=== PATIENT | female | born 1945 | race Caucasian/White ===

== ENCOUNTER → 2016-06-20 | Outpatient (CLI) | payer OTHER ==
[2016-06-20 09:42] LABS: EKG EKG PERFORMED
[2016-06-20 10:09] LABS: Basophils % (A) 0 %; CH 29.1; CHCM 34.3; Eosinophils # (A) 0.4 k/uL (0-0.7); Eosinophils % (A) 5 %; HCT 44.2 % (34.0-46.0); HDW 2.58; HGB 14.2 gm/dL (11.4-16.0); Luc # (Auto) 0.19; Luc % (Auto) 3; Lymphocytes # (A) 1.8 k/uL (1.0-4.8); Lymphocytes % (A) 24 %; MCH 27.3 pg (25.0-35.0); MCHC 32.1 g/dL (31.0-37.0); MCV 85.1 fL (80.0-100.0); Mean Platelet Volume 6.8; Monocytes # (A) 0.4 k/uL (0-1.0); Monocytes % (A) 6 %; Neutrophils # (A) 4.7 k/uL (1.3-7.7); Neutrophils % (A) 63 %; RDW 12.5 % (11.5-15.5); WBC 7.5 k/uL (3.8-10.6)
[2016-06-20 10:21] LABS: Anion Gap 8 mmol/L; Carbon Dioxide 28 mmol/L (22-30); Chloride 99 mmol/L (98-107); Potassium 4.1 mmol/L (3.5-5.1); Sodium 135 mmol/L (137-145)
== END | disposition home or self-care (01) ==
LOC: LABPAT 09:20
PROVIDERS: ATTEND Orthopaedic Surgery
DX: Z01.810 Encounter for preprocedural cardiovascular examination (principal); Z01.812 Encounter for preprocedural laboratory examination
CPT/HCPCS: 80051; 85025; 93005

== ENCOUNTER 2016-06-22 07:51 | Day surgery (SDC) | payer BC, MEDICARE ==
--- NOTE | 2016-06-21 09:24 | HP ---
DATE OF ADMISSION: CHIEF COMPLAINT: Left knee pain. 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 She had a fall. She notes intermittent swelling, catching, and diffuse pain. She notes it does give out on her. She is having night symptoms. She has tried previous injections and medications with only partial temporary relief. PAST MEDICAL HISTORY: Significant for hypertension and hypothyroidism. Past surgical history is negative. CURRENT MEDICATIONS: 1. Atenolol. 2. Benicar. 3. Dyazide. 4. Levothyroxine. 5. Aleve 6. Tylenol with Codeine. She has sensitivity to MORPHINE; however, no tere drug allergies. FAMILY HISTORY: Significant for diabetes and heart disease. SOCIAL HISTORY: Negative for current tobacco or alcohol use. Sixteen-point review of systems otherwise reviewed and is noncontributory. On examination, the patient is approximately 5 feet tall, 155 pounds of mesomorphic habitus. HEENT exam is nonfocal. Neck is supple. She has painless passive motion of her left hip. Straight leg raise is negative. Active motion left knee -8 to125 degrees of flexion. She has a moderate effusion. She is tender about the medial joint line. Collaterals are stable, Debora's negative, Ziyad's elicits medial pain. She has genu varum alignment. Her distal neurovascular exam appears be intact in the left lower extremity. X-rays to include weight-bearing, notch, lateral, and merchant views of the left knee obtained in the office show moderate medial and patellofemoral compartment narrowing. IMPRESSION: 1. Left knee internal derangement with probable medial meniscal tear. 2. Left knee moderate medial compartment osteoarthrosis. RECOMMENDATIONS: I talked to the patient at length regarding her treatment options. She is having persistent pain and mechanical symptoms that limit her despite conservative measures. After thorough discussion of her options, she opts to proceed with surgery. We will plan to proceed with arthroscopic evaluation with possible partial medial meniscectomy versus medial femoral chondrectomy. We will likely perform that as an outpatient procedure. Risks and benefits were discussed at length in layman's terms.
[2016-06-21 12:47] VITALS: BMI 30.2
[~2016-06-22 07:51] MED LIST: LACTATED RINGERS 1,000 ML IV SCH; MIDAZOLAM 2 MG/2 ML VIAL IV PRN; ONDANSETRON 4 MG/2 ML VIAL IVP ONE; ceFAZolin 1,000 MG in DEXTROSE/WATER 1 50ML.BAG IVPB ONE
[2016-06-22] MEDS ORDERED: LIDOCAINE 1% 20 ML VIAL (10MG/ML) FOR IV START INTRADERMA ONE (08:04)
[2016-06-22] MEDS ORDERED: DEXAMETHASONE SOD PHOS (MDV) 100 MG/10 ML VIAL IVP ONE (08:22)
[2016-06-22] MEDS ORDERED: LIDOCAINE 1% INJ 10MG/ML (20 ML MDV) ONE (09:01)
[2016-06-22] MEDS ORDERED: SUCCINYLCHOLINE CHLORIDE 100 MG/5 ML SYR IV ONE (09:01)
[2016-06-22] MEDS ORDERED: fentaNYL (PF) 50 MCG/ML 2 ML AMP ONE (09:01)
[2016-06-22] MEDS ORDERED: MIDAZOLAM 2 MG/2 ML VIAL ONE (09:01)
[2016-06-22] MEDS ORDERED: PROPOFOL 10 MG/ML 20 ML VIAL IV ONE (09:01)
[2016-06-22] MEDS ORDERED: EPINEPHrine (PF) 1 ML in SODIUM CHLORIDE 0.9% IRRIGATIO 3,000 ML IRRIGATION ONE (09:01)
--- NOTE | 2016-06-22 09:51 | P.OP ---
Date of Procedure: 06/22/16 Preoperative Diagnosis: Left knee internal derangement Postoperative Diagnosis: Left knee posterior medial meniscal tear/discoid lateral meniscus with tear/ grade 3 chondral injury distal medial femoral condyle/grade 3 chondral injury distal lateral femoral condyle/grade 2 chondral injury medial patellar facet Procedure(s) Performed: Left knee arthroscopic partial medial meniscectomy/saucerization of the lateral meniscus with partial lateral meniscectomy/medial femoral chondrectomy/lateral femoral chondrectomy/patellar chondroplasty Anesthesia: GHAZALAA Surgeon: Gurmeet Patel Estimated Blood Loss (ml): 10 Pathology: none sent Condition: stable Disposition: PACU Indications for Procedure: The patient's a 71-year-old female who presents with progressive left knee pain and mechanical symptoms after previous twisting injury 2 years ago. She's having progressive symptoms despite conservative measures. A discussion of the risks and benefits of operative intervention versus continued conservative measures was made with the patient. She opted to proceed with surgery. Operative risks to include infection, neurovascular injury, development of blood clots, possible incomplete resolution symptoms, possible worsening symptoms and need for subsequent procedures was discussed. Operative Findings: As below Description of Procedure: The patient was brought to the operating room, and after induction of general anesthesia examined the left knee. Collaterals were stable, Debora was made, and posterior drawer was negative. The left lower extremity was prepped and draped in normal fashion. A superior lateral portal was made through a 3 mm skin incision superior and lateral to the patella. This was used for outflow. A moderate effusion was encountered. A lateral portal was made above the level of the joint line lateral to the patella tendon. A medial portal was made through a similar incision medial to the patellar tendon above the joint line. Diagnostic arthroscopy was performed. On inspection of the medial compartment, she is noted to have an oblique tear involving the posterior horn of the medial meniscus in the white-white junction. This was debrided back to stable base with straight baskets and a motorized shaver. A corresponding grade 3 chondral injury involving the distal medial portion medial femoral condyle was noted. There was a small loose chondral flap that was debrided back to stable base with a motorized shaver. On inspection of the notch, the anterior cruciate ligament appeared to be intact. On inspection of the lateral compartment, she is noted have a discoid lateral meniscus covering the entire tibial plateau. Tearing of the posterior aspect this was noted. At this point I proceed with saucerization of the meniscus along with partial lateral meniscectomy. This was taken back to stable base. A grade 3 chondral injury involving the distal lateral portion of the lateral femoral condyle was noted. There was a loose chondral flap debrided back to stable base with a motorized shaver. On inspection patellofemoral articulation, a grade 2 chondral injury was noted involving the medial patella facet. This was debrided back to stable base with a motorized shaver. The gutters were clear debris. The knee was then thoroughly irrigated. The portals were closed with Steri-Strips. A sterile dressing was applied in addition to a compression stocking. The patient was awoken from general anesthesia and transferred to the recovery room in good condition. Blood loss was estimated 10 mL. No complications were incurred.
[2016-06-22 09:55] VITALS: TEMP 96.8
[2016-06-22] MEDS: HYDROmorphone 1 MG/ML 1 ML SYRINGE IVP PRN ×2 (10:21→10:39)
[2016-06-22] MEDS ORDERED: HYDROcodone/APAP 5-325MG 1 EACH TAB PO ONE (11:41)
[2016-06-22 13:48] VITALS: BP 150/58; PULSE 56; RESP 20
== END 2016-06-22 13:51 | disposition home or self-care (01) ==
LOC: OR 07:51
PROVIDERS: ATTEND Orthopaedic Surgery
DX: M19.90 Unspecified osteoarthritis, unspecified site (principal); S83.242A Other tear of medial meniscus, current injury, left knee, initial encounter; S83.282A Other tear of lateral meniscus, current injury, left knee, initial encounter; X50.1XXA Overexertion from prolonged static or awkward postures, initial encounter; M23.301 Other meniscus derangements, unspecified lateral meniscus, left knee; I10 Essential (primary) hypertension; E03.9 Hypothyroidism, unspecified; Z79.891 Long term (current) use of opiate analgesic; Z79.899 Other long term (current) drug therapy
CPT/HCPCS: 29880; J2250; J2405; J0171; J2001; J3010; J1170; J0690; J1100; J0330; J2704

== ENCOUNTER → 2016-08-03 | Outpatient (CLI) | payer BC, MEDICARE ==
--- NOTE | 2016-08-07 10:18 | MM ---
Reason for exam: screening (asymptomatic). Last mammogram was performed 1 year and 2 months ago. History: Patient is postmenopausal and history of other cancer. Family history of breast cancer in cousin at age 50. Excisional biopsy of the left breast. Excisional biopsy of the right breast. Took estrogen for 1 year 6 months. Took progesterone for 1 year 6 months. Physical Findings: A clinical breast exam by your physician is recommended on an annual basis and results should be correlated with mammographic findings. MG 3D Screening Mammo W/Cad Bilateral CC and MLO view(s) were taken. Prior study comparison: June 03, 2015, bilateral MG 3d screening mammo w/cad. May 10, 2014, bilateral MG screening mammo w CAD. January 02, 2013, bilateral digital screening mammo w/CAD. There are scattered fibroglandular densities. No significant changes when compared with prior studies. ASSESSMENT: Negative, BI-RAD 1 RECOMMENDATION: Routine screening mammogram of both breasts in 1 year.
== END | disposition home or self-care (01) ==
LOC: RADMAMWWP 07-14 11:53
PROVIDERS: ATTEND Family Medicine
DX: Z12.31 Encounter for screening mammogram for malignant neoplasm of breast (principal)
CPT/HCPCS: 77063; G0202

== ENCOUNTER → 2017-06-12 | Outpatient (CLI) | payer BC, MEDICARE ==
--- NOTE | 2017-06-12 14:41 | XR ---
EXAMINATION TYPE: XR lumbar spine 2 or 3V DATE OF EXAM: 06/12/2017 CLINICAL HISTORY: pain TECHNIQUE: Three views of the lumbar spine are submitted. COMPARISON: None. FINDINGS: There are 5 lumbar type vertebral bodies identified. The lumbar spine shows satisfactory alignment w ithout evidence of acute fracture or dislocation. Vertebral body heights are within normal limits. Severe degenerative disc all levels. There is grade 1 anterolisthesis L5 on S1 measuring approximatel y 9 mm. Postoperative changes at L5-S1 noted. The overlying soft tissue appears unremarkable. IMPRESSION: Degenerative changes with grade 1 anterolisthesis L5 on S1. ICD 10 NO FRACTURE, INITIAL EVALUATION
== END | disposition home or self-care (01) ==
LOC: RADXRMAIN 14:12
PROVIDERS: ATTEND Physician Assistant
DX: M43.17 Spondylolisthesis, lumbosacral region (principal); M47.817 Spondylosis without myelopathy or radiculopathy, lumbosacral region
CPT/HCPCS: 72100

== ENCOUNTER → 2017-06-20 | Outpatient (CLI) | payer BC, MEDICARE ==
--- NOTE | 2017-06-20 16:48 | MR ---
EXAMINATION TYPE: MR lumbar spine wo con DATE OF EXAM: 06/20/2017 COMPARISON: Radiograph 06/12/2017 HISTORY: 72-year-old female Previous Surgery 1975, intervertebral disc degeneration, pain TECHNIQUE: Multiplanar, multisequence images of the lumbar spine were acquired. FINDINGS: Exam was performed as ordered, without IV contrast. There are posterior fusion changes at the L5 and S1 levels. There also appears to be dense lateral os seous fusion with laminectomy. The osseous structures are not assessed in detail but there is no abnormal marrow signal or edema harley ntified. The degree of anterolisthesis was underestimated on radiographs. There is a grade 3 anterolisthesis a t L5-S1. Vertebral body heights are maintained. There is some edematous Modic type I endplate change at L2-L3 secondary to degenerative disc disease. Trace grade 1 retrolisthesis at L1-L2 and trace grade 1 anterolisthesis at L3-L4. Variable disc desiccation throughout disc bulging Hypertrophic facet arthropathy throughout with ligamentum flavum thickening. Conus medullaris is normal. No prevertebral or paravertebral soft tissue anomaly seen. Extensive sigmoid diverticulosis noted. At T11-T12, minimal bulging disc and mild facet degenerative change. Changes result in mild right aneudy roforaminal stenosis without spinal canal stenosis. At T12-L1, there is mild diffuse disc bulge and mild facet degenerative change. No significant canal or foraminal stenosis. At L1-L2, mild diffuse disc bulge with ligamentum flavum thickening and facet degenerative change. Tr jamir grade 1 retrolisthesis is present. There is minimal neuroforaminal narrowing on the right. Ventra l impression on the thecal sac without significant spinal canal stenosis. At L2-L3, hypertrophic facet arthropathy is present with bulging disc and ligamentum flavum thickenin g. There is mild circumferential attenuation of the thecal sac without significant spinal canal steno sis. However, changes result in mild left and moderate right neuroforaminal stenosis. Disc material a lso closely approaches and may abut the traversing left L3 nerve root. At L3-L4, there is hypertrophic facet arthropathy with ligamentum flavum thickening, bulging disc, an d trace grade 1 anterolisthesis. There is circumferential attenuation of the thecal sac without signi ficant spinal canal stenosis. Changes result in mild left neuroforaminal stenosis. Facet spur extends into the left lateral recess abutting the cauda equina nerve roots. At L4-L5, probable lateral osseous fusion. No spinal canal or neural foraminal stenosis. At L5-S1, grade 3 anterolisthesis as mentioned above. Likely fusion at this level. No spinal canal or neural foraminal stenosis. IMPRESSION: 1. Posterior fixation hardware at L5 and S1 levels with prominent lateral osseous fusion suspected fr om L4 through S1; L5 laminectomy. 2. The degree of anterolisthesis at L5-S1 was underestimated on 06/12/2017 radiographs. There is a gra de 3 anterolisthesis here, suspected chronic. No spinal canal or neural foraminal stenosis at this le corinne. 3. Multilevel moderate degenerative disc disease as well as hypertrophic facet arthropathy and ligame ntum flavum thickening. Associated edematous Modic type I endplate change at L2-L3. 4. Trace grade 1 retrolisthesis at L1-L2 and trace grade 1 anterolisthesis at L3-L4. 5. Mild attenuation of the spinal canal L2-L3 and L3-L4 without significant spinal canal stenosis. 6. Moderate right and mild left neural foraminal stenosis at L2-L3. Disc material also closely approa ches and may abut the traversing left L3 nerve root at this level. 7. Additional variable minimal to mild neural foraminal narrowing as outlined above. 8. Sigmoid diverticulosis.
== END | disposition home or self-care (01) ==
LOC: RADMRIMAIN 15:08
PROVIDERS: ATTEND Family Medicine
DX: M99.73 Connective tissue and disc stenosis of intervertebral foramina of lumbar region (principal); M43.16 Spondylolisthesis, lumbar region; M51.36 Other intervertebral disc degeneration, lumbar region; M46.86 Other specified inflammatory spondylopathies, lumbar region; Z98.890 Other specified postprocedural states
CPT/HCPCS: 72148

== ENCOUNTER → 2017-07-25 | Outpatient (CLI) | payer BC, MEDICARE ==
--- NOTE | 2017-07-25 15:51 | XR ---
EXAMINATION TYPE: XR chest 2V DATE OF EXAM: 07/25/2017 COMPARISON: Prior chest x-ray October 13, 2011 HISTORY: Presurgical study. TECHNIQUE: Frontal and lateral views of the chest are obtained. FINDINGS: There is no focal air space opacity, pleural effusion, or pneumothorax seen. The cardiac silhouette size is stable and upper limits of normal with atherosclerotic change in the aortic knob n ow identified. There is additional atherosclerotic change in the abdominal aorta on lateral view. Sli ght underlying is shaped scoliotic curvature is now present. There is partial visualization of surgic al change in the lower lumbar spine on lateral view. IMPRESSION: No acute cardiopulmonary process.
== END | disposition home or self-care (01) ==
LOC: RADXRMAIN 15:26
PROVIDERS: ATTEND Orthopaedic Surgery
DX: Z01.818 Encounter for other preprocedural examination (principal)
CPT/HCPCS: 71046

== ENCOUNTER 2017-08-06 09:13 | Inpatient (IN) | payer BC, MEDICARE ==
[2017-07-26 14:37] VITALS: BMI 29.7
--- NOTE | 2017-08-05 09:53 | HP ---
HISTORY AND PHYSICAL CHIEF COMPLAINT: Left knee pain. HISTORY OF PRESENT ILLNESS: The patient is a 72-year-old female who presents with progressive left knee pain secondary to osteoarthrosis despite extensive conservative measures. She has tried previous medications and injections with progression of her symptoms. She is having pain that limits her normal function and activities. PAST MEDICAL HISTORY: Significant for hypertension and hypothyroidism. PAST SURGICAL HISTORY: Significant for previous left knee arthroscopy. CURRENT MEDICATIONS: Atenolol, Benicar, Dyazide, levothyroxine, and aspirin. ALLERGIES: She notes sensitivities to MORPHINE, however, no tere drug allergies. FAMILY HISTORY: Significant for heart disease. SOCIAL HISTORY: Negative for current tobacco or alcohol use. REVIEW OF SYSTEMS: Sixteen point review of systems otherwise reviewed and is noncontributory. PHYSICAL EXAMINATION: On examination, the patient is approximately 5 feet tall, 155 pounds of mesomorphic habitus. HEENT exam is nonfocal. NECK: Supple. She has painless passive motion of the left hip. Straight leg raise is negative. Active motion left knee -10 to 115 degrees of flexion. She has a large effusion. She has a palpable posterior Childs cyst. She is tender about the medial and lateral joint line. Collaterals are stable, Debora's negative, Ziyad's is equivocal. She has genu valgum alignment. Her distal neurovascular exam appears intact in the left lower extremity. Weightbearing notch lateral Merchant views left knee obtained in the office show severe lateral and patellofemoral compartment narrowing. IMPRESSION: Left knee severe lateral and patellofemoral compartment osteoarthrosis. RECOMMENDATIONS: I talked to the patient at length regarding her treatment options. At this point, she remains quite symptomatic despite conservative measures, related to pain with her osteoarthrosis. After thorough discussion, she opts to proceed with surgery. We will plan to proceed with left total knee arthroplasty. Risks and benefits were discussed at length in layman's terms. We will likely institute DVT prophylaxis postoperatively. The patient underwent preoperative medical evaluation by Dr. Jon. LEANDER / CAL: [id number] /
[~2017-08-06 09:13] MED LIST changes: +ACETAMINOPHEN TAB 500 MG TAB PO ONE; -LACTATED RINGERS 1,000 ML IV SCH; +LIDOCAINE 1% 20 ML VIAL (10MG/ML) FOR IV START INTRADERMA PRN; +MELOXICAM 7.5 MG TAB PO ONE; -ONDANSETRON 4 MG/2 ML VIAL IVP ONE; +ONDANSETRON ODT 4 MG TAB PO ONE; +TRANEXAMIC ACID 1,000 MG in SODIUM CHLORIDE 0.9% 50 ML IVPB ONE; -ceFAZolin 1,000 MG in DEXTROSE/WATER 1 50ML.BAG IVPB ONE; +ceFAZolin IN SWFI 2 GM/20 ML SYRINGE IVP ONE
[2017-08-06] MEDS: LACTATED RINGERS 1,000 ML IV SCH (10:11)
[2017-08-06] MEDS ORDERED: ROPIVACAINE 246.25 MG, EPINEPHrine 0.5 MG, KETOROLAC 30 MG, cloNIDine HCL/PF 80 MCG, WA... MISCELLANE ONE ×5 (10:31)
[2017-08-06] MEDS ORDERED: ePHEDrine SULFATE/0.9% NACL/PF 50 MG/5 ML SYRINGE IV ONE (11:34)
[2017-08-06] MEDS ORDERED: SODIUM CHLORIDE 0.9% 100 ML BAG ONE (11:34)
[2017-08-06] MEDS ORDERED: fentaNYL (PF) 50 MCG/ML 2 ML AMP ONE (11:34)
[2017-08-06] MEDS ORDERED: PROPOFOL 10 MG/ML 20 ML VIAL IV ONE (11:34)
[2017-08-06] MEDS ORDERED: TRANEXAMIC ACID 1,000 MG/10 ML VIAL ONE (11:34)
[2017-08-06] MEDS ORDERED: MIDAZOLAM 2 MG/2 ML VIAL ONE (11:34)
[2017-08-06] MEDS ORDERED: ceFAZolin 3,000 MG in SODIUM CHLORIDE 0.9% IRRIGATIO 3,000 ML IRRIGATION ONE (11:38)
[2017-08-06] MEDS ORDERED: ROPIVACAINE 1,100 MG, SODIUM CHLORIDE 0.9% 330 ML MISCELLANE PRN ×2 (12:26)
--- NOTE | 2017-08-06 12:28 | P.ONQ ---
Anesthesiology Proc Note - PNB - Peripheral Nerve Block Performed Left Adductor Canal Time Out Performed: Yes (10:19) Indication: Acute Post-Operative Pain, Requested by physician (Dr Patel) Sedation Type: Sedate with meaningful contact maintained Preparation: Sterile Dressing Position: Supine Catheter: Indwelling Needle Types: Other (see comment) (Max) Needle Size: 100mm (4") Needle Gauge: 21 Technique: Ultrasound Injectate: 0.5% Ropivacaine (see comment for volume) (20cc) Blood Aspirated: No Pain Paresthesia on Injection Noted: No Resistance on Injection: Normal Events: Uneventful and Well Tolerated
[2017-08-06] MEDS ORDERED: LACTATED RINGERS 1,000 ML IV ONE (13:08)
[2017-08-06] MEDS ORDERED: NALOXONE 0.4 MG/ML 1 ML VIAL IV PRN (13:09)
[2017-08-06] MEDS ORDERED: HYDROcodone/APAP 5-325MG 1 EACH TAB PO PRN (13:09)
[2017-08-06] MEDS ORDERED: traMADol 50 MG TAB PO PRN (13:09)
[2017-08-06] MEDS ORDERED: MAGNESIUM HYDROXIDE 2,400 MG/10 ML CUP PO PRN (13:09)
--- NOTE | 2017-08-06 13:39 | P.OP ---
Date of Procedure: 08/06/17 Preoperative Diagnosis: Left knee severe tricompartmental osteoarthrosis Postoperative Diagnosis: Same Procedure(s) Performed: Left total knee wzbflskhaamd-ldrjwlkt-vrrasgacr stabilized Implants: Depuy Attune size 6 cemented femoral component, size 5 cemented tibial component , 10 mm articular surface, 32 mm cemented patellar component. This is a posterior stabilized implant. Anesthesia: regional, local, spinal Surgeon: Gurmeet Patel Reamer Hand #1: Duncan Andre Estimated Blood Loss (ml): 50 Pathology: other (Bone fragments) Condition: stable Disposition: PACU Indications for Procedure: The patient's a 72-year-old female who presents with progressive left knee pain secondary osteoarthrosis despite extensive conservative measures. A discussion of the risks and benefits of operative intervention versus continued conservative measures was made with the patient. She opted to proceed with surgery. Operative risks to include infection, neurovascular injury, development of blood clots, possible component loosening, possible component failure and need for subsequent procedures was discussed. Informed consent was obtained. Operative Findings: As below Description of Procedure: The patient was brought to the operating room, and after induction of spinal anesthesia the left lower extremity was prepped and draped in normal fashion. The tourniquet was inflated to 70 mmHg. A longitudinal incision extending 3 finger breaths above the superior pole of patella extending to the medial aspect the tibial tubercle was then made. The skin and subcutaneous tissues were divided sharply. Electrocautery was used for hemostasis. A medial parapatellar arthrotomy was then performed. The patella was everted. A portion of the retropatellar fat pad was excised sharply. The medial soft tissues to include the superficial and deep portions of the medial collateral ligament were elevated subperiosteally. I did elevate the popliteus and lateral collateral off the lateral femoral condyle with electrocautery as she had a valgus deformity. The knee was flexed. The anterior cruciate ligament was sacrificed. A starting hole was made in the distal femur 1 cm anterior to the posterior cruciate ligament origin. An intramedullary femoral guide was gently inserted planning on 5 valgus distal cut with 9 mm distal resection. The distal cutting block was pinned in place. The distal cut was then made. The posterior referencing sizing guide was utilized. I felt size 6 was most appropriate. 3 of external rotation was built into the system and verified off the trans-epicondylar axis and the posterior condyles. The cutting block was pinned in place. The anterior, posterior, and chamfer cuts were then made. The bone fragments were removed. The proximal guide was placed and pinned. A reciprocating saw was used to make the box cut. The bone was removed in one fragment. The trial size 6 femoral component was placed and was fully seated. There was good anterior to posterior and medial to lateral fit. The peg holes were drilled. The trial component was removed. An extra medullary tibial guide was utilized in line with the tibial shaft and second metatarsal distally. I planned on 3 posterior slope. I planned on 7 mm resection from the medial compartment. The cutting block was pinned in place. The proximal tibial cut was made in the bone removed in one fragment. The tibia sized most appropriate size 5. The remnants of the medial and lateral menisci were excised at the capsular junction with electrocautery. The trial femoral and tibial components were placed along with a 10 mm articular surface. I was able to obtain full flexion and extension with good stability with varus and valgus stress. After several flexion and extension cycles, the tibial rotation was marked with electrocautery in line with the medial one third of the tibial tubercle. Attention was then paid towards preparing the patella. A patella reamer was utilized taking this down to 14 mm of bone stock. A good flush cut was made. The patella sized most appropriately 32 mm. The peg holes were drilled. The trial components placed. The knee was taken through range of motion. I had good patellofemoral tracking with no hands technique. The trial components were then removed. The tibia was prepared in the appropriate rotation with appropriate drill and keel punch. Posterior osteophytes of the distal femur were carefully removed with a curved osteotome. The flexion and extension gaps were checked and felt to be symmetric. The posterior soft tissues were injected with ropivacaine. The bony surfaces were prepared with pulsatile lavage and dried. The tibial component was then cemented in place and was fully seated. Excess cement was removed. The femoral component cemented placed and was fully seated. Excess cement was removed. The trial 10 mm articular surface was placed and knee was put in full extension. The patella component was cemented place and was fully seated. After the cement had sufficiently hardened, and the knee was again taken through range of motion. Again I felt was well balanced and was able to obtain full flexion and extension with good stability with varus and valgus stress. The trial 10 mm articular surface was removed and the final one inserted. This was fully seated. Care was taken to avoid any soft tissue interposition. Pulsatile lavage was again utilized. The tourniquet was deflated with approximately 50 minutes total tourniquet time. The medial parapatellar arthrotomy was closed with #2 Ethibond suture. A deep drain was placed exiting laterally. The second dose of IV TXA was given. The subcutaneous tissues were reapproximated with interrupted 2-0 Vicryl sutures. The skin was reapproximated with 3-0 subcuticular strata fix suture. Skin tape and adhesive was applied. A sterile dressing was applied. The patient was awoken from sedation and transferred to recovery room in good condition. Blood loss was estimated at 50 mL. No complications were incurred. Sponge and needle counts were correct at the end of the case.
--- NOTE | 2017-08-06 13:55 | XR ---
EXAMINATION TYPE: XR knee limited LT DATE OF EXAM: 08/06/2017 CLINICAL HISTORY: Postoperative evaluation Two views of the left knee are submitted. Identified are changes of total knee arthroplasty with fem oral and tibial components appearing well seated. Postsurgical soft tissue changes are noted. Align ment is anatomic.
[2017-08-06] MEDS: SENNOSIDES-DOCUSATE SODIUM 1 EACH TAB PO SCH (21:10)
[2017-08-06] MEDS: ceFAZolin IN SWFI 2 GM/20 ML SYRINGE IVP SCH (21:10)
[2017-08-07] MEDS: ACETAMINOPHEN TAB 325 MG TAB PO PRN ×2 (01:08→19:13)
[2017-08-07] MEDS: ONDANSETRON 4 MG/2 ML VIAL IVP PRN ×2 (02:19→15:14)
[2017-08-07] MEDS: ceFAZolin IN SWFI 2 GM/20 ML SYRINGE IVP SCH (04:36)
[2017-08-07] MEDS: LACTATED RINGERS 1,000 ML IV SCH ×2 (05:15→20:34)
[2017-08-07 07:28] LABS: Basophils % (A) 0 %; Eosinophils # (A) 0.1 k/uL (0-0.7); Eosinophils % (A) 1 %; HCT 31.7 % (34.0-46.0); Lymphocytes % (A) 16 %; MCH 28.2 pg (25.0-35.0); MCHC 33.8 g/dL (31.0-37.0); MCV 83.5 fL (80.0-100.0); Mean Platelet Volume 7.6; Monocytes # (A) 0.4 k/uL (0-1.0); Monocytes % (A) 6 %; Neutrophils # (A) 4.8 k/uL (1.3-7.7); Neutrophils % (A) 75 %; Platelet Count 156 k/uL (150-450); RDW 12.6 % (11.5-15.5); WBC 6.4 k/uL (3.8-10.6)
[2017-08-07 07:32] LABS: HGB 10.7 gm/dL (11.4-16.0)
--- NOTE | 2017-08-07 09:36 | P.PN ---
Progress Note - Text The patient is status post left adductor canal catheter placement. The catheter was placed for postoperative pain control, status post total left arthroplasty. Ropivacaine 0.2% is infusing at 8 mLs per hour. The patient has no complaints of left lower extremity numbness or weakness. Patient's VAS score is 1-2-10. Assessment: Patient's adductor canal catheter is in place and working appropriately. Plan: continue infusion and adjust it as needed.
[2017-08-07] MEDS: LEVOTHYROXINE 112 MCG TAB PO SCH (12:02)
[2017-08-07] MEDS: LOSARTAN 50 MG TAB PO SCH (12:03)
[2017-08-07] MEDS: RIVAROXABAN 10 MG TAB PO SCH (12:03)
--- NOTE | 2017-08-07 12:18 | P.PN ---
Subjective Progress Note Date: 08/07/17 Principal diagnosis: Status post left total knee arthroplasty Patient seen today resting in her hospital chair. Patient has had significant nausea this morning and has vomited once. She also complained of some lightheadedness upon standing. She's ambulated minimally with therapy. She is urinating on her own. She denies any chest pain or shortness of breath. Objective - Vital Signs Vital signs: Vital Signs Temp 97.5 F L 08/07/17 08:20 Pulse 51 L 08/07/17 08:20 Resp 16 08/07/17 08:20 BP 141/59 08/07/17 08:20 Pulse Ox 96 08/07/17 08:20 Intake & Output 08/06/17 08/07/17 08/07/17 18:59 06:59 18:59 Intake Total 1401 575 250 Output Total 905 1235 1050 Balance 496 660 -800 Weight 68.946 kg Intake: IV 1201 Intake, IV Titration 175 Amount Lactated Ringers 1,000 ml 175 @ 50 mls/hr IV .Q20H BASSAM Rx#:[id number] Oral 200 400 250 Output: Drainage 80 260 Left Knee 80 260 Urine 015 819 6219 Uretheral (Amor) 600 1000 Estimated Blood Loss 50 Other: Voiding Method Indwelling Catheter Indwelling Catheter Indwelling Catheter - Exam Lower extremity: Incision is clean, dry, and intact. The prineo tape is in good condition. Obvious effusion present over the knee. Calf is soft, no tenderness with palpation. Plantar flexion, dorsiflexion, EHL, FHL are intact. Sensory exam to light touch throughout the extremity is intact, dorsal pedis pulses 2+. - Labs CBC & Chem 7: 08/07/17 07:00 Labs: Abnormal Lab Results - Last 24 Hours (Table) 08/07/17 Range/Units 07:00 Hgb 10.7 L D (11.4-16.0) gm/dL Hct 31.7 L (34.0-46.0) % Assessment and Plan Plan: Assessment: 1. Postop day 1 status post left total knee arthroplasty Plan: 1. Pain control, continue supportive oral medication 2. Daily dressing changes/ice and elevate 3. Continue work physical therapy and use of CPM 4. GI and DVT prophylaxis, continue Xarelto 10 mg once a day 5. Medical recommendations 6. Advised patient she needs to eat before taking pain medication help with nausea, we'll continue to watch her symptoms at this time 7. Discharge planning: May consider rehab for patient Time with Patient: Less than 30
[2017-08-07] MEDS: FAMOTIDINE 20 MG TAB PO SCH (13:29)
[2017-08-07] MEDS: LACTOBACILLUS ACIDOPH & BULGAR 1 EACH PACKET PO SCH (13:29)
[2017-08-07] MEDS: ATENOLOL 50 MG TAB PO SCH (15:19)
[2017-08-07] MEDS ORDERED: Acetaminophen-Codeine 300-30mg TAB PO PRN (20:11)
[2017-08-07] MEDS: SENNOSIDES-DOCUSATE SODIUM 1 EACH TAB PO SCH (20:33)
[2017-08-07] MEDS: FLUTICASONE 50MCG/SPRAY NASAL 16GM EA NOSTRIL SCH (20:33)
--- NOTE | 2017-08-07 21:27 | PN ---
PROGRESS NOTE DATE OF SERVICE: 08/07/2016. This 72-year-old woman was admitted with left knee arthroplasty, improving significantly. No chest pain. No palpitations. No fever. EXAM: Alert and oriented x3. Pulse is 51, blood pressure 141/59, respirations 16, temperature 97.4, pulse ox 96% on room air. HEENT: Conjunctivae normal. NECK: No jugular venous distention. CARDIOVASCULAR: S1, S2 muffled. RESPIRATORY: Breath sounds diminished in the bases. A few scattered rhonchi. No crackles. ABDOMEN: Soft, nontender. LEGS: Status post arthroplasty. NERVOUS SYSTEM: Nonfocal. LABS: Hemoglobin 10.7. ASSESSMENT: 1. Status post left knee arthroplasty. 2. Hypertension. 3. History of myocardial infarction. 4. History of degenerative joint disease. 5. History of hypothyroidism. 6. History of back surgery. RECOMMENDATIONS AND DISCUSSION: Continue current medical management and symptomatic treatment. Otherwise at this time, I recommend to monitor closely, pain management, DVT prophylaxis. Closely follow. Further recommendations to follow. Home medication has been reconciled. MMODL / IJN: [id number] /
--- NOTE | 2017-08-07 21:50 | CONS ---
CONSULTATION DATE OF SERVICE: 08/06/2017. REASON FOR CONSULTATION: Advice regarding hypertension and other medical issues requested by Orthopedic Surgery. HISTORY OF PRESENT ILLNESS: This 72-year-old woman with a past medical history of multiple medical problems including hypertension, history of myocardial infarction, hypothyroidism, history of back surgery, cardiac catheterization, anxiety being followed by Dr. Subhash Jon in the outpatient setting admitted for left knee arthroplasty. Medical consultation was sought for medical management and evaluation of hypertension and treatment. There is no history of any fever, rigors. No history of headache, loss of consciousness, seizures. PAST MEDICAL: Hypertension, history of myocardial infarction, DJD, hypothyroidism. HOME MEDICATIONS: 1. Coenzyme Q 300 mg daily. 2. Dyazide 1 p.o. daily. 3. Losartan 100 mg daily. 4. Synthroid 112 mcg p.o. daily. 5. Probiotic 1 p.o. daily. 6. Flonase 2 sprays q.h.s. 7. Vitamin D2 1000 mcg p.o. daily. 8. Calcium-magnesium 1 p.o. daily. 9. Tenormin 50 mg daily. 10.Aspirin 650 mg daily p.r.n. 11.Tylenol No.3, 0.5 mg daily. 12.Xarelto 10 mg p.o. daily. ALLERGIES: MORPHINE. FAMILY HISTORY: No history of heart disease, strokes in the family. SOCIAL HISTORY: Previous history of smoking. No history of current smoking or alcohol intake. REVIEW OF SYSTEMS: ENT: No diminished hearing, diminished vision. CARDIOVASCULAR: No angina, palpitations. RESPIRATORY: No cough. GI: No nausea. : No dysuria. NERVOUS: No numbness or weakness. ALLERGY/IMMUNOLOGY: No asthma or hay fever. MUSCULOSKELETAL: As mentioned earlier. HEMATOLOGY/ONCOLOGY: No history of anemia. ENDOCRINE: No history of diabetes. Hypothyroidism as mentioned. CONSTITUTIONAL: As mentioned earlier. DERMATOLOGY: Negative. RHEUMATOLOGY: Negative. PSYCHIATRY: As mentioned earlier. PHYSICAL EXAMINATION: The patient is alert and oriented x3. Pulse is 54, blood pressure 130/66, respirations 14, temperature 97.6, pulse ox 97% on room air. HEENT: Conjunctivae normal. NECK: No jugular venous distention. CARDIOVASCULAR: S1, S2 muffled. RESPIRATORY: Breath sounds diminished in the bases. No rhonchi. No crackles. ABDOMEN: Soft, nontender. No mass palpable. LEGS: Status post knee arthroplasty. NERVOUS SYSTEM: Higher functions as mentioned earlier. Moves all 4 limbs. No focal deficits. LYMPHATIC: No lymphadenopathy in neck or axillae. SKIN: No ulcer, rash or bleeding. LABS: At this time shows labs are awaited. ASSESSMENT: 1. Status post left total knee arthroplasty. 2. Elevated hypertension. 3. History of myocardial infarction. 4. History of degenerative joint disease. 5. History of hypothyroidism. 6. History of back surgery. 7. History of degenerative joint disease. 8. History of anxiety. 9. Remote history of nicotine dependence. RECOMMENDATIONS AND DISCUSSION: Recommend to continue current medical management, continue symptomatic treatment. I would recommend resuming the home medication. Monitor blood pressure closely. Otherwise, I would monitor. DVT prophylaxis, incentive spirometry. Otherwise, closely follow with Orthopedic Surgery. Further recommendations to follow. MMODL / IJN: [id number] /
[2017-08-08] MEDS: TRIAMTERENE-HCTZ 37.5-25MG 1 EACH CAP PO SCH (08:02)
[2017-08-08] MEDS: LEVOTHYROXINE 112 MCG TAB PO SCH (08:02)
[2017-08-08] MEDS: ASPIRIN 81 MG PO SCH (08:03)
[2017-08-08] MEDS: FAMOTIDINE 20 MG TAB PO SCH (08:03)
[2017-08-08] MEDS: RIVAROXABAN 10 MG TAB PO SCH (08:03)
[2017-08-08] MEDS: LACTATED RINGERS 1,000 ML IV SCH (08:03)
[2017-08-08] MEDS: LOSARTAN 50 MG TAB PO SCH (08:03)
[2017-08-08] MEDS ORDERED: NON-FORMULARY DRUG (Calcium/Magnesium 1 TAB) PO SCH (09:00)
[2017-08-08] MEDS: HYDROcodone/APAP 5-325MG 1 EACH TAB PO PRN (09:07)
--- NOTE | 2017-08-08 11:16 | P.PN ---
Progress Note - Text Progress Note Date: 08/08/17 S: The patient has no complaints. They deny shortness of breath or chest pain. She notes moderate left knee pain. O: Afebrile, vital signs stable, blood pressure elevated Homans negative left lower extremity Distal neurovascular status intact in the operative extremity Incision clean, dry , and intact A/P: Postoperative day 2 status post left total knee arthroplasty Medical management Hypertension DVT prophylaxis with Xarelto Discharge planning Anticipated discharge tomorrow
[2017-08-08] MEDS: LACTOBACILLUS ACIDOPH & BULGAR 1 EACH PACKET PO SCH (11:24)
[2017-08-08 12:06] LABS: Basophils % (A) 0 %; Eosinophils # (A) 0.2 k/uL (0-0.7); Eosinophils % (A) 2 %; HCT 32.2 % (34.0-46.0); HGB 11.2 gm/dL (11.4-16.0); Lymphocytes # (A) 1.4 k/uL (1.0-4.8); Lymphocytes % (A) 17 %; MCH 29.4 pg (25.0-35.0); MCHC 34.9 g/dL (31.0-37.0); MCV 84.2 fL (80.0-100.0); Monocytes # (A) 0.4 k/uL (0-1.0); Monocytes % (A) 5 %; Neutrophils # (A) 6.1 k/uL (1.3-7.7); Neutrophils % (A) 74 %; Platelet Count 172 k/uL (150-450); RBC 3.82 m/uL (3.80-5.40); RDW 12.7 % (11.5-15.5); WBC 8.2 k/uL (3.8-10.6)
[2017-08-08 12:13] LABS: ALT 26 U/L (9-52); AST 27 U/L (14-36); Albumin 3.3 g/dL (3.5-5.0); Alkaline Phosphatase 30 U/L (38-126); Anion Gap 8 mmol/L; Blood Urea Nitrogen 10 mg/dL (7-17); Calcium 8.5 mg/dL (8.4-10.2); Carbon Dioxide 27 mmol/L (22-30); Chloride 97 mmol/L (98-107); Glucose 100 mg/dL (74-99); Potassium 4.2 mmol/L (3.5-5.1); Sodium 132 mmol/L (137-145); Total Bilirubin 0.6 mg/dL (0.2-1.3); Total Protein 5.1 g/dL (6.3-8.2)
--- NOTE | 2017-08-08 15:31 | PN ---
PROGRESS NOTE DATE OF SERVICE: 08/08/2017 This 72-year-old woman was admitted after left joint arthroplasty is complaining of some knee pain. Patient complains of dizziness also. No chest pain. No palpitations. No fever. EXAM: Alert and oriented x3. Pulse is 57, blood pressure 170/78, no orthostatic changes, respirations 17, temperature 97.8. HEENT: Conjunctivae normal. NECK: No jugular venous distention. CARDIOVASCULAR: S1, S2. RESPIRATORY: Breath sounds diminished in the bases. No rhonchi, no crackles. ABDOMEN: Soft, nontender. LEGS: Status post of arthroplasty. NERVOUS SYSTEM: No focal deficits. LABS: Hemoglobin 11.2, sodium 132, albumin 3.3. ASSESSMENT: 1. Status post left total knee arthroplasty. 2. Elevated blood pressure with hypertension labile. 3. Dizziness. 4. History myocardial infarction. 5. History of degenerative joint disease. 6. History of hypothyroidism. 7. History of back surgery. 8. History anxiety. 9. Remote history of nicotine dependence. RECOMMENDATIONS AND DISCUSSION: This 72-year-old woman who presented with multiple medical problems, we will monitor the patient closely. Continue the current management and symptomatic treatment. At this time I would recommend to adjust the blood pressure medications. Orthostatic vitals. Increase ambulation. DVT prophylaxis. Resume the rest of the medications. Further recommendations to follow. MMLOIL / AUGIEN: [id number] /
[2017-08-08] MEDS: SENNOSIDES-DOCUSATE SODIUM 1 EACH TAB PO SCH (20:07)
[2017-08-08] MEDS: ATENOLOL 50 MG TAB PO SCH (20:08)
[2017-08-08] MEDS: ACETAMINOPHEN TAB 325 MG TAB PO PRN (20:08)
[2017-08-08] MEDS: FLUTICASONE 50MCG/SPRAY NASAL 16GM EA NOSTRIL SCH (20:09)
[2017-08-09] MEDS: LEVOTHYROXINE 112 MCG TAB PO SCH (06:27)
[2017-08-09 07:36] LABS: Basophils % (A) 0 %; Eosinophils # (A) 0.4 k/uL (0-0.7); Eosinophils % (A) 5 %; HCT 35.3 % (34.0-46.0); HGB 11.7 gm/dL (11.4-16.0); Lymphocytes # (A) 2.3 k/uL (1.0-4.8); Lymphocytes % (A) 28 %; MCH 28.4 pg (25.0-35.0); MCHC 33.2 g/dL (31.0-37.0); MCV 85.4 fL (80.0-100.0); Mean Platelet Volume 7.6; Monocytes # (A) 0.6 k/uL (0-1.0); Monocytes % (A) 7 %; Neutrophils # (A) 4.9 k/uL (1.3-7.7); Neutrophils % (A) 59 %; Platelet Count 198 k/uL (150-450); RBC 4.13 m/uL (3.80-5.40); RDW 12.8 % (11.5-15.5); WBC 8.4 k/uL (3.8-10.6)
[2017-08-09 07:47] LABS: Anion Gap 9 mmol/L; Blood Urea Nitrogen 8 mg/dL (7-17); Calcium 8.7 mg/dL (8.4-10.2); Carbon Dioxide 30 mmol/L (22-30); Chloride 96 mmol/L (98-107); Glucose 90 mg/dL (74-99); Potassium 4.2 mmol/L (3.5-5.1); Sodium 135 mmol/L (137-145)
[2017-08-09 08:18] VITALS: RESP 16
[2017-08-09] MEDS: LOSARTAN 50 MG TAB PO SCH (08:27)
[2017-08-09] MEDS: FAMOTIDINE 20 MG TAB PO SCH (08:27)
[2017-08-09] MEDS: ASPIRIN 81 MG PO SCH (08:27)
[2017-08-09] MEDS: RIVAROXABAN 10 MG TAB PO SCH (08:27)
[2017-08-09] MEDS: TRIAMTERENE-HCTZ 37.5-25MG 1 EACH CAP PO SCH (08:27)
--- NOTE | 2017-08-09 10:30 | P.PN ---
Progress Note - Text Progress Note Date: 08/09/17 S: The patient has no complaints. They deny shortness of breath or chest pain. She notes her dizziness has resolved. O: Afebrile, vital signs stable Homans negative left lower extremity Distal neurovascular status intact in the operative extremity Incision clean, dry , and intact A/P: Postoperative day 3 status post left total knee arthroplasty DVT prophylaxis with Xarelto Discharge home today Discharge instructions as written
--- NOTE | 2017-08-09 10:32 | P.DS ---
Providers Date of admission: 08/06/17 09:13 Expected date of discharge: 08/09/17 Attending physician: Gurmeet Patel Consults: 08/06/17 13:09 Consult Physician Routine Consulting Provider: Subhash Jon Consult Reason/Comments: medical management Do you want consulting provider notified?: Yes 08/06/17 13:59 Consult Physician Routine Consulting Provider: Dago Olivas Consult Reason/Comments: medical management Do you want consulting provider notified?: Yes Primary care physician: Subhash Jon Hospital Course: The patient underwent left total knee arthroplasty without complication. Postoperatively she progressed slowly with therapy. She did have episodes of dizziness and was followed by internal medicine. Upon discharge she had good return of bowel and bladder function. Her incision was clean dry and intact. She was afebrile with stable vital signs. Procedures: Left total knee arthroplasty Patient Condition at Discharge: Good Plan - Discharge Summary Discharge Rx Participant: Yes New Discharge Prescriptions: New Rivaroxaban [Xarelto] 10 mg PO DAILY #12 tab HYDROcodone/APAP 5-325MG [[place] 5-325] 1 tab PO Q4HR PRN #40 tab PRN Reason: Pain No Action Atenolol [Tenormin] 50 mg PO HS Losartan Potassium 100 mg PO QAM Triamterene-Hctz 37.5-25Mg [Dyazide 37.5-25 Capsule] 1 tab PO DAILY Fluticasone Nasal [place] [Flonase Nasal [place]] 2 spray EA NOSTRIL HS Aspirin 650 mg PO DAILY PRN PRN Reason: Pain Acetaminophen-Codeine 300-30mg [Tylenol #3] 0.5 tab PO Q6H PRN PRN Reason: Pain Dhea (Unknown Dose) 1 tab PO DAILY Ubidecarenone [Co Q-10] 300 mg PO DAILY L.acidoph,Paracasei, B.lactis [Probiotic] 1 cap PO DAILY Cyanocobalamin (Vitamin B-12) [Vitamin B-12] 1,000 mcg PO DAILY Calcium/Magnesium 1 tab PO DAILY Levothyroxine Sodium [Synthroid] 112 mcg PO DAILY Discharge Medication List Atenolol [Tenormin] 50 mg PO HS 07/31/14 [History] Losartan Potassium 100 mg PO QAM 07/31/14 [History] Triamterene-Hctz 37.5-25Mg [Dyazide 37.5-25 Capsule] 1 tab PO DAILY 07/31/14 [ History] Fluticasone Nasal [place] [Flonase Nasal [place]] 2 spray EA NOSTRIL HS 06/21/16 [ History] Acetaminophen-Codeine 300-30mg [Tylenol #3] 0.5 tab PO Q6H PRN 07/26/17 [History ] Aspirin 650 mg PO DAILY PRN 07/26/17 [History] Calcium/Magnesium 1 tab PO DAILY 07/26/17 [History] Cyanocobalamin (Vitamin B-12) [Vitamin B-12] 1,000 mcg PO DAILY 07/26/17 [ History] Dhea (Unknown Dose) 1 tab PO DAILY 07/26/17 [History] L.acidoph,Paracasei, B.lactis [Probiotic] 1 cap PO DAILY 07/26/17 [History] Ubidecarenone [Co Q-10] 300 mg PO DAILY 07/26/17 [History] Levothyroxine Sodium [Synthroid] 112 mcg PO DAILY 08/06/17 [History] Rivaroxaban [Xarelto] 10 mg PO DAILY #12 tab 08/06/17 [Rx] HYDROcodone/APAP 5-325MG [[place] 5-325] 1 tab PO Q4HR PRN #40 tab 08/09/17 [Rx] Follow up Appointment(s)/Referral(s): Subhash Jon MD [Primary Care Provider] - 08/15/17 10:00 am Duncan Andre PAC [PHYSICIAN AGRONOMY INSTRUCTOR] - 08/23/17 2:50 pm [facility] Visiting Nurse, [NON-STAFF] - Activity/Diet/Wound Care/Special Instructions: Orthopedic Discharge Instructions: 1. Wound care and infection precautions, keep incision dry and covered while showering, no lotions, creams, moisturizers. No soaking, pools, hot tubs. Do not scrub over incision. 2. Weight-bear as tolerated with walker / cane until follow-up. 3. Ice and elevate when necessary. Do not exceed 20 minutes per hour with ice pack. 4. Utilize compression sleeve until seen at first follow up appointment. 5. Visiting nursing care. 6. Home physical therapy including home CPM. 7. Pain meds and anticoagulants per prescription. 8. Pain medication has potential to cause constipation. Increase oral fluid and fiber intake. Contact primary care provider if you have not had a bowel movement within 48 hours after discharge. 9. No anti-inflammatory medication until discussed at first post operative visit, this including Motrin, Aleve, Mobic, Diclofenac. 10. Follow up in office at 2 weeks postop with Chidi Andre PA-C 11. Follow up with your primary care doctor 7-10 days after discharge. 12. Contact [facility] with any questions, . Discharge Disposition: HOME WITH HOME HEALTH SERVICES
[2017-08-09 12:26] VITALS: BP 174/83; PULSE 59; TEMP 97.3
[2017-08-09] MEDS: LACTOBACILLUS ACIDOPH & BULGAR 1 EACH PACKET PO SCH (13:22)
[2017-08-09] MEDS: HYDROcodone/APAP 5-325MG 1 EACH TAB PO PRN (13:39)
--- NOTE | 2017-08-09 19:11 | PN ---
PROGRESS NOTE DATE OF SERVICE: 08/09/2017 This 72-year-old woman who was admitted with left knee arthroplasty improved significantly. No chest pain. No palpitations. No fever. EXAM: Alert and oriented x3. Pulse is 59, blood pressure 175/83, respirations 16, temperature 97.3, pulse ox 97% room air. HEENT: Conjunctivae normal. NECK: No jugular venous distention. CARDIOVASCULAR: S1, S2 muffled. RESPIRATORY: Breath sounds diminished in the bases. A few scattered rhonchi. No crackles. ABDOMEN: Soft, nontender. LEGS: Status post arthroplasty. NERVOUS SYSTEM: Nonfocal. LABS: Sodium 135. ASSESSMENT: 1. Status post left knee arthroplasty. 2. Elevated blood pressure with labile hypertension. 3. Dizziness. 4. History of myocardial infarction. 5. History of degenerative joint disease. 6. Hypothyroidism. 7. Back surgery. RECOMMENDATIONS AND DISCUSSION: Recommend to continue current medical management. Symptomatically, the patient improved significantly. I recommend resuming the home medications and follow the patient closely in the outpatient setting. The blood pressure is still fluctuating. Recommend close monitoring with outpatient setting. Further recommendations to follow. MMODL / IJN: [id number] /
== END 2017-08-09 14:00 | disposition home health service (06) | DRG 470 ==
LOC: 2ORMAIN 09:13 → 3SUR 13:37
PROVIDERS: ADMIT Orthopaedic Surgery; ATTEND Orthopaedic Surgery
PROC: 0SRD0J9 Replacement of Left Knee Joint with Synthetic Substitute, Cemented, Open Approach (ICD-10-PCS; principal; 2017-08-06 10:50)
DX: M17.12 Unilateral primary osteoarthritis, left knee (principal); E03.9 Hypothyroidism, unspecified; F41.9 Anxiety disorder, unspecified; G89.18 Other acute postprocedural pain; I10 Essential (primary) hypertension; I25.10 Atherosclerotic heart disease of native coronary artery without angina pectoris; I25.2 Old myocardial infarction; Z87.891 Personal history of nicotine dependence; Z79.82 Long term (current) use of aspirin; Z79.51 Long term (current) use of inhaled steroids; Z79.890 Hormone replacement therapy; Z79.899 Other long term (current) drug therapy
CPT/HCPCS: 80048; 80053; 85025; 88300

== ENCOUNTER → 2017-09-12 | Outpatient (CLI) | payer BC, MEDICARE ==
--- NOTE | 2017-09-16 10:00 | MM ---
Reason for exam: screening (asymptomatic). Last mammogram was performed 1 year and 1 month ago. History: Patient is postmenopausal and history of other cancer. Family history of breast cancer in cousin at age 50. Excisional biopsy of the left breast. Excisional biopsy of the right breast. Took estrogen for 1 year 6 months. Took progesterone for 1 year 6 months. Physical Findings: A clinical breast exam by your physician is recommended on an annual basis and results should be correlated with mammographic findings. MG 3D Screening Mammo W/Cad Bilateral CC and MLO view(s) were taken. Prior study comparison: August 03, 2016, bilateral MG 3d screening mammo w/cad. June 03, 2015, bilateral MG 3d screening mammo w/cad. There are scattered fibroglandular densities. Benign appearing bilateral calcifications and left oil cysts. No suspicious abnormality. No significant changes when compared with prior studies. ASSESSMENT: Benign, BI-RAD 2 RECOMMENDATION: Routine screening mammogram of both breasts in 1 year.
== END | disposition home or self-care (01) ==
LOC: RADMAMWWP 08:29
PROVIDERS: ATTEND Family Medicine
DX: Z12.31 Encounter for screening mammogram for malignant neoplasm of breast (principal)
CPT/HCPCS: 77063; 77067

== ENCOUNTER 2017-10-08 20:50 | Emergency (ER) | payer BC, MEDICARE ==
[2017-10-08] MEDS ORDERED: SODIUM CHLORIDE 0.9% 500 ML IV STA (21:25)
[2017-10-08] MEDS ORDERED: diphenhydrAMINE 50 MG/ML 1 ML VIAL IVP STA (21:28)
--- NOTE | 2017-10-08 21:32 | ED ---
General Adult HPI - General Chief complaint: Neuro Symptoms/Deficit Stated complaint: poss stroke Time Seen by Provider: 10/08/17 21:13 Source: patient Mode of arrival: ambulatory Limitations: no limitations - History of Present Illness Initial comments: This patient is 72-year-old woman who complains of having "charley horse" to her face. The patient states that about one hour ago, she had been trying to take a nap and then noted that she was having what she felt were spasms going down both corners of her mouth. She states it feels like there is tightness in her face. Patient does state that about 2 hours prior to that she had taken Tylenol with codeine and also a muscle relaxant for some back pain that she had been having. She states that the back is feeling better, but now she is concerned about the facial symptoms. The symptoms are affecting both sides of the mouth. She also states it feels like she is having some tightness of the neck muscles. Onset/Timin -: hour(s) Location: face Radiation: non-radiation Quality: other (Tightness) Consistency: constant Improves with: none Worsens with: none Associated Symptoms: denies other symptoms Treatments Prior to Arrival: none - Related Data Home Medications Medication Instructions Recorded Confirmed Atenolol [Tenormin] 50 mg PO HS 07/31/14 10/08/17 Losartan Potassium 100 mg PO QAM 07/31/14 10/08/17 Triamterene-Hctz 37.5-25Mg 1 tab PO DAILY 07/31/14 10/08/17 [Dyazide 37.5-25 Capsule] Fluticasone Nasal [place] [Flonase 2 spray EA NOSTRIL HS PRN 06/21/16 10/08/17 Nasal [place]] Acetaminophen-Codeine 300-30mg 0.5 tab PO Q6H PRN 07/26/17 10/08/17 [Tylenol #3] Calcium/Magnesium 1 tab PO HS 07/26/17 10/08/17 L.acidoph,Paracasei, B.lactis 1 cap PO HS 07/26/17 10/08/17 [Probiotic] Ubidecarenone [Co Q-10] 300 mg PO HS 07/26/17 10/08/17 Levothyroxine Sodium [Synthroid] 112 mcg PO DAILY 08/06/17 10/08/17 Previous Rx's Medication Instructions Recorded diphenhydrAMINE [Benadryl] 50 mg PO QID PRN #24 capsule 10/08/17 Allergies Allergy/AdvReac Type Severity Reaction Status Date / Time morphine Allergy Unknown Unknown- Verified 10/08/17 21:[address] KSENIA MILLARD SLIP Review of Systems ROS Statement: Those systems with pertinent positive or pertinent negative responses have been documented in the HPI. ROS Other: All systems not noted in ROS Statement are negative. Constitutional: Denies: fever, chills, weakness Eyes: Denies: eye pain, vision change Respiratory: Denies: cough, dyspnea Cardiovascular: Denies: chest pain, palpitations, syncope Gastrointestinal: Denies: abdominal pain, vomiting, diarrhea, constipation Genitourinary: Denies: dysuria, hematuria Musculoskeletal: Reports: as per HPI, back pain Skin: Denies: rash Neurological: Denies: headache, weakness, numbness, paresthesias Past Medical History Past Medical History: Cancer, Hypertension, Myocardial Infarction ([place]), Thyroid Disorder Additional Past Medical History / Comment(s): skin Last Myocardial Infarction Date:: 07-18-1994 History of Any Multi-Drug Resistant Organisms: None Reported Past Surgical History: Back Surgery, Heart Catheterization, Tonsillectomy, Tubal Ligation Additional Past Surgical History / Comment(s): skin cancer, breast bx x2, back fusions. TLK 08/06/2017 Past Anesthesia/Blood Transfusion Reactions: No Reported Reaction Additional Past Anesthesia/Blood Transfusion Reaction / Comment(s): no hx with prior blood transfusion Past Psychological History: No Psychological Hx Reported Smoking Status: Former smoker Past Alcohol Use History: Occasional Past Drug Use History: None Reported - Past Family History Mother Family Medical History: No Reported History Additional Family Medical History / Comment(s): at age 93 Father History Unknown: Yes Additional Family Medical History / Comment(s): at age 42 Son(s) Family Medical History: Cancer, Myocardial Infarction ([place]) General Exam Limitations: no limitations General appearance: alert, in no apparent distress Head exam: Present: atraumatic, normocephalic Eye exam: Present: normal appearance, PERRL, EOMI. Absent: scleral icterus, conjunctival injection, nystagmus, periorbital swelling, periorbital tenderness ENT exam: Present: normal oropharynx, mucous membranes moist, normal external ear exam, other (Patient does have spastic facial muscle movements bilaterally.) Neck exam: Present: normal inspection, full ROM. Absent: tenderness, meningismus Respiratory exam: Present: normal lung sounds bilaterally. Absent: respiratory distress, wheezes, rales, rhonchi, stridor Cardiovascular Exam: Present: regular rate, normal rhythm, normal heart sounds. Absent: systolic murmur, diastolic murmur, rubs, gallop GI/Abdominal exam: Present: soft. Absent: distended, tenderness, guarding, rebound, rigid, mass Extremities exam: Present: normal inspection, normal capillary refill. Absent: pedal edema, calf tenderness Back exam: Present: normal inspection. Absent: CVA tenderness (R), CVA tenderness (L) Neurological exam: Present: alert, oriented X3, CN II-XII intact. Absent: motor sensory deficit Skin exam: Present: warm, dry, intact, normal color. Absent: rash Course Vital Signs 10/08/17 20:52 Temperature 97.6 F Pulse Rate 77 Respiratory 20 Rate Blood Pressure 118/95 O2 Sat by Pulse 99 Oximetry EKG Findings - EKG Results: EKG: interpreted by ERMD, sinus rhythm, normal axis, normal QRS EKG shows: bradycardia (Rate approximately 58 bpm) - Blocks, [place], Hypertrophy, ST Abn: Repolarization changes or abnormalities: nonspecific abnormality, ST segment, and/or T wave Medical Decision Making - Lab Data Result diagrams: 10/08/17 21:35 10/08/17 21:35 Lab Results 10/08/17 10/08/17 10/08/17 Range/Units 21:35 21:35 21:35 WBC 6.9 (3.8-10.6) k/uL RBC 4.82 (3.80-5.40) m/uL Hgb 14.0 (11.4-16.0) gm/dL Hct 40.6 (34.0-46.0) % MCV 84.3 (80.0-100.0) fL MCH 29.0 (25.0-35.0) pg MCHC 34.4 (31.0-37.0) g/dL RDW 12.5 (11.5-15.5) % Plt Count 206 (150-450) k/uL Neutrophils % 49 % Lymphocytes % 37 % Monocytes % 7 % Eosinophils % 5 % Basophils % 0 % Neutrophils # 3.4 (1.3-7.7) k/uL Lymphocytes # 2.6 (1.0-4.8) k/uL Monocytes # 0.5 (0-1.0) k/uL Eosinophils # 0.4 (0-0.7) k/uL Basophils # 0.0 (0-0.2) k/uL PT 10.2 (9.0-12.0) sec INR 1.0 (<1.2) APTT 24.1 (22.0-30.0) sec Sodium 133 L (137-145) mmol/L Potassium 3.7 (3.5-5.1) mmol/L Chloride 94 L (98-107) mmol/L Carbon Dioxide 28 (22-30) mmol/L Anion Gap 11 mmol/L BUN 9 (7-17) mg/dL Creatinine 0.50 L (0.52-1.04) mg/dL Est GFR (CKD-EPI)AfAm >90 (>60 ml/min/1.73 sqM) Est GFR (CKD-EPI)NonAf >90 (>60 ml/min/1.73 sqM) Glucose 160 H (74-99) mg/dL Calcium 9.2 (8.4-10.2) mg/dL Magnesium 1.9 (1.6-2.3) mg/dL Total Bilirubin 0.4 (0.2-1.3) mg/dL AST 30 (14-36) U/L ALT 30 (9-52) U/L Alkaline Phosphatase 37 L (38-126) U/L Troponin I (0.000-0.034) ng/mL Total Protein 6.1 L (6.3-8.2) g/dL Albumin 4.1 (3.5-5.0) g/dL 10/08/17 Range/Units 21:35 WBC (3.8-10.6) k/uL RBC (3.80-5.40) m/uL Hgb (11.4-16.0) gm/dL Hct (34.0-46.0) % MCV (80.0-100.0) fL MCH (25.0-35.0) pg MCHC (31.0-37.0) g/dL RDW (11.5-15.5) % Plt Count (150-450) k/uL Neutrophils % % Lymphocytes % % Monocytes % % Eosinophils % % Basophils % % Neutrophils # (1.3-7.7) k/uL Lymphocytes # (1.0-4.8) k/uL Monocytes # (0-1.0) k/uL Eosinophils # (0-0.7) k/uL Basophils # (0-0.2) k/uL PT (9.0-12.0) sec INR (<1.2) APTT (22.0-30.0) sec Sodium (137-145) mmol/L Potassium (3.5-5.1) mmol/L Chloride (98-107) mmol/L Carbon Dioxide (22-30) mmol/L Anion Gap mmol/L BUN (7-17) mg/dL Creatinine (0.52-1.04) mg/dL Est GFR (CKD-EPI)AfAm (>60 ml/min/1.73 sqM) Est GFR (CKD-EPI)NonAf (>60 ml/min/1.73 sqM) Glucose (74-99) mg/dL Calcium (8.4-10.2) mg/dL Magnesium (1.6-2.3) mg/dL Total Bilirubin (0.2-1.3) mg/dL AST (14-36) U/L ALT (9-52) U/L Alkaline Phosphatase (38-126) U/L Troponin I <0.012 (0.000-0.034) ng/mL Total Protein (6.3-8.2) g/dL Albumin (3.5-5.0) g/dL Disposition Clinical Impression: Oculogyric crisis Disposition: HOME SELF-CARE Condition: Good Instructions: Extrapyramidal Symptoms (ED) Prescriptions: diphenhydrAMINE [Benadryl] 50 mg PO QID PRN #24 capsule PRN Reason: Pain Is patient prescribed a controlled substance at d/c from ED?: No Referrals: Subhash Jon MD [Primary Care Provider] - 1-2 days
[2017-10-08 21:48] LABS: Basophils % (A) 0 %; Eosinophils # (A) 0.4 k/uL (0-0.7); Eosinophils % (A) 5 %; HCT 40.6 % (34.0-46.0); Lymphocytes # (A) 2.6 k/uL (1.0-4.8); Lymphocytes % (A) 37 %; MCHC 34.4 g/dL (31.0-37.0); MCV 84.3 fL (80.0-100.0); Mean Platelet Volume 6.8; Monocytes # (A) 0.5 k/uL (0-1.0); Monocytes % (A) 7 %; Neutrophils # (A) 3.4 k/uL (1.3-7.7); Neutrophils % (A) 49 %; Platelet Count 206 k/uL (150-450); RBC 4.82 m/uL (3.80-5.40); RDW 12.5 % (11.5-15.5); WBC 6.9 k/uL (3.8-10.6)
[2017-10-08 21:52] LABS: ALT 30 U/L (9-52); AST 30 U/L (14-36); Albumin 4.1 g/dL (3.5-5.0); Alkaline Phosphatase 37 U/L (38-126); Anion Gap 11 mmol/L; Blood Urea Nitrogen 9 mg/dL (7-17); Calcium 9.2 mg/dL (8.4-10.2); Carbon Dioxide 28 mmol/L (22-30); Chloride 94 mmol/L (98-107); Glucose 160 mg/dL (74-99); Magnesium 1.9 mg/dL (1.6-2.3); Potassium 3.7 mmol/L (3.5-5.1); Sodium 133 mmol/L (137-145); Total Bilirubin 0.4 mg/dL (0.2-1.3); Total Protein 6.1 g/dL (6.3-8.2)
[2017-10-08 21:53] LABS: Partial Thromboplastin Time 24.1 sec (22.0-30.0); Prothrombin Time 10.2 sec (9.0-12.0)
--- NOTE | 2017-10-08 22:15 | XR ---
EXAMINATION TYPE: XR chest 1V portable DATE OF EXAM: 10/08/2017 COMPARISON: 07/25/2017 HISTORY: Altered mental status TECHNIQUE: Single frontal view of the chest is obtained. FINDINGS: There is no heart failure nor confluent pneumonic infiltrate. Thoracic aorta is atheromato us. There is no pleural effusion. Costophrenic angles are clear. IMPRESSION: No active cardiopulmonary disease. No change.
--- NOTE | 2017-10-08 22:34 | CT ---
EXAMINATION TYPE: CT brain wo con DATE OF EXAM: 10/08/2017 COMPARISON: NONE HISTORY: Facial deficits, inability to move face. CT DLP: 984 mGycm Automated exposure control for dose reduction was used. FINDINGS: There is mild cerebral cortical atrophy. There is no mass effect nor midline shift. There is no sign of intracranial hemorrhage. The calvarium is intact. IMPRESSION: MILD ATROPHY. NO ACUTE INTRACRANIAL ABNORMALITY.
[2017-10-08 23:49] VITALS: BP 156/67; PULSE 53; RESP 18; TEMP 98.2
== END 2017-10-08 23:48 | disposition home or self-care (01) ==
LOC: EC 20:50
DX: H51.8 Other specified disorders of binocular movement (principal); R25.2 Cramp and spasm; I10 Essential (primary) hypertension; E07.9 Disorder of thyroid, unspecified; I25.2 Old myocardial infarction; Z87.891 Personal history of nicotine dependence; Z79.899 Other long term (current) drug therapy; Z88.5 Allergy status to narcotic agent; Z85.828 Personal history of other malignant neoplasm of skin; Z98.890 Other specified postprocedural states
CPT/HCPCS: 36415; 93005; 80053; 83735; 84484; 85025; 85610; 85730; 71045; 70450; 99284; 96374; 96361; J1200

== ENCOUNTER 2018-01-21 14:12 | Observation (INO) | payer MEDICARE ==
[2018-01-21] MEDS ORDERED: SODIUM CHLORIDE 0.9% 1,000 ML IV STA (14:54)
[2018-01-21] MEDS ORDERED: SODIUM CHLORIDE 0.9% 500 ML 500 ML IV STA (14:54)
--- NOTE | 2018-01-21 14:56 | ED ---
Recheck HPI - General Chief Complaint: Recheck/Abnormal Lab/Rx Stated Complaint: abn EKG,HTN Time Seen by Provider: 01/21/18 14:46 Source: patient, RN notes reviewed Mode of arrival: wheelchair Limitations: no limitations - History of Present Illness Initial Comments: This is a 72-year-old female history of hypertension who is at the pain clinic and found have a systolic blood pressure of 2:30 and a slow pulse and well 44 she denies any headache dizziness blurry vision nausea vomiting sweats shortness of breath weakness to her upper or lower extremities or any other complaints at this time. She denies any dysuria hematuria she states she - Related Data Home Medications Medication Instructions Recorded Confirmed Atenolol [Tenormin] 50 mg PO HS 07/31/14 01/21/18 Losartan Potassium 100 mg PO QAM 07/31/14 01/21/18 Triamterene-Hctz 37.5-25Mg 1 tab PO DAILY 07/31/14 01/21/18 [Dyazide 37.5-25 Capsule] Fluticasone Nasal [place] [Flonase 2 spray EA NOSTRIL HS PRN 06/21/16 01/21/18 Nasal [place]] Acetaminophen-Codeine 300-30mg 0.5 tab PO Q6H PRN 07/26/17 01/21/18 [Tylenol #3] L.acidoph,Paracasei, B.lactis 1 cap PO HS 07/26/17 01/21/18 [Probiotic] Ubidecarenone [Co Q-10] 300 mg PO HS 07/26/17 01/21/18 Levothyroxine Sodium [Synthroid] 112 mcg PO DAILY 08/06/17 01/21/18 Cholecalciferol [Vitamin D3] 2,000 unit PO DAILY 01/20/18 01/21/18 Cyanocobalamin (Vitamin B-12) 1,000 mcg PO DAILY 01/20/18 01/21/18 [Vitamin B-12] Calcium/Mag 1 tab PO DAILY 01/21/18 01/21/18 Allergies Allergy/AdvReac Type Severity Reaction Status Date / Time morphine AdvReac Mild Nausea & Verified 01/21/18 15:30 Vomiting hydrocodone [From [place]] AdvReac Nausea & Verified 01/21/18 15:30 Vomiting Review of Systems ROS Statement: Those systems with pertinent positive or pertinent negative responses have been documented in the HPI. ROS Other: All systems not noted in ROS Statement are negative. Past Medical History Past Medical History: Cancer, Hypertension, Myocardial Infarction ([place]), Musculoskeletal Disorder, Osteoarthritis (OA), Thyroid Disorder Additional Past Medical History / Comment(s): skin cancer, back pain Last Myocardial Infarction Date:: 07-18-1994 History of Any Multi-Drug Resistant Organisms: None Reported Past Surgical History: Back Surgery, Heart Catheterization, Joint Replacement, Tonsillectomy, Tubal Ligation Additional Past Surgical History / Comment(s): skin cancer, breast bx x2, back fusions. left knee replaced July 2017, pain procedures Past Anesthesia/Blood Transfusion Reactions: No Reported Reaction Additional Past Anesthesia/Blood Transfusion Reaction / Comment(s): no hx with prior blood transfusion Past Psychological History: No Psychological Hx Reported Smoking Status: Former smoker Past Alcohol Use History: Occasional Past Drug Use History: None Reported - Past Family History Mother Family Medical History: No Reported History Additional Family Medical History / Comment(s): at age 93 Father History Unknown: Yes Additional Family Medical History / Comment(s): at age 42 Son(s) Family Medical History: Cancer, Myocardial Infarction ([place]) General Exam - General Exam Comments Initial Comments: Is a well-developed well-nourished awake alert oriented x 3 female Limitations: no limitations General appearance: alert, in no apparent distress Head exam: Present: atraumatic, normocephalic, normal inspection Eye exam: Present: normal appearance, PERRL, EOMI. Absent: scleral icterus, conjunctival injection, periorbital swelling ENT exam: Present: mucous membranes dry, other (There is a small contusion on the tip of the right side of the tongue patient states she bit it.) Neck exam: Present: normal inspection. Absent: tenderness, meningismus, lymphadenopathy Respiratory exam: Present: normal lung sounds bilaterally. Absent: respiratory distress, wheezes, rales, rhonchi, stridor Cardiovascular Exam: Present: normal rhythm, bradycardia. Absent: systolic murmur, diastolic murmur, rubs, gallop, clicks GI/Abdominal exam: Present: soft, normal bowel sounds. Absent: distended, tenderness, guarding, rebound, rigid Extremities exam: Present: normal inspection, full ROM, normal capillary refill. Absent: tenderness, pedal edema, joint swelling, calf tenderness Back exam: Present: normal inspection Neurological exam: Present: alert, oriented X3, CN II-XII intact Psychiatric exam: Present: normal affect, normal mood Skin exam: Present: warm, dry, intact, normal color. Absent: rash Course Vital Signs 01/21/18 01/21/18 14:21 16:04 Temperature 98.3 F Pulse Rate 44 L Pulse Rate [ 46 L Sitting [place]her Blanket] Pulse Rate [ 47 L Standing Washer Blanket ] Pulse Rate [ 44 L Supine [place]her Blanket] Respiratory 18 Rate Blood Pressure 197/76 Blood Pressure 197/87 [Right Arm Sitting] Blood Pressure 196/80 [Right Arm Standing] Blood Pressure 179/81 [Right Arm Supine] O2 Sat by Pulse 98 Oximetry Medical Decision Making - Medical Decision Making I did discuss the findings with the patient and her and with Dr. Jon. Patient will be admitted with evaluation by cardiology. She persisted having bradycardia her blood pressure is still somewhat labile. - Lab Data Result diagrams: 01/21/18 14:50 01/21/18 14:50 Lab Results 01/21/18 01/21/18 01/21/18 Range/Units 14:50 14:50 14:50 WBC 5.3 (3.8-10.6) k/uL RBC 5.00 (3.80-5.40) m/uL Hgb 14.5 (11.4-16.0) gm/dL Hct 42.0 (34.0-46.0) % MCV 84.1 (80.0-100.0) fL MCH 29.1 (25.0-35.0) pg MCHC 34.6 (31.0-37.0) g/dL RDW 13.2 (11.5-15.5) % Plt Count 202 (150-450) k/uL Neutrophils % 53 % Lymphocytes % 33 % Monocytes % 8 % Eosinophils % 4 % Basophils % 1 % Neutrophils # 2.8 (1.3-7.7) k/uL Lymphocytes # 1.8 (1.0-4.8) k/uL Monocytes # 0.4 (0-1.0) k/uL Eosinophils # 0.2 (0-0.7) k/uL Basophils # 0.0 (0-0.2) k/uL Sodium 132 L (137-145) mmol/L Potassium 4.1 (3.5-5.1) mmol/L Chloride 94 L (98-107) mmol/L Carbon Dioxide 27 (22-30) mmol/L Anion Gap 11 mmol/L BUN 9 (7-17) mg/dL Creatinine 0.53 (0.52-1.04) mg/dL Est GFR (CKD-EPI)AfAm >90 (>60 ml/min/1.73 sqM) Est GFR (CKD-EPI)NonAf >90 (>60 ml/min/1.73 sqM) Glucose 89 (74-99) mg/dL Calcium 9.6 (8.4-10.2) mg/dL Magnesium 1.8 (1.6-2.3) mg/dL Total Bilirubin 1.1 (0.2-1.3) mg/dL AST 29 (14-36) U/L ALT 24 (9-52) U/L Alkaline Phosphatase 30 L (38-126) U/L Total Creatine Kinase 33 (30-135) U/L CK-MB (CK-2) 1.2 (0.0-2.4) ng/mL CK-MB (CK-2) Rel Index 3.6 Troponin I <0.012 (0.000-0.034) ng/mL Total Protein 6.6 (6.3-8.2) g/dL Albumin 4.2 (3.5-5.0) g/dL - EKG Data -: EKG Interpreted by Mo EKG shows normal: sinus rhythm (Sinus bradycardia of 42 ND interval 160 QRS duration 84 QT since QTC 46/[address] configuration) - Radiology Data Radiology results: report reviewed (Imaging shows no acute findings.), image reviewed Disposition Clinical Impression: Bradycardia, Poorly-controlled hypertension Disposition: ADMITTED IP TO THIS [facility] Condition: Stable Referrals: Subhash Jon MD [Primary Care Provider] - 1-2 days
[2018-01-21 15:07] LABS: Basophils % (A) 1 %; Eosinophils # (A) 0.2 k/uL (0-0.7); Eosinophils % (A) 4 %; HGB 14.5 gm/dL (11.4-16.0); Lymphocytes # (A) 1.8 k/uL (1.0-4.8); Lymphocytes % (A) 33 %; MCH 29.1 pg (25.0-35.0); MCHC 34.6 g/dL (31.0-37.0); MCV 84.1 fL (80.0-100.0); Mean Platelet Volume 7.1; Monocytes # (A) 0.4 k/uL (0-1.0); Monocytes % (A) 8 %; Neutrophils # (A) 2.8 k/uL (1.3-7.7); Neutrophils % (A) 53 %; Platelet Count 202 k/uL (150-450); RDW 13.2 % (11.5-15.5); WBC 5.3 k/uL (3.8-10.6)
[2018-01-21 15:17] LABS: ALT 24 U/L (9-52); AST 29 U/L (14-36); Albumin 4.2 g/dL (3.5-5.0); Alkaline Phosphatase 30 U/L (38-126); Anion Gap 11 mmol/L; Blood Urea Nitrogen 9 mg/dL (7-17); Calcium 9.6 mg/dL (8.4-10.2); Carbon Dioxide 27 mmol/L (22-30); Chloride 94 mmol/L (98-107); Glucose 89 mg/dL (74-99); Magnesium 1.8 mg/dL (1.6-2.3); Potassium 4.1 mmol/L (3.5-5.1); Sodium 132 mmol/L (137-145); Total Bilirubin 1.1 mg/dL (0.2-1.3); Total Protein 6.6 g/dL (6.3-8.2)
[2018-01-21 15:26] LABS: Creatine Kinase 33 U/L (30-135)
[2018-01-21 15:39] LABS: Creatine Kinase MB 1.2 ng/mL (0.0-2.4); Troponin I <0.012 ng/mL (0.000-0.034)
--- NOTE | 2018-01-21 15:40 | XR ---
EXAMINATION TYPE: XR chest 2V DATE OF EXAM: 01/21/2018 COMPARISON: Chest x-ray October 08, 2017. HISTORY: Cough per order. TECHNIQUE: Frontal and lateral views of the chest are obtained. FINDINGS: There is no focal air space opacity, pleural effusion, or pneumothorax seen. The cardiac silhouette size is within normal limits with atherosclerotic change in aortic knob redemonstrated. The osseous structures remain demineralized with some degenerative change left glenohumeral joint see n. IMPRESSION: No acute cardiopulmonary process. No significant change from prior.
[2018-01-21] MEDS ORDERED: NALOXONE 0.4 MG/ML 1 ML VIAL IV PRN (16:41)
[2018-01-21] MEDS ORDERED: FLUTICASONE 50MCG/SPRAY NASAL 16GM EA NOSTRIL PRN (16:43)
[2018-01-21] MEDS ORDERED: Acetaminophen-Codeine 300-30mg TAB PO PRN (16:43)
[2018-01-21] MEDS ORDERED: LISINOPRIL 10 MG TAB PO STA (16:44)
[2018-01-21] MEDS ORDERED: LACTOBACILLUS ACIDOPH & BULGAR 1 EACH PACKET PO SCH (21:00)
[2018-01-21] MEDS ORDERED: NON-FORMULARY DRUG (Ubidecarenone [Co Q-10] 300 MG) PO SCH (21:00)
[2018-01-21 22:16] LABS: Creatine Kinase 29 U/L (30-135)
[2018-01-21 22:29] LABS: Creatine Kinase MB 1.2 ng/mL (0.0-2.4); Troponin I <0.012 ng/mL (0.000-0.034)
[2018-01-22 02:59] LABS: Creatine Kinase 25 U/L (30-135)
[2018-01-22 03:10] LABS: Creatine Kinase MB 1.1 ng/mL (0.0-2.4); Troponin I <0.012 ng/mL (0.000-0.034)
[2018-01-22] MEDS ORDERED: LEVOTHYROXINE 112 MCG TAB PO SCH (06:30)
[2018-01-22 08:21] VITALS: RESP 18
[2018-01-22] MEDS ORDERED: CALCIUM PO SCH (09:00)
[2018-01-22] MEDS ORDERED: TRIAMTERENE-HCTZ 37.5-25MG 1 EACH CAP PO SCH (09:00)
[2018-01-22] MEDS ORDERED: LIDOCAINE 5% PATCH TOPICAL SCH (09:00)
[2018-01-22] MEDS ORDERED: LOSARTAN 50 MG TAB PO SCH (09:00)
[2018-01-22] MEDS ORDERED: CYANOCOBALAMIN 500 MCG TAB PO SCH (09:00)
[2018-01-22] MEDS ORDERED: CHOLECALCIFEROL 1,000 UNIT TAB PO SCH (09:00)
[2018-01-22] MEDS ORDERED: MAG PO SCH (09:00)
--- NOTE | 2018-01-22 12:29 | P.HPIM ---
History of Present Illness 72-year-old female presented to family physician with complaints of hypertension recorded systolic pressure of 2:30 at pain clinic heart rate 44. Patient was complaining of dizziness with sitting up and headache patient was then referred to the emergency room for evaluation Review of Systems Constitutional: Reports chronic headaches Musculoskeletal: Reports low back pain Neurological: Reports headaches Past Medical History Past Medical History: Cancer, Hypertension, Myocardial Infarction ([place]), Musculoskeletal Disorder, Osteoarthritis (OA), Thyroid Disorder Additional Past Medical History / Comment(s): pt stated had a pne vaccine few years ago not sure when,conventional underwriter unable to verify date at time of admit.skin cancer, back pain Last Myocardial Infarction Date:: 07-18-1994 History of Any Multi-Drug Resistant Organisms: None Reported Past Surgical History: Back Surgery, Heart Catheterization, Joint Replacement, Tonsillectomy, Tubal Ligation Additional Past Surgical History / Comment(s): skin cancer, breast bx x2, back fusions. arthroscopy lt knee 2016.left knee replaced July 2017, pain procedures Past Anesthesia/Blood Transfusion Reactions: Postoperative Nausea & Vomiting ( PONV) Additional Past Anesthesia/Blood Transfusion Reaction / Comment(s): past blood transfusion-denies any reaction to it Smoking Status: Former smoker - Past Family History Mother Family Medical History: No Reported History Additional Family Medical History / Comment(s): at age 93 Father History Unknown: Yes Additional Family Medical History / Comment(s): at age 42 Son(s) Family Medical History: Cancer, Myocardial Infarction ([place]) Medications and Allergies Home Medications Medication Instructions Recorded Confirmed Type Fluticasone Nasal [place] [Flonase 2 spray EA NOSTRIL HS PRN 06/21/16 01/21/18 History Nasal [place]] Acetaminophen-Codeine 300-30mg 0.5 tab PO Q6H PRN 07/26/17 01/21/18 History [Tylenol #3] L.acidoph,Paracasei, B.lactis 1 cap PO HS 07/26/17 01/21/18 History [Probiotic] Ubidecarenone [Co Q-10] 300 mg PO HS 07/26/17 01/21/18 History Levothyroxine Sodium [Synthroid] 112 mcg PO DAILY 08/06/17 01/21/18 History Cholecalciferol [Vitamin D3] 2,000 unit PO DAILY 01/20/18 01/21/18 History Cyanocobalamin (Vitamin B-12) 1,000 mcg PO DAILY 01/20/18 01/21/18 History [Vitamin B-12] Calcium/Mag 1 tab PO DAILY 01/21/18 01/21/18 History Losartan-Hctz 50-12.5 mg [Hyzaar 1 each PO DAILY #30 tab 01/22/18 Rx 50-12.5] amLODIPine [Norvasc] 5 mg PO HS #30 tab 01/22/18 Rx Allergies Allergy/AdvReac Type Severity Reaction Status Date / Time morphine AdvReac Mild Nausea & Verified 01/21/18 15:30 Vomiting hydrocodone [From [place]] AdvReac Nausea & Verified 01/21/18 15:30 Vomiting Physical Exam Vitals: Vital Signs Temp Pulse Pulse Pulse Pulse Pulse Resp 01/22/18 12:00 51 L 46 L 49 L 44 L 18 01/22/18 11:40 98.2 F 51 L 18 01/22/18 08:00 50 L 46 L 49 L 44 L 18 01/22/18 07:30 98.1 F 50 L 18 01/22/18 04:42 97.9 F 49 L 15 01/22/18 04:00 15 01/22/18 00:00 98.2 F 67 15 01/21/18 20:00 16 01/21/18 19:34 98.1 F 47 L 14 01/21/18 17:59 50 L 18 01/21/18 17:26 66 16 01/21/18 16:44 46 L 16 01/21/18 16:04 46 L 47 L 44 L 01/21/18 14:21 98.3 F 44 L 18 BP BP BP BP BP Pulse Ox 01/22/18 12:00 01/22/18 11:40 114/53 98 01/22/18 08:00 01/22/18 07:30 131/65 95 01/22/18 04:42 161/79 98 01/22/18 04:00 01/22/18 00:00 112/47 96 01/21/18 20:00 01/21/18 19:34 188/78 94 L 01/21/18 17:59 163/77 99 01/21/18 17:26 180/81 98 01/21/18 16:44 184/81 96 01/21/18 16:04 197/87 196/80 179/81 01/21/18 14:21 197/76 98 Intake and Output 01/21/18 01/22/18 01/22/18 22:59 06:59 14:59 Intake Total 200 Balance 200 Intake: Other 200 Other: Voiding Method Toilet Toilet Toilet # Voids 2 Weight 68.039 kg - Constitutional General appearance: mild distress - EENT Eyes: PERRLA Ears: bilateral: normal - Neck Neck: normal ROM - Respiratory Respiratory: bilateral: CTA - Cardiovascular Rhythm: regular - Gastrointestinal General gastrointestinal: soft - Integumentary Integumentary: normal - Neurologic Neurologic: CNII-XII intact - Musculoskeletal Musculoskeletal: gait normal - Psychiatric Psychiatric: A&O x's 3, appropriate affect, intact judgment & insight Results CBC & Chem 7: 01/21/18 14:50 01/21/18 14:50 Labs: Abnormal Lab Results - Last 24 Hours (Table) 01/21/18 01/21/18 01/22/18 Range/Units 14:50 21:16 02:23 Sodium 132 L (137-145) mmol/L Chloride 94 L (98-107) mmol/L Alkaline Phosphatase 30 L (38-126) U/L Total Creatine Kinase 29 L 25 L (30-135) U/L Chest x-ray: report reviewed Thrombosis Risk Factor Assmnt - Choose All That Apply Each Factor Represents 1 point: Obesity (BMI >25) Each Risk Factor Represents 2 Points: Age 61-74 years Thrombosis Risk Factor Assessment Total Risk Factor Score: 3 Thrombosis Risk Factor Assessment Level: Moderate Risk Assessment and Plan Plan: Assessment Bradycardia Hypertensive crisis History of hypertension History of coronary disease with [place] Hypothyroidism Plan Cardiology consultation regarding bradycardia and hypertension
--- NOTE | 2018-01-22 13:27 | P.CRDCN ---
History of Present Illness History of present illness: Mrs. Ortiz is a pleasant 72-year-old female past medical history significant for hypertension, hypothyroidism and chronic low back pain. She also states she suffered a heart attack in 1994 but had no stenting or ballooning. Office records indicate she had a normal catheterization at that time. We have been asked to see her in consultation for hypertension and bradycardia. She states she was being seen in the pain clinic for possible injection and her blood pressure was high around 230/100. She was given lisinopril 10 mg in ED. Repeat blood pressure this morning 131/65. Telemetry indicates sinus jony. They did not do a procedure and sent her to see her PCP, Dr. Jon. They subsequently sent here here for evaluation. Upon arrival blood pressure was 197/76 heart rate 44. She denies chest pain, shortness of breath, dizziness, palpitations, nausea or vomiting. She states she had taken her medications yesterday morning as prescribed. She takes atenolol 50 mg daily, losartan 100 mg daily and dyazide 37.5/25 mg daily. EKG reveals sinus bradycardia heart rate [address] or T-wave abnormalities noted. Chest x-ray is negative for acute cardiopulmonary process. Laboratory data reviewed, hgb 14.5, plt 202, sodium 132, potassium 4.1, creatinine 0.53, magnesium 1.8, cardiac enzymes negative x3, TSH 0.686. Most recent echocardiogram obtained in the office 2011 revealed normal LV systolic function with mild MR. Most recent stress test in the office 2009 was normal. Review of Systems At the time of my exam: CONSTITUTIONAL: Denies fever. Denies chills. EYES: Denies blurred vision. Denies vision changes. Denies eye pain. EARS, NOSE, MOUTH & THROAT: Denies headache. Denies sore throat. Denies ear pain. CARDIOVASCULAR: Denies chest pain. Denies shortness of breath. Denies orthopnea. Denies PND. Denies palpitations. RESPIRATORY: Denies cough. GASTROINTESTINAL: Denies abdominal pain. Denies diarrhea. Denies constipation. Denies nausea. Denies vomiting. MUSCULOSKELETAL: Denies myalgias. INTEGUMENTARY: Denies pruitis. Denies rash. NEUROLOGIC: Denies numbness. Denies tingling. Denies weakness. PSYCHIATRIC: Denies anxiety. Denies depression. ENDOCRINE: Denies fatigue. Denies weight change. Denies polydipsia. Denies polyurina. GENITOURINARY: Denies burning, hematuria or urgency with micturation. HEMATOLOGIC: Denies history of anemia. Denies bleeding. Past Medical History Past Medical History: Cancer, Hypertension, Myocardial Infarction ([place]), Musculoskeletal Disorder, Osteoarthritis (OA), Thyroid Disorder Additional Past Medical History / Comment(s): pt stated had a pne vaccine few years ago not sure when,story writer unable to verify date at time of admit.skin cancer, back pain Last Myocardial Infarction Date:: 07-18-1994 History of Any Multi-Drug Resistant Organisms: None Reported Past Surgical History: Back Surgery, Heart Catheterization, Joint Replacement, Tonsillectomy, Tubal Ligation Additional Past Surgical History / Comment(s): skin cancer, breast bx x2, back fusions. arthroscopy lt knee 2016.left knee replaced July 2017, pain procedures Past Anesthesia/Blood Transfusion Reactions: Postoperative Nausea & Vomiting ( PONV) Additional Past Anesthesia/Blood Transfusion Reaction / Comment(s): past blood transfusion-denies any reaction to it Smoking Status: Former smoker - Past Family History Mother Family Medical History: No Reported History Additional Family Medical History / Comment(s): at age 93 Father History Unknown: Yes Additional Family Medical History / Comment(s): at age 42 Son(s) Family Medical History: Cancer, Myocardial Infarction ([place]) Medications and Allergies Home Medications Medication Instructions Recorded Confirmed Type Fluticasone Nasal Thor [Flonase 2 spray EA NOSTRIL HS PRN 06/21/16 01/21/18 History Nasal Thor] Acetaminophen-Codeine 300-30mg 0.5 tab PO Q6H PRN 07/26/17 01/21/18 History [Tylenol #3] L.acidoph,Paracasei, B.lactis 1 cap PO HS 07/26/17 01/21/18 History [Probiotic] Ubidecarenone [Co Q-10] 300 mg PO HS 07/26/17 01/21/18 History Levothyroxine Sodium [Synthroid] 112 mcg PO DAILY 08/06/17 01/21/18 History Cholecalciferol [Vitamin D3] 2,000 unit PO DAILY 01/20/18 01/21/18 History Cyanocobalamin (Vitamin B-12) 1,000 mcg PO DAILY 01/20/18 01/21/18 History [Vitamin B-12] Calcium/Mag 1 tab PO DAILY 01/21/18 01/21/18 History Losartan-Hctz 50-12.5 mg [Hyzaar 1 each PO DAILY #30 tab 01/22/18 Rx 50-12.5] amLODIPine [Norvasc] 5 mg PO HS #30 tab 01/22/18 Rx Allergies Allergy/AdvReac Type Severity Reaction Status Date / Time morphine AdvReac Mild Nausea & Verified 01/21/18 15:30 Vomiting hydrocodone [From Castor] AdvReac Nausea & Verified 01/21/18 15:30 Vomiting Physical Exam Vitals: Vital Signs Temp Pulse Pulse Pulse Pulse Pulse Resp 01/22/18 12:00 51 L 46 L 49 L 44 L 18 01/22/18 11:40 98.2 F 51 L 18 01/22/18 08:00 50 L 46 L 49 L 44 L 18 01/22/18 07:30 98.1 F 50 L 18 01/22/18 04:42 97.9 F 49 L 15 01/22/18 04:00 15 01/22/18 00:00 98.2 F 67 15 01/21/18 20:00 16 01/21/18 19:34 98.1 F 47 L 14 01/21/18 17:59 50 L 18 01/21/18 17:26 66 16 01/21/18 16:44 46 L 16 01/21/18 16:04 46 L 47 L 44 L 01/21/18 14:21 98.3 F 44 L 18 BP BP BP BP BP Pulse Ox 01/22/18 12:00 01/22/18 11:40 114/53 98 01/22/18 08:00 01/22/18 07:30 131/65 95 01/22/18 04:42 161/79 98 01/22/18 04:00 01/22/18 00:00 112/47 96 01/21/18 20:00 01/21/18 19:34 188/78 94 L 01/21/18 17:59 163/77 99 01/21/18 17:26 180/81 98 01/21/18 16:44 184/81 96 01/21/18 16:04 197/87 196/80 179/81 01/21/18 14:21 197/76 98 Intake and Output 01/21/18 01/22/18 01/22/18 22:59 06:59 14:59 Intake Total 200 Balance 200 Intake: Other 200 Other: Voiding Method Toilet Toilet Toilet # Voids 2 Weight 68.039 kg Blood pressure 114/53 herat rate 51 afebrile and maintaining oxygen saturation on room air. GENERAL: This is a 72-year-old female in no apparent distress at the time of my examination. HEENT: Head is atraumatic, normocephalic. Pupils are equal, round. Sclerae anicteric. Conjunctivae are clear. Mucous membranes of the mouth are moist. Neck is supple. There is no jugular venous distention. No carotid bruit is heard. LUNGS: Clear to auscultation no wheezes, rales or rhonchi. No chest wall tenderness is noted on palpation or with deep breathing. HEART: Regular rate and rhythm without murmurs, rubs or gallops. S1 and S2 heard. ABDOMEN: Soft, nontender. Bowel sounds are heard. No organomegaly noted. EXTREMITIES: No evidence of peripheral edema and no calf tenderness noted. VASCULAR: Radial and dorsalis pedis pulses palpated, no evidence of clubbing. NEUROLOGIC: Patient is awake, alert and oriented x3. Results 01/21/18 14:50 01/21/18 14:50 Cardiac Enzymes 01/21/18 01/21/18 01/21/18 Range/Units 14:50 14:50 21:16 AST 29 (14-36) U/L CK-MB (CK-2) 1.2 1.2 (0.0-2.4) ng/mL Troponin I <0.012 <0.012 (0.000-0.034) ng/mL 01/22/18 Range/Units 02:23 AST (14-36) U/L CK-MB (CK-2) 1.1 (0.0-2.4) ng/mL Troponin I <0.012 (0.000-0.034) ng/mL CBC 01/21/18 Range/Units 14:50 WBC 5.3 (3.8-10.6) k/uL RBC 5.00 (3.80-5.40) m/uL Hgb 14.5 (11.4-16.0) gm/dL Hct 42.0 (34.0-46.0) % Plt Count 202 (150-450) k/uL Comprehensive Metabolic Panel 01/21/18 Range/Units 14:50 Sodium 132 L (137-145) mmol/L Potassium 4.1 (3.5-5.1) mmol/L Chloride 94 L (98-107) mmol/L Carbon Dioxide 27 (22-30) mmol/L BUN 9 (7-17) mg/dL Creatinine 0.53 (0.52-1.04) mg/dL Glucose 89 (74-99) mg/dL Calcium 9.6 (8.4-10.2) mg/dL AST 29 (14-36) U/L ALT 24 (9-52) U/L Alkaline Phosphatase 30 L (38-126) U/L Total Protein 6.6 (6.3-8.2) g/dL Albumin 4.2 (3.5-5.0) g/dL Current Medications Generic Name Dose Route Start Last Admin Trade Name Freq PRN Reason Stop Dose Admin Acetaminophen/Codeine Phosphate 0.5 each 01/21/18 16:43 Tylenol #3 PO Q6H PRN Pain Amlodipine Besylate 5 mg 01/22/18 21:00 Norvasc PO HS BASSAM Cholecalciferol 2,000 unit 01/22/18 09:00 01/22/18 11:22 Vitamin D3 PO 2,000 unit DAILY BASSAM Administration Cyanocobalamin 1,000 mcg 01/22/18 09:00 01/22/18 11:22 Vitamin B-12 PO 1,000 mcg DAILY BASSAM Administration Fluticasone Propionate 2 spray 01/21/18 16:43 Flonase Nasal Thor EA NOSTRIL HS PRN Allergy Symptoms HCTZ/Losartan Potassium 1 each 01/23/18 09:00 Hyzaar 50-12.5 PO DAILY BASSAM Lactobacillus Acidoph/Bulgaricus 1 each 01/21/18 21:00 01/21/18 19:54 Lactinex PO Not Given HS BASSAM Levothyroxine Sodium 112 mcg 01/22/18 06:30 01/22/18 05:31 Synthroid PO Not Given DAILY@0630 BASSAM Lidocaine 1 patch 01/22/18 09:00 01/22/18 11:58 Lidoderm TOPICAL 1 patch DAILY BASSAM Administration Naloxone HCl 0.2 mg 01/21/18 16:41 Narcan IV Q2M PRN Opioid Reversal Intake and Output 01/21/18 01/22/18 01/22/18 22:59 06:59 14:59 Intake Total 200 Balance 200 Intake: Other 200 Other: Voiding Method Toilet Toilet Toilet # Voids 2 Weight 68.039 kg 01/21/18 14:50 01/21/18 14:50 Assessment and Plan Assessment: ASSESSMENT Hypertensive emergency Sinus bradycardia, asymptomatic. Secondary to beta blockers. Hypothyroidism PLAN Obtain 2D echocardiogram and doppler study to assess cardiac structure and function. Discontinue atenolol and dyazide. Change losartan to losartan/hctz 100/12.5 mg daily. Add amlodipine 5 mg at HS. Increase activity and ambulation in the halls. If blood pressure is stable on current regimen she is stable for discharge from a cardiac perspective. Follow up with Dr. Rodriguez in 2-3 weeks. Thank you kindly for this consultation. Nurse Practitioner note has been reviewed, I agree with a documented findings and plan of care. Patient was seen and examined.
[2018-01-22 15:36] VITALS: BP 135/75; PULSE 52; TEMP 98.1
--- NOTE | 2018-01-22 16:30 | P.DS ---
Providers Date of admission: 01/21/18 16:41 Expected date of discharge: 01/22/18 Attending physician: Subhash Jon Consults: 01/21/18 16:42 Consult Physician Routine Consulting Provider: Gabriel Figueroa Consult Reason/Comments: Bradycardia, hypertension, medication evaluation Do you want consulting provider notified?: Yes Primary care physician: Subhash Jon Hospital Course: 72-year-old female was admitted from the emergency room. Patient had offices of with family physician found to be hypertensive of with systolic at 230 patient is bradycardic up 40 complaining of dizziness with position change in headache. Patient was evaluated by cardiology medication adjusted Assessment bradycardia hypertensive crisis history of hypertension coronary disease with CO hypothyroidism Plan patients to follow up with corporate health consultant and family physician Dr. Subhash Jon Patient Condition at Discharge: Stable Plan - Discharge Summary Discharge Rx Participant: No New Discharge Prescriptions: New amLODIPine [Norvasc] 5 mg PO HS #30 tab Losartan-Hctz 50-12.5 mg [Hyzaar 50-12.5] 2 each PO DAILY #30 tab Continue Acetaminophen-Codeine 300-30mg [Tylenol w/codeine #3] 0.5 tab PO Q6H PRN PRN Reason: Pain L.acidoph,Paracasei, B.lactis [Probiotic] 1 cap PO HS Levothyroxine Sodium [Synthroid] 112 mcg PO DAILY Discontinued Atenolol [Tenormin] 50 mg PO HS Losartan Potassium 100 mg PO QAM Triamterene-Hctz 37.5-25Mg [Dyazide 37.5-25 Capsule] 1 tab PO DAILY No Action Fluticasone Nasal [place] [Flonase Nasal [place]] 2 spray EA NOSTRIL HS PRN PRN Reason: Allergy Symptoms Ubidecarenone [Co Q-10] 300 mg PO HS Cholecalciferol [Vitamin D3] 2,000 unit PO DAILY Cyanocobalamin (Vitamin B-12) [Vitamin B-12] 1,000 mcg PO DAILY Calcium/Mag 1 tab PO DAILY Discharge Medication List Fluticasone Nasal [place] [Flonase Nasal [place]] 2 spray EA NOSTRIL HS PRN [History] Acetaminophen-Codeine 300-30mg [Tylenol w/codeine #3] 0.5 tab PO Q6H PRN [History] L.acidoph,Paracasei, B.lactis [Probiotic] 1 cap PO HS 07/26/17 [History] Ubidecarenone [Co Q-10] 300 mg PO HS 07/26/17 [History] Levothyroxine Sodium [Synthroid] 112 mcg PO DAILY 08/06/17 [History] Cholecalciferol [Vitamin D3] 2,000 unit PO DAILY 01/20/18 [History] Cyanocobalamin (Vitamin B-12) [Vitamin B-12] 1,000 mcg PO DAILY 01/20/18 [ History] Calcium/Mag 1 tab PO DAILY 01/21/18 [History] Losartan-Hctz 50-12.5 mg [Hyzaar 50-12.5] 2 each PO DAILY #30 tab 01/22/18 [Rx] amLODIPine [Norvasc] 5 mg PO HS #30 tab 01/22/18 [Rx] Follow up Appointment(s)/Referral(s): Subhash Jon MD [Primary Care Provider] - 1-2 days Garima Rodriguez MD [STAFF PHYSICIAN] - 2 Weeks (Office will call with appointment.)
--- NOTE | 2018-01-22 19:48 | ECHOF ---
Referral Reason:sob, cp MEASUREMENTS -------- HEIGHT: 152.4 cm WEIGHT: 68.0 kg BP: 161/79 IVSd: 1.0 cm (0.6 - 1.1) LVIDd: 4.9 cm (3.9 - 5.3) LVPWd: 1.1 cm (0.6 - 1.1) IVSs: 1.5 cm LVIDs: 3.2 cm LVPWs: 1.3 cm LA Diam: 4.0 cm (2.7 - 3.8) LAESV Index (A-L): 41.26 ml/m Ao Diam: 3.1 cm (2.0 - 3.7) AV Cusp: 1.3 cm (1.5 - 2.6) LA Diam: 4.0 cm (2.7 - 3.8) MV EXCURSION: 17.007 mm (> 18.000) MV EF SLOPE: 80 mm/s (70 - 150) EPSS: 0.5 cm MV E Ibrahima: 0.64 m/s MV DecT: 253 ms MV A Ibrahima: 0.76 m/s MV E/A Ratio: 0.84 RAP: 5.00 mmHg RVSP: 26.36 mmHg FINDINGS -------- Sinus rhythm. This was a technically good study. The left ventricular size is normal. There is mild concentric left ventricular hypertrophy. Overa ll left ventricular systolic function is low-normal with, an EF between 50 - 55 %. The right ventricle is normal in size. The left atrium is mildly dilated. LA is severely dilated >40 ml/m2 The right atrial size is normal. The aortic valve is trileaflet, and appears structurally normal. No aortic stenosis or regurgitation. Mild mitral annular calcification present. Mild mitral regurgitation is present. Mild tricuspid regurgitation present. There is no evidence of pulmonary hypertension. The right v entricular systolic pressure, as measured by Doppler, is 26.36mmHg. There is no pulmonic regurgitation present. The aortic root size is normal. There is no pericardial effusion. CONCLUSIONS -------- 1. The left ventricular size is normal. 2. There is mild concentric left ventricular hypertrophy. 3. Overall left ventricular systolic function is low-normal with, an EF between 50 - 55 %. 4. The right ventricle is normal in size. 5. The left atrium is mildly dilated. 6. LA is severely dilated >40 ml/m2 7. The right atrial size is normal. 8. The aortic valve is trileaflet, and appears structurally normal. No aortic stenosis or regurgitati on. 9. Mild mitral annular calcification present. 10. Mild mitral regurgitation is present. 11. Mild tricuspid regurgitation present. 12. There is no evidence of pulmonary hypertension. 13. The right ventricular systolic pressure, as measured by Doppler, is 26.36mmHg. 14. There is no pulmonic regurgitation present. 15. The aortic root size is normal. 16. There is no pericardial effusion. INCIDENT COORDINATOR: Rowan Vizcarra RDCS
[2018-01-22] MEDS ORDERED: amLODIPine 5 MG TAB PO SCH (21:00)
[2018-01-23] MEDS ORDERED: LOSARTAN-HCTZ 50-12.5 MG 1 EACH TAB PO SCH ×2 (09:00)
== END 2018-01-22 16:35 | disposition home or self-care (01) ==
LOC: EC 14:12 → 3OBS 16:41
PROVIDERS: ADMIT Family Medicine; ATTEND Family Medicine
DX: I16.1 Hypertensive emergency (principal); I10 Essential (primary) hypertension; R00.1 Bradycardia, unspecified; T44.7X5A Adverse effect of beta-adrenoreceptor antagonists, initial encounter; E03.9 Hypothyroidism, unspecified; M19.90 Unspecified osteoarthritis, unspecified site; M54.5 Low back pain; E66.9 Obesity, unspecified; Z68.29 Body mass index [BMI] 29.0-29.9, adult; Z79.890 Hormone replacement therapy; Z79.51 Long term (current) use of inhaled steroids; Z79.899 Other long term (current) drug therapy; Z88.5 Allergy status to narcotic agent; Z85.828 Personal history of other malignant neoplasm of skin; I25.2 Old myocardial infarction; Z98.51 Tubal ligation status; Z98.1 Arthrodesis status; Z96.652 Presence of left artificial knee joint; Z87.891 Personal history of nicotine dependence; Z82.49 Family history of ischemic heart disease and other diseases of the circulatory system; Z80.9 Family history of malignant neoplasm, unspecified
CPT/HCPCS: 96360; 99285; 36415; 93005; 93306; 80053; 84443; 82550 ×2; 82553 ×2; 83735; 84484 ×2; 85025; 71046; G0378 ×2

== ENCOUNTER → 2018-01-21 | Outpatient (CLI) | payer MEDICARE ==
[2018-01-20 11:18] VITALS: BMI 29.2
[2018-01-21 12:16] VITALS: PULSE 44; RESP 16
--- NOTE | 2018-01-21 12:51 | P.PAINCN ---
History of Present Illness - Reason for Consult Consult date: 01/21/18 - History of Present Illness This is 72 years old female with a chronic history of severe low back pain, pain started 3 years ago, she denies any initiating event, she denies any motor or sensory deficit, intensity of the pain increased over the last few months and become constant interfering with her quality of life, she denies any fever or night sweats she denies any change in the bowel movement or urination, patient reported that she had a history of lumbar fusion surgery done in 1975 and she's done fairly well after the surgery, and in 2007 , he had a flareup of her pain and she had Caudal epidural steroid injection at that time which did not help, and later on she had radiofrequency ablation of the medial branch lumbar area, that helped her significantly, currently she is complaining of severe localized pain in the right side mid back area, not radiated to the lower extremities, she has done physical therapy ,and chiropractics, without any benefit Past Medical History Past Medical History: Cancer, Hypertension, Myocardial Infarction ([place]), Musculoskeletal Disorder, Osteoarthritis (OA), Thyroid Disorder Additional Past Medical History / Comment(s): skin cancer, back pain Last Myocardial Infarction Date:: 07-18-1994 History of Any Multi-Drug Resistant Organisms: None Reported Past Surgical History: Back Surgery, Heart Catheterization, Tonsillectomy, Tubal Ligation Additional Past Surgical History / Comment(s): skin cancer, breast bx x2, back fusions. left knee replaced July 2017, pain procedures Past Anesthesia/Blood Transfusion Reactions: No Reported Reaction Additional Past Anesthesia/Blood Transfusion Reaction / Comm: no hx with prior blood transfusion Past Psychological History: No Psychological Hx Reported Smoking Status: Former smoker Past Alcohol Use History: Occasional Additional Past Alcohol Use History / Comment(s): quit smoking 1996,smoked approx 30 yrs 2-3ppd Past Drug Use History: None Reported - Past Family History Mother Family Medical History: No Reported History Additional Family Medical History / Comment(s): at age 93 Father History Unknown: Yes Additional Family Medical History / Comment(s): at age 42 Son(s) Family Medical History: Cancer, Myocardial Infarction ([place]) Medications and Allergies Home Medications Medication Instructions Recorded Confirmed Type Atenolol [Tenormin] 50 mg PO HS 07/31/14 01/20/18 History Losartan Potassium 100 mg PO QAM 07/31/14 01/20/18 History Triamterene-Hctz 37.5-25Mg 1 tab PO DAILY 07/31/14 01/20/18 History [Dyazide 37.5-25 Capsule] Fluticasone Nasal [place] [Flonase 2 spray EA NOSTRIL HS PRN 06/21/16 01/20/18 History Nasal [place]] Acetaminophen-Codeine 300-30mg 0.5 tab PO Q6H PRN 07/26/17 01/20/18 History [Tylenol #3] L.acidoph,Paracasei, B.lactis 1 cap PO HS 07/26/17 01/20/18 History [Probiotic] Ubidecarenone [Co Q-10] 300 mg PO HS 07/26/17 01/20/18 History Levothyroxine Sodium [Synthroid] 112 mcg PO DAILY 08/06/17 01/20/18 History Cholecalciferol [Vitamin D3] 2,000 unit PO DAILY 01/20/18 01/20/18 History Cyanocobalamin (Vitamin B-12) 1,000 mcg PO DAILY 01/20/18 01/20/18 History [Vitamin B-12] Allergies Allergy/AdvReac Type Severity Reaction Status Date / Time morphine AdvReac Mild Nausea & Verified 01/20/18 11:17 Vomiting acetaminophen [From [place]] AdvReac Nausea & Verified 01/21/18 12:00 Vomiting hydrocodone [From [place]] AdvReac Nausea & Verified 01/21/18 12:00 Vomiting Physical Exam Vitals: Vital Signs Pulse Resp BP Pulse Ox 01/21/18 12:02 44 L 16 191/85 97 Social history : not smoker , NO ETOH , NO Illegal drugs use Review of Systems : 1- Constitutional : no chills , no fever , no night sweats , 2- Ears : no ear discharge , no change in hearing 3-Nose, Mouth ,Throat ; no bleeding gums, no sore throat , no epistaxis , 4-Cardiovascular : Denies chest pain, , no orthopnea , no palpitation 5-Respiratory : Denies cough , no dyspnea , no hemoptysis 6-Gastrointestinal :, no change in bowel habits , no coffee- ground emesis . 7-Genitourinary : No hematuria , no discharge , no incontinence, 8-Musculoskeletal : No gait dysfunction , report low back pain , 9- Neurological : no ataxia , no tremor , no sezure , 10-Psychatric , no suicidal ideation no hallucination 11- Endocrine : no cold intolerence , no polyuria , no polydypsia , 12-Hematologic : no easy bleeding , no easy brusing , 13-Allergic / immunology : no angioedema , no wheezing ,no allergic rhinitis 14-Integumentary : no brttle nails , no change hair / nails , no foot/leg ulcers . Physical Examinations : 1-Constitutional : Cooperative , not in acute distress . 2-HEENT : nech ; supple , no Lymphadenopathy , no Thyromegaly , :eyes , no icterus, no photophobia . ENT : , normal oropharynx , no Thrush 3- Respiratory : Chest clear to auscultations Bilaterally , no wheezing . 4- Cardiovascular : regular rate and rhythem , S1 , S2 , no S3 , no S4. 5- Gastrointestinal: abdomen soft no tenderness , no organomegally . 6- Genitourinary : Defferred . 7-Integumentary : No cellulitis , no ulcers , normal skin turgor , no cyanotic . 8- neurologic : Cranial nerve II to XII intact , no focal neurological deffecit 9-psychatric : alert , oriented X 3 , appropriate affect , intact judgment and insight . 10-Lymphatic : no Lymphadenopathy. 11- musculoskeltal: normal gait Lumber spine moter stegnth lower extremities ,thigh and legs 5/5 Right side , 5/5 Left side deep tendon reflexes : normal Knee Jerk , normal ankle Jerk positive lumber facet Loading Test on the right side , negative on the left side. Range of motion of the lumbar spine Flexion 60 degrees, extension 30 degrees strait leg raising test negative bilaterally Fabere test negative bilaterally Multiple trigger points identified in the lower thoracic , upper lumbar area on the right side Results Comments: MRI of the lumbar spine= L5-S1 fusion and multilevel lumbar degenerative disc disease ,and multilevel lumbar facet arthropathy Assessment and Plan Plan: Assessment and plan= 1-myofascial pain syndrome Thoracic and lumbar area ( right side ). 2-lumbar facet arthropathy. Patient could benefit from trigger point injections, and muscle relaxant prescription for Flexeril 5 mg twice a day Also patient could benefit from Lidoderm patch 5 % 12 hours on 12 hours off. If she continue to have pain after the trigger point injections then we will do diagnostic medial branch block lumbar area Time with Patient: Greater than 30 PQRS Measure Charge Sheet Measure #130: Documentation of Current Meds in Medical Chart: Patient's medications documented in chart Measure #226: Tobacco Use: Screen & Cessation Intervention: Pt not a tobacco user Measure #111: Pneumonia Vaccination: Pneumococcal vaccine administered or previously received Measure #47: Advance Care Plan: Advance care planning discussed & documented, pt chose/unable to give Measure #412: Opioid Treatment Agreement: No documentation of signed opioid treatment agreement Measure #408: Opioid Therapy Follow-up Evaluation: Patient had NO f/u eval minimum every 3 months during opioid therapy Measure #317: Preventitive Care & Scrn High Bld Press & F/U: Pre-hypertensive or hypertensive BP documented, pt will f/u with PCP Measure #128: Body Mass Index (BMI) Screening & Follow-up: BMI documented ABOVE normal parameters - f/u documented Measure #131: Pain Assessment & Follow-up: Pain positive & plan documented, Follow-up scheduled Measure #431: Unhealthy Alcohol Use Preventative Care & Scrn: Patient not identified as an unhealthy alcohol user PQRS Narrative: Smoking Status Former smoker Do You Want the Pneumonia Yes Vaccine AT THIS TIME? Blood Pressure 191/85 Pain Intensity [Right Back] 8 Scale Used Numeric (1 - 10) Hx Alcohol Use (MH) Yes: occational Home Medications: Ambulatory Orders Atenolol [Tenormin] 50 mg PO HS 07/31/14 Losartan Potassium 100 mg PO QAM 07/31/14 Triamterene-Hctz 37.5-25Mg [Dyazide 37.5-25 Capsule] 1 tab PO DAILY 07/31/14 Fluticasone Nasal [place] [Flonase Nasal [place]] 2 spray EA NOSTRIL HS PRN Acetaminophen-Codeine 300-30mg [Tylenol #3] 0.5 tab PO Q6H PRN 07/26/17 L.acidoph,Paracasei, B.lactis [Probiotic] 1 cap PO HS 07/26/17 Ubidecarenone [Co Q-10] 300 mg PO HS 07/26/17 Levothyroxine Sodium [Synthroid] 112 mcg PO DAILY 08/06/17 Cholecalciferol [Vitamin D3] 2,000 unit PO DAILY 10/08/18 Cyanocobalamin (Vitamin B-12) [Vitamin B-12] 1,000 mcg PO DAILY 01/20/18
[2018-01-21 13:02] VITALS: BP 213/101
== END | disposition home or self-care (01) ==
LOC: PNWHC3 11:50
PROVIDERS: ATTEND Specialist
DX: M79.18 Myalgia, other site (principal); M46.96 Unspecified inflammatory spondylopathy, lumbar region; I10 Essential (primary) hypertension; I25.2 Old myocardial infarction; M19.90 Unspecified osteoarthritis, unspecified site; Z87.891 Personal history of nicotine dependence; Z88.5 Allergy status to narcotic agent; Z88.6 Allergy status to analgesic agent; Z79.899 Other long term (current) drug therapy; Z98.890 Other specified postprocedural states
CPT/HCPCS: 99211

== ENCOUNTER → 2018-02-18 | Day surgery (SDC) | payer MEDICARE ==
[2018-02-13 09:34] VITALS: BMI 29.2
[2018-02-18 07:45] VITALS: TEMP 98.4
[2018-02-18 08:21] VITALS: RESP 18
--- NOTE | 2018-02-18 08:22 | P.PCN ---
Date of Procedure: 02/18/18 Procedure(s) Performed: Procedure= trigger point injection right side lumbar paravertebral muscles total of 4 trigger points injected. Preoperative diagnosis=1-myofascial pain syndrome lumbar area. 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 3-lumbar degenerative disc disease. Postoperative diagnoses= same as preoperative diagnoses. Condition= stable. Anesthesia= moderate sedation with Versed 1 mg and fentanyl 50 g. Description indication of the procedure= this is 72 years old female, with a history of severe chronic low back pain, patient had a clinical finding of myofascial pain syndrome, and she was a good candidate to have trigger point injection, and the preoperative holding area examination showed patient had 4 trigger points in the right side lumbar paravertebral muscles, each of them also marked, then patient taken to the operating room placed in sitting position , monitors applied, then the back prepped with chlorhexidine 3 ,and under sterile technique, each of the trigger points injected with 3 ML ,of the mixture of ropivacaine 0.5% ,12 mL mixed with 40 mg of Kenalog, and 3 ML of the mixture injected at each trigger point after negative aspiration, using 25- gauge needle, and there was no paresthesia during the injection, patient tolerated the procedure well ,without any complications, will evaluate the patient respose after the procedure ,and in the future we'll consider repeating the trigger point, versus ,doing medial branch block lumbar area, and it is depend on the patient response, to the injection today.
[2018-02-18 08:42] VITALS: BP 132/55; PULSE 65
--- NOTE | 2018-02-20 19:33 | CDI ---
Outpatient Documentation Clarification Form Date: 02/18/18 CDS/Icu Tech Name: Sophia Ordonez Phone: If any questions, call [facility] Manager Call Center at [phone] Patient Name: Piedad Ortiz Admit Date: 02/18/18 Discharge Date: 02/18/18 ATTENTION: The [facility] Coding Staff appreciate your assistance in clarifying documentation. Please respond to the clarification below the line at the bottom and electronically sign. The [facility] Coding staff will review the response and follow-up if needed. Please note: Queries are made part of the Legal Health Record. If you have any questions, please contact the Manager Call Center. Dear Dr. Deutsch, How many muscles were injected? Please note that we do not code based off the number of trigger points injected. We code based off the number of muscles of injected. One muscle could potentially have more than one trigger point, so that is why we need to know the number of muscles. Thank you for your kind consideration. MTDD
--- NOTE | 2018-02-28 09:38 | P.PN ---
Progress Note - Text Progress Note Date: 02/18/18 This is an addendum to the note dictated earlier on 02/18/2018, there was 4 trigger point injected on the right side latissimus dorsi muscle (4 trigger points injected in 1 muscle)
== END ==
LOC: ORPAIN 07:18
PROVIDERS: ATTEND Specialist
DX: G89.29 Other chronic pain (principal); M79.18 Myalgia, other site; M47.816 Spondylosis without myelopathy or radiculopathy, lumbar region; M51.36 Other intervertebral disc degeneration, lumbar region; Z98.1 Arthrodesis status; I10 Essential (primary) hypertension; M19.90 Unspecified osteoarthritis, unspecified site; E07.9 Disorder of thyroid, unspecified; I25.2 Old myocardial infarction; Z79.890 Hormone replacement therapy; Z79.899 Other long term (current) drug therapy; Z96.652 Presence of left artificial knee joint; Z98.51 Tubal ligation status; Z85.828 Personal history of other malignant neoplasm of skin; Z87.891 Personal history of nicotine dependence
CPT/HCPCS: 20552; J2250; J3010; 20553

== ENCOUNTER → 2018-03-04 | Outpatient (CLI) | payer MEDICARE ==
[2018-03-05 06:28] LABS: Anion Gap 11.6 mmol/L (4.00-12.00); Calcium 9.5 mg/dL (8.7-10.3); Carbon Dioxide 26.4 mmol/L (21.6-31.8); Magnesium 1.8 mg/dL (1.5-2.4); Potassium 3.5 mmol/L (3.5-5.5)
== END | disposition home or self-care (01) ==
LOC: LABWHC1 15:57
PROVIDERS: ATTEND Internal Medicine Interventional Cardiology
DX: I10 Essential (primary) hypertension (principal)
CPT/HCPCS: 36415; 80048; 83735

== ENCOUNTER → 2018-04-02 | Outpatient (CLI) | payer MEDICARE ==
[2018-04-02 12:32] VITALS: PULSE 75; RESP 16
[2018-04-02 12:53] VITALS: BP 137/71
--- NOTE | 2018-04-02 13:08 | P.PN ---
Subjective Progress Note Date: 04/02/18 Piedad is a 72-year-old female who presents today for follow-up. She continues to complain of low back pain and associated headaches. She reports that the headaches in the low back pain comes together. She reports that severity of the pain is also related. She denies any new symptoms and reports that these headaches are chronic in nature. As for her low back pain she reports that any type of specific movements make her pain worse including standing up for a few minutes, doing her hair, or doing the dishes. She reports used to exercise quite a bit but continues to have low back pain now which is limiting her daily activities. She denies any numbness or tingling going down her legs. She denies any weakness in her lower extremities. She denies any changes in vision , swallowing, upper extremity strength or numbness or tingling. She does not use any medications at this point. She has had a radiofrequency ablation of her lumbar spine in the past and reports excellent relief. She is also status post lumbar surgery in the past at the L4 5 level Objective - Vital Signs Vital signs: Vital Signs Temp Pulse 75 04/02/18 12:20 Resp 16 04/02/18 12:20 BP 137/71 04/02/18 12:20 Pulse Ox 98 04/02/18 12:20 Intake & Output 04/01/18 04/02/18 04/02/18 18:59 06:59 18:59 Weight 66.224 kg - Exam General: Awake and alert oriented 3 no distress Respiratory exam: No audible wheezing no accessory muscle usage Cardiovascular exam: regular rate, palpable bilateral pulses, no lower extremity edema Abdominal exam: No distention nontender to palpation Cervical spine: Normal alignment, Spurling's negative, facet loading negative Lumbar spine: Loss of lumbar lordosis, normal alignment, tender to palpation over bilateral paraspinal muscles, facet loading is positive bilaterally. Straight leg raise is negative. Sacroiliac joints: Nontender to palpation, CHELSY is negative, Gaenselon negative Neuro exam: Normal sensation in bilateral upper extremities, deep tendon reflexes are 2+ bilateral upper extremities. Normal sensation in bilateral lower extremities. Deep tendon reflexes are 2+ in lower extremities Psych exam: Cooperative, appropriate mood Assessment and Plan Assessment: #1 lumbar spondylosis without myelopathy #2 lumbar postlaminectomy syndrome #3 chronic headaches Plan: After long discussion with the patient I advised her that her low back pain and headaches are likely unrelated. I advised her that after reviewing her MRI and her physical exam I believe that she may benefit from repeat medial branch blocks and she's had success with them in the past. Advised to be a purely diagnostic tests with only local anesthetic see if that improves her pain for a short period. If she does improve we will schedule for rhizotomy in the future
== END | disposition home or self-care (01) ==
LOC: PNWHC3 12:05
PROVIDERS: ATTEND Hospitalist
DX: M96.1 Postlaminectomy syndrome, not elsewhere classified (principal); M47.816 Spondylosis without myelopathy or radiculopathy, lumbar region; R51 Headache; G89.29 Other chronic pain
CPT/HCPCS: 99211

== ENCOUNTER 2018-04-28 08:48 | Day surgery (SDC) | payer MEDICARE ==
[2018-04-24 12:59] VITALS: BMI 28.3
[~2018-04-28 08:48] MED LIST changes: -ACETAMINOPHEN TAB 500 MG TAB PO ONE; -LIDOCAINE 1% 20 ML VIAL (10MG/ML) FOR IV START INTRADERMA PRN; -MELOXICAM 7.5 MG TAB PO ONE; -MIDAZOLAM 2 MG/2 ML VIAL IV PRN; -ONDANSETRON ODT 4 MG TAB PO ONE; +SODIUM CHLORIDE 0.9% 500 ML 500 ML IV SCH; -TRANEXAMIC ACID 1,000 MG in SODIUM CHLORIDE 0.9% 50 ML IVPB ONE; -ceFAZolin IN SWFI 2 GM/20 ML SYRINGE IVP ONE
[2018-04-28 09:35] VITALS: TEMP 97.3
[2018-04-28] MEDS ORDERED: LACTATED RINGERS 1,000 ML IV ONE (09:35)
[2018-04-28] MEDS ORDERED: LIDOCAINE 1% 20 ML VIAL (10MG/ML) FOR IV START INTRADERMA ONE (09:36)
[2018-04-28] MEDS ORDERED: IV FLUID CONTINUATION 650 ML IV ONE (10:52)
--- NOTE | 2018-04-28 10:52 | P.PCN ---
Date of Procedure: 04/28/18 Procedure(s) Performed: PREOPERATIVE DIAGNOSIS : 1- Lumbar spondylosis with Facet Arthropathy without myelopathy . 2- Lumber degenerative disc disease POSTOPERATIVE DIAGNOSIS: 1- Lumbar spondylosis with Facet Arthropathy without myelopathy . 2- Lumber degenerative disc disease PROCEDURE: Diagnostic bilateral L3 -4 , L4 -5 , and L5-S1 medial branch block under fluoroscopy ANESTHESIA: Local with Ropivacain 0.5 % 6 ml , moderate sedation with intravenous Versed 1 mg and Fentanyl 50 mcg. EBL: Minimal COMPLICATION: None. IV FLUIDS: 100 mL of normal saline. PROCEDURE INDICATION: Chronic low back pain secondary to Facet arthropathy unresponsive to conservative treatment. PROCEDURE DESCRIPTION: the patient was seen and identified in the preop holding area , risks and benefits and possible complications of the procedure and alternative were discussed with the patient, and the patient agreed to proceed with the procedure and signed the consent IV was started and vital signs monitored during the procedure and fluoroscopy was used to maximize the benefit and accuracy of the needle placement, and sedation was given to decrease patient anxiety, patient was taken to the procedure room and placed in prone position vital signs monitored in the back prepped with chlorhexidine X3 then under strict sterile technique using a right oblique fluoroscopy ,the junction of the transverse process and the superior articulating process of the right L3- 4 , L4- 5, and L5-S1 vertebra which corresponding to the fluoroscopy image of the eye of the Shalom dog on the block side for the medial branches and subsequently , after local infiltration of skin and subcu tissuies with Ropivacaine 0.5 % , one mL at each level , then 22-gauge Quincke-type needles , 3 needle was used , each one of them placed at the junction of the base of the transverse process and the superior articular process at the appropriate level, and the needle was advanced until the periosteum contacted, needle placement confirmed with AP oblique and lateral view and after appropriate needle placement confirmed, and after negative aspiration for heme and CSF and there was no paresthesia 1-1/2 mL of Ropivacaine 0.5% mixed with 20 mg Kenalog , then half mL injected at each level after negative aspiration the needle subsequently removed and the same procedure repeated for the left side at left side at L3-4, L4- 5 and L5-S1 levels. At the end of the procedure and the needles removed and a bandage applied after the skin was cleaned the cleaning solution patient taken to recovery room in stable condition and monitors in the recovery room for 20-30 minutes and discharged home in stable condition after discharge criteria met and patient will follow up with the pain clinic in 2-4 weeks
--- NOTE | 2018-04-28 11:08 | FL ---
EXAMINATION TYPE: FL guided pain mgmt statistic DATE OF EXAM: 04/28/2018 CLINICAL HISTORY: Low back pain. TECHNIQUE: Fluoroscopy. COMPARISON: None. FINDINGS: Fluoroscopic guidance was provided during pain relief procedure performed by Dr. Deutsch . A total of 9 seconds of fluoroscopic time was utilized during the procedure and 4 spot images are acquired. Images acquired shows needle localization . IMPRESSION: As Above.
[2018-04-28 11:12] VITALS: PULSE 70
[2018-04-28 11:14] VITALS: BP 136/67; RESP 18
== END 2018-04-28 11:25 | disposition home or self-care (01) ==
LOC: ORPAIN 08:48
PROVIDERS: ATTEND Specialist
DX: G89.29 Other chronic pain (principal); M47.816 Spondylosis without myelopathy or radiculopathy, lumbar region; M51.36 Other intervertebral disc degeneration, lumbar region; Z88.5 Allergy status to narcotic agent
CPT/HCPCS: 64493; 64494; 64495; J2250; J1030; J3010; 99152

== ENCOUNTER 2018-05-08 07:36 | Day surgery (SDC) | payer MEDICARE ==
[2018-05-07 11:21] VITALS: BMI 28.7
[2018-05-08 07:57] VITALS: RESP 16; TEMP 97.4
[2018-05-08] MEDS ORDERED: LACTATED RINGERS 1,000 ML IV ONE (08:09)
[2018-05-08] MEDS ORDERED: LIDOCAINE 1% 20 ML VIAL (10MG/ML) FOR IV START INTRADERMA ONE (08:10)
--- NOTE | 2018-05-08 09:19 | P.PCN ---
Date of Procedure: 05/08/18 Procedure(s) Performed: PREOPERATIVE DIAGNOSIS : 1- Lumbar spondylosis with Facet Arthropathy without myelopathy . 2- Lumber degenerative disc disease POSTOPERATIVE DIAGNOSIS: 1- Lumbar spondylosis with Facet Arthropathy without myelopathy . 2- Lumber degenerative disc disease PROCEDURE: Diagnostic bilateral L3 -4 , L4 -5 , and L5-S1 medial branch block under fluoroscopy ANESTHESIA: Local with Ropivacain 0.5 % 6 ml , moderate sedation with intravenous Versed 1 mg and Fentanyl 50 mcg. EBL: Minimal COMPLICATION: None. IV FLUIDS: 100 mL of normal saline. PROCEDURE INDICATION: Chronic low back pain secondary to Facet arthropathy unresponsive to conservative treatment. PROCEDURE DESCRIPTION: the patient was seen and identified in the preop holding area , risks and benefits and possible complications of the procedure and alternative were discussed with the patient, and the patient agreed to proceed with the procedure and signed the consent IV was started and vital signs monitored during the procedure and fluoroscopy was used to maximize the benefit and accuracy of the needle placement, and sedation was given to decrease patient anxiety, patient was taken to the procedure room and placed in prone position vital signs monitored in the back prepped with chlorhexidine X3 then under strict sterile technique using a right oblique fluoroscopy ,the junction of the transverse process and the superior articulating process of the right L3- 4 , L4- 5, and L5-S1 vertebra which corresponding to the fluoroscopy image of the eye of the Shalom dog on the block side for the medial branches and subsequently , after local infiltration of skin and subcu tissuies with Ropivacaine 0.5 % , one mL at each level , then 22-gauge Quincke-type needles , 3 needle was used , each one of them placed at the junction of the base of the transverse process and the superior articular process at the appropriate level, and the needle was advanced until the periosteum contacted, needle placement confirmed with AP oblique and lateral view and after appropriate needle placement confirmed, and after negative aspiration for heme and CSF and there was no paresthesia 1-1/2 mL of Ropivacaine 0.5% mixed with 20 mg Depo-Medrol , then half mL injected at each level after negative aspiration the needle subsequently removed and the same procedure repeated for the left side at left side at L3-4, L4- 5 and L5-S1 levels. At the end of the procedure and the needles removed and a bandage applied after the skin was cleaned the cleaning solution patient taken to recovery room in stable condition and monitors in the recovery room for 20-30 minutes and discharged home in stable condition after discharge criteria met and patient will follow up with the pain clinic in 2-4 weeks
[2018-05-08] MEDS ORDERED: IV FLUID CONTINUATION 1,000 ML IV ONE (09:24)
[2018-05-08 09:53] VITALS: BP 131/74; PULSE 58
--- NOTE | 2018-05-08 13:53 | FL ---
Fluoroscopy INDICATION: Pain FINDINGS: Fluoroscopy time: 27 seconds. Images obtained: 5. IMPRESSIONS: 1. Documentation of fluoroscopy.
== END 2018-05-08 10:03 | disposition home or self-care (01) ==
LOC: ORPAIN 07:36
PROVIDERS: ATTEND Specialist
DX: G89.29 Other chronic pain (principal); M47.816 Spondylosis without myelopathy or radiculopathy, lumbar region; M51.36 Other intervertebral disc degeneration, lumbar region; Z88.5 Allergy status to narcotic agent
CPT/HCPCS: 64493; 64494; 64495; J2250; J1030; J3010; 99152; 99153

== ENCOUNTER → 2018-06-05 | Outpatient (CLI) | payer MEDICARE ==
[2018-06-05 12:43] VITALS: BP 156/80; PULSE 85; RESP 16
--- NOTE | 2018-06-05 13:13 | P.PN ---
Subjective Progress Note Date: 06/05/18 Piedad is a 73-year-old female who presents today for follow-up after having bilateral medial branch blocks done. She reports her pain was significantly better after the medial branch blocks. She felt that the pain was better for a few hours throughout the day and still feels a little bit better since then. She denies any new weakness or new symptoms. Her back pain is across the right side more than on the left side. She reports her pain as a dull aching sometimes sharp shooting pain across the the right side back into the flank. Objective - Vital Signs Vital signs: Vital Signs Temp Pulse 85 06/05/18 12:30 Resp 16 06/05/18 12:30 BP 156/80 06/05/18 12:30 Pulse Ox Intake & Output 06/04/18 06/05/18 06/05/18 18:59 06:59 18:59 Weight 67.132 kg - Exam General: Awake and alert oriented 3 no distress Respiratory exam: No audible wheezing no accessory muscle usage Cardiovascular exam: regular rate, palpable bilateral pulses, no lower extremity edema Abdominal exam: No distention nontender to palpation Cervical spine: Normal alignment, Spurling's negative, facet loading negative Lumbar spine: Loss of lumbar lordosis, normal alignment, tender to palpation over bilateral paraspinal muscles, facet loading is positive on the right. Straight leg raise is negative. Lower extremity strength is 5 out of 5 in bilateral Sacroiliac joints: Nontender to palpation, CHELSY is negative, Ga[place]elon negative Neuro exam: Normal sensation in bilateral upper extremities, deep tendon reflexes are 2+ bilateral upper extremities. Normal sensation in bilateral lower extremities. Deep tendon reflexes are 2+ in lower extremities Psych exam: Cooperative, appropriate mood Assessment and Plan Assessment: Lumbar spondylosis without myelopathy Plan: Plan is to perform a right-sided radiofrequency ablation at L3 through S1 levels. I discussed the procedure in detail with the patient and her . I discussed the risks benefits and alternatives to the procedure. She does not have any pain in the left side so we will hold off on doing that at this time
== END ==
LOC: PNWHC3 12:12
PROVIDERS: ATTEND Hospitalist
DX: M47.816 Spondylosis without myelopathy or radiculopathy, lumbar region (principal)
CPT/HCPCS: 99211

== ENCOUNTER 2018-06-18 07:46 | Day surgery (SDC) | payer MEDICARE ==
[2018-06-11 15:46] VITALS: BMI 28.5
[2018-06-18 08:40] VITALS: TEMP 98
[2018-06-18] MEDS ORDERED: LACTATED RINGERS 1,000 ML IV ONE ×2 (08:46)
[2018-06-18] MEDS ORDERED: LIDOCAINE 1% 20 ML VIAL (10MG/ML) FOR IV START INTRADERMA ONE (08:47)
[2018-06-18] MEDS ORDERED: IV FLUID CONTINUATION 1,000 ML IV ONE ×2 (09:36)
[2018-06-18 09:42] VITALS: RESP 18
--- NOTE | 2018-06-18 09:44 | P.PCN ---
Date of Procedure: 06/18/18 Procedure(s) Performed: PREOPERATIVE DIAGNOSIS: 1-Lumbar Spondylosis with Facet Arthropathy without myelopathy. 2- Lumber degenerative disc disease POSTOPERATIVE DIAGNOSIS: 1- Lumbar Spondylosis with Facet Arthropathy without myelopathy. 2- Lumber degenerative disc disease PROCEDURES : Right Radiofrequency thermocoagulation, L3-L4, L4-L5, and L5-S1 medial branch, with fluoroscopic guidance ANESTHESIA: Moderate sedation with intravenous versed 1 mg and fentaneyl 50 mcg, and local infiltration with Ropivacaine 0.5 % . EBL: Minimal PROCEDURE INDICATION: The patient with low back pain secondary to lumbar facet arthropathy who had more than 50% relief of her pain with previous diagnostic lumbar medial branch block with bupivacaine. PROCEDURE DESCRIPTION / TECHNIQUE: The patient was seen and identified in the preoperative area. Risks, benefits, complications, including but not limited to risk of infection ,bleeding , allergic reactions to the medications and no complete pain releife , and alternatives were discussed with the patient, the patient agreed to proceed with the procedure and signed the consent. IV was started. Vital signs remained stable throughout the procedure. Patient was taken to the OR and time out was completed. The patient was placed in the prone position on the procedure table. The lumber area was prepped and draped in the usual sterile fashion. . Vital signs were closely monitored during the procedure .IV sedation was used during the procedure to decrease patients anxiety. Using AP and then oblique fluoroscopy, the ``eye of the Shalom dog corresponding to the connection between the superior and transverse articular processes of right L3, L4, and L5 were identified, marked, and localized with 1% lidocaine. Subsequently, a 18 [id number] radiofrequency cannula with a 10- mm active tip was advanced guided by fluoroscopy to each of the``eyes of the Shalom dog at right L3, L4, and L5. Each site then underwent sensory testing at 50 Hz and 0 to 1 volt and motor testing at 2.5 Hz and 0 to 3 volt with local stimulation, but no radicular symptoms down the legs. Thereafter the right L3-4, L4-5, and L5-S1 sites underwent radiofrequency thermocoagulation at 80 degrees celsius for 90 seconds after injecting 0.5 ml of PF Ropivacaine 1ml, then after the thermocoagulation done , 1 ml of the block solution containing Kenalog 40 mg and 3 ml of Ropivacaine 0.5% was injected at the right L3-4 , L4-5 , and L5-S1, levels after negative aspiration of CSF and blood and with no paresthesias. Cannulas were retracted while injecting lidocaine 1% until the needle is out. At the end of the procedure, the skin was cleansed and bandages were applied. COMPLICATIONS: No acute complications. DISPOSITION / PLANS: The patient was placed in a supine position and transferred to the recovery area in a stable condition for observation and was discharged from the recovery room after meeting discharge criteria. Home discharge instructions given to the patient by the staff. The patient was reexamined prior to discharge. The patient will schedule a follow up in the clinic in 2-4 weeks.
[2018-06-18 09:53] VITALS: BP 134/80; PULSE 65
--- NOTE | 2018-06-18 10:06 | FL ---
Fluoroscopy INDICATION: Pain FINDINGS: Fluoroscopy time: 11 seconds. Images obtained: 3. IMPRESSIONS: 1. Documentation of fluoroscopy.
== END 2018-06-18 10:10 | disposition home or self-care (01) ==
LOC: ORPAIN 07:46
PROVIDERS: ATTEND Specialist
DX: M47.816 Spondylosis without myelopathy or radiculopathy, lumbar region (principal); M51.36 Other intervertebral disc degeneration, lumbar region; I10 Essential (primary) hypertension; Z88.5 Allergy status to narcotic agent
CPT/HCPCS: 64635; 64636 ×2; J2250; J3010; 99152

== ENCOUNTER → 2018-06-23 | Outpatient (CLI) | payer MEDICARE ==
[2018-06-23 08:56] LABS: Blood Urea Nitrogen 12 mg/dL (7-17)
--- NOTE | 2018-06-23 12:05 | MR ---
EXAMINATION TYPE: MR angio head wo con DATE OF EXAM: 06/23/2018 COMPARISON: CT brain October 08, 2017 HISTORY: Headache TECHNIQUE: Time of flight images focusing on the [place] were performed without contrast.. 2-D and 3-D postprocessing imaging is performed on MRI scanner. FINDINGS: There is dominant left vertebral artery. Vertebral arteries are patent to basilar junction. There is hypoplastic right posterior communicating artery. There is patent small caliber left plant sprayer ior communicating artery. Posterior circulation shows no significant focal stenosis or aneurysmal gina nge. Anterior circulation show patent anterior communicating artery. There is no significant focal stenosi s or aneurysmal change identified. IMPRESSION: No aneurysmal change at level of the [place].
--- NOTE | 2018-06-23 13:32 | MR ---
EXAMINATION TYPE: MR brain wo/w con DATE OF EXAM: 06/23/2018 COMPARISON: CT brain October 08, 2017 HISTORY: Headache TECHNIQUE: Multiplanar, multisequence images of the brain and brainstem is performed without and with IV contras t, utilizing 7 mL intravenous Gadavist . FINDINGS: Diffusion weighted images demonstrate no evidence of a recent infarct or other diffusion ab normality. There is no worrisome extra-axial fluid collection. There is mild ventricular and sulcal prominence consistent with mild diffuse age-related cerebral atrophy redemonstrated. There are scatte red foci of T2 hyperintensity seen throughout the white matter bilaterally. Approximately 40-50 small scattered lesions are present. Lesions are nonspecific in appearance and distribution but most likel y on basis of product of chronic small vessel ischemic change in patient of this age. Midline structures demonstrate normal morphology. The pituitary gland measures upper limits of nghia l with convex superior margin. Suprasellar cistern is maintained. The craniocervical junction appears within normal limits. Post contrast images demonstrate no abnormal enhancement. The dural venous si nuses appear patent. The visualized sinuses are clear and the globes are intact. IMPRESSION: 1. There is mild diffuse age-related cerebral atrophy and more moderate chronic small vessel ischemic change identified.
== END | disposition home or self-care (01) ==
LOC: RADMRIMAIN 08:08
PROVIDERS: ATTEND Physician Assistant
DX: G31.1 Senile degeneration of brain, not elsewhere classified (principal); I67.82 Cerebral ischemia
CPT/HCPCS: 82565; 84520; 70544; 70553; 36415; A9585

== ENCOUNTER → 2018-06-25 | Outpatient (CLI) | payer MEDICARE ==
--- NOTE | 2018-06-25 14:36 | US ---
EXAMINATION TYPE: US carotid duplex BILAT DATE OF EXAM: 06/25/2018 COMPARISON: NONE CLINICAL HISTORY: R51 Headaches. headaches, left neck pain EXAM MEASUREMENTS: RIGHT: Peak Systolic Velocity (PSV) cm/sec ----- Right CCA: 62.2 ----- Right ICA: 126.3 ----- Right ECA: 118.5 ICA/CCA ratio: 2.0 RIGHT: End Diastole cm/sec ----- Right CCA: 13.8 ----- Right ICA: 39.6 ----- Right ECA: 21.5 LEFT: Peak Systolic Velocity (PSV) cm/sec ----- Left CCA: 65.1 ----- Left ICA: 99.5 ----- Left ECA: 103.0 ICA/CCA ratio: 1.5 LEFT: End Diastole cm/sec ----- Left CCA: 15.4 ----- Left ICA: 33.3 ----- Left ECA: 16.3 VERTEBRALS (direction of flow): Right Vertebral: Antegrade Left Vertebral: Antegrade Rhythm: Normal Mild plaque bilateral bifurcations. Tortuous vessels bilaterally. IMPRESSION: 1. Stenosis of approximately 50-69% within the right internal carotid artery favored to be approximat nazanin 50%. 2. No hemodynamically significant stenosis within the left internal carotid artery or common carotid artery. Criteria for Assigning % of Stenosis / Diameter reduction (Estimation based on the indirect measurements of the internal carotid artery velocities (ICA PSV). 1. Normal (no stenosis)=ICA PSV < 125 cm/s: ratio < 2.0: ICA EDV<40 cm/s. 2. Less than 50% stenosis=ICA PSV < 125 cm/s: ratio < 2.0: ICA EDV<40 cm/s. 3. 50 to 69% stenosis=ICA PSV of 125 to 230 cm/s: ration 2.0 ? 4.0: ICA EDV 40-100 cm/s. 4. Greater than 70% stenosis to near occlusion= ICA PSV > 230 cm/s: ratio > 4.0: ICA EDV > 100 cm/s. 5. Near occlusion= ICA PSV velocities may be low or undetectable: variable ratio and ICA EDV. 6. Total occlusion=unable to detect flow.
== END ==
LOC: RADUSWWP 12:47
PROVIDERS: ATTEND Family Medicine
DX: I65.21 Occlusion and stenosis of right carotid artery (principal)
CPT/HCPCS: 93880

== ENCOUNTER 2018-07-08 08:06 | Day surgery (SDC) | payer MEDICARE ==
[2018-07-01 15:53] VITALS: BMI 28.7
[2018-07-08] MEDS ORDERED: LACTATED RINGERS 1,000 ML IV ONE (08:59)
[2018-07-08 09:02] VITALS: RESP 18; TEMP 97.9
[2018-07-08] MEDS ORDERED: LIDOCAINE 1% 20 ML VIAL (10MG/ML) FOR IV START INTRADERMA ONE (09:10)
--- NOTE | 2018-07-08 10:28 | P.PCN ---
Date of Procedure: 07/08/18 Procedure(s) Performed: PREOPERATIVE DIAGNOSIS: 1-Lumbar Spondylosis with Facet Arthropathy without myelopathy. POSTOPERATIVE DIAGNOSIS: 1- Lumbar Spondylosis with Facet Arthropathy without myelopathy. PROCEDURES : Left Radiofrequency thermocoagulation, L3-L4, L4-L5, and L5-S1 m edial branch, with fluoroscopic guidance. ANESTHESIA: Moderate sedation with intravenous versed 1 mg and fentaneyl 50 mcg, and local infiltration with Ropivacaine 0.5 % . EBL: Minimal PROCEDURE INDICATION: The patient with low back pain secondary to lumbar facet arthropathy who had more than 50% relief of her pain with previous diagnostic lumbar medial branch block with bupivacaine. PROCEDURE DESCRIPTION / TECHNIQUE: The patient was seen and identified in the preoperative area. Risks, benefits, complications, including but not limited to risk of infection ,bleeding , allergic reactions to the medications and no complete pain releife , and alternatives were discussed with the patient, the patient agreed to proceed with the procedure and signed the consent. IV was started. Vital signs remained stable throughout the procedure. Patient was taken to the OR and time out was completed. The patient was placed in the prone position on the procedure table. The lumber area was prepped and draped in the usual sterile fashion. . Vital signs were closely monitored during the procedure .IV sedation was used during the procedure to decrease patients anxiety. Using AP and then oblique fluoroscopy, the ``eye of the Shalom dog corresponding to the connection between the superior and transverse articular processes of left L3, L4, and L5 were identified, marked, and localized with 1% lidocaine. Subsequently, a 18 [id number] radiofrequency cannula with a 10- mm active tip was advanced guided by fluoroscopy to each of the``eyes of the Shalom dog at left L3, L4, and L5. Each site then underwent sensory testing at 50 Hz and 0 to 1 volt and motor testing at 2.5 Hz and 0 to 3 volt with local stimulation, but no radicular symptoms down the legs. Thereafter the left L3-4, L4-5, and L5-S1 sites underwent radiofrequency thermocoagulation at 80 degrees celsius for 90 seconds after injecting 0.5 ml of PF Ropivacaine 1ml, then after the thermocoagulation done , 1 ml of the block solution containing Depo-medrol 40 mg and 3 ml of Ropivacaine 0.5% was injected at the left L3-4 , L4-5 , and L5-S1, levels after negative aspiration of CSF and blood and with no paresthesias. Cannulas were retracted while injecting lidocaine 1% until the needle is out. At the end of the procedure, the skin was cleansed and bandages were applied. COMPLICATIONS: No acute complications. DISPOSITION / PLANS: The patient was placed in a supine position and transferred to the recovery area in a stable condition for observation and was discharged from the recovery room after meeting discharge criteria. Home discharge instructions given to the patient by the staff. The patient was reexamined prior to discharge. The patient will schedule a follow up in the clinic in 2-4 weeks.
[2018-07-08] MEDS ORDERED: IV FLUID CONTINUATION 700 ML IV ONE (10:33)
--- NOTE | 2018-07-08 10:34 | FL ---
EXAMINATION TYPE: FL guided pain mgmt statistic DATE OF EXAM: 07/08/2018 HISTORY: Flouroscopy time 11 seconds of fluoroscopy provided. IMPRESSION: 1. Fluoroscopy time.
[2018-07-08 10:54] VITALS: BP 138/67; PULSE 64
== END 2018-07-08 11:29 | disposition home or self-care (01) ==
LOC: ORPAIN 08:06
PROVIDERS: ATTEND Specialist
DX: M47.816 Spondylosis without myelopathy or radiculopathy, lumbar region (principal)
CPT/HCPCS: 64635; 64636; J2250; J1030; J3010; 99152; 99153

== ENCOUNTER → 2018-07-29 | Outpatient (CLI) | payer MEDICARE ==
[2018-07-29 14:18] VITALS: BP 126/83; PULSE 76; RESP 18
--- NOTE | 2018-07-29 14:38 | P.PN ---
Subjective Progress Note Date: 07/29/18 This is a follow-up visit for this 73 years old female with a chronic history of severe low back pain, diagnosed with lumbar spondylosis with lumbar facet arthropathy and myofascial pain syndrome lumbar area, status post radiofrequency ablation of the medial branch lumbar area, she reported that her pain improved significantly and she is able to function more, and she reports her pain level between 2/10, she denies any motor or sensory deficits, she is able to do physical therapy and ambulate without difficulty, she denies any change in bowel movement or urination, Objective - Vital Signs Vital signs: Vital Signs Temp Pulse 76 07/29/18 14:12 Resp 18 07/29/18 14:12 BP 126/83 07/29/18 14:12 Pulse Ox 94 L 07/29/18 14:12 Intake & Output 07/28/18 07/29/18 07/29/18 18:59 06:59 18:59 Weight 67.132 kg - Exam Physical Examinations : -Constitutiona : Cooperative , not in acute distress . -HEENT : nech ; supple , no Lymphadenopathy , normal thyroid size . eyes : no ptosis , no icterus, no photophobia . [place] moter stegnth lower extremities ,thigh and legs 5/5 Right side , 5/5 Left side Assessment and Plan Plan: Assessment and plan= lumbar spondylosis and lumbar facet arthropathy, facet pain syndrome lumbar area Status post radiofrequency ablation of the medial branch lumbar area, patient doing well She will follow up when necessary Patient will continue to do physical therapy, - PQRS measures = - Patient's medications are documented in the chart. -Tobacco use is negative and counseling.Given. -Patient's has received pneumococcal vaccine. -Advanced care planning discussed, patient not eligible. -Opiate contract not signed. -Pain positive follow up when necessary -Patient's blood pressure measured [126/80 ] , and documented in the record ,and patient will follow up with the primary care. -Patient's weight was measured and body mass index [ 28.9 ] above the normal limits and patient instructed to follow-up with the primary care physician. -Patient was not identified as an unhealthy alcohol user Time with Patient: Less than 30
== END | disposition home or self-care (01) ==
LOC: PNWHC3 14:05
PROVIDERS: ATTEND Specialist
DX: G89.29 Other chronic pain (principal); M47.816 Spondylosis without myelopathy or radiculopathy, lumbar region; M46.86 Other specified inflammatory spondylopathies, lumbar region; M79.18 Myalgia, other site
CPT/HCPCS: 99211

== ENCOUNTER → 2018-09-15 | Outpatient (CLI) | payer MEDICARE ==
--- NOTE | 2018-09-16 14:34 | MM ---
Reason for exam: screening (asymptomatic). Last mammogram was performed 1 year ago. History: Patient is postmenopausal and history of other cancer. Family history of breast cancer in cousin at age 50. Excisional biopsy of the left breast. Excisional biopsy of the right breast. Took estrogen for 1 year 6 months. Took progesterone for 1 year 6 months. Physical Findings: A clinical breast exam by your physician is recommended on an annual basis and results should be correlated with mammographic findings. MG 3D Screening Mammo W/Cad Bilateral CC and MLO view(s) were taken. Prior study comparison: September 12, 2017, bilateral MG 3d screening mammo w/cad. August 03, 2016, bilateral MG 3d screening mammo w/cad. There are scattered fibroglandular densities. No significant changes when compared with prior studies. ASSESSMENT: Benign, BI-RAD 2 RECOMMENDATION: Routine screening mammogram of both breasts in 1 year.
== END ==
LOC: RADMAMWWP 11:13
PROVIDERS: ATTEND Family Medicine
DX: Z12.31 Encounter for screening mammogram for malignant neoplasm of breast (principal)
CPT/HCPCS: 77063; 77067

== ENCOUNTER → 2019-01-26 | Outpatient (CLI) | payer MEDICARE ==
--- NOTE | 2019-02-02 18:58 | P.PN ---
Progress Note - Text Progress Note Date: 02/02/19 This is a report on the 24-hour monitor. Baseline rhythm is sinus. Average heart rate is 66 with a minimum of 50 and maximum 123. Occasional APCs and PVCs were noted. Patient complain of pounding and shortness of breath, not correlating with any cardiac events Final impression: #1. Sinus rhythm. #2 occasional APCs. #3 occasional PVCs. #4. Patient's stated symptoms did not correlate with any cardiac events
--- NOTE | 2019-02-03 11:14 | HM ---
This is a report on the 24-hour monitor. Baseline rhythm is sinus. Average heart rate is 66 with a minimum of 50 and maximum 123. Occasional APCs and PVCs were noted. Patient complain of pounding and shortness of breath, not correlating with any cardiac events Final impression: #1. Sinus rhythm. #2 occasional APCs. #3 occasional PVCs. #4. Patient's stated symptoms did not correlate with any cardiac events MTDD
== END | disposition home or self-care (01) ==
LOC: RADECHMAIN 11:37
PROVIDERS: ATTEND Family Medicine
DX: R00.2 Palpitations (principal); I49.3 Ventricular premature depolarization
CPT/HCPCS: 93225; 93226

== ENCOUNTER → 2019-03-02 | Outpatient (CLI) | payer MEDICARE ==
[2019-03-02 08:12] LABS: African American GFR (CKD) >90 (>60 ml/min/1.73 sqM); Blood Urea Nitrogen 11 mg/dL (7-17)
--- NOTE | 2019-03-02 09:56 | CT ---
EXAMINATION TYPE: CT abdomen pelvis w con DATE OF EXAM: 03/02/2019 HISTORY: Diverticulosis CT DLP: 652.7mGycm Automated Exposure Control for Dose Reduction was Utilized. CONTRAST: CT scan of the abdomen and pelvis is performed with IV Contrast, patient injected with 100 mL of Isov ue 300. COMPARISON: None. FINDINGS: LUNG BASES: No significant abnormality is appreciated. LIVER/GB: There are multiple hypoattenuated hepatic lesions, majority of these are subcentimeter. The larger are markedly hypoattenuated and compatible with cysts. The smaller are too small to accuratel y characterize.. PANCREAS: An ill-defined 4 mm pancreatic lesion is seen within the pancreatic body on series 3 image 17. This appears more low-density, well-circumscribed, and cystic on coronal series 7 image 29 howeve r given its ill definition on axial imaging MRCP with and without contrast is recommended for further evaluation. No gross ductal dilatation of the main pancreatic duct. Slight pancreatic parenchymal at rophy throughout. SPLEEN: No significant abnormality is seen. ADRENALS: No nodularity or thickening. KIDNEYS: Needs enhance and excrete symmetrically without hydronephrosis. BOWEL: Incidentally noted small hiatal hernia. Numerous sigmoid colonic diverticula are seen without pericolonic fat stranding. There is slight bowel wall thickening of the sigmoid colon in a long segme nt, likely on the basis of chronic diverticulosis. No dilated large or small bowel. Moderate degree c olonic fecal stasis. Some air-fluid levels within small bowel indicating overall increased transit ti me throughout the bowel. LYMPH NODES: No greater than 1cm abdominal or pelvic lymph nodes are appreciated. OSSEOUS STRUCTURES: Diffusely fixated grade 2 anterolisthesis of L5 on S1. Overall moderate multileve l degenerative disc disease of the visualized thoracolumbar spine. Generalized osseous demineralizati on is seen. Advanced degenerative changes of the sacroiliac joints. Moderate arthropathy of the hips. Generalized atrophy of the hip girdle musculature laterally. OTHER: Advanced atheromatous change of the abdominal aorta and its branches. Small fat filled periumb ilical hernia. IMPRESSION: 1. Ill-defined pancreatic lesion measuring 4 mm within the pancreatic body for which MRCP with and wi thout contrast is recommended for further evaluation. 2. Sigmoid colonic diverticulosis without evidence of acute diverticulitis. Long segment thickening o f the sigmoid colon is likely on the basis of chronic diverticulosis. 3. Incidentally noted small hiatal hernia. 4. Few scattered hepatic cysts and other smaller lesions that are too small to accurately characteriz e.
== END | disposition home or self-care (01) ==
LOC: RADCTMAIN 07:13
PROVIDERS: ATTEND Surgery Plastic and Reconstructive Surgery
DX: K57.30 Diverticulosis of large intestine without perforation or abscess without bleeding (principal); K63.89 Other specified diseases of intestine; K76.89 Other specified diseases of liver; Z88.5 Allergy status to narcotic agent
CPT/HCPCS: 82565; 84520; 74177; 36415; Q9967 ×2

== ENCOUNTER → 2019-03-27 | Outpatient (CLI) | payer MEDICARE ==
[2019-03-27 12:33] LABS: HCT 40.4 % (34.0-46.0); HGB 13.8 gm/dL (11.4-16.0); MCHC 34.1 g/dL (31.0-37.0); Mean Platelet Volume 7.3; Platelet Count 268 k/uL (150-450); RBC 4.76 m/uL (3.80-5.40); RDW 12.2 % (11.5-15.5); WBC 5.2 k/uL (3.8-10.6)
== END | disposition home or self-care (01) ==
LOC: LABPAT 11:38
PROVIDERS: ATTEND Anesthesiology
DX: Z01.812 Encounter for preprocedural laboratory examination (principal); K43.9 Ventral hernia without obstruction or gangrene
CPT/HCPCS: 36415; 84132; 85027

== ENCOUNTER 2019-03-30 05:31 | Day surgery (SDC) | payer MEDICARE ==
[2019-03-26 11:45] VITALS: BMI 27.3
--- NOTE | 2019-03-29 21:46 | P.GSHP ---
History of Present Illness H&P Date: 03/30/19 CHIEF COMPLAINT: Incisional hernia. HISTORY OF PRESENT ILLNESS: The patient is a 41-year-old female who presents with a history of swelling along the mid abdomen. Findings were consistent with ventral hernia. Now she presents for further evaluation and management. PAST MEDICAL HISTORY: Please see list. PAST SURGICAL HISTORY: Please see list. MEDICATIONS: Please see list. ALLERGIES: Please see list. SOCIAL HISTORY: No illicit drug use FAMILY HISTORY: No reports of Crohn disease or ulcerative colitis. REVIEW OF ORGAN SYSTEMS: CONSTITUTIONAL: No reports of fevers or chills. GI: Denies any blood in stools or constipation. PHYSICAL EXAM: VITAL SIGNS: Stable GENERAL: Well-developed pleasant female in no acute distress. HEENT: No scleral icterus. Extraocular movements grossly intact. Moist buccal mucosa. NECK: Supple without lymphadenopathy. CHEST: Unlabored respirations. Equal bilateral excursions. CARDIOVASCULAR: Regular rate and rhythm. Distal 2+ pulses. ABDOMEN: Soft, nondistended. Tender along the mid abdomen. Protuberant. MUSCULOSKELETAL: No clubbing, cyanosis, or edema. ASSESSMENT: 1. Ventral hernia. 2. Morbid obesity, BMI 45.2 PLAN: 1. Recommend proceeding with robotic ventral hernia repair with mesh. 2. Benefits and risks of surgical intervention was discussed including possibility of open technique. 3. DVT prophylaxis. 4. Antibiotic prophylaxis. Past Medical History Past Medical History: Cancer, Hypertension, Myocardial Infarction ([place]), Osteoarthritis (OA), Thyroid Disorder Additional Past Medical History / Comment(s): skin cancer, chronic back pain, hiatal hernia. Current ventral Hernia. On po AB Rx for tooth infection, has f/u appt at dentist today. Edema LLE. Last Myocardial Infarction Date:: 07-18-1994 History of Any Multi-Drug Resistant Organisms: None Reported Past Surgical History: Back Surgery, Breast Surgery, Heart Catheterization, Joint Replacement, Orthopedic Surgery, Tonsillectomy, Tubal Ligation Additional Past Surgical History / Comment(s): skin cancer-LESIONS , breast bx x2, back fusion x2. arthroscopy lt knee 2016. left knee replaced July 2017, pain procedures Past Anesthesia/Blood Transfusion Reactions: Postoperative Nausea & Vomiting (PONV) Additional Past Anesthesia/Blood Transfusion Reaction / Comment(s): past blood transfusion-denies any reaction to it Smoking Status: Former smoker - Past Family History Mother Family Medical History: No Reported History Additional Family Medical History / Comment(s): at age 93 Father History Unknown: Yes Additional Family Medical History / Comment(s): at age 42 Son(s) Family Medical History: Cancer, Myocardial Infarction ([place]) Additional Family Medical History / Comment(s): colon CA Medications and Allergies Home Medications Medication Instructions Recorded Confirmed Type Fluticasone Nasal [place] [Flonase 2 spray EA NOSTRIL HS PRN 06/21/16 03/26/19 History Nasal [place]] Acetaminophen-Codeine 300-30mg 0.5 - 1 tab PO Q6H PRN 07/26/17 03/26/19 History [Tylenol w/codeine #3] Levothyroxine Sodium [Synthroid] 112 mcg PO DAILY 08/06/17 03/26/19 History Cholecalciferol [Vitamin D3] 2,000 unit PO DAILY 01/20/18 03/26/19 History Calcium/Mag 3 tab PO DAILY 01/21/18 03/26/19 History Hydrochlorothiazide [Hydrodiuril] 12.5 mg PO DAILY 05/07/18 03/26/19 History Losartan Potassium [Cozaar] 100 mg PO DAILY 05/07/18 03/26/19 History Naproxen Sodium [Aleve] 440 mg PO DAILY PRN 07/01/18 03/26/19 History Focus Macula Pro 1 tab PO DAILY 03/26/19 History Penicillin V Potassium [Pen Vee K] 500 mg PO QID 03/26/19 03/26/19 History amLODIPine BESYLATE 5 mg PO BID 03/26/19 03/26/19 History Allergies Allergy/AdvReac Type Severity Reaction Status Date / Time morphine AdvReac Mild Nausea & Verified 03/26/19 11:03 Vomiting hydrocodone [From [place]] AdvReac Nausea & Verified 03/26/19 11:03 Vomiting
[~2019-03-30 05:31] MED LIST changes: +HEPARIN SODIUM,PORCINE 5,000 UNIT/ML 1 ML VIAL SQ ONE; -SODIUM CHLORIDE 0.9% 500 ML 500 ML IV SCH
[2019-03-30] MEDS ORDERED: fentaNYL (PF) 50 MCG/ML 2 ML AMP IV PRN (05:41)
[2019-03-30] MEDS ORDERED: LACTATED RINGERS 1,000 ML IV SCH (05:41)
[2019-03-30] MEDS ORDERED: LIDOCAINE 1% 20 ML VIAL (10MG/ML) FOR IV START INTRADERMA PRN (05:41)
[2019-03-30] MEDS ORDERED: DEXAMETHASONE SOD PHOSPHATE 10 MG/ML 1 ML VIAL IV ONE (05:41)
[2019-03-30] MEDS ORDERED: ACETAMINOPHEN TAB 500 MG TAB PO STA (05:41)
[2019-03-30] MEDS ORDERED: ONDANSETRON 4 MG/2 ML VIAL IVP ONE (05:41)
[2019-03-30 05:57] VITALS: RESP 16
[2019-03-30] MEDS ORDERED: GABAPENTIN 300 MG CAP PO ONE (06:00)
[2019-03-30] MEDS ORDERED: MIDAZOLAM 2 MG/2 ML VIAL IVP ONE (06:50)
[2019-03-30] MEDS ORDERED: PROPOFOL 10 MG/ML 20 ML VIAL IV ONE (06:55)
[2019-03-30] MEDS ORDERED: LIDOCAINE 1% INJ 10MG/ML (20 ML MDV) ONE (06:55)
[2019-03-30] MEDS ORDERED: GLYCOPYRROLATE 0.2 MG/ML 2 ML VIAL ONE (06:55)
[2019-03-30] MEDS ORDERED: ROPIVACAINE 5 MG/ML 30 ML VIAL ONE (06:55)
[2019-03-30] MEDS ORDERED: NEOSTIGMINE 1 MG/ML 10 ML VIAL ONE (06:55)
[2019-03-30] MEDS ORDERED: ePHEDrine SULFATE/0.9% NACL/PF 50 MG/5 ML SYRINGE IV ONE (06:55)
[2019-03-30] MEDS ORDERED: fentaNYL (PF) 50 MCG/ML 2 ML AMP ONE (06:55)
[2019-03-30] MEDS ORDERED: SUCCINYLCHOLINE CHLORIDE 100 MG/5 ML SYR IV ONE (06:55)
[2019-03-30] MEDS ORDERED: ROCURONIUM BROMIDE 10 MG/ML 10 ML VIAL IV ONE (06:55)
[2019-03-30] MEDS ORDERED: BUPIVACAIN-EPI 0.25%-1:200,000 30 ML VIAL SQ ONE ×2 (07:24→07:32)
[2019-03-30] MEDS ORDERED: LACTATED RINGERS 1,000 ML IV ONE (08:53)
[2019-03-30 09:14] VITALS: TEMP 98.4
--- NOTE | 2019-03-30 09:14 | P.OP ---
Date of Procedure: 03/30/19 Description of Procedure: SURGEON: IVANA HOOK MD PREOPERATIVE DIAGNOSES: 1. Initial ventral hernia with incarceration with small bowel, left lower quadrant 2. Intermittent small bowel obstruction 3. Incarcerated initial ventral hernia, epigastrium 4. Hypertensive heart disease 5. History of myocardial infarction 6. Hypothyroidism 7. Chronic lower back pain POSTOPERATIVE DIAGNOSES: 1. Initial ventral hernia with incarceration with small bowel, left lower quadrant 2. Intermittent small bowel obstruction 3. Incarcerated initial ventral hernia, epigastrium 4. Hypertensive heart disease 5. History of myocardial infarction 6. Hypothyroidism 7. Chronic lower back pain OPERATION: 1. Robotic-assisted da Maggie Xi laparoscopic repair of initial incarcerated incisional hernia x2 with mesh, ventralight ST mesh 11.4 cm Anesthesia: GETA, regional, local Estimated Blood Loss (ml): 5 Pathology: Incarcerated epigastric ventral hernia COMPLICATIONS: None. Operative Findings: 1. Left lower quadrant defect 4 x 3 cm 2. Upper midline defect/epigastrium 3 x 3 cm defect 3. Fascia repaired using #1 V-lock suture 4. Mesh placement placed INDICATIONS: The patient is a 73-year-old female who presents with instrument small bowel obstruction from left lower quadrant hernia including an epigastric hernia. Surgical intervention with laparoscopic versus robotic and open techniques were reviewed. Placement of mesh was also reviewed. Benefits and risks were thoroughly described. Informed consent was obtained. DESCRIPTION OF PROCEDURE: The patient was brought into the operating room and laid in supine position. After general induction, the abdomen had been prepped and draped in standard sterile fashion. [place]oban draping was also placed. Prior to incision, a timeout protocol was confirmed with surgical team regarding the patient's name including procedures to be performed. The robot was primed prior to the procedure. A field block using local anesthetic was placed along hernia site including the proposed port sites. Initial incision was made with an #11 blade along the left upper quadrant. A 0 degree 5 mm laparoscopic trocar entry was performed and insufflated. Three 8 mm ports were placed along the right lateral abdominal wall under direct localization. The 5-mm port was exchanged for an 12 mm port. Placements of the ports were 15 cm from the target anatomy and 10 cm apart. The D[employer] BVi Xi robot was previously primed, prepped and draped then docked along the right side of the patient. I then sat at the robot Da Maggie Xi console where working arms of the robot including Bovie cautery connected to robotic scissors, vessel sealer, needle stud driver, and graspers placed by the document control assistant. At the left lower quadrant, a large defect with previous incarcerated small bowel was identified 4 x 3 cm. At the epigastrium, a preperitoneal fat c ontaining ventral hernia was also found 3 x 2 cm also incarcerated. For each hernia, the incarcerated contents were reduced as the peritoneal fat was cleaned from the abdominal wall. Next, hemostasis was checked with cautery. The hernia defects were oversewn using #1 nonabsorbable V-lock suture for each defect separately with fascial imbrication x 3. Next, ventralight ST mesh 10 x 15 cm was in cut in half and was placed with the rough side towards the abdominal wall as to cover the left lower quadrant defect and separately of the epigastric including umbilical defect. 2-0 VLOC 12 inch sutures were used to fixate the mesh. A final endoscopic imaging was obtained. All instruments and pneumoperitoneum were evacuated from the abdominal cavity. The [employer] BVi Xi robot was undocked from the patient. I re-scrubbed into the case for closure of incisions. The fascia of the 12-mm port was probed and less than 8-mm in size. The incisions were reapproximated using 4-0 Monocryl in an interrupted subcuticular fashion. Liquid glue was applied to the skin after cleansing the skin with normal saline and dilute hydrogen peroxide. An abdominal binder was placed. An umbilical dressing was placed prior. At the end of the procedure, needle, sponge, and instrument count had been verified correct by surgical scheduler. The patient was taken to the postanesthesia care unit in stable condition. Plan - Discharge Summary Discharge Rx Participant: No New Discharge Prescriptions: New Ibuprofen [Motrin] 600 mg PO Q8HR PRN #30 tab PRN Reason: Pain Acetaminophen Tab [Tylenol Tab] 500 mg PO Q6H PRN #30 tablet PRN Reason: Pain No Action Fluticasone Nasal [place] [Flonase Nasal [place]] 2 spray EA NOSTRIL HS PRN PRN Reason: Allergy Symptoms Acetaminophen-Codeine 300-30mg [Tylenol w/codeine #3] 0.5 - 1 tab PO Q6H PRN PRN Reason: Pain Levothyroxine Sodium [Synthroid] 112 mcg PO DAILY Cholecalciferol [Vitamin D3] 2,000 unit PO DAILY Calcium/Mag 3 tab PO DAILY Losartan Potassium [Cozaar] 100 mg PO DAILY Hydrochlorothiazide [Hydrodiuril] 12.5 mg PO DAILY Naproxen Sodium [Aleve] 440 mg PO DAILY PRN PRN Reason: Pain Focus Macula Pro 1 tab PO DAILY amLODIPine BESYLATE 5 mg PO BID Penicillin V Potassium [Pen Vee K] 500 mg PO QID Discharge Medication List Fluticasone Nasal [place] [Flonase Nasal [place]] 2 spray EA NOSTRIL HS PRN 06/21/16 [History] Acetaminophen-Codeine 300-30mg [Tylenol w/codeine #3] 0.5 - 1 tab PO Q6H PRN 07/26/17 [History] Levothyroxine Sodium [Synthroid] 112 mcg PO DAILY 08/06/17 [History] Cholecalciferol [Vitamin D3] 2,000 unit PO DAILY 01/20/18 [History] Calcium/Mag 3 tab PO DAILY 01/21/18 [History] Hydrochlorothiazide [Hydrodiuril] 12.5 mg PO DAILY 05/07/18 [History] Losartan Potassium [Cozaar] 100 mg PO DAILY 05/07/18 [History] Naproxen Sodium [Aleve] 440 mg PO DAILY PRN 07/01/18 [History] Focus Macula Pro 1 tab PO DAILY 03/26/19 [History] Penicillin V Potassium [Pen Vee K] 500 mg PO QID 03/26/19 [History] amLODIPine BESYLATE 5 mg PO BID 03/26/19 [History] Acetaminophen Tab [Tylenol Tab] 500 mg PO Q6H PRN #30 tablet 03/30/19 [Rx] Ibuprofen [Motrin] 600 mg PO Q8HR PRN #30 tab 03/30/19 [Rx] Follow up Appointment(s)/Referral(s): Ivana Hook MD [STAFF PHYSICIAN] - 04/16/19 Patient Instructions/Handouts: Ventral Hernia Repair (DC), Abdominal Binder (DC), Laparoscopic Herniorrhaphy (IP) Activity/Diet/Wound Care/Special Instructions: No lifting over 4 pounds in 4 weeks until 04/30/19. May shower. No bath tub soaks for two weeks until 04/13/19. Diet as tolerated. Use Tylenol and ibuprofen scheduled for the next 24-48 hours for best pain relief. Use ice along incisions for the today to prevent swelling. Discharge Disposition: HOME SELF-CARE
--- NOTE | 2019-03-30 10:34 | P.ANPRN ---
Procedure Note - Anesthesia - Nerve Block Performed Bilateral Rectus Abdominis Single Time Out Performed: Yes Date of Procedure: 03/30/19 Procedure Start Time: 06:50 Procedure Stop Time: 06:56 Location of Patient: PreOp Indication: Acute Post-Operative Pain, Requested by Surgeon Sedation Type: Sedate with meaningful contact maintained Preparation: Sterile Prep Position: Supine Needle Types: [place]ajunk Needle Gauge: 21 Ultrasound used to visualize needle placement: Yes Ultrasound used to observe medication spread: Yes Blood Aspirated: No Pain Paresthesia on Injection Noted: No Resistance on Injection: Normal Image Stored and Saved: Yes Events: Uneventful and Well Tolerated (ropi .5% 15cc plus dexamethasone 4mg on each side)
[2019-03-30 12:23] VITALS: BP 124/60; PULSE 72
== END 2019-03-30 12:56 | disposition home or self-care (01) ==
LOC: OR 05:31
PROVIDERS: ATTEND Surgery Plastic and Reconstructive Surgery
DX: K43.6 Other and unspecified ventral hernia with obstruction, without gangrene (principal); K56.699 Other intestinal obstruction unspecified as to partial versus complete obstruction; I11.9 Hypertensive heart disease without heart failure; I25.2 Old myocardial infarction; E03.9 Hypothyroidism, unspecified; G89.29 Other chronic pain; M54.5 Low back pain; M19.90 Unspecified osteoarthritis, unspecified site; K04.7 Periapical abscess without sinus; R60.0 Localized edema; H91.90 Unspecified hearing loss, unspecified ear; I65.21 Occlusion and stenosis of right carotid artery; E66.01 Morbid (severe) obesity due to excess calories; Z68.42 Body mass index [BMI] 45.0-49.9, adult; Z88.6 Allergy status to analgesic agent; Z88.5 Allergy status to narcotic agent; Z85.828 Personal history of other malignant neoplasm of skin; Z87.898 Personal history of other specified conditions; Z98.890 Other specified postprocedural states; Z96.652 Presence of left artificial knee joint; Z90.89 Acquired absence of other organs; Z98.51 Tubal ligation status; Z98.1 Arthrodesis status; Z79.899 Other long term (current) drug therapy; Z79.891 Long term (current) use of opiate analgesic; Z79.890 Hormone replacement therapy; Z79.1 Long term (current) use of non-steroidal anti-inflammatories (NSAID); Z87.891 Personal history of nicotine dependence; Z82.49 Family history of ischemic heart disease and other diseases of the circulatory system; Z80.0 Family history of malignant neoplasm of digestive organs
CPT/HCPCS: 49653 ×2; 64488; 88302; C1781; J2250; J1644; J1100; J2710; J0690; J2405; J2001; J3010; J2795; J0330; J2704

== ENCOUNTER 2019-06-03 09:09 | Day surgery (SDC) | payer MEDICARE ==
[2019-05-29 15:57] VITALS: BMI 28.3
[~2019-06-03 09:09] MED LIST changes: -HEPARIN SODIUM,PORCINE 5,000 UNIT/ML 1 ML VIAL SQ ONE; +LACTATED RINGERS 1,000 ML IV SCH; +LIDOCAINE 1% (10MG/ML) FOR IV START INTRADERMA PRN
[2019-06-03 10:14] VITALS: TEMP 98
[2019-06-03] MEDS ORDERED: PROPOFOL 10 MG/ML 20 ML VIAL IV ONE (10:15)
--- NOTE | 2019-06-03 10:21 | P.GSHP ---
History of Present Illness H&P Date: 06/03/19 CHIEF COMPLAINT: Colon screen HISTORY OF PRESENT ILLNESS: The patient is a 74-year-old female who presents for colon screen. Lower endoscopy was offered for further evaluation and management. PAST MEDICAL HISTORY: Please see list. PAST SURGICAL HISTORY: Please see list. MEDICATIONS: Please see list. ALLERGIES: Please see list. SOCIAL HISTORY: No illicit drug use FAMILY HISTORY: No reports of Crohn disease or ulcerative colitis. REVIEW OF ORGAN SYSTEMS: CONSTITUTIONAL: No reports of fevers or chills. PHYSICAL EXAM: VITAL SIGNS: Stable GENERAL: Well-developed pleasant in no acute distress. HEENT: No scleral icterus. Extraocular movements grossly intact. Moist buccal mucosa. NECK: Supple without lymphadenopathy. CHEST: Unlabored respirations. Equal bilateral excursions. CARDIOVASCULAR: Regular rate and rhythm. Distal 2+ pulses. ABDOMEN: Soft, nontender, nondistended. MUSCULOSKELETAL: No clubbing, cyanosis, or edema. ASSESSMENT: 1. Colon screen. PLAN: 1. 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 Hook. Last Myocardial Infarction Date:: 07-18-1994 History of Any Multi-Drug Resistant Organisms: None Reported Past Surgical History: Back Surgery, Breast Surgery, Heart Catheterization, Joint Replacement, Orthopedic Surgery, Tonsillectomy, Tubal Ligation Additional Past Surgical History / Comment(s): skin cancer-LESIONS , breast bx x2, back fusion x2. arthroscopy lt knee 2016. left total knee July 2017, pain procedures, HIATAL HERNIA & VENTRAL HERNIA (03/2019) Past Anesthesia/Blood Transfusion Reactions: Postoperative Nausea & Vomiting (PONV) Additional Past Anesthesia/Blood Transfusion Reaction / Comment(s): past blood transfusion-denies any reaction to it Past Psychological History: No Psychological Hx Reported Smoking Status: Former smoker Past Alcohol Use History: Occasional Additional Past Alcohol Use History / Comment(s): started smoking 1967, quit smoking 1997, smoked 2-3ppd Past Drug Use History: None Reported - Past Family History Mother Family Medical History: No Reported History Additional Family Medical History / Comment(s): at age 93 Father History Unknown: Yes Additional Family Medical History / Comment(s): at age 42 Son(s) Family Medical History: Cancer, Myocardial Infarction ([place]) Additional Family Medical History / Comment(s): colon CA Brother(s) Family Medical History: Cancer Medications and Allergies Home Medications Medication Instructions Recorded Confirmed Type Fluticasone Nasal [place] [Flonase 2 spray EA NOSTRIL HS PRN 06/21/16 06/03/19 History Nasal [place]] Levothyroxine Sodium [Synthroid] 112 mcg PO DAILY 08/06/17 06/03/19 History Hydrochlorothiazide [Hydrodiuril] 12.5 mg PO DAILY 05/07/18 06/03/19 History Losartan Potassium [Cozaar] 100 mg PO BID 05/07/18 06/03/19 History amLODIPine BESYLATE 5 mg PO DAILY 03/26/19 06/03/19 History Acetaminophen-Codeine 300-30mg 0.5 tab PO DIRECTED PRN 05/29/19 06/03/19 History [Tylenol w/codeine #3] Calcium Carb/Magnesium Ox,Carb 1 tab PO DAILY 05/29/19 06/03/19 History [Sage-Mag 500-250 MG Chewable] Cholecalciferol [Vitamin D3 (25 2,000 unit PO DAILY 05/29/19 06/03/19 History Mcg = 1000 Iu)] Collagen Powder 1 dose PO DAILY 05/29/19 06/03/19 History Eye Vitamin 1 tab PO DAILY 05/29/19 06/03/19 History Ibuprofen [Motrin] 300 mg PO Q8HR PRN 05/29/19 06/03/19 History Allergies Allergy/AdvReac Type Severity Reaction Status Date / Time morphine AdvReac Mild Nausea & Verified 06/03/19 10:02 Vomiting hydrocodone [From [place]] AdvReac Nausea & Verified 06/03/19 10:02 Vomiting Surgical - Exam Vital Signs Temp Pulse Resp BP Pulse Ox 98.0 F 63 18 147/70 97 06/03/19 10:12 06/03/19 10:12 06/03/19 10:12 06/03/19 10:12 06/03/19 10:12
[2019-06-03 10:43] VITALS: RESP 16
[2019-06-03 10:58] VITALS: BP 108/53; PULSE 60
--- NOTE | 2019-06-03 11:08 | P.PCN ---
Date of Procedure: 06/03/19 Description of Procedure: PREOPERATIVE DIAGNOSIS: Change in bowel habits History of rectal bleeding POSTOPERATIVE DIAGNOSIS: Change in bowel habits History of rectal bleeding Internal and external hemorrhoids, grade 4 Sigmoid stricture Severe sigmoid diverticulosis Severe constipation OPERATION: Colonoscopy to the ileocecal valve and appendiceal orifice. SURGEON: Ivana Hook MD. ANESTHESIA: MAC. INDICATIONS: The patient is an 74-year-old male who presents with change in bowel habits inc luding rectal bleeding. Benefits and risks were described and informed consent was obtained. DESCRIPTION OF PROCEDURE: The patient had undergone Suprep. She had been brought into the operating room and laid in the left lateral decubitus position. After adequate intravenous sedation, the rectum was examined with 2% lidocaine jelly. Large external hemorrhoids were encountered. The rectal tone was within normal limits. No lesions were palpated in the rectal vault. An Olympus colonoscope was initially advanced to the sigmoid colon however switched to a pediatric scope secondary to stricture. A pediatric colonoscope was advanced until the ileocecal valve and appendiceal orifice were clearly viewed. The prep was poor with multiple impacted stool in her sigmoid diverticula. The scope was removed with visualization of each mucosal fold. Severe sigmoid diverticulosis was encountered. No colonic polyps were found. No evidence of focal colitis was found. Retroflexion of the scope demonstrated grade 4 internal hemorrhoids without active bleeding or inflammation. The colon was desufflated. The patient had tolerated the procedure well. Withdrawal time was over 6 minutes. FINDINGS: Aronchick preparation quality scale 3 (1-5) Internal hemorrhoids, grade 4 External prolapsed hemorrhoids, grade 4 No arteriovenous malformations. No adenomatous polyps. No focal colitis. Sigmoid colon stricture at 20 cm from the anal verge. Severe sigmoid diverticulosis RECOMMENDATIONS: Lower endoscopy in 10 years, 2030 or Cologaurd Plan - Discharge Summary New Discharge Prescriptions: Continue Fluticasone Nasal [place] [Flonase Nasal [place]] 2 spray EA NOSTRIL HS PRN PRN Reason: Allergy Symptoms Levothyroxine Sodium [Synthroid] 112 mcg PO DAILY Losartan Potassium [Cozaar] 100 mg PO BID Hydrochlorothiazide [Hydrodiuril] 12.5 mg PO DAILY amLODIPine BESYLATE 5 mg PO DAILY Cholecalciferol [Vitamin D3 (25 Mcg = 1000 Iu)] 2,000 unit PO DAILY Calcium Carb/Magnesium Ox,Carb [Sage-Mag 500-250 MG Chewable] 1 tab PO DAILY Acetaminophen-Codeine 300-30mg [Tylenol w/codeine #3] 0.5 tab PO DIRECTED PRN PRN Reason: Pain Eye Vitamin 1 tab PO DAILY Collagen Powder 1 dose PO DAILY No Action Ibuprofen [Motrin] 300 mg PO Q8HR PRN PRN Reason: Pain Discharge Medication List Fluticasone Nasal [place] [Flonase Nasal [place]] 2 spray EA NOSTRIL HS PRN 06/21/16 [History] Levothyroxine Sodium [Synthroid] 112 mcg PO DAILY 08/06/17 [History] Hydrochlorothiazide [Hydrodiuril] 12.5 mg PO DAILY 05/07/18 [History] Losartan Potassium [Cozaar] 100 mg PO BID 05/07/18 [History] amLODIPine BESYLATE 5 mg PO DAILY 03/26/19 [History] Acetaminophen-Codeine 300-30mg [Tylenol w/codeine #3] 0.5 tab PO DIRECTED PRN 05/29/19 [History] Calcium Carb/Magnesium Ox,Carb [Sage-Mag 500-250 MG Chewable] 1 tab PO DAILY 05/29/19 [History] Cholecalciferol [Vitamin D3 (25 Mcg = 1000 Iu)] 2,000 unit PO DAILY 05/29/19 [History] Collagen Powder 1 dose PO DAILY 05/29/19 [History] Eye Vitamin 1 tab PO DAILY 05/29/19 [History] Ibuprofen [Motrin] 300 mg PO Q8HR PRN 05/29/19 [History] Follow up Appointment(s)/Referral(s): Ivana Hook MD [STAFF PHYSICIAN] - 06/16/19 Patient Instructions/Handouts: *Surgery [facility] - (Anesthesia) Endoscopy Discharge Instructions, Diverticulosis Diet (GEN), Diverticulosis (DC), Hemorrhoids (DC) Activity/Diet/Wound Care/Special Instructions: Repeat colonoscopy as needed Discharge Disposition: HOME SELF-CARE
== END 2019-06-03 11:53 | disposition home or self-care (01) ==
LOC: ORWHC2ENDO 09:09
PROVIDERS: ATTEND Surgery Plastic and Reconstructive Surgery
DX: K56.699 Other intestinal obstruction unspecified as to partial versus complete obstruction (principal); K57.30 Diverticulosis of large intestine without perforation or abscess without bleeding; K56.41 Fecal impaction; K62.5 Hemorrhage of anus and rectum; K64.3 Fourth degree hemorrhoids; K21.9 Gastro-esophageal reflux disease without esophagitis; I10 Essential (primary) hypertension; I25.2 Old myocardial infarction; M19.90 Unspecified osteoarthritis, unspecified site; Z85.828 Personal history of other malignant neoplasm of skin; E07.9 Disorder of thyroid, unspecified; G89.29 Other chronic pain; M54.9 Dorsalgia, unspecified; Z97.2 Presence of dental prosthetic device (complete) (partial); R05 Cough; J00 Acute nasopharyngitis [common cold]; Z96.652 Presence of left artificial knee joint; Z98.1 Arthrodesis status; Z87.891 Personal history of nicotine dependence; Z82.49 Family history of ischemic heart disease and other diseases of the circulatory system; Z80.0 Family history of malignant neoplasm of digestive organs; Z79.1 Long term (current) use of non-steroidal anti-inflammatories (NSAID); Z79.890 Hormone replacement therapy; Z79.899 Other long term (current) drug therapy; Z88.5 Allergy status to narcotic agent
CPT/HCPCS: 45378; J2704

== ENCOUNTER → 2019-06-16 | Outpatient (CLI) | payer MEDICARE ==
--- NOTE | 2019-06-16 08:51 | US ---
EXAMINATION TYPE: US gallbladder DATE OF EXAM: 06/16/2019 COMPARISON: CT 2019 CLINICAL HISTORY: K80.20 Gallstones. EXAM MEASUREMENTS: Liver Length: 10.7 cm Gallbladder Wall: 0.1 cm CBD: 0.8 cm Right Kidney: 8.8 x 4.2 x 5.7 cm Pancreas: visualized portions wnl, mass seen on recent CT not appreciated. Liver: cyst noted near gallbladder measures 1.1 x 0.7 x 1.2 cm, there is another small cyst noted. Gallbladder: No stones seen Evidence for sonographic Pedersen's sign: No CBD: measures 0.8 cm at panc head. Right Kidney: No hydronephrosis or masses seen, lower pole partially obscured by bowel. IMPRESSION: 1. Hepatic cyst.
== END | disposition home or self-care (01) ==
LOC: RADUSMAIN 07:41
PROVIDERS: ATTEND Surgery Plastic and Reconstructive Surgery
DX: K76.89 Other specified diseases of liver (principal); K80.20 Calculus of gallbladder without cholecystitis without obstruction
CPT/HCPCS: 76705

== ENCOUNTER → 2019-06-17 | Outpatient (CLI) | payer MEDICARE ==
--- NOTE | 2019-06-17 09:02 | NM ---
EXAMINATION TYPE: NM hepatobiliary w EF DATE OF EXAM: 06/17/2019 COMPARISON: Abdominal ultrasound dated 06/16/2019 HISTORY: Abdominal pain. Cholelithiasis. TECHNIQUE: After the intravenous administration of 5.1 mCi Tc 99m Mebrofenin hepatobiliary scintigrap hy is performed. Immediate images post injection. FINDINGS: There is satisfactory initial accumulation of tracer by the liver. The gallbladder is visualized wit hin 14 minutes. The small bowel activity is noted within 50 minutes. At one hour 8 ounces of oral e nsure plus is given to mimic CCK and gallbladder ejection fraction is calculated at 89 %, elevated. Therefore there is no scintigraphic evidence of cystic or common bile duct obstruction to suggest acu te cholecystitis or gallbladder dyskinesia. IMPRESSION: 1. No scintigraphic evidence of acute cholecystitis. 2. Biliary hyperkinesia with elevated ejection fraction of 89%.
== END | disposition home or self-care (01) ==
LOC: RADNMMAIN 06:32
PROVIDERS: ATTEND Surgery Plastic and Reconstructive Surgery
DX: K82.8 Other specified diseases of gallbladder (principal)
CPT/HCPCS: 78226; A9537

== ENCOUNTER → 2019-09-09 | Outpatient (CLI) | payer MEDICARE ==
--- NOTE | 2019-09-09 13:45 | XR ---
EXAMINATION TYPE: XR cervical spine comp DATE OF EXAM: 09/09/2019 TECHNIQUE: Frontal, lateral, oblique, swimmers, and open mouth view of the cervical spine are obtaine d. HISTORY: M54.9,M48.02,M54.6 COMPARISON: None FINDINGS: The cervical spine is visualized in its entirety from C1 thru the top of T1 level, there i s some reversal of normal cervical curvature without evidence of acute fracture or dislocation. The pre-vertebral soft tissue appears within normal limits. The C1-C2 articulation is within normal limi ts on the open mouth view. Vertebral body heights are maintained. Mild to moderate disc space narrow ing and moderate anterior spurring C5-C6 level. Moderate disc space narrowing with mild anterior spur ring C6-C7 level. The oblique images show mild to moderate narrowing bilateral C5-C6 and C6-C7 levels due to marginal spurring. Overlying soft tissue is unremarkable. IMPRESSION: As above.
--- NOTE | 2019-09-09 13:47 | XR ---
EXAMINATION TYPE: XR thoracic spine 2V DATE OF EXAM: 09/09/2019 CLINICAL HISTORY: Left-sided upper thoracic pain. TECHNIQUE: Frontal, lateral, and swimmer's view of thoracic spine are obtained. COMPARISON: Two-view chest x-ray January 31, 2018. FINDINGS: Demineralization is present. Thoracic spine show satisfactory alignment without evidence of acute fracture or dislocation. Vertebral body heights are preserved. Fairly mild to moderate multil evel disc space narrowing and anterior and lateral spurring throughout the mid to lower thoracic spin e is present. Visualized ribs are unremarkable bilaterally. IMPRESSION: As above.
--- NOTE | 2019-09-09 13:52 | XR ---
EXAMINATION TYPE: XR lumbosacral spine min 4V DATE OF EXAM: 09/09/2019 CLINICAL HISTORY: Low back pain. TECHNIQUE: Frontal, lateral, and oblique images of the lumbar spine are obtained. COMPARISON: Lumbar spine x-ray June 12, 2017. CT abdomen and pelvis March 02, 2019 FINDINGS: There are 5 lumbar type vertebral bodies redemonstrated. The lumbar spine shows persisten t severe grade 3/grade 4 anterolisthesis L5 on S1. Extensive heterotopic ossification and posterior f ixating screws lumbosacral junction bilaterally redemonstrated. Advanced disc space narrowing at this level redemonstrated. Persistent moderate disc space narrowing and vacuum disc phenomenon L2-L3 leve l. Persistent mild disc space narrowing L3-L4 level. Vertebral body heights maintained. Spinous proce ss resection at L5 level again seen. Extensive facet arthropathy at the lower lumbar spine redemonstr ated. Overlying prominent vascular calcification abdominal aorta extending into iliac branch vessels is redemonstrated. IMPRESSION: As above
== END | disposition home or self-care (01) ==
LOC: RADXRMAIN 12:58
PROVIDERS: ATTEND Family Medicine
DX: M99.73 Connective tissue and disc stenosis of intervertebral foramina of lumbar region (principal); M99.74 Connective tissue and disc stenosis of intervertebral foramina of sacral region; M46.96 Unspecified inflammatory spondylopathy, lumbar region; M99.72 Connective tissue and disc stenosis of intervertebral foramina of thoracic region; M99.71 Connective tissue and disc stenosis of intervertebral foramina of cervical region
CPT/HCPCS: 72050; 72070; 72110

== ENCOUNTER → 2019-10-29 | Outpatient (CLI) | payer MEDICARE ==
[2019-10-29 15:36] LABS: HCT 42.1 % (34.0-46.0); HGB 14.4 gm/dL (11.4-16.0); MCH 29.4 pg (25.0-35.0); MCHC 34.1 g/dL (31.0-37.0); MCV 86.1 fL (80.0-100.0); Mean Platelet Volume 6.9; Platelet Count 248 k/uL (150-450); RBC 4.89 m/uL (3.80-5.40); RDW 12.8 % (11.5-15.5); WBC 8.3 k/uL (3.8-10.6)
[2019-10-30 01:36] LABS: African American GFR (CKD) 104.1 (60.0-200.0); Albumin 4.4 g/dL (3.80-4.90); Albumin/Globulin Ratio 2.44 (1.60-3.17); Anion Gap 11.4 mmol/L (4.00-12.00); BUN/Creat Ratio 23.33 Ratio (12.00-20.00); Calcium 9.3 mg/dL (8.7-10.3); Carbon Dioxide 23.6 mmol/L (21.6-31.8); Globulin 1.8 g/dL (1.6-3.3); Non-African American GFR(CKD) 89.8 (60.0-200.0); Potassium 3.6 mmol/L (3.5-5.5); Total Bilirubin 0.8 mg/dL (0.3-1.2); Total Protein 6.2 g/dL (6.2-8.2)
== END | disposition home or self-care (01) ==
LOC: LABWHC1 14:52
PROVIDERS: ATTEND Surgery Plastic and Reconstructive Surgery
DX: Z01.818 Encounter for other preprocedural examination (principal)
CPT/HCPCS: 36415; 80053; 85027

== ENCOUNTER → 2019-11-03 | Outpatient (CLI) | payer MEDICARE ==
--- NOTE | 2019-11-03 20:56 | MR ---
EXAMINATION TYPE: MR lumbar spine wo/w con DATE OF EXAM: 11/03/2019 COMPARISON: Lumbar spine x-ray September 09, 2019 HISTORY: Spinal stenosis with radiculopathy per order, back pain for 2 years, prior surgery x 2 over 20 years ago. TECHNIQUE: Multiplanar, multisequence images of the lumbar spine is performed without and with IV contrast, util izing 6.5 mL intravenous Gadavist FINDINGS: Sagittal images of the lumbar spine show vertebral body heights to remain satisfactory. The re is artifact from posterior pedicular screws near lumbosacral junction. There is grade 2 borderline grade 3 anterolisthesis L5 on S1 measured 11 to 12 mm from posterior vertebral body margin sagittal image 7. Moderate to advanced disc space narrowing at this level is present. Multilevel disc desiccat ion is seen. There is additional moderate disc space narrowing L2-L3 level. The conus medullaris is normal in position and signal ending at T12-L1 disc space level. The bone marrow signal intensity is within normal limits. No suspicious postcontrast enhancement is seen. Axial images at the T12-L1 level shows mild broad-based posterior disc protrusion mildly effacing the anterior thecal sac with mild facet degenerative changes bilaterally. Bilateral neural foramina are patent. Axial images at L1-L2 level mild broad-based posterior disc protrusion mildly effacing the anterior t hecal sac. There is [id number] facet degenerative changes and ligamentum flavum hypertrophy eff acing posterior lateral thecal sac. Bilateral neural foramina are patent. Axial images at the L2-L3 level show mild broad disc bulge with right foraminal disc protrusion compo nent along with [id number] facet degenerative changes and ligamentum flavum hypertrophy. There is effacement of the anterior and posterior lateral thecal sac. There is mild to moderate right great er than left bilateral anterior inferior neural foraminal narrowing noted. Axial images at L3-L4 level show moderate facet degenerative changes ligament hypertrophy effacing po sterior lateral thecal sac greater on the left side axial image 12. There is mild broad-based posteri or disc protrusion mildly effacing the anterior thecal sac. There is moderate left and mild right-joshua ed neural foraminal narrowing due to marginal spurring. Axial images at the L4-L5 level show artifact from posterior fusion hardware. Spinal canal is preserv ed. Bilateral neural foramina are patent. Axial images at L5-S1 level show artifact from posterior fusion hardware. Significant spondylolisthes is is present. Spinal canal is preserved. Bilateral neural foramina are patent. Suspect extrarenal pelvis on the left. Incidental enhancing right lumbrical nerve root without suspic ious clumping or nodularity is nonspecific. IMPRESSION: Postsurgical changes posterior lumbosacral junction. Significant spondylolisthesis L5 on S1 redemonstrated. Multilevel degenerative changes as detailed above.
== END | disposition home or self-care (01) ==
LOC: RADMRIMAIN 16:05
PROVIDERS: ATTEND Orthopaedic Surgery
DX: M43.17 Spondylolisthesis, lumbosacral region (principal); M47.25 Other spondylosis with radiculopathy, thoracolumbar region; M47.26 Other spondylosis with radiculopathy, lumbar region; Z98.1 Arthrodesis status
CPT/HCPCS: 72158; A9585

== ENCOUNTER → 2019-11-12 | Outpatient (CLI) | payer MEDICARE ==
--- NOTE | 2019-11-13 14:34 | MM ---
Reason for exam: screening (asymptomatic). Last mammogram was performed 1 year and 2 months ago. History: Patient is postmenopausal and history of other cancer. Family history of breast cancer in cousin at age 50. Excisional biopsy of the left breast. Excisional biopsy of the right breast. Took estrogen for 1 year 6 months. Took progesterone for 1 year 6 months. Physical Findings: A clinical breast exam by your physician is recommended on an annual basis and results should be correlated with mammographic findings. MG 3D Screening Mammo W/Cad Bilateral CC and MLO view(s) were taken. Prior study comparison: September 15, 2018, bilateral MG 3d screening mammo w/cad. September 12, 2017, bilateral MG 3d screening mammo w/cad. The breast tissue is heterogeneously dense. This may lower the sensitivity of mammography. Stable benign calcifications. There is no discrete abnormality. No significant changes when compared with prior studies. ASSESSMENT: Benign, BI-RAD 2 RECOMMENDATION: Routine screening mammogram of both breasts in 1 year.
== END | disposition home or self-care (01) ==
LOC: RADMAMWWP 10:50
PROVIDERS: ATTEND Family Medicine
DX: Z12.31 Encounter for screening mammogram for malignant neoplasm of breast (principal)
CPT/HCPCS: 77063; 77067

== ENCOUNTER → 2019-12-08 | Outpatient (CLI) | payer MEDICARE ==
--- NOTE | 2019-12-08 14:31 | BD ---
EXAMINATION TYPE: Axial Bone Density DATE OF EXAM: 12/08/2019 COMPARISON: 05/21/2014 CLINICAL HISTORY: Height: 59 IN Weight: 135 LBS RISK FACTORS HISTORY OF: History of Wrist Fracture: LEFT AGE 50 Surgery to Spine: L-SPINE 1975 AND 1976 Family History of Osteoporosis: COUSIN Active: LIMITED Diet low in dairy products/other sources of calcium: YES Postmenopausal woman: AGE 51 Take estrogen and/or progesterone medications: NOT NOW How long: TOOK ABOUT 1 YEAR MEDICATIONS: Thyroid Medications: YES Which medication: Levothyroxine How Lon+ YEARS Additional Medications: CALCIUM, VIT D,BLOOD PRESSURE MEDS, TYLENOL 3, EXAM MEASUREMENTS: Bone mineral densitometry was performed using the Arden Reed System. Bone mineral density about the R hip (g/cm2): 0.754 Bone mineral density about the L hip (g/cm2): 0.755 T Score values are as follows: -----R Neck: -2.0 -----L Neck: -2.0 -----R Total: -0.7 -----L Total: -1.0 Bone mineral density has: Decreased -13.2% since study of: 05/21/2014 Bone mineral density about the R Wrist (g/cm2): 0.481 T Score values are as follows: -----Dist. R+U: -1.5 -----Prox. R+U: -3.4 -----Radius total: -3.2 Bone mineral density BASELINE IMPRESSION: Osteoporosis right wrist. NOTE: T-SCORE=SD OF THE YOUNG ADULT MEAN.
== END | disposition home or self-care (01) ==
LOC: RADBDWWP 13:17
PROVIDERS: ATTEND Family Medicine
DX: Z13.820 Encounter for screening for osteoporosis (principal); M81.0 Age-related osteoporosis without current pathological fracture; Z78.0 Asymptomatic menopausal state
CPT/HCPCS: 77080

== ENCOUNTER → 2020-05-13 | Outpatient (CLI) | payer MEDICARE ==
--- NOTE | 2020-05-13 18:47 | CT ---
EXAMINATION TYPE: CT abdomen pelvis w con DATE OF EXAM: 05/13/2020 COMPARISON: None HISTORY: abdominal pain. hx of diverticulitis. CT DLP: 884 mGycm Automated exposure control for dose reduction was used. CONTRAST: Performed with IV Contrast, patient injected with 100 mL of Isovue 300. There is oral contrast. The lung bases are clear of consolidation. There is no pleural effusion. Heart size is normal. There is no pericardial effusion. Liver spleen pancreas appear intact. The bile ducts are not dilated. There are multiple small hepatic cysts. Gallbladder is intact. Stomach is intact. There is no adrenal mass. Kidneys show satisfactory contrast opacification. There is no hydronephrosi s. There is no retroperitoneal adenopathy. Ureters are not dilated. Bladder distends smoothly. There is no free fluid in the pelvis. There is no inguinal hernia. Uterus is retroverted. There are multiple sigmoid diverticula. I see no definite sign of diverticulitis. There is retained f ecal material in the large bowel and the terminal ileum. Appendix appears normal. There is no mesente torri edema. Abdominal aorta is atheromatous. There is no sign of free air. There is no ascites. There is no free air. There is no sign of a bowel obstruction. There is a second-degree L5-S1 spondylolisthesis. There is narrowing of L5-S1 disc space. There is no compression fracture. There is old posterior fusion surgery at L5-S1. The bony pelvis is intact. IMPRESSION: Constipation. Sigmoid diverticulosis without sign of diverticulitis. Second-degree L5-S1 spondylolisthesis. This appears unchanged compared to old this is probably not ch anged compared to old exam of 09/09/2019.
== END | disposition home or self-care (01) ==
LOC: RADCTMAIN 16:19
PROVIDERS: ATTEND Nurse Practitioner
DX: K57.30 Diverticulosis of large intestine without perforation or abscess without bleeding (principal)
CPT/HCPCS: 74177; Q9967

== ENCOUNTER → 2020-05-13 | Outpatient (CLI) | payer MEDICARE ==
[2020-05-13 16:40] LABS: ALT 22 U/L (4-34); C Reactive Protein <5.0 mg/L (<10.0)
[2020-05-13 16:58] LABS: AST 32 U/L (14-36); African American GFR (CKD) >90 (>60 ml/min/1.73 sqM); Albumin 4.7 g/dL (3.5-5.0); Albumin/Globulin Ratio 1.7; Alkaline Phosphatase 51 U/L (38-126); Amylase 90 U/L (30-110); Anion Gap 8 mmol/L; Blood Urea Nitrogen 7 mg/dL (7-17); Carbon Dioxide 29 mmol/L (22-30); Chloride 98 mmol/L (98-107); Globulin 2.7 g/dL; Glucose 102 mg/dL (74-99); Lipase 165 U/L (23-300); Non-African American GFR(CKD) >90 (>60 ml/min/1.73 sqM); Potassium 3.7 mmol/L (3.5-5.1); Sodium 135 mmol/L (137-145); Total Bilirubin 0.7 mg/dL (0.2-1.3); Total Protein 7.4 g/dL (6.3-8.2)
== END | disposition home or self-care (01) ==
LOC: LABWHC1 16:06
PROVIDERS: ATTEND Nurse Practitioner
DX: R10.9 Unspecified abdominal pain (principal)
CPT/HCPCS: 36415; 80053; 82150; 83690; 85652; 86140

== ENCOUNTER → 2020-05-24 | Outpatient (CLI) | payer MEDICARE ==
[2020-05-24 13:04] LABS: ALT 21 U/L (4-34); AST 36 U/L (14-36); African American GFR (CKD) >90 (>60 ml/min/1.73 sqM); Albumin 4.5 g/dL (3.5-5.0); Alkaline Phosphatase 52 U/L (38-126); Anion Gap 9 mmol/L; Blood Urea Nitrogen 8 mg/dL (7-17); Calcium 9.5 mg/dL (8.4-10.2); Carbon Dioxide 26 mmol/L (22-30); Chloride 97 mmol/L (98-107); Glucose 106 mg/dL (74-99); Non-African American GFR(CKD) >90 (>60 ml/min/1.73 sqM); Potassium 3.9 mmol/L (3.5-5.1); Sodium 132 mmol/L (137-145); Total Bilirubin 0.9 mg/dL (0.2-1.3)
[2020-05-24 13:18] LABS: HCT 44.7 % (34.0-46.0); HGB 15.3 gm/dL (11.4-16.0); MCH 29.2 pg (25.0-35.0); MCHC 34.1 g/dL (31.0-37.0); MCV 85.7 fL (80.0-100.0); Mean Platelet Volume 7.1; Platelet Count 260 k/uL (150-450); RBC 5.22 m/uL (3.80-5.40); RDW 12.5 % (11.5-15.5); WBC 7.6 k/uL (3.8-10.6)
== END | disposition home or self-care (01) ==
LOC: LABPAT 12:07
PROVIDERS: ATTEND Surgery Plastic and Reconstructive Surgery
DX: Z01.89 Encounter for other specified special examinations (principal)
CPT/HCPCS: 36415; 80053; 85027; 86850; 86900; 86901

== ENCOUNTER → 2020-05-27 | Outpatient (CLI) | payer MEDICARE ==
--- NOTE | 2020-05-27 15:10 | FL ---
EXAMINATION TYPE: FL barium enema DATE OF EXAM: 05/27/2020 COMPARISON: None HISTORY: Fecal volvulus, back pain TECHNIQUE: Single contrast technique is utilized to evaluate the colon. FINDINGS: Multiple diverticuli are within the sigmoid colon. No extravasation of contrast or changes to suggest acute diverticulitis is evident. No discrete circumferential apple core lesions are eviden t. Some fecal debris is present within the colon during the exam. This appears to be mobile. Splenic flexure appears normal. Fecal debris is noted within the transverse colon. Hepatic flexure ap pears normal. Contrast extends to the cecum. The appendix is identified during the exam. Post evacuation film appears unremarkable. Fluoroscopy time: 1 minute 32 seconds. Images: 25 IMPRESSION: 1. Diverticulosis without acute diverticulitis. 2. Cecum as visualized appears unremarkable.
== END | disposition home or self-care (01) ==
LOC: RADFLMAIN 10:15
PROVIDERS: ATTEND Surgery Plastic and Reconstructive Surgery
DX: K57.90 Diverticulosis of intestine, part unspecified, without perforation or abscess without bleeding (principal); K56.2 Volvulus
CPT/HCPCS: 74270

== ENCOUNTER → 2020-07-01 | Outpatient (CLI) | payer MEDICARE ==
[2020-07-01 15:40] LABS: HCT 40.6 % (34.0-46.0); HGB 13.9 gm/dL (11.4-16.0); MCH 29.3 pg (25.0-35.0); MCHC 34.2 g/dL (31.0-37.0); MCV 85.8 fL (80.0-100.0); Mean Platelet Volume 7.2; Platelet Count 257 k/uL (150-450); RBC 4.73 m/uL (3.80-5.40); RDW 12.4 % (11.5-15.5); WBC 7.9 k/uL (3.8-10.6)
[2020-07-01 16:01] LABS: ALT 15 U/L (4-34); AST 29 U/L (14-36); African American GFR (CKD) >90 (>60 ml/min/1.73 sqM); Albumin 4.4 g/dL (3.5-5.0); Alkaline Phosphatase 39 U/L (38-126); Anion Gap 8 mmol/L; Blood Urea Nitrogen 9 mg/dL (7-17); Calcium 9.7 mg/dL (8.4-10.2); Carbon Dioxide 27 mmol/L (22-30); Chloride 96 mmol/L (98-107); Glucose 157 mg/dL (74-99); Non-African American GFR(CKD) 90 (>60 ml/min/1.73 sqM); Potassium 3.6 mmol/L (3.5-5.1); Sodium 131 mmol/L (137-145); Total Bilirubin 0.7 mg/dL (0.2-1.3); Total Protein 6.6 g/dL (6.3-8.2)
== END | disposition home or self-care (01) ==
LOC: LABWHC1 15:00
PROVIDERS: ATTEND Surgery Plastic and Reconstructive Surgery
DX: Z01.818 Encounter for other preprocedural examination (principal)
CPT/HCPCS: 36415; 80053; 85027; 86850; 86900; 86901

== ENCOUNTER 2020-07-06 08:03 | Day surgery (SDC) | payer MEDICARE ==
[2020-07-04 09:40] VITALS: BMI 25.0
--- NOTE | 2020-07-06 08:28 | P.GSHP ---
History of Present Illness H&P Date: 07/06/20 CHIEF COMPLAINT: History of sigmoid diverticulitis with stricture HISTORY OF PRESENT ILLNESS: The patient is a 75-year-old female who presents with change in bowel habits including sigmoid stricture. She presents today for colonoscopy. Her symptoms have gotten worse the past 6 months. She is looking into: resection. She reports lower abdominal pain. Bowel habits in stools or change in caliber. PAST MEDICAL HISTORY: Please see list and reviewed PAST SURGICAL HISTORY: Please see list and reviewed MEDICATIONS: Please see list and reviewed ALLERGIES: Please see list and reviewed SOCIAL HISTORY: Please see list and reviewed FAMILY HISTORY: Please see list and reviewed REVIEW OF ORGAN SYSTEMS: Gastrointestinal: Change in bowel habits with severe constipation. Has diverticulosis. Musculoskeletal: Severe osteoarthritis of the lower back. CONSTITUTIONAL: No fevers or chills. No recent weight loss. EYES: Denies any trouble with vision. No glasses. HEENT: No difficulties with hearing. No nosebleeds. No difficulty swallowing. RESPIRATORY: Denies pneumonia. Denies any troubles with breathing or dyspnea on exertion. CARDIOVASCULAR: Denies any chest pain, palpitations, or recent heart attacks. Has hypertensive heart disease on 3 different medications. GENITOURINARY: Denies any blood in urine or increased urinary frequency. NEUROLOGICAL: Denies any numbness or tingling along the distal extremities. No seizure disorders or headaches. SKIN: No current skin cancer. No rash. PSYCHIATRIC: Denies current depression or suicidal thoughts. ENDOCRINE: Has thyroid disorders. Denies any blood sugar glucose intolerance. HEME/LYMPHATIC: Denies any lumps and bumps around the neck. No recent deep venous thrombosis. Has iron deficiency anemia. ALLERGY/IMMUNOLOGY: No immunoglobulin therapy. No immune deficiencies. BREAST: Denies current breast lumps, pain or nipple discharge. PHYSICAL EXAM: VITAL SIGNS: Stable GENERAL: Well-developed pleasant in no acute distress. HEENT: No scleral icterus. Extraocular movements grossly intact. Moist buccal mucosa. NECK: Supple without lymphadenopathy. CHEST: Unlabored respirations. Equal bilateral excursions. CARDIOVASCULAR: Regular rate and rhythm. Distal 2+ pulses. ABDOMEN: Soft, nontender, nondistended. MUSCULOSKELETAL: No clubbing, cyanosis, or edema. NERUO: Cranial nerves 2-12 grossly intact. PSYCH: Alert and oriented to person place and time. SKIN: Well perfused good skin turgor. ASSESSMENT: 1. Symptomatic diverticulosis. PLAN: 1. Robotic sigmoid colectomy was described. Benefits and risks of surgical robotic sigmoid resection was reviewed in detail. Robotic-assisted approach was also described. 2. She is high-risk for perioperative complications, including leak was reviewed as she has chronic constipation and poor bowel prep. 3. I do recommend colonoscopy prior to her sigmoid colectomy. 4. Inpatient hospitalization greater than 2 nights. 5. Epidural placement also described. 6. Enhanced colon recovery program. 7. DVT prophylaxis. 8. Antibiotic prophylaxis. Past Medical History Past Medical History: Cancer, Hypertension, Myocardial Infarction ([place]), Osteoarthritis (OA), Thyroid Disorder Additional Past Medical History / Comment(s): skin cancer, chronic back pain, hiatal hernia. Current ventral Hernia.diverticulitis Last Myocardial Infarction Date:: 07-18-1984 History of Any Multi-Drug Resistant Organisms: None Reported Past Surgical History: Back Surgery, Breast Surgery, Heart Catheterization, Joint Replacement, Orthopedic Surgery, Tonsillectomy, Tubal Ligation Additional Past Surgical History / Comment(s): skin cancer-LESIONS , breast bx x2, back fusion x2. arthroscopy lt knee 2016. left knee replaced July 2017, pain procedures Past Anesthesia/Blood Transfusion Reactions: Postoperative Nausea & Vomiting (PONV) Additional Past Anesthesia/Blood Transfusion Reaction / Comment(s): past blood transfusion-denies any reaction to it Smoking Status: Former smoker - Past Family History Mother Family Medical History: No Reported History Additional Family Medical History / Comment(s): at age 93 Father History Unknown: Yes Additional Family Medical History / Comment(s): at age 42 Son(s) Family Medical History: Cancer, Myocardial Infarction ([place]) Additional Family Medical History / Comment(s): colon CA. Brother(s) Family Medical History: Cancer Additional Family Medical History / Comment(s): skin cancer Medications and Allergies Home Medications Medication Instructions Recorded Confirmed Type Fluticasone Nasal [place] [Flonase 2 spray EA NOSTRIL HS PRN 06/21/16 07/04/20 History Nasal [place]] Levothyroxine Sodium [Synthroid] 112 mcg PO MOTUWETHFRSA 08/06/17 07/04/20 History Losartan Potassium [Cozaar] 100 mg PO DAILY 05/07/18 07/04/20 History hydroCHLOROthiazide [Hydrodiuril] 12.5 mg PO DAILY 05/07/18 07/04/20 History amLODIPine BESYLATE 5 mg PO BID 03/26/19 07/04/20 History Acetaminophen-Codeine 300-30mg 0.5 tab PO DIRECTED PRN 05/29/19 07/04/20 History [Tylenol w/codeine #3] Cholecalciferol [Vitamin D3 (25 5,000 unit PO DAILY 05/29/19 07/04/20 History Mcg = 1000 Iu)] Calcium, Magnesium Plus 3 tab PO DAILY 11/02/19 07/04/20 History Cyanocobalamin (Vitamin B-12) 1,000 mcg PO DAILY 11/02/19 07/04/20 History [Vitamin B-12] Acetaminophen Tab [Tylenol Tab] 500 mg PO DAILY PRN 07/04/20 07/04/20 History Hydrolysate 12 gm PO DAILY 07/04/20 07/04/20 History Allergies Allergy/AdvReac Type Severity Reaction Status Date / Time meloxicam [From Mobic] Allergy Unknown Unknown- Verified 07/04/20 08:[address] Saenz boarding slip morphine AdvReac Mild Nausea & Verified 07/04/20 08:35 Vomiting, allergy to duramorph from boarding slip hydrocodone [From [place]] AdvReac Nausea & Verified 07/04/20 08:35 Vomiting narcotics AdvReac Unknown states Uncoded 07/04/20 08:35 needs smaller dose-takes 1/2 of tyl#3.
[2020-07-06] MEDS ORDERED: NA PHOS,M-B/NA PHOS,DI-BA 133 ML ENEMA RECTAL ONE (08:38)
[2020-07-06 08:44] VITALS: RESP 20; TEMP 97.6
[2020-07-06] MEDS: LACTATED RINGERS 1,000 ML IV SCH ×2 (09:06→09:07)
[2020-07-06] MEDS ORDERED: PROPOFOL 10 MG/ML 20 ML VIAL IV ONE (09:07)
[2020-07-06] MEDS ORDERED: LIDOCAINE 1% INJ 10MG/ML (20 ML MDV) ONE (09:07)
[2020-07-06] MEDS ORDERED: Antibiotics per Pharmacy 1 EACH MISC MISCELLANE PRN (09:21)
[2020-07-06] MEDS ORDERED: POLYETHYLENE GLYCOL LYTES SOLN 4,000 ML SOLN.RECON PO ONE (09:21)
[2020-07-06] MEDS ORDERED: SODIUM CHLORIDE 0.9% 1,000 ML IV ONE ×2 (09:23→09:45)
--- NOTE | 2020-07-06 09:28 | P.PCN ---
Date of Procedure: 07/06/20 Description of Procedure: PREOPERATIVE DIAGNOSIS: Sigmoid diverticulosis with stricture POSTOPERATIVE DIAGNOSIS: Incomplete prep Sigmoid stricture Severe sigmoid diverticulosis OPERATION: Colonoscopy to the sigmoid colon. SURGEON: Ivana Hook MD. ANESTHESIA: MAC. INDICATIONS: The patient is a 75-year-old female who presents with large bowel stricture including severe diverticulosis. Benefits and risks were described and informed consent was obtained. DESCRIPTION OF PROCEDURE: The patient was started on Sutab however did not complete her dose. She had been brought into the operating room and laid in the left lateral decubitus position. After adequate intravenous sedation, the rectum was examined with 2% lidocaine jelly. External hemorrhoids were encountered. The rectal tone was loose. No lesions were palpated in the rectal vault. A pediatric Olympus colonoscope was advanced along the rectum to a very tortuous sigmoid colon. Moderate retained solid stool was found in the sigmoid colon. Despite multiple maneuvers, the sigmoid colon had severe tortuosity preventing further adv ancement of scope. The scope was passed to 30 cm from the anal verge. The procedure was discontinued due to poor prep with solid stool. The colon was desufflated. The patient had tolerated the procedure well. Withdrawal time was over 6 minutes. FINDINGS: [place] preparation quality scale 5 (1-5) Tortuous sigmoid colon with stricture preventing further advancement of the scope. External prolapsed hemorrhoids. Scope advanced to sigmoid colon at 30 cm. No arteriovenous malformations. No adenomatous polyps. No focal colitis. RECOMMENDATIONS: 1. Repeat colonoscopy prep 2. Sigmoid colectomy described with benefits and risks 3. May need repeat colonoscopy tomorrow
[2020-07-06 10:09] LABS: Basophils % (A) 1 %; Eosinophils # (A) 0.2 k/uL (0-0.7); Eosinophils % (A) 3 %; HCT 38.8 % (34.0-46.0); HGB 13.7 gm/dL (11.4-16.0); Lymphocytes # (A) 1.4 k/uL (1.0-4.8); Lymphocytes % (A) 24 %; MCH 30.2 pg (25.0-35.0); MCHC 35.2 g/dL (31.0-37.0); MCV 85.7 fL (80.0-100.0); Mean Platelet Volume 6.8; Monocytes # (A) 0.3 k/uL (0-1.0); Monocytes % (A) 5 %; Neutrophils # (A) 3.9 k/uL (1.3-7.7); Neutrophils % (A) 66 %; Platelet Count 244 k/uL (150-450); RBC 4.52 m/uL (3.80-5.40); RDW 12.4 % (11.5-15.5)
--- NOTE | 2020-07-06 10:12 | XR ---
EXAMINATION TYPE: XR chest 1V portable DATE OF EXAM: 07/06/2020 COMPARISON: 01/21/2018 HISTORY: Presurgical clearance Technique: Chest is examined utilizing mobile apparatus in the upright position FINDINGS: Heart size is normal. The pulmonary vasculature is normal. No suspicious infiltrates lung findings ar e evident. Osseous structures are unremarkable. IMPRESSION: 1. NO ACUTE PULMONARY PROCESS.
[2020-07-06 10:17] VITALS: BP 144/63; PULSE 68
--- NOTE | 2020-07-06 10:28 | P.PN ---
Progress Note - Text Progress Note Date: 07/06/20 Following patient's colonoscopy, patient found to have severe constipation with solid stool. Additionally, patient reports being due for her second Covid vaccine during her proposed hospitalization immediately within 2 days. Recommend complete Covid vaccine series vaccination. Additionally, patient will be placed on bowel regimen for severe constipation. Case will be rescheduled following discharge.
[2020-07-06 10:37] LABS: ALT 12 U/L (4-34); AST 27 U/L (14-36); African American GFR (CKD) >90 (>60 ml/min/1.73 sqM); Albumin 3.9 g/dL (3.5-5.0); Alkaline Phosphatase 39 U/L (38-126); Anion Gap 6 mmol/L; Blood Urea Nitrogen 7 mg/dL (7-17); Calcium 9.3 mg/dL (8.4-10.2); Carbon Dioxide 29 mmol/L (22-30); Chloride 100 mmol/L (98-107); Glucose 93 mg/dL (74-99); Non-African American GFR(CKD) >90 (>60 ml/min/1.73 sqM); Potassium 3.6 mmol/L (3.5-5.1); Sodium 135 mmol/L (137-145); Total Bilirubin 0.8 mg/dL (0.2-1.3); Total Protein 5.9 g/dL (6.3-8.2)
[2020-07-06] MEDS ORDERED: metroNIDAZOLE 500 MG TAB PO SCH (13:00)
[2020-07-06] MEDS ORDERED: NEOMYCIN 500 MG TAB PO SCH (13:00)
[2020-07-06] MEDS ORDERED: TEMAZEPAM 15 MG CAP PO ONE (21:00)
[2020-07-07] MEDS ORDERED: metroNIDAZOLE-NS PMX 500 MG in SALINE 1 100ML.BAG IVPB PRN (05:00)
[2020-07-07] MEDS ORDERED: ACETAMINOPHEN TAB 500 MG TAB PO PRN (07:00)
[2020-07-07] MEDS ORDERED: HEPARIN SODIUM,PORCINE 5,000 UNIT/ML 1 ML VIAL SQ PRN (07:00)
[2020-07-07] MEDS ORDERED: ALVIMOPAN 12 MG CAPSULE PO PRN (07:00)
== END 2020-07-06 10:55 | disposition home or self-care (01) ==
LOC: ORWHC2ENDO 08:03
PROVIDERS: ATTEND Surgery Plastic and Reconstructive Surgery
DX: K59.00 Constipation, unspecified (principal); K57.90 Diverticulosis of intestine, part unspecified, without perforation or abscess without bleeding; I25.2 Old myocardial infarction; M19.90 Unspecified osteoarthritis, unspecified site; G89.29 Other chronic pain; M54.9 Dorsalgia, unspecified; Z85.828 Personal history of other malignant neoplasm of skin; I10 Essential (primary) hypertension; E03.9 Hypothyroidism, unspecified; Z86.010 Personal history of colon polyps; F17.210 Nicotine dependence, cigarettes, uncomplicated; I49.5 Sick sinus syndrome; Z20.822 Contact with and (suspected) exposure to COVID-19; Z79.899 Other long term (current) drug therapy
CPT/HCPCS: 45330; 93005; 80053; 85025; 87635; 71045; J2001; J2704

== ENCOUNTER 2020-07-27 08:51 | Inpatient (IN) | payer MEDICARE ==
--- NOTE | 2020-07-27 08:08 | P.GSHP ---
History of Present Illness H&P Date: 07/27/20 CHIEF COMPLAINT: History of sigmoid diverticulitis HISTORY OF PRESENT ILLNESS: The patient is a 75-year-old female with long- standing history of sigmoid diverticulitis. She presents with change in bowel habits since colonoscopy. PAST MEDICAL HISTORY: Please see list. PAST SURGICAL HISTORY: Please see list. MEDICATIONS: Please see list. ALLERGIES: Please see list. SOCIAL HISTORY: No illicit drug use FAMILY HISTORY: No reports of Crohn disease or ulcerative colitis. REVIEW OF ORGAN SYSTEMS: CONSTITUTIONAL: Denies any fever or chills. PHYSICAL EXAM: VITAL SIGNS: Stable GENERAL: Well-developed pleasant in no acute distress. HEENT: No scleral icterus. Extraocular movements grossly intact. Moist buccal mucosa. NECK: Supple without lymphadenopathy. CHEST: Unlabored respirations. Equal bilateral excursions. CARDIOVASCULAR: Regular rate and rhythm. Distal 2+ pulses. ABDOMEN: Soft, nontender, nondistended. MUSCULOSKELETAL: No clubbing, cyanosis, or edema. NERUO: Cranial nerves 2-12 grossly intact. PSYCH: Alert and oriented to person place and time. ASSESSMENT: 1. History of large bowel obstruction 2. Morbid obesity, BMI 35.2 PLAN: 1. Benefits and risks of surgical robotic sigmoid resection was reviewed in detail. Robotic-assisted approach was also described. 2. Enhanced colon recovery program. 3. DVT prophylaxis. 4. Antibiotic prophylaxis. 5. Inpatient hospitalization greater than 2 nights. 6. Recommend colonoscopy to address large bowel obstruction Past Medical History Past Medical History: Cancer, Hypertension, Myocardial Infarction ([place]), Osteoarthritis (OA), Thyroid Disorder Additional Past Medical History / Comment(s): skin cancer, chronic back pain, hiatal hernia. Current ventral Hernia. Last Myocardial Infarction Date:: 07-18-1994 History of Any Multi-Drug Resistant Organisms: None Reported Past Surgical History: Back Surgery, Breast Surgery, Heart Catheterization, Joint Replacement, Orthopedic Surgery, Tonsillectomy, Tubal Ligation Additional Past Surgical History / Comment(s): skin cancer-LESIONS , breast bx x2, back fusion x2. arthroscopy lt knee 2016. left knee replaced July 2017, pain procedures Past Anesthesia/Blood Transfusion Reactions: Postoperative Nausea & Vomiting (PONV) Additional Past Anesthesia/Blood Transfusion Reaction / Comment(s): past blood transfusion-denies any reaction to it Past Psychological History: No Psychological Hx Reported Smoking Status: Former smoker Past Alcohol Use History: Occasional Additional Past Alcohol Use History / Comment(s): started smoking 1967, quit smoking 1997, smoked 2-3ppd Past Drug Use History: None Reported - Past Family History Mother Family Medical History: No Reported History Additional Family Medical History / Comment(s): at age 93 Father History Unknown: Yes Additional Family Medical History / Comment(s): at age 42 Son(s) Family Medical History: Cancer, Myocardial Infarction ([place]) Additional Family Medical History / Comment(s): colon CA. Brother(s) Family Medical History: Cancer Additional Family Medical History / Comment(s): skin cancer Medications and Allergies Home Medications Medication Instructions Recorded Confirmed Type Fluticasone Nasal [place] [Flonase 2 spray EA NOSTRIL HS PRN 06/21/16 07/22/20 History Nasal [place]] Levothyroxine Sodium [Synthroid] 112 mcg PO MOTUWETHFRSA 08/06/17 07/22/20 History Losartan Potassium [Cozaar] 100 mg PO QAM 05/07/18 07/22/20 History hydroCHLOROthiazide [Hydrodiuril] 12.5 mg PO QAM 05/07/18 07/22/20 History amLODIPine BESYLATE 5 mg PO BID 03/26/19 07/22/20 History Cholecalciferol [Vitamin D3 (25 5,000 unit PO DAILY 05/29/19 07/22/20 History Mcg = 1000 Iu)] Calcium, Magnesium Plus 3 tab PO DAILY 11/02/19 07/22/20 History Acetaminophen Tab [Tylenol] 500 mg PO DAILY PRN 07/04/20 07/22/20 History Polyethylene Glycol 3350 [Miralax] 17 gm PO BID #527 gm 07/06/20 07/22/20 Rx Acetaminophen-Codeine 300-30mg 1 tab PO Q6H PRN 07/22/20 07/22/20 History [Tylenol w/codeine #3] Melatonin 5 mg PO HS PRN 07/22/20 07/22/20 History Allergies Allergy/AdvReac Type Severity Reaction Status Date / Time meloxicam [From Mobic] Allergy Unknown Unknown- Verified 07/22/20 10:[address] Saenz boarding slip morphine AdvReac Mild Nausea & Verified 07/22/20 10:34 Vomiting, allergy to duramorph from boarding slip hydrocodone [From [place]] AdvReac Nausea & Verified 07/22/20 10:34 Vomiting narcotics AdvReac Unknown states Uncoded 07/22/20 10:34 needs smaller dose-takes 1/2 of tyl#3.
[~2020-07-27 08:51] MED LIST changes: -LACTATED RINGERS 1,000 ML IV SCH
[2020-07-27] MEDS: LACTATED RINGERS 1,000 ML IV SCH (09:31)
[2020-07-27] MEDS ORDERED: LIDOCAINE 1% INJ 10MG/ML (20 ML MDV) ONE (09:33)
[2020-07-27] MEDS ORDERED: PROPOFOL 10 MG/ML 20 ML VIAL IV ONE (09:33)
[2020-07-27] MEDS ORDERED: Antibiotics per Pharmacy 1 EACH MISC MISCELLANE PRN (10:28)
--- NOTE | 2020-07-27 10:28 | P.PCN ---
Date of Procedure: 07/27/20 Description of Procedure: PREOPERATIVE DIAGNOSIS: Severe sigmoid diverticulosis with stricture Change in bowel habits Lower abdominal pain POSTOPERATIVE DIAGNOSIS: Severe sigmoid diverticulosis with stricture Change in bowel habits Lower abdominal pain OPERATION: Colonoscopy to the hepatic flexure SURGEON: Ivana Hook MD. ANESTHESIA: MAC. INDICATIONS: The patient is a 75-year-old female reports change in bowel habits including worsening constipation. Lower endoscopies over for diagnostic and therapeutic management. Benefits and risks were described and informed consent was obtained. DESCRIPTION OF PROCEDURE: The patient had undergone Suprep. The patient had been brought into the ope rating room and laid in the left lateral decubitus position. After adequate intravenous sedation, the rectum was examined with 2% lidocaine jelly. External hemorrhoids were encountered. The rectal tone was within normal limits. No lesions were palpated in the rectal vault. The sigmoid colon was highly tortuous with stricture identified at 20-30 cm from the anal verge. Abdominal wall pressures used to advance the scope. The scope was advanced to the hepatic flexure with tight angulation preventing advancement of the scope into the cecum. The prep was excellent. Severe sigmoid diverticulosis was encountered. No colonic polyps were found distal to the hepatic flexure. No evidence of focal colitis was found. Retroflexion of the scope demonstrated grade 3 internal hemorrhoids without active bleeding or inflammation. The colon was desufflated. The patient had tolerated the procedure well. Withdrawal time was over 6 minutes. FINDINGS: [place] preparation quality scale 1 (1-5) Internal hemorrhoids, grade 3 External prolapsed hemorrhoids, grade 3 No arteriovenous malformations. No adenomatous polyps. No focal colitis. Scope advanced through hepatic flexure Severe angulation preventing advancement scope into ascending colon RECOMMENDATIONS: Sigmoid colectomy advised for a long segment stricture due to diverticulosis
[2020-07-27] MEDS ORDERED: SODIUM CHLORIDE 0.9% 1,000 ML IV ONE ×2 (10:31→14:20)
[2020-07-27] MEDS ORDERED: MELATONIN 5 MG TABLET PO PRN (10:32)
[2020-07-27] MEDS ORDERED: ONDANSETRON 4 MG/2 ML VIAL IVP PRN (10:32)
[2020-07-27] MEDS ORDERED: Acetaminophen-Codeine 300-30mg TAB PO PRN (10:32)
[2020-07-27] MEDS ORDERED: ACETAMINOPHEN TAB 500 MG TAB PO PRN (10:32)
[2020-07-27] MEDS ORDERED: FLUTICASONE 50MCG/SPRAY NASAL 16GM EA NOSTRIL PRN (10:32)
[2020-07-27] MEDS ORDERED: TRIMETHOBENZAMIDE 100 MG/ML 2 ML VIAL IM PRN (10:32)
[2020-07-27 11:27] LABS: Glucose,Whole Blood 92 mg/dL (75-99)
[2020-07-27] MEDS ORDERED: POLYETHYLENE GLYCOL LYTES SOLN 4,000 ML SOLN.RECON PO ONE ×2 (11:30→18:00)
[2020-07-27] MEDS ORDERED: SODIUM CHLORIDE 0.9% 1,000 ML IV SCH (11:30)
[2020-07-27 12:05] LABS: Basophils % (A) 1 %; Eosinophils # (A) 0.1 k/uL (0-0.7); Eosinophils % (A) 2 %; HCT 40.7 % (34.0-46.0); HGB 13.8 gm/dL (11.4-16.0); Lymphocytes # (A) 1.6 k/uL (1.0-4.8); Lymphocytes % (A) 25 %; MCH 28.7 pg (25.0-35.0); MCHC 33.8 g/dL (31.0-37.0); MCV 84.9 fL (80.0-100.0); Mean Platelet Volume 7.2; Monocytes # (A) 0.4 k/uL (0-1.0); Monocytes % (A) 6 %; Neutrophils # (A) 4.3 k/uL (1.3-7.7); Neutrophils % (A) 65 %; Platelet Count 252 k/uL (150-450); RDW 12.8 % (11.5-15.5); WBC 6.6 k/uL (3.8-10.6)
[2020-07-27 12:22] LABS: ALT 18 U/L (4-34); AST 32 U/L (14-36); African American GFR (CKD) >90 (>60 ml/min/1.73 sqM); Alkaline Phosphatase 45 U/L (38-126); Anion Gap 8 mmol/L; Blood Urea Nitrogen 11 mg/dL (7-17); Calcium 9.4 mg/dL (8.4-10.2); Carbon Dioxide 29 mmol/L (22-30); Chloride 98 mmol/L (98-107); Glucose 87 mg/dL (74-99); Non-African American GFR(CKD) >90 (>60 ml/min/1.73 sqM); Potassium 3.3 mmol/L (3.5-5.1); Sodium 135 mmol/L (137-145); Total Bilirubin 0.7 mg/dL (0.2-1.3)
[2020-07-27] MEDS: NEOMYCIN 500 MG TAB PO SCH ×3 (16:30→22:46)
[2020-07-27] MEDS: POTASSIUM CHLORIDE ER 20 MEQ TAB.ER PO SCH ×3 (16:30→20:34)
[2020-07-27] MEDS: metroNIDAZOLE 500 MG TAB PO SCH ×3 (16:30→22:46)
[2020-07-27] MEDS: 0.9% NACL WITH KCL 40 MEQ/L 1,000 ML IV SCH (18:23)
[2020-07-27] MEDS: amLODIPine 5 MG TAB PO SCH (20:34)
[2020-07-27] MEDS ORDERED: TEMAZEPAM 15 MG CAP PO ONE (21:00)
[2020-07-28 04:46] LABS: African American GFR (CKD) >90 (>60 ml/min/1.73 sqM); Anion Gap 6 mmol/L; Blood Urea Nitrogen 8 mg/dL (7-17); Calcium 8.7 mg/dL (8.4-10.2); Carbon Dioxide 23 mmol/L (22-30); Chloride 108 mmol/L (98-107); Glucose 86 mg/dL (74-99); Non-African American GFR(CKD) 90 (>60 ml/min/1.73 sqM); Potassium 4.1 mmol/L (3.5-5.1); Sodium 137 mmol/L (137-145)
[2020-07-28] MEDS ORDERED: metroNIDAZOLE-NS PMX 500 MG in SALINE 1 100ML.BAG IVPB PRN (05:00)
[2020-07-28] MEDS: LEVOTHYROXINE 112 MCG TAB PO SCH (05:49)
[2020-07-28 06:33] LABS: Basophils % (A) 0 %; Eosinophils # (A) 0.2 k/uL (0-0.7); Eosinophils % (A) 3 %; HCT 35.7 % (34.0-46.0); HGB 12.5 gm/dL (11.4-16.0); Lymphocytes # (A) 1.7 k/uL (1.0-4.8); Lymphocytes % (A) 28 %; MCH 29.5 pg (25.0-35.0); MCHC 35.2 g/dL (31.0-37.0); MCV 83.9 fL (80.0-100.0); Monocytes # (A) 0.4 k/uL (0-1.0); Monocytes % (A) 7 %; Neutrophils # (A) 3.6 k/uL (1.3-7.7); Neutrophils % (A) 61 %; Platelet Count 222 k/uL (150-450); RBC 4.25 m/uL (3.80-5.40); RDW 12.2 % (11.5-15.5)
[2020-07-28] MEDS ORDERED: ALVIMOPAN 12 MG CAPSULE PO PRN (07:00)
[2020-07-28] MEDS ORDERED: ACETAMINOPHEN TAB 500 MG TAB PO PRN (07:00)
[2020-07-28] MEDS ORDERED: HEPARIN SODIUM,PORCINE/PF 5,000 UNIT/0.5 ML SYRINGE SQ PRN (08:00)
--- NOTE | 2020-07-28 08:19 | ECHOF ---
Referral Reason:surgical clearance MEASUREMENTS -------- HEIGHT: 152.4 cm WEIGHT: 55.8 kg BP: 104/55 RVIDd: 2.7 cm (< 3.3) IVSd: 1.1 cm (0.6 - 1.1) LVIDd: 3.7 cm (3.9 - 5.3) LVPWd: 1.2 cm (0.6 - 1.1) IVSs: 1.6 cm LVIDs: 2.4 cm LVPWs: 1.5 cm LA Diam: 3.2 cm (2.7 - 3.8) LAESV Index (A-L): 33.76 ml/m Ao Diam: 3.3 cm (2.0 - 3.7) AV Cusp: 2.1 cm (1.5 - 2.6) MV EXCURSION: 16.865 mm (> 18.000) MV EF SLOPE: 105 mm/s (70 - 150) EPSS: 0.3 cm MV E Ibrahima: 1.06 m/s MV DecT: 227 ms MV A Ibrahima: 1.04 m/s MV E/A Ratio: 1.02 RAP: 5.00 mmHg RVSP: 40.30 mmHg FINDINGS -------- Sinus rhythm. This was a technically good study. The left ventricular size is normal. There is borderline concentric left ventricular hypertrophy. Overall left ventricular systolic function is normal with, an EF between 60 - 65 %. The right ventricle is normal in size. LA is midly dilated 29-33ml/m2. The right atrium is normal in size. Interatrial and interventricular septum intact. There is mild aortic valve sclerosis. The mitral valve leaflets are mildly thickened. Mild mitral annular calcification present. Mild m itral regurgitation is present. Mild tricuspid regurgitation present. There is mild pulmonary hypertension. The right ventricular systolic pressure, as measured by Doppler, is 40.30mmHg. Trace/mild (physiologic) pulmonic regurgitation. The aortic root size is normal. Normal inferior vena cava with normal inspiratory collapse consistent with estimated right atrial pre ssure of 5 mmHg. There is no pericardial effusion. CONCLUSIONS -------- 1. The left ventricular size is normal. 2. There is borderline concentric left ventricular hypertrophy. 3. Overall left ventricular systolic function is normal with, an EF between 60 - 65 %. 4. LA is midly dilated 29-33ml/m2. 5. There is mild aortic valve sclerosis. 6. The mitral valve leaflets are mildly thickened. 7. Mild mitral annular calcification present. 8. Mild mitral regurgitation is present. 9. Mild tricuspid regurgitation present. 10. There is mild pulmonary hypertension. 11. The right ventricular systolic pressure, as measured by Doppler, is 40.30mmHg. 12. Trace/mild (physiologic) pulmonic regurgitation. 13. There is no pericardial effusion. OPTIMIZATION SPECIALIST: RUSTAM Hu
[2020-07-28] MEDS: LOSARTAN 50 MG TAB PO SCH (08:20)
[2020-07-28] MEDS: amLODIPine 5 MG TAB PO SCH ×2 (08:21→20:48)
[2020-07-28] MEDS: hydroCHLOROthiazide 12.5 MG CAP PO SCH (08:21)
--- NOTE | 2020-07-28 09:12 | P.PN ---
Subjective Progress Note Date: 07/28/20 CHIEF COMPLAINT: History of sigmoid diverticulitis HISTORY OF PRESENT ILLNESS: The patient is a 75-year-old female admitted secondary to sigmoid stricture from sigmoid diverticulitis. Yesterday, attempt of colonoscopy turning terminated at the hepatic flexure due to severe angulation. Additionally, severe diverticulosis with stricture was confirmed. Patient was able to tolerate her prep. Yesterday, repeat EKG was obtained. An immediate cardiology clearance was obtained by anesthesia. Patient reports still having bowel movements. Patient has history of recent cardiac clearance May 2020 including echo completed. REVIEW OF ORGAN SYSTEMS: Denies chest pain. Denies dyspnea on exertion. No fevers or chills. PHYSICAL EXAM: VITAL SIGNS: Stable GENERAL: Well-developed pleasant in no acute distress. HEENT: No scleral icterus. Extraocular movements grossly intact. Moist buccal mucosa. NECK: Supple without lymphadenopathy. CHEST: Unlabored respirations. Equal bilateral excursions. CARDIOVASCULAR: Regular rate and rhythm. Distal 2+ pulses. ABDOMEN: Soft, nontender, nondistended. MUSCULOSKELETAL: No clubbing, cyanosis, or edema. NERUO: Cranial nerves 2-12 grossly intact. PSYCH: Alert and oriented to person place and time. EKG: Reviewed with questionable ischemia. LABS: WBC within normal limits. Hemoglobin down to 12.1. Potassium elevated from 3.3-4.1 after supplementation for hypokalemia. ASSESSMENT: 1. History of large bowel obstruction due to sigmoid diverticulitis 2. Abnormal EKG PLAN: 1. I personally spoke to covering 3d technologist for which patient was cleared to proceed with surgery. 2. Patient is elevated risk for complications due to pre-existing heart disease. 3. Inpatient hospitalization described anticipated for 3+ nights Objective - Vital Signs Vital signs: Vital Signs Temp 98.0 F 07/28/20 07:42 Pulse 67 07/28/20 07:42 Resp 16 07/28/20 07:42 BP 124/67 07/28/20 07:42 Pulse Ox 97 07/28/20 07:42 Intake & Output 07/27/20 07/28/20 07/28/20 18:59 06:59 18:59 Intake Total 1590 200 Output Total 2 2 Balance 1588 198 Weight 56 kg Intake: IV 1350 Oral 240 200 Output: Stool 2 2 Other: Voiding Method Toilet Toilet # Voids 1 1 1 # Bowel Movements 1 4 1 - Labs CBC & Chem 7: 07/28/20 05:52 07/28/20 04:03 Labs: Abnormal Lab Results - Last 24 Hours (Table) 07/27/20 07/28/20 Range/Units 11:21 04:03 Sodium 135 L (137-145) mmol/L Potassium 3.3 L (3.5-5.1) mmol/L Chloride 108 H (98-107) mmol/L Total Protein 6.0 L (6.3-8.2) g/dL
[2020-07-28] MEDS ORDERED: IV FLUID CONTINUATION 850 ML IV ONE (09:42)
[2020-07-28] MEDS ORDERED: DEXAMETHASONE SOD PHOSPHATE 4 MG/ML 1 ML VIAL IV ONE (10:06)
[2020-07-28] MEDS ORDERED: MIDAZOLAM 2 MG/2 ML VIAL IV ONE (10:11)
[2020-07-28] MEDS: 0.9% NACL WITH KCL 40 MEQ/L 1,000 ML IV SCH ×2 (10:32→17:17)
[2020-07-28] MEDS ORDERED: PROPOFOL 10 MG/ML 20 ML VIAL IV ONE (10:53)
[2020-07-28] MEDS ORDERED: GLYCOPYRROLATE 0.2 MG/ML 2 ML VIAL ONE (10:53)
[2020-07-28] MEDS ORDERED: ROPIVACAINE 5 MG/ML 30 ML VIAL ONE (10:53)
[2020-07-28] MEDS ORDERED: ROCURONIUM 10 MG/ML (5 ML VIAL) IV ONE (10:53)
[2020-07-28] MEDS ORDERED: SUCCINYLCHOLINE CHLORIDE 100 MG/5 ML SYR IV ONE (10:53)
[2020-07-28] MEDS ORDERED: LIDOCAINE 1%-EPI 1:100,000 20 ML VIAL ONE (10:53)
[2020-07-28] MEDS ORDERED: SODIUM CHLORIDE 0.9% (PF) 10 ML VIAL ONE (10:53)
[2020-07-28] MEDS ORDERED: fentaNYL (PF) 50 MCG/ML 2 ML AMP ONE (10:53)
[2020-07-28] MEDS ORDERED: ePHEDrine SULFATE/0.9% NACL/PF 50 MG/5 ML SYRINGE IV ONE (10:53)
[2020-07-28] MEDS ORDERED: NEOSTIGMINE 1 MG/ML 10 ML VIAL ONE (10:53)
[2020-07-28] MEDS ORDERED: LIDOCAINE 1%-EPI 1:100,000 20 ML VIAL SQ ONE (11:30)
--- NOTE | 2020-07-28 12:03 | P.ANPRN ---
Procedure Note - Anesthesia - Nerve Block Performed Bilateral Erector Spinae Single Time Out Performed: Yes Date of Procedure: 07/28/20 Procedure Start Time: 10:11 Procedure Stop Time: :20 Location of Patient: PreOp Indication: Acute Post-Operative Pain, Requested by Surgeon Sedation Type: Sedate with meaningful contact maintained Preparation: Sterile Prep Position: Prone Needle Types: Pajunk Needle Gauge: 21 Ultrasound used to visualize needle placement: Yes Ultrasound used to observe medication spread: Yes Blood Aspirated: No Pain Paresthesia on Injection Noted: No Resistance on Injection: Normal Image Stored and Saved: Yes Events: Uneventful and Well Tolerated (ropi .5% 15 cc plus xylo 1% with epi at t10 bilaterally)
--- NOTE | 2020-07-28 12:13 | CONS ---
CONSULTATION CHIEF COMPLAINT: Preop cardiac evaluation. Piedad is a 75-year-old lady who is to undergo colon resection by Dr. Hook and we have been asked to see her for preop cardiac evaluation. She does not have a history of coronary artery disease or congestive heart failure. She is currently free of chest pain, difficulty in breathing, leg edema, PND or orthopnea. An EKG shows sinus rhythm with nonspecific ST-T wave changes. An echocardiogram showed normal LV function. The patient is an acceptable risk candidate for surgery under anesthesia. PAST MEDICAL HISTORY: Significant for hypothyroidism hypertension. MEDICATIONS: Medications at home include Cozaar 100 daily, Synthroid, Flonase, HydroDIURIL, amlodipine, melatonin, Tylenol. ALLERGIES: Allergic to MOBIC, MORPHINE, NORCO. FAMILY HISTORY: Negative for premature coronary artery disease. SOCIAL HISTORY: Negative for current smoking, EtOH abuse or drug abuse. REVIEW OF SYSTEMS: HEENT is unremarkable. CARDIAC: As described above. RESPIRATORY: As described above. GI: Negative. GENITOURINARY: Negative. ALLERGY/IMMUNOLOGY: Negative. SKIN: Negative. MUSCULOSKELETAL: Negative. ENDOCRINE: Negative. HEMATOLOGIC: Negative. DERM: Negative. CONSTITUTIONAL: Negative. ONCOLOGICAL: Negative. CARRIER OPERATOR: Negative. Rest of the system review is not relevant. PHYSICAL EXAMINATION: Comfortable at rest. Vital signs are stable. There is no jugular venous distention. Chest exam reveals good air entry bilaterally. Heart exam reveals first and second heart sounds. No gallop. No murmur. Abdomen is soft, nontender. Examination of extremities did not reveal any edema. Peripheral pulses are felt. LABS: Labs show a hemoglobin of 12.5, platelet count is 220. Potassium is 4.1. Creatinine is 0.6. Coronavirus is negative. ASSESSMENT: 1. Preoperative cardiac evaluation. 2. History of hypertension. PLAN: The patient is an acceptable risk candidate for surgery under anesthesia. Please continue her on her medications perioperatively. MMODL / IJN: [id number] /
[2020-07-28] MEDS ORDERED: LACTATED RINGERS 1,000 ML IV ONE (12:14)
[2020-07-28] MEDS ORDERED: BENZOCAINE/MENTHOL LOZENG 1 EACH LOZENGE MUCOUS MEM PRN (14:52)
--- NOTE | 2020-07-28 15:11 | P.OP ---
Date of Procedure: 07/28/20 Description of Procedure: SURGEON: ERIN STATON MD PREOPERATIVE DIAGNOSES: 1. Sigmoid stricture due to sigmoid diverticulitis with chronic constipation 2. Bilateral lower abdominal pain 3. Hypertensive heart disease 4. Hypothyroidism 5. Chronic pain syndrome 6. Chronic lower back pain 7. Abnormal EKG with left ventricular hypertrophy POSTOPERATIVE DIAGNOSES: 1. Sigmoid stricture with intermittent large bowel obstruction due to sigmoid diverticulitis with chronic constipation 2. Bilateral lower abdominal pain 3. Hypertensive heart disease 4. Hypothyroidism 5. Chronic pain syndrome 6. Chronic lower back pain 7. Abnormal EKG with left ventricular hypertrophy 8. Greater omental abdominal wall adhesions 9. Pelvic adhesions 10. Internal hernia sigmoid colon OPERATION: 1. Robotic-assisted daVinci Xi laparoscopic lysis of adhesions 2. Robotic-assisted daVinci Xi laparoscopic with sigmoid colectomy and low anterior resection using 29mm EEA Ethicon powered stapler 3. Intraoperative colonoscopy for flexible sigmoidoscopy Anesthesia: GETA, local, regional Estimated Blood Loss (ml): 10 Pathology: other (Sigmoid colon, anastomosis) Condition: stable Disposition: floor COMPLICATIONS: None. Operative Findings: 1. Severe sigmoid diverticulosis with pelvic adhesions right ovary and atrophied uterus lysed 2. Greater omental adhesions anterior abdominal wall from previous ventral hernia repair with mesh 3. At sigmoid epiploica with internal hernia sigmoid colon lysed and removed with specimen INDICATIONS: The patient is a 75-year-old female with symptomatic sigmoid stricture due to sigmoid diverticulitis. Surgical intervention was described. Benefits and risks, including infection, bowel injury, ureteral injury, colostomy creation and possibility for additional surgery was discussed at length. Informed consent was obtained. All questions of the patient and family were answered. DESCRIPTION: Earlier the patient had undergone a bowel prep using the enhanced colon recovery program. The patient was transferred to the operating room onto a split leg table and repositioned to modified lithotomy following intubation. A Amor catheter was placed. The abdomen was then prepped and draped in standard sterile fashion as Ioban was placed along the abdomen to minimize any contamination of skin floor. After a timeout protocol was performed, attention was then brought to the left upper quadrant whereby a 0 degree 5 mm laparoscopic trocar entry was performed. The abdominal cavity was entered and insufflated to 15 mmHg pressure, which was tolerated well. Diagnostic laparoscopy confirmed severe adhesions omentum to abdominal wall involving the right upper quadrant, midline, epigastrium. Next trocars were placed 20 cm superior from the pelvis. A 12-mm trocar was placed along the right lateral abdominal wall. A 8 mm port was placed along the right upper quadrant. Ports were placed 10 cm apart from each other including 15-20 cm away from the target anatomy of the left pelvis. An 8-mm port was was placed along the left upper quadrant. The stapler 12-mm port was arranged along the left lateral abdominal wall. The patient was then placed in Trendelenburg position, at least 21. The robotic da Maggie XI system was primed. The robot was docked from the right side of the patient. Using atraumatic graspers and vessel sealer, the robotic system was docked and primed as described. Instruments were interchanged by the shampoo assistant including needle driver education instructor, clip research engineer, hook cautery, robotic stapler and vessel sealer. The robot stapler was prepared along the right lateral abdominal wall. Initial attention was brought to lysis of adhesions involving the epigastrium and pelvis. Lysis of adhesions was performed using vessel sealer. Next, attention was brought to sigmoid colon. The sigmoid mesentery was mobilized using a vessel sealer. Using robot stapler 60 mm green loads, the descending colon was divided. Mobilization of the colon was performed to the pelvic brim along the sacral promontory. The mesentery of the sigmoid colon was mobilized towards the descending colon using a vessel sealer. Next, the top of the rectum was divided using robotic stapler 60 mm green loads. The rest of the sigmoid colon mesentery was mobilized using vessel sealer. Additionally, the sigmoid colon was mobilized onto the colon to minimize injury to the ureters. I went to the foot of the bed for selection of a sizer. A colorectal colon anastomosis with an EEA 29-mm was selected after using a sizer along the rectum. For the proximal sigmoid colon, a 29-mm anvil was placed after creating a colotomy then closed using a stapler at the distal end. The robot arms were temporarily undocked. A stapler was entered along the rectum and mated to the anvil for 1 minute. The anastomosis was created. The donuts were thick on the rectum side and then on the colon side. I then performed a bedside flexible sigmoidoscopy using colonoscope where no leaks or defects were confirmed as the shampoo assistant placed normal saline along the pelvis. I re-scrubbed into the case. Irrigation fluid was suctioned from the abdomen. The robot was undocked. All needles were removed from the abdominal cavity. Via the left lateral 12-mm trocar site, the resected colon was retrieved after widening the skin incision to 4-cm. The fascial defect was oversewn using 0 Vicryl and a Dinesh Torres. All incisions were cleansed using dilute normal saline and hydrogen peroxide mixture. Next all pneumoperitoneum was evacuated from the abdominal cavity. The 8-mm trocar sites were reapproximated using 4-0 Monocryl in an interrupted subcuticular fashion. Local anesthetic was infiltrated to all wounds for postop analgesia. All incisions were also cleansed with diluted hydrogen peroxide. An Optifoam surgical dressing was placed over the colon extraction site. Subcutaneous emphysema along the abdomen, chest, arms and neck were identified and improved after the end of the case. Exofin was applied to the rest of the skin incisions. The patient was extubated successfully. The patient was transferred to the postanesthesia care unit in stable condition.
[2020-07-28] MEDS ORDERED: HYDROmorphone 0.5 MG/0.5 ML SYRINGE IVP ONE (15:15)
[2020-07-28] MEDS ORDERED: HYDROmorphone 0.2 MG/1 ML SYRINGE IVP ONE (15:30)
[2020-07-28] MEDS: LACTATED RINGERS 1,000 ML IV SCH (17:16)
[2020-07-28] MEDS: ACETAMINOPHEN TAB 325 MG TAB PO SCH ×2 (17:27→23:36)
[2020-07-28] MEDS: metroNIDAZOLE-NS PMX 500 MG in SALINE 1 100ML.BAG IVPB SCH ×2 (17:27→23:39)
[2020-07-28] MEDS: HEPARIN SODIUM,PORCINE/PF 5,000 UNIT/0.5 ML SYRINGE SQ SCH (20:49)
[2020-07-28] MEDS: SIMETHICONE 40 MG/0.6 ML DROPS 2,000 MG/30 ML BOTTLE PO SCH (21:13)
[2020-07-29] MEDS: ACETAMINOPHEN TAB 325 MG TAB PO SCH ×2 (05:29→11:34)
[2020-07-29] MEDS: LEVOTHYROXINE 112 MCG TAB PO SCH (05:30)
[2020-07-29] MEDS: metroNIDAZOLE-NS PMX 500 MG in SALINE 1 100ML.BAG IVPB SCH ×2 (05:30→13:20)
[2020-07-29 06:20] LABS: Basophils % (A) 0 %; Eosinophils % (A) 0 %; HCT 36.2 % (34.0-46.0); HGB 12.6 gm/dL (11.4-16.0); Lymphocytes % (A) 9 %; MCH 29.4 pg (25.0-35.0); MCHC 34.9 g/dL (31.0-37.0); MCV 84.3 fL (80.0-100.0); Mean Platelet Volume 7.1; Monocytes # (A) 0.6 k/uL (0-1.0); Monocytes % (A) 5 %; Neutrophils # (A) 10.1 k/uL (1.3-7.7); Neutrophils % (A) 85 %; Platelet Count 218 k/uL (150-450); RBC 4.29 m/uL (3.80-5.40); RDW 12.3 % (11.5-15.5); WBC 11.9 k/uL (3.8-10.6)
[2020-07-29 07:32] VITALS: RESP 16; TEMP 98
[2020-07-29] MEDS: LOSARTAN 50 MG TAB PO SCH (08:29)
[2020-07-29] MEDS: hydroCHLOROthiazide 12.5 MG CAP PO SCH (08:30)
[2020-07-29] MEDS: amLODIPine 5 MG TAB PO SCH (08:30)
[2020-07-29] MEDS: HEPARIN SODIUM,PORCINE/PF 5,000 UNIT/0.5 ML SYRINGE SQ SCH (08:31)
[2020-07-29] MEDS: SIMETHICONE 40 MG/0.6 ML DROPS 2,000 MG/30 ML BOTTLE PO SCH ×2 (08:32→13:21)
[2020-07-29 08:45] LABS: African American GFR (CKD) >90 (>60 ml/min/1.73 sqM); Anion Gap 6 mmol/L; Blood Urea Nitrogen 6 mg/dL (7-17); Calcium 8.7 mg/dL (8.4-10.2); Carbon Dioxide 28 mmol/L (22-30); Chloride 102 mmol/L (98-107); Glucose 97 mg/dL (74-99); Non-African American GFR(CKD) >90 (>60 ml/min/1.73 sqM); Potassium 3.5 mmol/L (3.5-5.1); Sodium 136 mmol/L (137-145)
[2020-07-29] MEDS: LACTATED RINGERS 1,000 ML IV SCH (08:47)
--- NOTE | 2020-07-29 10:36 | P.PN ---
Subjective Progress Note Date: 07/29/20 CHIEF COMPLAINT: History of sigmoid diverticulitis HISTORY OF PRESENT ILLNESS: The patient is a 75-year-old female admitted secondary to sigmoid stricture from sigmoid diverticulitis. She is status post robotic low anterior resection with sigmoid colectomy, 07/28/20. She is postoperative day 1. Her pain is stable. She is ready to ambulate. No passage of flatus. She is tolerating diet. REVIEW OF ORGAN SYSTEMS: Denies chest pain. Denies dyspnea on exertion. No fevers or chills. PHYSICAL EXAM: VITAL SIGNS: Stable GENERAL: Well-developed pleasant in no acute distress. HEENT: No scleral icterus. Extraocular movements grossly intact. Moist buccal mucosa. NECK: Supple without lymphadenopathy. CHEST: Unlabored respirations. Equal bilateral excursions. CARDIOVASCULAR: Regular rate and rhythm. Distal 2+ pulses. ABDOMEN: Soft, nontender, nondistended. MUSCULOSKELETAL: No clubbing, cyanosis, or edema. NERUO: Cranial nerves 2-12 grossly intact. PSYCH: Alert and oriented to person place and time. : Urine is clear and very light yellow urine LABS: Hemoglobin stable 12.6. Potassium 3.5. ASSESSMENT: 1. History of large bowel obstruction due to sigmoid diverticulitis 2. Abnormal EKG 3. Status post sigmoid colectomy PLAN: 1. Clinically she is doing extraordinarily well. 2. Ambulation encouraged to discontinue Amor catheter. 3. Discharge pending flatus Objective - Vital Signs Vital signs: Vital Signs Temp 98.0 F 07/29/20 07:30 Pulse 71 07/29/20 07:30 Resp 16 07/29/20 07:30 BP 123/63 07/29/20 07:30 Pulse Ox 97 07/29/20 04:32 Intake & Output 07/28/20 07/29/20 07/29/20 18:59 06:59 18:59 Intake Total 1300 Output Total 794 699 1214 Balance 505 -500 -1400 Intake: IV 1300 Output: Urine 802 254 2556 Estimated Blood Loss 10 Other: Voiding Method Toilet Toilet Indwelling Catheter # Voids 1 # Bowel Movements 1 - Labs CBC & Chem 7: 07/29/20 05:26 07/29/20 05:26 Labs: Abnormal Lab Results - Last 24 Hours (Table) 04/16/21 04/16/21 Range/Units 05:26 05:26 WBC 11.9 H (3.8-10.6) k/uL Neutrophils # 10.1 H (1.3-7.7) k/uL Sodium 136 L (137-145) mmol/L BUN 6 L (7-17) mg/dL
--- NOTE | 2020-07-29 10:42 | P.PN ---
Subjective Progress Note Date: 07/29/20 HISTORY OF PRESENT ILLNESS: Patient is status post robotic low anterior resection with sigmoid colectomy with Dr. Hook. Postop day #1. Patient examined this morning at the [facility]. Patient denies chest pain or pressure. She denies shortness of breath. Echocardiogram completed reveals ejection fraction 60-65%, mild mitral regurgitation, and mild tricuspid regurgitation. Vital signs are stable. PHYSICAL EXAM: VITAL SIGNS: Reviewed. GENERAL: Well-developed in no acute distress. NECK: Supple. No JVD or thyromegaly LUNGS: Respirations even and unlabored. Lungs essentially clear to auscultation bilaterally. HEART: Regular rate and rhythm. S1 and S2 heard. EXTREMITIES: Normal range of motion. No clubbing or cyanosis. Peripheral pulses intact. No lower extremity edema ASSESSMENT: Sigmoid diverticulitis with sigmoid stricture, status post low anterior resection with sigmoid colectomy Hypertension PLAN: Patient is currently stable from a cardiac standpoint. No further inpatient workup from a cardiac standpoint. We will sign off. Please reconsult if needed. Nurse practitioner note has been reviewed by physician. Signing provider agrees with the documented findings, assessment, and plan of care. Objective - Vital Signs Vital signs: Vital Signs Temp 98.0 F 07/29/20 07:30 Pulse 71 07/29/20 07:30 Resp 16 07/29/20 07:30 BP 123/63 07/29/20 07:30 Pulse Ox 97 07/29/20 04:32 Intake & Output 07/28/20 07/29/20 07/29/20 18:59 06:59 18:59 Intake Total 1300 Output Total 315 871 2675 Balance 505 -500 -1400 Intake: IV 1300 Output: Urine 995 008 2017 Estimated Blood Loss 10 Other: Voiding Method Toilet Toilet Indwelling Catheter # Voids 1 # Bowel Movements 1 - Labs CBC & Chem 7: 07/29/20 05:26 07/29/20 05:26 Labs: Abnormal Lab Results - Last 24 Hours (Table) 07/29/20 07/29/20 Range/Units 05:26 05:26 WBC 11.9 H (3.8-10.6) k/uL Neutrophils # 10.1 H (1.3-7.7) k/uL Sodium 136 L (137-145) mmol/L BUN 6 L (7-17) mg/dL
[2020-07-29] MEDS ORDERED: ALVIMOPAN 12 MG CAPSULE PO SCH (10:45)
[2020-07-29] MEDS: 0.9% NACL WITH KCL 40 MEQ/L 1,000 ML IV SCH (12:10)
[2020-07-29 13:29] VITALS: BP 117/70; PULSE 66
[2020-07-29 14:38] VITALS: BMI 24.0
--- NOTE | 2020-07-29 14:41 | P.DS ---
Providers Date of admission: 07/27/20 10:28 Expected date of discharge: 07/29/20 Attending physician: Ivana Hook Primary care physician: Subhash Jon - Discharge Diagnosis(es) (1) Hypertensive heart disease Current Visit: Yes Status: Acute (2) Bowel obstruction Current Visit: Yes Status: Acute (3) Diverticulosis Current Visit: No Status: Acute (4) Osteoarthritis of left knee Current Visit: No Status: Acute (5) Stricture of sigmoid colon Current Visit: No Status: Acute Hospital Course: POSTOPERATIVE DIAGNOSES: 1. Sigmoid stricture with intermittent large bowel obstruction due to sigmoid diverticulitis with chronic constipation 2. Bilateral lower abdominal pain 3. Hypertensive heart disease 4. Hypothyroidism 5. Chronic pain syndrome 6. Chronic lower back pain 7. Abnormal EKG with left ventricular hypertrophy 8. Greater omental abdominal wall adhesions 9. Pelvic adhesions 10. Internal hernia sigmoid colon COURSE: The patient is a 75-year-old female with symptomatic sigmoid stricture due to sigmoid diverticulitis. She underwent colonoscopy with confirmation of sigmoid diverticulosis with stricture. She had prolonged bowel prep stayed overnight. She had robotic sigmoid colectomy low anterior resection 07/28/2020. Postoperatively, she is passing flatus and her pain was well controlled. She had a bowel movement. She was tolerating a low fiber diet. Procedures: OPERATION: 1. Robotic-assisted daVinci Xi laparoscopic lysis of adhesions 2. Robotic-assisted daVinci Xi laparoscopic with sigmoid colectomy and low anterior resection using 29mm EEA Ethicon powered stapler 3. Intraoperative colonoscopy for flexible sigmoidoscopy Anesthesia: GETA, local, regional Estimated Blood Loss (ml): 10 Pathology: other (Sigmoid colon, anastomosis) Condition: stable Disposition: floor COMPLICATIONS: None. Operative Findings: 1. Severe sigmoid diverticulosis with pelvic adhesions right ovary and atrophied uterus lysed 2. Greater omental adhesions anterior abdominal wall from previous ventral hernia repair with mesh 3. At sigmoid epiploica with internal hernia sigmoid colon lysed and removed with specimen Patient Condition at Discharge: Good Plan - Discharge Summary Discharge Rx Participant: No New Discharge Prescriptions: New Simethicone [Gas-X] 125 mg PO AC-TID PRN #20 capsule PRN Reason: Abdominal Distention Acetaminophen Tab [Tylenol Tab] 500 mg PO Q6H PRN #30 tablet PRN Reason: Pain Continue Fluticasone Nasal Hopkins [Flonase Nasal Hopkins] 2 spray EA NOSTRIL HS PRN PRN Reason: Allergy Symptoms Levothyroxine Sodium [Synthroid] 112 mcg PO MOTUWETHFRSA Losartan Potassium [Cozaar] 100 mg PO QAM hydroCHLOROthiazide [Hydrodiuril] 12.5 mg PO QAM amLODIPine BESYLATE 5 mg PO BID Cholecalciferol [Vitamin D3 (25 Mcg = 1000 Iu)] 5,000 unit PO DAILY Calcium, Magnesium Plus 3 tab PO DAILY Melatonin 5 mg PO HS PRN PRN Reason: Insomnia Acetaminophen-Codeine 300-30mg [Tylenol w/codeine #3] 1 tab PO Q6H PRN PRN Reason: Pain Discontinued Acetaminophen Tab [Tylenol] 500 mg PO DAILY PRN PRN Reason: Pain Polyethylene Glycol 3350 [Miralax] 17 gm PO BID #527 gm Discharge Medication List Fluticasone Nasal Hopkins [Flonase Nasal Hopkins] 2 spray EA NOSTRIL HS PRN 06/21/16 [History] Levothyroxine Sodium [Synthroid] 112 mcg PO MOTUWETHFRSA 08/06/17 [History] Losartan Potassium [Cozaar] 100 mg PO QAM 05/07/18 [History] hydroCHLOROthiazide [Hydrodiuril] 12.5 mg PO QAM 05/07/18 [History] amLODIPine BESYLATE 5 mg PO BID 03/26/19 [History] Cholecalciferol [Vitamin D3 (25 Mcg = 1000 Iu)] 5,000 unit PO DAILY 05/29/19 [History] Calcium, Magnesium Plus 3 tab PO DAILY 11/02/19 [History] Acetaminophen-Codeine 300-30mg [Tylenol w/codeine #3] 1 tab PO Q6H PRN 07/22/20 [History] Melatonin 5 mg PO HS PRN 07/22/20 [History] Acetaminophen Tab [Tylenol Tab] 500 mg PO Q6H PRN #30 tablet 07/29/20 [Rx] Simethicone [Gas-X] 125 mg PO AC-TID PRN #20 capsule 07/29/20 [Rx] Follow up Appointment(s)/Referral(s): Ivana Hook MD [STAFF PHYSICIAN] - 08/02/20 Patient Instructions/Handouts: Laparoscopic Bowel Resection (IP), Colectomy Diet (DC) Activity/Diet/Wound Care/Special Instructions: Wear abdominal binder for comfort. Please notify your pain specialist for narcotic pain meds. No lifting over 10 pounds in 4 weeks until August 27. August shower. No bath tub soaks for two weeks until August 12. Avoid steak, tough meats and seeds such as raspberry seeds. No driving while on narcotics. Use Tylenol scheduled for the next 24-48 hours for best pain relief. Use ice along incisions for today to prevent swelling. Discharge Disposition: HOME SELF-CARE
--- NOTE | 2020-07-30 12:50 | P.PN ---
Progress Note - Text Progress Note Date: 07/30/20 Patient reports doing very well at home. Her pain is controlled with Tylenol. She is having multiple bowel movements. No further abdominal pain as she had prior to her surgery. She is active. Medical reconciliation also reviewed over thetelephone. All questions addressed. Follow-up in office in 3 days.
--- NOTE | 2020-07-31 16:29 | P.PN ---
Progress Note - Text Progress Note Date: 07/31/20 Patient called at home. She is having bowel movements passing flatus. She is tolerating diet. All questions addressed. Follow-up in the office in 2 days.
== END 2020-07-29 16:25 | disposition home or self-care (01) | DRG 330 ==
LOC: ORWHC2ENDO 08:51 → 5NMEDONC 10:28 → ORWHC2ENDO 10:28 → 5NMEDONC 13:32
PROVIDERS: ADMIT Surgery Plastic and Reconstructive Surgery; ATTEND Surgery Plastic and Reconstructive Surgery
PROC: 0DJD8ZZ Inspection of Lower Intestinal Tract, Via Natural or Artificial Opening Endoscopic (ICD-10-PCS; 2020-07-27)
PROC: 8E0W4CZ Robotic Assisted Procedure of Trunk Region, Percutaneous Endoscopic Approach (ICD-10-PCS; principal; 2020-07-28 11:00)
PROC: 0UN04ZZ Release Right Ovary, Percutaneous Endoscopic Approach (ICD-10-PCS; principal; 2020-07-28 11:00)
PROC: 0DNW4ZZ Release Peritoneum, Percutaneous Endoscopic Approach (ICD-10-PCS; principal; 2020-07-28 11:00)
PROC: 0DNN4ZZ Release Sigmoid Colon, Percutaneous Endoscopic Approach (ICD-10-PCS; principal; 2020-07-28 11:00)
PROC: 0DNU4ZZ Release Omentum, Percutaneous Endoscopic Approach (ICD-10-PCS; principal; 2020-07-28 11:00)
PROC: 0DJD8ZZ Inspection of Lower Intestinal Tract, Via Natural or Artificial Opening Endoscopic (ICD-10-PCS; principal; 2020-07-28 11:00)
PROC: 0DTN0ZZ Resection of Sigmoid Colon, Open Approach (ICD-10-PCS; principal; 2020-07-28 11:00)
DX: K57.30 Diverticulosis of large intestine without perforation or abscess without bleeding (principal); K56.699 Other intestinal obstruction unspecified as to partial versus complete obstruction; I11.0 Hypertensive heart disease with heart failure; K46.9 Unspecified abdominal hernia without obstruction or gangrene; K64.8 Other hemorrhoids; K64.2 Third degree hemorrhoids; E03.9 Hypothyroidism, unspecified; E87.6 Hypokalemia; N73.6 Female pelvic peritoneal adhesions (postinfective); K66.0 Peritoneal adhesions (postprocedural) (postinfection); K44.9 Diaphragmatic hernia without obstruction or gangrene; G89.4 Chronic pain syndrome; I25.2 Old myocardial infarction; M17.12 Unilateral primary osteoarthritis, left knee; Z79.890 Hormone replacement therapy; Z79.899 Other long term (current) drug therapy; Z98.1 Arthrodesis status; Z85.828 Personal history of other malignant neoplasm of skin; Z98.890 Other specified postprocedural states; Z98.51 Tubal ligation status; Z90.89 Acquired absence of other organs; Z96.652 Presence of left artificial knee joint; Z87.891 Personal history of nicotine dependence; Z82.49 Family history of ischemic heart disease and other diseases of the circulatory system; Z80.0 Family history of malignant neoplasm of digestive organs; Z80.8 Family history of malignant neoplasm of other organs or systems; Z88.6 Allergy status to analgesic agent; Z88.5 Allergy status to narcotic agent; M54.5 Low back pain
CPT/HCPCS: 45378; 64999; 76942; 80048; 80053; 85025; 86850; 86900; 86901; 87635; 88307; 93306

== ENCOUNTER → 2020-08-10 | Outpatient (CLI) | payer MEDICARE ==
[2020-08-10 15:45] VITALS: BP 166/88; PULSE 75; RESP 16; TEMP 98.6; BMI 24.3
--- NOTE | 2020-08-10 16:15 | P.HPBAR ---
Bariatric H&P - History & Physicial H&P Date: 08/10/20 History & Physicial: Visit/CC: Pursuing panni Patient initial contact: Initial weight: Initial weight in pounds: Height: 5 ft Initial BMI: Last weight: Current weight: 56.501 kg Current weight in pounds: 124.56 Current BMI: 24.3 Nikolai body weight (based on NIH guidelines): 45.359 kg Excess body weight loss: The patient is a 75 year-old F who presents for Bariatric Assessment. DATE OF SERVICE: 08/10/2020 CHIEF COMPLAINT: Panniculitis HISTORY OF PRESENT ILLNESS: Piedad Ortiz is a 75-year-old female who presents with panniculitis including central adiposity as well as troubles with her pannus. His symptoms were ongoing for over 2-3 years. She had successfully lost weight on her own. Her highest weight was 209 pounds and has maintained weight loss for over 5 years. She reports lower back pain as a result. She reports recurrent lower back pain. She has maintained over 80 pound weight loss. She tries local hygiene without complete control of her symptoms. She presents in consultation for panniculitis. At her height of 5 foot 0 inches, her initial weight was 209 pounds. Her ideal body weight is 127 pounds. Her body mass index is reduced from 40.9 down to 24.3 Today she comes in weighing 124 pounds. She has lost 85 pounds, lifetime. Lifetime percent excess weight loss is 103 %. PAST MEDICAL HISTORY: 1. Chronic lower back pain. 2. Hypothyroidism 3. Hypertensive heart disease 4. Panniculitis 5. Diverticulitis 6. Skin cancer 7. Hiatal hernia 8. Morbid obesity due to excess calories, BMI 40.9 9. Postoperative nausea and vomiting PAST SURGICAL HISTORY: 1. Back fusion 2 2. Left knee arthroscopy 3. Left knee replacement 4. Breast biopsy 2 5. Heart catheterization 6. Tonsillectomy 7. Tubal ligation 8. Excision of skin cancer 9. Sigmoid colectomy MEDICATIONS: Home Medications Medication Instructions Recorded Confirmed Fluticasone Nasal [place] [Flonase 2 spray EA NOSTRIL HS PRN 06/21/16 07/27/20 Nasal [place]] Levothyroxine Sodium [Synthroid] 112 mcg PO MOTUWETHFRSA 08/06/17 07/27/20 Losartan Potassium [Cozaar] 100 mg PO QAM 05/07/18 07/27/20 hydroCHLOROthiazide [Hydrodiuril] 12.5 mg PO QAM 05/07/18 07/27/20 amLODIPine BESYLATE 5 mg PO BID 03/26/19 07/27/20 Cholecalciferol [Vitamin D3 (25 5,000 unit PO DAILY 05/29/19 07/27/20 Mcg = 1000 Iu)] Calcium, Magnesium Plus 3 tab PO DAILY 11/02/19 07/22/20 Acetaminophen-Codeine 300-30mg 1 tab PO Q6H PRN 07/22/20 07/27/20 [Tylenol w/codeine #3] Melatonin 5 mg PO HS PRN 07/22/20 07/27/20 Previous Rx's Medication Instructions Recorded Acetaminophen Tab [Tylenol Tab] 500 mg PO Q6H PRN #30 tablet 07/29/20 Simethicone [Gas-X] 125 mg PO AC-TID PRN #20 capsule 07/29/20 Nystatin 100,000 Unit/gm Powd 1 applic TOPICAL BID #60 powder 08/10/20 [Mycostatin Powder] ALLERGIES: Allergies Allergy/AdvReac Type Severity Reaction Status Date / Time meloxicam [From Mobic] Allergy Unknown Unknown- Verified 07/22/20 10:[address] Saenz boarding slip morphine AdvReac Mild Nausea & Verified 07/22/20 10:34 Vomiting, allergy to duramorph from boarding slip hydrocodone [From [place]] AdvReac Nausea & Verified 07/22/20 10:34 Vomiting narcotics AdvReac Unknown states Uncoded 07/22/20 10:34 needs smaller dose-takes 1/2 of tyl#3. SOCIAL HISTORY: Past smoker. FAMILY HISTORY: No skin cancer REVIEW OF SYSTEMS: CONSTITUTIONAL: At her height of 5 foot 0 inches, her initial weight was 209 pounds. Her ideal body weight is 127 pounds. Her body mass index is reduced from 40.9 down to 24.3 Today she comes in weighing 124 pounds. She has lost 85 pounds, lifetime. Lifetime percent excess weight loss is 103 %. GASTROINTESTINAL: Gastroesophageal reflux disease. No dumping syndrome. RESPIRATORY: Obstructive sleep apnea. No pneumonia. MUSCULOSKELETAL: She has intermittent joint pain, including lower back pain from pannus. HEENT: Denies any troubles with vision or hearing. ENDOCRINE: No diabetes resolved. Has thyroid disorders. CARDIOVASCULAR: Denies any of recent palpitation or heart attack. Has hypertension. PSYCH: History of depression. No anxiety. HEMATOLOGIC: Denies any personal history of venothrombotic event. SKIN: Has panniculitis. Past skin cancer. PHYSICAL EXAM: VITAL SIGNS: 5 feet 0 inches, 124 pounds. Body mass index 24.3 Vital Signs Temp 98.6 F 08/10/20 15:43 Pulse 75 08/10/20 15:43 Resp 16 08/10/20 15:43 BP 166/88 08/10/20 15:43 Pulse Ox ABDOMEN: Soft, nontender. Non-distended. Has panniculits. Grade 3 panniculosis. Has mild bulge at left upper quadrant. GENERAL: Well-developed, pleasant female in no acute distress. HEENT: No scleral icterus. Extraocular movements grossly intact. Moist buccal mucosa. NECK: Supple. No lymphadenopathy. No JV distention. CHEST: Unlabored respirations, equal bilateral excursions. CARDIOVASCULAR: Regular rate and rhythm. MUSCULOSKELETAL: No clubbing, cyanosis, or edema. NEURO: Moves all extremities. Cranial nerves 2 through 12 grossly intact. PSYCH: Appropriate affect. Alert and oriented to person, place and time. SKIN: Well perfused. Good skin turgor. ASSESSMENT: 1. Chronic lower back pain. 2. Hypothyroidism 3. Hypertensive heart disease 4. Panniculitis 5. Diverticulitis 6. Skin cancer 7. Hiatal hernia PLAN: 1. Recommend nystatin powder for control of symptoms. Nystatin powder prescribed. 2. Recommend dermatology. Past Medical History Past Medical History: Cancer, Hypertension, Myocardial Infarction ([place]), Osteoarthritis (OA), Thyroid Disorder Additional Past Medical History / Comment(s): skin cancer, chronic back pain, hiatal hernia. Current ventral Hernia. On po AB Rx for tooth infection, has f/u appt at dentist today. Edema LLE. Last Myocardial Infarction Date:: 07-18-1994 History of Any Multi-Drug Resistant Organisms: None Reported Past Surgical History: Back Surgery, Breast Surgery, Heart Catheterization, Joint Replacement, Orthopedic Surgery, Tonsillectomy, Tubal Ligation Additional Past Surgical History / Comment(s): skin cancer-LESIONS , breast bx x2, back fusion x2. arthroscopy lt knee 2016. left knee replaced July 2017, pain procedures Past Anesthesia/Blood Transfusion Reactions: Postoperative Nausea & Vomiting (PONV) Additional Past Anesthesia/Blood Transfusion Reaction / Comm: past blood transfusion-denies any reaction to it Past Psychological History: No Psychological Hx Reported Smoking Status: Never smoker Past Alcohol Use History: Occasional Additional Past Alcohol Use History / Comment(s): started smoking 1967, quit smoking 1997, smoked 2-3ppd Past Drug Use History: None Reported - Past Family History Mother Family Medical History: No Reported History Additional Family Medical History / Comment(s): at age 93 Father History Unknown: Yes Additional Family Medical History / Comment(s): at age 42 Son(s) Family Medical History: Cancer, Myocardial Infarction ([place]) Additional Family Medical History / Comment(s): colon CA. Brother(s) Family Medical History: Cancer Additional Family Medical History / Comment(s): skin cancer Surgical - Exam Vital Signs Temp Pulse Resp BP 98.6 F 75 16 166/88 08/10/20 15:43 08/10/20 15:43 08/10/20 15:43 08/10/20 15:43 Bariatric Checklist Checklist: Plan: Checklist: EGD: 1. Hiatal hernia: 2. H. Pylori: HgbA1c: Vitamin D: Smoking: Former smoker Primary care physician referral: Dr. Javier Jon Psychiatry clearance: Cardiology clearance: Sleep study: Diet journal: VTE risk score: VTE risk level: Rehab needs at discharge:
== END | disposition home or self-care (01) ==
LOC: BARWHC3 14:21
PROVIDERS: ATTEND Surgery Plastic and Reconstructive Surgery
DX: E66.01 Morbid (severe) obesity due to excess calories (principal); Z68.24 Body mass index [BMI] 24.0-24.9, adult; G89.29 Other chronic pain; M54.5 Low back pain; E03.9 Hypothyroidism, unspecified; I11.9 Hypertensive heart disease without heart failure; Z98.84 Bariatric surgery status; M79.3 Panniculitis, unspecified
CPT/HCPCS: 99202

== ENCOUNTER → 2020-08-31 | Outpatient (CLI) | payer MEDICARE ==
--- NOTE | 2020-08-31 16:24 | CT ---
EXAMINATION TYPE: CT abdomen pelvis wo con DATE OF EXAM: 08/31/2020 COMPARISON: 05/13/2020 HISTORY: 75-year-old female Abdominal pain status post bowel resection in July 2020. CT DLP: 270.5 mGycm. Automated exposure control for dose reduction was used. TECHNIQUE: Contiguous axial scanning of the abdomen and pelvis without IV contrast. Coronal and sagit ana rosa reconstructions performed. FINDINGS: Heart normal size without pericardial effusion. Coronary artery calcifications are present. Lung bases clear without pleural effusion. Stable few hepatic hypodensities measuring up to 1 cm suggesting benign cysts. Gallbladder is either surgically absent or collapsed. Noncontrast appearance of the adrenal glands, kidneys, spleen, and pancreas show no gross abnormality . Moderate atherosclerotic calcifications abdominal aorta and common iliac arteries. No dilated small bowel, free fluid, or free air. Multiple nonopacified bowel loops are present throug hout the abdomen and pelvis. Normal appendix is visualized. Moderate stool in the right side of the colon. Sigmoid diverticulosis. Staple line at the distal sigmoid compatible with interval resection and reanastomosis. No clear fin dings of pericolonic inflammation. Bladder only partially distended. Uterus difficult to delineate from clustered bowel loops. No abnorm al fluid collection in the pelvis or evident pelvic lymphadenopathy. Bones: Degenerative change at the hips and SI joints. Grade 3 anterolisthesis of L5-S1 from prior L5 pars defects with posterior fusion change from L4 through S1. Advanced hypertrophic facet arthropathy above the fusion with grade 1 anterolisthesis at L3-L4 and moderate to advanced degenerative disc di sease at L2-L3. IMPRESSION: 1. Limited noncontrast exam. There is interval distal sigmoid resection with reanastomosis and under lying sigmoid diverticulosis. No definite acute inflammation is seen. 2. Moderate stool in the right side of the abdomen. 3. Fused grade 3 anterolisthesis at L5-S1 from old L5 pars defects. The fusion extends from L4 throu gh S1. Advanced facet arthropathy above the fusion with degenerative grade 1 anterolisthesis at L3-L4 .
== END | disposition home or self-care (01) ==
LOC: RADCTMAIN 15:07
PROVIDERS: ATTEND Surgery Plastic and Reconstructive Surgery
DX: K57.30 Diverticulosis of large intestine without perforation or abscess without bleeding (principal); M43.17 Spondylolisthesis, lumbosacral region; M47.816 Spondylosis without myelopathy or radiculopathy, lumbar region
CPT/HCPCS: 74176

== ENCOUNTER → 2020-12-14 | Outpatient (CLI) | payer MEDICARE ==
--- NOTE | 2020-12-15 11:06 | MM ---
Reason for exam: screening (asymptomatic). Last mammogram was performed 1 year and 1 month ago. History: Patient is postmenopausal and has history of other cancer at age 60. Family history of breast cancer in cousin at age 50. Excisional biopsy of the left breast. Excisional biopsy of the right breast. Took estrogen for 1 year 6 months. Took progesterone for 1 year 6 months. Physical Findings: A clinical breast exam by your physician is recommended on an annual basis and results should be correlated with mammographic findings. MG 3D Screening Mammo W/Cad Bilateral CC and MLO view(s) were taken. Prior study comparison: November 12, 2019, bilateral MG 3d screening mammo w/cad. September 15, 2018, bilateral MG 3d screening mammo w/cad. September 12, 2017, bilateral MG 3d screening mammo w/cad. The breast tissue is heterogeneously dense. This may lower the sensitivity of mammography. There are benign appearing round regional calcifications bilaterally. There is no discrete abnormality. ASSESSMENT: Benign, BI-RAD 2 RECOMMENDATION: Routine screening mammogram of both breasts in 1 year.
== END | disposition home or self-care (01) ==
LOC: RADMAMWWP 09:52
PROVIDERS: ATTEND Family Medicine
DX: Z12.31 Encounter for screening mammogram for malignant neoplasm of breast (principal); Z78.0 Asymptomatic menopausal state; Z80.3 Family history of malignant neoplasm of breast
CPT/HCPCS: 77063; 77067

== ENCOUNTER → 2021-11-30 | Outpatient (CLI) | payer MEDICARE ==
--- NOTE | 2021-11-30 12:16 | XR ---
EXAMINATION TYPE: XR lumbar spine 2 or 3V DATE OF EXAM: 11/30/2021 CLINICAL HISTORY: pain TECHNIQUE: Three views of the lumbar spine are submitted. COMPARISON: 09/09/2019 FINDINGS: Postoperative changes of lumbar fusion at L5-S1. There is grade 2 anterolisthesis of L5 on S1 estimat ed at 2 cm. Overall no change from prior study. Moderate to severe multilevel degenerative disc space narrowing and spondylosis. Severe facet joint arthropathy. No acute fracture seen.. IMPRESSION: Postoperative changes as noted. Stable alignment. ICD 10 NO FRACTURE, INITIAL EVALUATION
== END | disposition home or self-care (01) ==
LOC: RADXRMAIN 11:37
PROVIDERS: ATTEND Family Medicine
DX: M51.37 Other intervertebral disc degeneration, lumbosacral region (principal); M48.07 Spinal stenosis, lumbosacral region; M47.817 Spondylosis without myelopathy or radiculopathy, lumbosacral region
CPT/HCPCS: 72100

== ENCOUNTER 2022-11-20 13:33 | Observation (INO) | payer MEDICARE ==
[2022-11-20] MEDS ORDERED: ASPIRIN 81 MG PO STA (13:55)
[2022-11-20 14:08] LABS: Basophils % (A) 1 %; Eosinophils # (A) 0.3 k/uL (0-0.7); Eosinophils % (A) 4 %; HCT 42.1 % (34.0-46.0); HGB 14.8 gm/dL (11.4-16.0); Lymphocytes # (A) 2.1 k/uL (1.0-4.8); Lymphocytes % (A) 33 %; MCH 30.6 pg (25.0-35.0); MCHC 35.2 g/dL (31.0-37.0); Mean Platelet Volume 7.3; Monocytes # (A) 0.3 k/uL (0-1.0); Monocytes % (A) 5 %; Neutrophils # (A) 3.6 k/uL (1.3-7.7); Neutrophils % (A) 56 %; Platelet Count 205 k/uL (150-450); RBC 4.85 m/uL (3.80-5.40); RDW 12.6 % (11.5-15.5); WBC 6.4 k/uL (3.8-10.6)
--- NOTE | 2022-11-20 14:13 | ED ---
General Adult HPI - General Chief complaint: Chest Pain Stated complaint: Chest Pain Time Seen by Provider: 11/20/22 13:44 Source: patient Mode of arrival: wheelchair Limitations: no limitations - History of Present Illness Initial comments: Dictation was produced using [employer] dictation software. please excuse any grammatical, word or spelling errors. Chief Complaint: 77-year-old female presents to the emergency room for 45 minutes of chest pain History of Present Illness: Is a 77-year-old female presents to the emergency department for chest pain states that it started 45 minutes ago she states it is sharp pain to her lower anterior chest. While being in the emergency department her symptoms resolved. Patient denies any heart history. Denies any cardiac history. No shortness of breath. She does complain of some neck pain. Denies any fever or constitutional symptoms. States that the pain did not radiate to her jaw or upper extremity. No associated diaphoresis or nausea. The ROS documented in this emergency department record has been reviewed and confirmed by me. Those systems with pertinent positive or negative responses have been documented in the HPI. All other systems are other negative and/or noncontributory. - Related Data Home Medications Medication Instructions Recorded Confirmed Fluticasone Nasal [place] [Flonase 1 spray EA NOSTRIL DAILY 06/21/16 05/22/21 Nasal [place]] Levothyroxine Sodium [Synthroid] 112 mcg PO DAILY 08/06/17 05/22/21 Losartan Potassium [Cozaar] 100 mg PO DAILY 05/07/18 05/22/21 hydroCHLOROthiazide [Hydrodiuril] 12.5 mg PO DAILY 05/07/18 05/22/21 amLODIPine BESYLATE 5 mg PO BID 03/26/19 05/22/21 Calcium, Magnesium Plus 1 tab PO DAILY 11/02/19 05/22/21 Acetaminophen-Codeine 300-30mg 1 tab PO BID PRN 07/22/20 05/22/21 [Tylenol w/codeine #3] Cholecalciferol [Vitamin D3 (25 25 mcg PO DAILY 05/22/21 05/22/21 Mcg = 1000 Iu)] Cyanocobalamin (Vitamin B-12) 1,000 mcg PO DAILY 05/22/21 05/22/21 [Vitamin B-12] Neuriva 1 tab PO DAILY 05/22/21 05/22/21 Pro Dha 1 tab PO DAILY 05/22/21 05/22/21 Allergies Allergy/AdvReac Type Severity Reaction Status Date / Time meloxicam [From Mobic] Allergy Unknown Unknown- Verified 11/20/22 13:[address] Saenz boarding slip morphine AdvReac Mild Nausea & Verified 11/20/22 13:39 Vomiting, allergy to duramorph from boarding slip hydrocodone [From [place]] AdvReac Nausea & Verified 11/20/22 13:39 Vomiting narcotics AdvReac Unknown states Uncoded 07/22/20 10:34 needs smaller dose-takes 1/2 of tyl#3. Review of Systems ROS Statement: Those systems with pertinent positive or pertinent negative responses have been documented in the HPI. ROS Other: All systems not noted in ROS Statement are negative. Past Medical History Past Medical History: Cancer, Hypertension, Myocardial Infarction ([place]), Osteoarthritis (OA), Thyroid Disorder Additional Past Medical History / Comment(s): skin cancer, chronic back pain, hiatal hernia. Current ventral Hernia. On po AB Rx for tooth infection, has f/u appt at dentist today. Edema LLE. Last Myocardial Infarction Date:: 07-18-1994 History of Any Multi-Drug Resistant Organisms: None Reported Past Surgical History: Back Surgery, Breast Surgery, Heart Catheterization, Joint Replacement, Orthopedic Surgery, Tonsillectomy, Tubal Ligation Additional Past Surgical History / Comment(s): skin cancer-LESIONS , breast bx x2, back fusion x2. arthroscopy lt knee 2016. left knee replaced July 2017, pain procedures Past Anesthesia/Blood Transfusion Reactions: Postoperative Nausea & Vomiting (PONV) Additional Past Anesthesia/Blood Transfusion Reaction / Comment(s): past blood transfusion-denies any reaction to it Past Psychological History: No Psychological Hx Reported Smoking Status: Never smoker Past Alcohol Use History: Occasional Past Drug Use History: None Reported - Past Family History Mother Family Medical History: No Reported History Additional Family Medical History / Comment(s): at age 93 Father History Unknown: Yes Family Medical History: Coronary Artery Disease (CAD) Additional Family Medical History / Comment(s): at age 42 Son(s) Family Medical History: Cancer, Myocardial Infarction (SC) Additional Family Medical History / Comment(s): colon CA. Brother(s) Family Medical History: Cancer Additional Family Medical History / Comment(s): skin cancer General Exam - General Exam Comments Initial Comments: PHYSICAL EXAM: General Impression: Alert and oriented x3, not in acute distress HEENT: Normocephalic atraumatic, extra-ocular movements intact, pupils equal and reactive to light bilaterally, mucous membranes moist. Cardiovascular: Heart regular rate and rhythm Chest: Able to complete full sentences, no retractions, no tachypnea Abdomen: abdomen soft, non-tender, non-distended, no organomegaly Musculoskeletal: Pulses present and equal in all extremities, no peripheral edema Motor: no focal deficits noted Neurological: CN II-XII grossly intact, no focal motor or sensory deficits noted Skin: Intact with no visualized rashes Psych: Normal affect and mood Limitations: no limitations Course Vital Signs 11/20/22 13:35 Temperature 98.3 F Pulse Rate 66 Respiratory 18 Rate Blood Pressure 169/68 O2 Sat by Pulse 100 Oximetry EKG Findings - EKG Comments: EKG Findings:: My EKG interpretation: Ventricular rate 61, sinus rhythm,. 158, QRS 92, QTC 417. No GA prolongation, no QTC prolongation, no ST or T-wave changes noted. Overall, this EKG is unremarkable Medical Decision Making - Medical Decision Making Was pt. sent in by a medical professional or institution (, PA, EXTRACORPOREAL TECHNICIAN, urgent care, hospital, or skilled nursing...) When possible be specific @ -No Did you speak to anyone other than the patient for history (EMS, parent, family, police, friend...)? What history was obtained from this source @ -No Did you review nursing and triage notes (agree or disagree)? Why? @ -I reviewed and agree with nursing and triage notes Were old charts reviewed (outside hosp., previous admission, EMS record, old EKG, old radiological studies, urgent care reports/EKG's, skilled nursing records)? Report findings @ -No old charts were reviewed Differential Diagnosis (chest pain, altered mental status, abdominal pain women, abdominal pain men, vaginal bleeding, musculoskeletal, weakness, fever, dyspnea, syncope, headache, dizziness, GI bleed, back pain, seizure, CVA, palpatations, mental health)? @ -Differential Chest Pain: Stable Angina, Unstable Angina, STEMI, NSTEMI Aortic Dissection, Pneumothorax, Musculoskeletal, Esophageal Spasm GERD, Cholecystitis, Pancreatitis, Zoster, this is not meant to be an all-inclusive list. EKG interpreted by me (3pts min.). @ -See above X-rays interpreted by me (1pt min.). @ -Chest x-ray is unremarkable CT interpreted by me (1pt min.). @ -None done U/S interpreted by me (1pt. min.). @ -None done What testing was considered but not performed or refused? (CT, X-rays, U/S, labs)? Why? @ -None What meds were considered but not given or refused? Why? @ -None Did you discuss the management of the patient with other professionals (professionals i.e. DrSofia, PA, EXTRACORPOREAL TECHNICIAN, lab, RT, psych nurse, social services specialist, car restorer, teacher, chief informatics officer, dependency case manager)? Give summary @ -Discussed with hospitalist for admission Was smoking cessation discussed for >3mins.? @ -No Was critical care preformed (if so, how long)? @ -No Were there social determinants of health that impacted care today? How? (Homelessness, low income, unemployed, alcoholism, drug addiction, t ransportation, low edu. Level, literacy, decrease access to med. care, fdc, rehab)? @ -No Was there de-escalation of care discussed even if they declined (Discuss DNR or withdrawal of care, Hospice)? DNR status @ -No What co-morbidities impacted this encounter? (DM, HTN, Smoking, COPD, CAD, Cancer, CVA, ARF, Chemo, Hep., AIDS, mental health diagnosis, sleep apnea, morbid obesity)? @ -None Was patient admitted / discharged? Hospital course, mention meds given and route, prescriptions, significant lab abnormalities, going to OR and other pertinent info. @ -77-year-old female presents with atypical chest with typical features she has some risk factors. Vital signs upon arrival are within acceptable limits. EKG is unremarkable. Physical examination is benign she denies any symptoms at this time. Laboratory evaluation obtained CBC, coag panel metabolic panel is unremarkable. Troponin is negative. Patient is agreeable for admission for cardiac monitoring and cardiology consultation. Admitted to hospitalist. Undiagnosed new problem with uncertain prognosis? @ -No Drug Therapy requiring intensive monitoring for toxicity (Heparin, Nitro, Insulin, Cardizem)? @ -No Were any procedures done? @ -No Diagnosis/symptom? Acute, or Chronic, or Acute on Chronic? Uncomplicated (without systemic symptoms) or Complicated (systemic symptoms)? @ -Chest pain Side effects of treatment? @ -No Exacerbation, Progression, or Severe Exacerbation? @ -No Poses a threat to life or bodily function? How? (Chest pain, [place], SC, pneumonia, PE, COPD, DKA, ARF, appy, cholecystitis, CVA, Diverticulitis, Homicidal, Suicidal, threat to staff... and all critical care pts) @ -yes - Lab Data Result diagrams: 11/20/22 13:59 11/20/22 13:59 Lab Results 11/20/22 11/20/22 11/20/22 Range/Units 13:59 13:59 13:59 WBC 6.4 (3.8-10.6) k/uL RBC 4.85 (3.80-5.40) m/uL Hgb 14.8 (11.4-16.0) gm/dL Hct 42.1 (34.0-46.0) % MCV 87.0 (80.0-100.0) fL MCH 30.6 (25.0-35.0) pg MCHC 35.2 (31.0-37.0) g/dL RDW 12.6 (11.5-15.5) % Plt Count 205 (150-450) k/uL MPV 7.3 Neutrophils % 56 % Lymphocytes % 33 % Monocytes % 5 % Eosinophils % 4 % Basophils % 1 % Neutrophils # 3.6 (1.3-7.7) k/uL Lymphocytes # 2.1 (1.0-4.8) k/uL Monocytes # 0.3 (0-1.0) k/uL Eosinophils # 0.3 (0-0.7) k/uL Basophils # 0.0 (0-0.2) k/uL PT 10.1 (9.0-12.0) sec INR 0.9 (<1.2) APTT 24.1 (22.0-30.0) sec Sodium 135 L (137-145) mmol/L Potassium 3.8 (3.5-5.1) mmol/L Chloride 102 (98-107) mmol/L Carbon Dioxide 25 (22-30) mmol/L Anion Gap 8 mmol/L BUN 7 (7-17) mg/dL Creatinine 0.42 L (0.52-1.04) mg/dL Est GFR (CKD-EPI)AfAm >90 (>60 ml/min/1.73 sqM) Est GFR (CKD-EPI)NonAf >90 (>60 ml/min/1.73 sqM) Glucose 96 (74-99) mg/dL Calcium 9.5 (8.4-10.2) mg/dL Magnesium 2.0 (1.6-2.3) mg/dL Total Bilirubin 1.1 (0.2-1.3) mg/dL AST 45 H (14-36) U/L ALT 21 (4-34) U/L Alkaline Phosphatase 49 (38-126) U/L Troponin I (0.000-0.034) ng/mL Total Protein 7.0 (6.3-8.2) g/dL Albumin 4.5 (3.5-5.0) g/dL 11/20/22 Range/Units 13:59 WBC (3.8-10.6) k/uL RBC (3.80-5.40) m/uL Hgb (11.4-16.0) gm/dL Hct (34.0-46.0) % MCV (80.0-100.0) fL MCH (25.0-35.0) pg MCHC (31.0-37.0) g/dL RDW (11.5-15.5) % Plt Count (150-450) k/uL MPV Neutrophils % % Lymphocytes % % Monocytes % % Eosinophils % % Basophils % % Neutrophils # (1.3-7.7) k/uL Lymphocytes # (1.0-4.8) k/uL Monocytes # (0-1.0) k/uL Eosinophils # (0-0.7) k/uL Basophils # (0-0.2) k/uL PT (9.0-12.0) sec INR (<1.2) APTT (22.0-30.0) sec Sodium (137-145) mmol/L Potassium (3.5-5.1) mmol/L Chloride (98-107) mmol/L Carbon Dioxide (22-30) mmol/L Anion Gap mmol/L BUN (7-17) mg/dL Creatinine (0.52-1.04) mg/dL Est GFR (CKD-EPI)AfAm (>60 ml/min/1.73 sqM) Est GFR (CKD-EPI)NonAf (>60 ml/min/1.73 sqM) Glucose (74-99) mg/dL Calcium (8.4-10.2) mg/dL Magnesium (1.6-2.3) mg/dL Total Bilirubin (0.2-1.3) mg/dL AST (14-36) U/L ALT (4-34) U/L Alkaline Phosphatase (38-126) U/L Troponin I <0.012 (0.000-0.034) ng/mL Total Protein (6.3-8.2) g/dL Albumin (3.5-5.0) g/dL Disposition Clinical Impression: Chest pain Disposition: ADMITTED IP TO THIS [facility] Condition: Fair Referrals: Subhash Jon MD [Primary Care Provider] - 1-2 days Decision Time: 15:02
[2022-11-20 14:21] LABS: INR 0.9 (<1.2); Partial Thromboplastin Time 24.1 sec (22.0-30.0); Prothrombin Time 10.1 sec (9.0-12.0)
--- NOTE | 2022-11-20 14:37 | XR ---
EXAMINATION TYPE: XR chest 2V DATE OF EXAM: 11/20/2022 COMPARISON: 05/22/2021 HISTORY: Shortness of breath TECHNIQUE: Frontal and lateral views of the chest are obtained. FINDINGS: Scattered senescent parenchymal changes noted. Hyperinflation compatible with COPD. No evidence for infiltrate. No evidence for atelectasis. Heart size is stable. Mediastinal structures are stable and grossly unremarkable. No evidence for hilar prominence. Degenerative changes dorsal spine. IMPRESSION: 1. No evidence for acute pulmonary disease.
[2022-11-20 14:45] LABS: ALT 21 U/L (4-34); AST 45 U/L (14-36); African American GFR (CKD) >90 (>60 ml/min/1.73 sqM); Albumin 4.5 g/dL (3.5-5.0); Alkaline Phosphatase 49 U/L (38-126); Anion Gap 8 mmol/L; Blood Urea Nitrogen 7 mg/dL (7-17); Calcium 9.5 mg/dL (8.4-10.2); Carbon Dioxide 25 mmol/L (22-30); Chloride 102 mmol/L (98-107); Glucose 96 mg/dL (74-99); Non-African American GFR(CKD) >90 (>60 ml/min/1.73 sqM); Potassium 3.8 mmol/L (3.5-5.1); Sodium 135 mmol/L (137-145); Total Bilirubin 1.1 mg/dL (0.2-1.3)
[2022-11-20] MEDS ORDERED: NITROGLYCERIN SL TABS 0.4 MG TAB SUBLINGUAL PRN (14:59)
--- NOTE | 2022-11-20 17:11 | HP ---
HISTORY AND PHYSICAL CHIEF COMPLAINT: Epigastric and chest pain. HISTORY OF PRESENT ILLNESS: This is a 77-year-old woman with a past medical history of multiple medical problems including hypertension and myocardial infarction, who was complaining of epigastric and chest pain, which was rather sharp in character. It lasted about 45 minutes. The patient came to [facility]. Initial workup was negative. There is no history of any fever, rigor, or chills. PAST MEDICAL HISTORY: Reviewed includes hypertension and history of myocardial infarction. Rest of the history and rest of the chart are also reviewed. HOME MEDICATIONS: Reviewed include HydroDIURIL. Doses and rest of the medications are noted. ALLERGIES: Reviewed include morphine. Rest of the allergies are noted. FAMILY HISTORY: No history of heart disease or strokes in the family. SOCIAL HISTORY: Remote history of smoking. No history of alcohol intake. REVIEW OF SYSTEMS: Fourteen-point review is negative except as mentioned earlier. PHYSICAL EXAMINATION: VITAL SIGNS: Pulse is 66, blood pressure 116/68, respirations 18. HEENT: Conjunctivae are normal. NECK: No jugular venous distention. CARDIOVASCULAR: S1 and S2 muffled. RESPIRATORY: Breath sounds diminished at the bases. ABDOMEN: Soft. Nontender. No masses. LEGS: No edema. NERVOUS SYSTEM: No focal deficits. SKIN: No ulcers or rashes. JOINTS: No active deforming arthropathy. LABORATORY DATA: Reviewed. ASSESSMENT: 1. Chest pain, possible unstable angina. 2. Hypertension. 3. History of myocardial infarction. 4. History of hypothyroidism. 5. History of degenerative joint disease. RECOMMENDATIONS AND DISCUSSION: In this 77-year-old woman presented with multiple complex medical issues, we will monitor the patient closely. I would recommend to resume the home medications. Cardiology consultation. I would also recommend ultrasound of the abdomen to complete the workup. See orders for details. Prognosis is guarded. Further recommendations to follow. MMODL / IJN: [id number] /
--- NOTE | 2022-11-20 19:41 | US ---
EXAMINATION TYPE: US gallbladder DATE OF EXAM: 11/20/2022 COMPARISON: Gallbladder 06/16/2019 CT 08/31/2020 CLINICAL INDICATION: Female, 77 years old with history of epigastric pain; Chest pain. TECHNIQUE: Multiple sonographic images of the right upper quadrant are obtained. FINDINGS: EXAM MEASUREMENTS: Liver Length: 14.1 cm Gallbladder Wall: 0.1 cm CBD: 1.1 cm Right Kidney: 9.1 x 4.8 x 4.3 cm Estimated Pancreas: Main pancreatic duct = 1.6 mm. Head and tail not well visualized Liver: multiple liver cysts seen with largest in right = 1.1 x 0.9 cm. Gallbladder: Sludge seen in fundal region Evidence for sonographic Pedersen's sign: neg CBD: Appears dilated Right Kidney: Lower pole obscured by overlying bowel gas IMPRESSION: 1. No acute process. 2. Biliary sludge. 3. Hepatic simple appearing cyst.
[2022-11-20] MEDS: MEMANTINE 10 MG TAB PO SCH (21:01)
[2022-11-20] MEDS: PANTOPRAZOLE 40 MG/10 ML VIAL IVP SCH (21:02)
[2022-11-21] MEDS ORDERED: LEVOTHYROXINE 112 MCG TAB PO SCH (06:30)
[2022-11-21 08:10] VITALS: BP 165/75; PULSE 57; RESP 16; TEMP 97.8
[2022-11-21] MEDS: MEMANTINE 10 MG TAB PO SCH (08:47)
[2022-11-21] MEDS: PANTOPRAZOLE 40 MG/10 ML VIAL IVP SCH (08:47)
[2022-11-21] MEDS ORDERED: hydroCHLOROthiazide 12.5 MG CAP PO SCH (09:00)
[2022-11-21] MEDS ORDERED: LOSARTAN 50 MG TAB PO SCH (09:00)
[2022-11-21] MEDS ORDERED: ASPIRIN 81 MG PO SCH (09:00)
[2022-11-21] MEDS ORDERED: ISOSORBIDE MONONITRATE ER 30 MG TAB.ER.24H PO SCH (09:00)
[2022-11-21] MEDS ORDERED: ASPIRIN 325 MG TAB PO SCH (09:00)
--- NOTE | 2022-11-21 09:47 | CA ---
Transthoracic Echo Report Name: Piedad Ortiz Age: 77 Gender: F : 1945 Exam Date: 11/21/2022 09:03 Exam Location: [place] [facility] Ht (in): 60 Wt (lb): 129 Ordering Physician: Shante Mclaughlin Attending/Referring Phys: [id number], Arnoldo Line Maintainer Luz Molina RDCS Procedure CPT: Indications: LVF Cardiac Hx: Technical Quality: Good Contrast 1: Total Dose (mL): Contrast 2: Total Dose (mL): MEASUREMENTS (Male / Female) Normal Values 2D ECHO LV Diastolic Diameter PLAX 4.6 cm 4.2 - 5.9 / 3.9 - 5.3 cm LV Systolic Diameter PLAX 3.2 cm IVS Diastolic Thickness 0.9 cm 0.6 - 1.0 / 0.6 - 0.9 cm LVPW Diastolic Thickness 1.0 cm 0.6 - 1.0 / 0.6 - 0.9 cm LV Relative Wall Thickness 0.4 RV Internal Dim ED PLAX 2.9 cm LA Systolic Diameter LX 3.8 cm 3.0 - 4.0 / 2.7 - 3.8 cm LV Diastolic Volume MOD 4C 75.5 cm??? LV Systolic Volume MOD 4C 27.1 cm??? LV Ejection Fraction MOD 4C 64.1 % LV Cardiac Index MOD 4C 1949.7 cm???/min???m??? LV Diastolic Length 4C 7.1 cm LV Systolic Length 4C 5.3 cm LV Diastolic Volume MOD 2C 68.4 cm??? LV Systolic Volume MOD 2C 27.8 cm??? LV Ejection Fraction MOD 2C 59.4 % LV Cardiac Index MOD 2C 1636.9 cm???/min???m??? LV Diastolic Length 2C 7.0 cm LV Systolic Length 2C 5.4 cm LA Volume 57.6 cm??? 18 - 58 / 22 - 52 cm??? M-MODE Aortic Root Diameter MM 3.0 cm MV E Point Septal Separation 0.6 cm AV Cusp Separation MM 1.8 cm DOPPLER AV Peak Velocity 152.0 cm/s AV Peak Gradient 9.2 mmHg MV Area PHT 3.2 cm??? Mitral E Point Velocity 95.5 cm/s Mitral A Point Velocity 112.2 cm/s Mitral E to A Ratio 0.9 MV Deceleration Time 237.5 ms MV E' Velocity 6.4 cm/s Mitral E to MV E' Ratio 14.9 TR Peak Velocity 249.1 cm/s TR Peak Gradient 24.8 mmHg Right Ventricular Systolic Press 28.9 mmHg FINDINGS Left Ventricle Left ventricular ejection fraction is estimated at 55-60 %. Left ventricular cavity size normal. Left ventricular cavity size normal. Left ventricular wall thickness normal. Right Ventricle Normal right ventricular size. Right ventricular systolic pressure within normal limits. Right Atrium Normal right atrial size. Left Atrium Mildly increased left atrial volume. Mitral Valve Mild mitral annular calcification. Mild mitral regurgitation. Aortic Valve Trileaflet aortic valve. Aortic valve sclerosis. Tricuspid Valve Structurally normal tricuspid valve. Mild tricuspid regurgitation. Pulmonic Valve Structurally normal pulmonic valve. Trace pulmonic regurgitation. Pericardium Normal pericardium. No pericardial effusion. Aorta Normal size aortic root and proximal ascending aorta. CONCLUSIONS Normal LV size and systolic function. Mild mitral annular calcification and mild aortic sclerosis without restriction. Mild mitral and tricuspid regurgitation no pericardial effusion no pulmonary hypertension Previewed by: Dr. Garima Rodriguez MD (Electronically Signed) Final Date: 21 November 2022 09:46
--- NOTE | 2022-11-21 11:31 | P.CRDCN ---
History of Present Illness Consult date: 11/21/22 Consult reason: chest pain History of present illness: History of present illness: This is a year-old female patient of Dr. Glen Rodriguez with past medical history of hypertension, sick sinus syndrome, hypothyroidism, hernia surgery in 2018, colectomy in 2020. We have been asked to evaluate the patient for chest pain. Patient states that she had sharp lower sternal chest pain that started yesterday lasted for about 20 minutes and went away on its own. She has no chest pain at this time. EKG is sinus bradycardia with no acute changes Chest x-ray: No acute process Echocardiogram obtained 11/21/2022 revealed normal LV size and systolic function. Mild mitral annular constipation and mild aortic sclerosis without restriction. Mild mitral and tricuspid regurgitation. No pericardial effusion, no pulmonary hypertension. Gallbladder ultrasound revealed no acute process. Biliary sludge. Hepatic simple cyst. Troponin negative 3. CBC normal. Sodium 135, potassium 3.8, magnesium 2.0, BUN 17 creatinine 0.42. Home cardiac medications: Hydrochlorothiazide 12.5 mg daily, losartan 100 mg daily Stress echocardiogram 05/2021 revealed good exercise tolerance. Normal study. Extensive baseline artifact. Review Of Systems: At the time of my evaluation: Constitutional: No fever, no chills. No weakness, fatigue or lethargy. EENT: No headache. No dizziness. Lungs: No shortness of breath, cough, no sputum production. No wheezing. Cardiovascular: No chest pain, no lower extremity edema. No palpitations. No paroxysmal nocturnal dyspnea. No orthopnea. No lightheadedness or dizziness. No syncopal episodes. Abdominal: No abdominal pain. No nausea, vomiting. No diarrhea. No constipation. No bloody or tarry stools. Genitourinary: No dysuria.. No urinary retention. Musculoskeletal: No myalgias. No muscle weakness, no frequent falls. No back pain. No neck pain. Integumentary: No wounds. No rash. No unusual bruising. Neurologic: No aphasia. No facial droop. No change in mentation. No head injury. No headache. Physical examination: Gen: This is a 77-year-old female. She is resting bed and appears to be comfortable and in no acute distress VS: reviewed blood pressure 135/81, heart rate in the 50s and 60s, afebrile, pulse ox 96% on room air. HEENT: Head is atraumatic, normocephalic. Pupils equal, round. Sclerae is anicteric. NECK: Supple. No JVD. LUNGS: Clear to auscultation. No wheezes or rhonchi. No intercostal retractions. HEART: Regular rate and rhythm. No murmur. ABDOMEN: Soft EXTREMITIES: No pedal edema. NEUROLOGICAL: Patient is awake, alert and oriented x3. Assessment: Atypical chest pain, acute coronary syndrome ruled out Hypertension Sick sinus syndrome Hypothyroidism Plan: Obtain TSH Patient is cleared for discharge and may follow-up in the office Thank you kindly for this consultation. Nurse practitioner note has been reviewed, I agree with documented findings and plan of care. Patient was seen and examined. Past Medical History Past Medical History: Cancer, Hypertension, Myocardial Infarction ([place]), Osteoarthritis (OA), Thyroid Disorder Additional Past Medical History / Comment(s): skin cancer, chronic back pain, hiatal hernia. Current ventral Hernia. On po AB Rx for tooth infection, has f/u appt at dentist today. Edema LLE. Last Myocardial Infarction Date:: 07-18-1994 History of Any Multi-Drug Resistant Organisms: None Reported Past Surgical History: Back Surgery, Breast Surgery, Heart Catheterization, Joint Replacement, Orthopedic Surgery, Tonsillectomy, Tubal Ligation Additional Past Surgical History / Comment(s): skin cancer-LESIONS , breast bx x2, back fusion x2. arthroscopy lt knee 2016. left knee replaced July 2017, pain procedures Past Anesthesia/Blood Transfusion Reactions: Postoperative Nausea & Vomiting (PONV) Additional Past Anesthesia/Blood Transfusion Reaction / Comment(s): past blood transfusion-denies any reaction to it Past Psychological History: No Psychological Hx Reported Smoking Status: Never smoker Past Alcohol Use History: Occasional Additional Past Alcohol Use History / Comment(s): started smoking 1967, quit smoking 1997, smoked 2-3ppd Past Drug Use History: None Reported - Past Family History Mother Family Medical History: No Reported History Additional Family Medical History / Comment(s): at age 93 Father History Unknown: Yes Family Medical History: Coronary Artery Disease (CAD) Additional Family Medical History / Comment(s): at age 42 Son(s) Family Medical History: Cancer, Myocardial Infarction ([place]) Additional Family Medical History / Comment(s): colon CA. Brother(s) Family Medical History: Cancer Additional Family Medical History / Comment(s): skin cancer Medications and Allergies Home Medications Medication Instructions Recorded Confirmed Type Levothyroxine Sodium [Synthroid] 112 mcg PO DAILY 08/06/17 11/20/22 History Losartan Potassium [Cozaar] 100 mg PO DAILY 05/07/18 11/20/22 History hydroCHLOROthiazide [Hydrodiuril] 12.5 mg PO DAILY 05/07/18 11/20/22 History Memantine [Namenda] 10 mg PO BID 11/20/22 11/20/22 History Aspirin 81 mg PO DAILY #30 tab 11/21/22 Rx Isosorbide Mononitrate ER [Imdur] 30 mg PO DAILY #30 tab 11/21/22 Rx Nitroglycerin Sl Tabs [Nitrostat] 0.4 mg SUBLINGUAL Q5M PRN #20 tab 11/21/22 Rx Allergies Allergy/AdvReac Type Severity Reaction Status Date / Time meloxicam [From Mobic] Allergy Unknown Unknown- Verified 11/20/22 15:[address] Saenz boarding slip morphine AdvReac Mild Nausea & Verified 11/20/22 15:37 Vomiting, allergy to duramorph from boarding slip hydrocodone [From [place]] AdvReac Nausea & Verified 11/20/22 15:37 Vomiting narcotics AdvReac Unknown states Uncoded 11/20/22 15:37 needs smaller dose-takes 1/2 of tyl#3. Physical Exam Vitals: Vital Signs Temp Pulse Pulse Resp BP BP Pulse Ox 11/21/22 02:34 98.0 F 62 18 135/81 96 11/20/22 19:27 98.3 F 56 L 18 146/73 95 11/20/22 15:00 60 18 156/81 94 L 11/20/22 14:00 57 L 16 171/80 99 11/20/22 13:57 98 11/20/22 13:35 98.3 F 66 18 169/68 100 Intake and Output 11/20/22 11/21/22 11/21/22 22:59 06:59 14:59 Intake Total 118 Balance 118 Intake: Oral 118 Other: # Voids 1 2 Weight 58.513 kg Results 11/20/22 13:59 11/20/22 13:59 Cardiac Enzymes 11/20/22 11/20/22 11/20/22 Range/Units 13:59 13:59 15:38 AST 45 H (14-36) U/L Troponin I <0.012 <0.012 (0.000-0.034) ng/mL 11/20/22 Range/Units 18:05 AST (14-36) U/L Troponin I <0.012 (0.000-0.034) ng/mL Coagulation 11/20/22 Range/Units 13:59 PT 10.1 (9.0-12.0) sec APTT 24.1 (22.0-30.0) sec CBC 11/20/22 Range/Units 13:59 WBC 6.4 (3.8-10.6) k/uL RBC 4.85 (3.80-5.40) m/uL Hgb 14.8 (11.4-16.0) gm/dL Hct 42.1 (34.0-46.0) % Plt Count 205 (150-450) k/uL Comprehensive Metabolic Panel 11/20/22 Range/Units 13:59 Sodium 135 L (137-145) mmol/L Potassium 3.8 (3.5-5.1) mmol/L Chloride 102 (98-107) mmol/L Carbon Dioxide 25 (22-30) mmol/L BUN 7 (7-17) mg/dL Creatinine 0.42 L (0.52-1.04) mg/dL Glucose 96 (74-99) mg/dL Calcium 9.5 (8.4-10.2) mg/dL AST 45 H (14-36) U/L ALT 21 (4-34) U/L Alkaline Phosphatase 49 (38-126) U/L Total Protein 7.0 (6.3-8.2) g/dL Albumin 4.5 (3.5-5.0) g/dL Current Medications Generic Name Dose Route Start Last Admin Trade Name Freq PRN Reason Stop Dose Admin Aspirin 325 mg 11/21/22 09:00 Aspirin 325 Mg Tab PO DAILY [facility] Hydrochlorothiazide 12.5 mg 11/21/22 09:00 Hydrochlorothiazide 12.5 Mg Cap PO DAILY [facility] Levothyroxine Sodium 112 mcg 11/21/22 06:30 11/21/22 05:58 Levothyroxine 112 Mcg Tab PO 112 mcg DAILY@0630 [facility] Administration Losartan Potassium 100 mg 11/21/22 09:00 Losartan 50 Mg Tab PO DAILY [facility] Memantine 10 mg 11/20/22 21:00 11/20/22 21:01 Memantine 10 Mg Tab PO Not Given BID [facility] Nitroglycerin 0.4 mg 11/20/22 14:59 Nitroglycerin Sl Tabs 0.4 Mg Tab SUBLINGUAL Q5M PRN Chest Pain Pantoprazole Sodium 40 mg 11/20/22 21:00 11/20/22 21:02 Pantoprazole 40 Mg/10 Ml Vial IVP 40 mg BID BASSAM Administration Intake and Output 11/20/22 11/21/22 11/21/22 22:59 06:59 14:59 Intake Total 118 Balance 118 Intake: Oral 118 Other: # Voids 1 2 Weight 58.513 kg 11/20/22 13:59 11/20/22 13:59
[2022-11-21 13:41] LABS: ALT 17 U/L (8-44); AST 27 U/L (13-35); Albumin/Globulin Ratio 2.67 Ratio (1.60-3.17); Alkaline Phosphatase 51 U/L (41-126); Blood Urea Nitrogen 6.9 mg/dL (9.0-27.0); Carbon Dioxide 25.6 mmol/L (21.6-31.8); Chloride 104 mmol/L (96-109); Chol/HDL Ratio 2.82 Ratio; Globulin 1.5 d/dL (1.6-3.3); Glucose 92 mg/dL (70-110); LDL Cholesterol,Calculated 122.5 mg/dL (0.0-131.0); Sodium 140 mmol/L (135-145); Total Bilirubin 0.4 mg/dL (0.3-1.2); Total Protein 5.5 d/dL (6.2-8.2); VLDL Calculation 15.08 mg/dL (5.00-40.00)
[2022-11-21 14:24] LABS: Basophils # (A) 0.05 X 10*3/uL (0.00-0.10); Basophils % (A) 1.1 %; Eosinophils # (A) 0.36 X 10*3/uL (0.04-0.35); Eosinophils % (A) 7.7 %; HCT 40.2 % (37.2-46.3); HGB 13.6 d/dL (12.0-15.0); Lymphocytes # (A) 2.05 X 10*3/uL (0.90-5.00); Lymphocytes % (A) 43.7 %; MCH 29.3 pg (27.0-32.0); MCHC 33.8 d/dL (32.0-37.0); MCV 86.6 FL (80.0-97.0); Mean Platelet Volume 9.9 FL (9.5-12.2); Monocytes # (A) 0.43 X 10*3/uL (0.20-1.00); Monocytes % (A) 9.2 %; NRBC Per 100 WBC 0 X 10*3/uL (0.00-0.01); Neutrophils # (A) 1.79 X 10*3/uL (1.80-7.70); Neutrophils % (A) 38.1 %; Platelet Count 226 X 10*3/uL (140-440); RBC 4.64 X 10*6/uL (4.10-5.20); RDW 12.8 % (11.5-14.5); WBC 4.69 X 10*3/uL (4.50-10.00)
--- NOTE | 2022-11-22 13:58 | P.DS ---
Providers Date of admission: 11/20/22 15:01 Expected date of discharge: 11/21/22 Attending physician: Dago Olivas Consults: 11/20/22 14:59 Consult Physician Urgent Consulting Provider: Tressa Joe Consult Reason/Comments: chest pain Do you want consulting provider notified?: Yes Primary care physician: Stated None Hospital Course: Final diagnosis Chest pain, possible unstable angina, ACS ruled out Hypertension History of myocardial infarction History of hypothyroidism History of degenerative joint disease Discharge disposition Patient is being discharged in a stable condition with guarded prognosis to home. Patient will follow-up with Dr. Jon in the outpatient setting upon discharge. Patient is to continue with current medications as prescribed below and close outpatient follow-up with cardiology in one week as as scheduled. Total time taken is greater than 35 minutes. Hospital course This is a 77year-old female who was recently admitted with chest pain complaining of some epigastric pain that lasted for to 5 minutes and was admitted for chest pain with cardiology evaluation. Patient was evaluated by cardiology recommending 2-D echo and close outpatient follow-up for possible outpatient stress testing. Patient has been cleared by cardiology for discharge today. Please refer to cardiology no for further HPI. Currently no reports of chest pain, shortness of breath, or palpitations. Patient is afebrile. No reports of nausea or vomiting and patient is tolerating diet. Patient will be discharged home today. Guarded prognosis. Physical exam: Gen: This is a 77-year-old female who is awake, alert and oriented 3, well- developed, well-nourished HEENT: Head is atraumatic, normocephalic. Pupils equal, round. Sclerae is anicteric. NECK: Supple. No JVD. No lymphadenopathy. No thyromegaly. LUNGS: Clear to auscultation. No wheezes or rhonchi. No intercostal retractions. HEART: S1, S2 are muffled ABDOMEN: Soft. Bowel sounds are present. No masses. No tenderness. EXTREMITIES: No pedal edema. No calf tenderness. NEUROLOGICAL: Patient is awake, alert and oriented x3. Cranial nerves 2 through 12 are grossly intact. Please refer to medication reconciliation sheet for a list of medications. The impression and plan of care has been dictated by Myla Garcia, Nurse Practitioner as directed. Dr. Brendon MD I have performed a history and examination and MDM of this patient, discussed the same with the dictator, and agree with the dictator's assessment and plan as written ,documented as a scribe. Based on total visit time, I have performed more than 50% of the visit. Patient Condition at Discharge: Fair Plan - Discharge Summary Discharge Rx Participant: Yes New Discharge Prescriptions: New Aspirin 81 mg PO DAILY #30 tab Isosorbide Mononitrate ER [Imdur] 30 mg PO DAILY #30 tab Nitroglycerin Sl Tabs [Nitrostat] 0.4 mg SUBLINGUAL Q5M PRN #20 tab PRN Reason: Chest Pain Continue Levothyroxine Sodium [Synthroid] 112 mcg PO DAILY Losartan Potassium [Cozaar] 100 mg PO DAILY hydroCHLOROthiazide [Hydrodiuril] 12.5 mg PO DAILY Memantine [Namenda] 10 mg PO BID Discharge Medication List Levothyroxine Sodium [Synthroid] 112 mcg PO DAILY 08/06/17 [History] Losartan Potassium [Cozaar] 100 mg PO DAILY 05/07/18 [History] hydroCHLOROthiazide [Hydrodiuril] 12.5 mg PO DAILY 05/07/18 [History] Memantine [Namenda] 10 mg PO BID 11/20/22 [History] Aspirin 81 mg PO DAILY #30 tab 11/21/22 [Rx] Isosorbide Mononitrate ER [Imdur] 30 mg PO DAILY #30 tab 11/21/22 [Rx] Nitroglycerin Sl Tabs [Nitrostat] 0.4 mg SUBLINGUAL Q5M PRN #20 tab 11/21/22 [Rx] Follow up Appointment(s)/Referral(s): Subhash Jon MD [STAFF PHYSICIAN] - 1-2 days Garima Rodriguez MD [STAFF PHYSICIAN] - 11/26/22 3:45 pm (Mon or Tu) Activity/Diet/Wound Care/Special Instructions: Activity Limited until follow-up Follow-up with primary care provider on discharge Follow-up with cardiology in one week Continue heart healthy diet Continue medications as prescribed Discharge Disposition: HOME SELF-CARE
== END 2022-11-21 11:08 | disposition home or self-care (01) ==
LOC: EC 13:33 → 6NMEDSUR 15:01
PROVIDERS: ADMIT Hospitalist; ATTEND Hospitalist
DX: R07.89 Other chest pain (principal); R10.13 Epigastric pain; I10 Essential (primary) hypertension; I49.5 Sick sinus syndrome; I25.2 Old myocardial infarction; M19.90 Unspecified osteoarthritis, unspecified site; M54.2 Cervicalgia; K76.89 Other specified diseases of liver; E03.9 Hypothyroidism, unspecified; G89.29 Other chronic pain; M54.9 Dorsalgia, unspecified; Z85.828 Personal history of other malignant neoplasm of skin; K43.9 Ventral hernia without obstruction or gangrene; K08.9 Disorder of teeth and supporting structures, unspecified; Z96.652 Presence of left artificial knee joint; Z98.51 Tubal ligation status; Z98.1 Arthrodesis status; Z98.890 Other specified postprocedural states; Z82.49 Family history of ischemic heart disease and other diseases of the circulatory system; Z80.0 Family history of malignant neoplasm of digestive organs; Z80.8 Family history of malignant neoplasm of other organs or systems; Z87.891 Personal history of nicotine dependence; Z90.49 Acquired absence of other specified parts of digestive tract; Z79.890 Hormone replacement therapy; Z79.899 Other long term (current) drug therapy; Z79.82 Long term (current) use of aspirin; Z88.6 Allergy status to analgesic agent; Z88.5 Allergy status to narcotic agent
CPT/HCPCS: 96374; 96375; 99285; 36415; 93005; 93306; 80061; 80053 ×2; 84443; 83735; 84484; 85025 ×2; 85610; 85730; 71046; 76705; G0378 ×2; C9113 ×2

== ENCOUNTER → 2022-11-28 | Outpatient (CLI) | payer MEDICARE ==
--- NOTE | 2022-11-29 00:12 | BD ---
EXAMINATION TYPE: Axial Bone Density DATE OF EXAM: 11/28/2022 CLINICAL HISTORY: 77 years old Female. ICD-10 CODE: Z78.0 ASYMPTOMATIC MENOPAUSAL Height: 58.5 in Weight: 127 lbs RISK FACTORS HISTORY OF: Surgery to Spine: l-spine surgery 1975 and 1976 Active: moderate Diet low in dairy products/other sources of calcium: yes Postmenopausal woman: age 51 MEDICATIONS: Thyroid Medications: yes Which medication: Levothyroxine How Lon+ years Additional Medications: blood pressure meds EXAM MEASUREMENTS: Bone mineral densitometry was performed using the [employer] System. l-spine surgeries in 1975 and Bone mineral density about the R hip (g/cm2): 0.855 Bone mineral density about the L hip (g/cm2): 0.803 T Score values are as follows: -----R Neck: -2.0 -----L Neck: -2.0 -----R Total: -1.2 -----L Total: -1.6 Z Score values are as follows: -----R Neck: 0.2 -----L Neck: 0.2 -----R Total: 0.8 -----L Total: 0.4 Bone mineral density has: Decreased -7.6% since study of: 12/08/2019 Bone mineral density about the R Wrist (g/cm2): 0.486 T Score values are as follows: -----Dist. R+U: -2.3 -----Prox. R+U: -4.5 -----Radius total: -4.2 Z Score values are as follows: -----Dist. R+U: 0.2 -----Prox. R+U: -2.0 -----Radius total: -1.7 Bone mineral density has: Decreased -16.1% since study of: 12/08/2019 FRAX%s: The graph provided illustrates a 21.9% chance for a major osteoporotic fx and a 5.8% chance f or the hips probability for fx in 10 years time. IMPRESSION: Osteoporosis (T Score less than -2.5). There is increased fracture risk and therapy is usually indicated based on age. Re-Screen 1-2 years. NOTE: T-SCORE=SD OF THE YOUNG ADULT MEAN.
--- NOTE | 2022-11-29 09:34 | MM ---
Reason for Exam: Screening (asymptomatic). Last mammogram was performed 1 year(s) and 11 month(s) ago. Patient History: Menarche at age 11. First Full-Term at age 22. Postmenopausal. Other cancer, age 60. Estrogen for 1 year, 6 months. Progesterone for 1 year, 6 months. Excisional Biopsy on the Right side. Excisional Biopsy on the Left side. Maternal cousin had breast cancer, age 50. Risk Values: Cherelle 5 year model risk: 2.6%. NCI Lifetime model risk: 4.9%. Prior Study Comparison: 09/15/2018 Bilateral Screening Mammogram, [facility]. 11/12/2019 Bilateral Screening Mammogram, [facility]. 12/14/2020 Bilateral Screening Mammogram, [facility]. Tissue Density: There are scattered fibroglandular densities. Findings: Analyzed By CAD. There is no suspicious group of microcalcifications or new suspicious mass in either breast. Overall Assessment: Negative, BI-RAD 1 Management: Screening Mammogram of both breasts in [address] [facility] will attempt to contact patient to return for supplemental views and ultrasound if indicated. Patient should continue monthly self-breast exams. A clinical breast exam by your physician is recommended on an annual basis. This exam should not preclude additional follow-up of suspicious palpable abnormalities. Note on Cherelle scores and lifetime risk: 1. A Cherelle score greater than 3% is considered moderate risk. If this is the case, consider specialist referral to assess eligibility for a risk reducing agent. 2. If overall lifetime risk for the development of breast cancer is 20% or higher, the patient may qualify for future screening with alternating mammogram and breast MRI. Electronically signed and approved by: Toribio Rodrigues DO
== END | disposition home or self-care (01) ==
LOC: RADMAMWWP 10:52
PROVIDERS: ATTEND Family Medicine
DX: Z12.31 Encounter for screening mammogram for malignant neoplasm of breast (principal); M81.0 Age-related osteoporosis without current pathological fracture; M85.89 Other specified disorders of bone density and structure, multiple sites; Z78.0 Asymptomatic menopausal state; Z80.3 Family history of malignant neoplasm of breast
CPT/HCPCS: 77063; 77067; 77080

== ENCOUNTER 2023-01-19 18:56 | Emergency (ER) | payer MEDICARE ==
[2023-01-19 19:09] VITALS: RESP 18; TEMP 98
[2023-01-19] MEDS ORDERED: FLUORESCEIN STRIPS 1 MG STRIP RIGHT EYE ONE (19:59)
[2023-01-19] MEDS ORDERED: TOBRAMYCIN 0.3% OPHTH DROPS 5 ML BTL LEFT EYE STA (19:59)
[2023-01-19] MEDS ORDERED: PROPARACAINE 0.5% OPHTH DROPS 15 ML BTL LEFT EYE STA (19:59)
--- NOTE | 2023-01-19 20:29 | ED ---
General Adult HPI - General Chief complaint: Eye Problems Stated complaint: Left eye pain Time Seen by Provider: 01/19/23 19:15 Source: patient, RN notes reviewed Mode of arrival: ambulatory Limitations: no limitations - History of Present Illness Initial comments: 77-year-old female with no significant past medical history presents to the emergency department the chief complaint of left I problem. Patient reports redness, purulent discharge to the left eye for 2 days. She is also complaining of left ear pain. She denies any recent sick contacts. Denies fever, cough, vision changes, vision loss, headache, nausea, vomiting. Denies any injury or trauma. Denies recent swimming use - Related Data Home Medications Medication Instructions Recorded Confirmed Levothyroxine Sodium [Synthroid] 112 mcg PO DAILY 08/06/17 11/20/22 Losartan Potassium [Cozaar] 100 mg PO DAILY 05/07/18 11/20/22 hydroCHLOROthiazide [Hydrodiuril] 12.5 mg PO DAILY 05/07/18 11/20/22 Memantine [Namenda] 10 mg PO BID 11/20/22 11/20/22 Previous Rx's Medication Instructions Recorded Aspirin 81 mg PO DAILY #30 tab 11/21/22 Isosorbide Mononitrate ER [Imdur] 30 mg PO DAILY #30 tab 11/21/22 Nitroglycerin Sl Tabs [Nitrostat] 0.4 mg SUBLINGUAL Q5M PRN #20 tab 11/21/22 Allergies Allergy/AdvReac Type Severity Reaction Status Date / Time meloxicam [From Mobic] Allergy Unknown Unknown- Verified 01/19/23 19:[address] Saenz boarding slip morphine AdvReac Mild Nausea & Verified 01/19/23 19:06 Vomiting, allergy to duramorph from boarding slip hydrocodone [From [place]] AdvReac Nausea & Verified 01/19/23 19:06 Vomiting narcotics AdvReac Unknown states Uncoded 01/19/23 19:06 needs smaller dose-takes 1/2 of tyl#3. Review of Systems ROS Statement: Those systems with pertinent positive or pertinent negative responses have been documented in the HPI. ROS Other: All systems not noted in ROS Statement are negative. Past Medical History Past Medical History: Cancer, Hypertension, Myocardial Infarction ([place]), Osteoarthritis (OA), Thyroid Disorder Additional Past Medical History / Comment(s): skin cancer, chronic back pain, hiatal hernia. Current ventral Hernia. On po AB Rx for tooth infection, has f/u appt at dentist today. Edema LLE. Last Myocardial Infarction Date:: 07-18-1994 History of Any Multi-Drug Resistant Organisms: None Reported Past Surgical History: Back Surgery, Breast Surgery, Heart Catheterization, Joint Replacement, Orthopedic Surgery, Tonsillectomy, Tubal Ligation Additional Past Surgical History / Comment(s): skin cancer-LESIONS , breast bx x2, back fusion x2. arthroscopy lt knee 2016. left knee replaced July 2017, pain procedures Past Anesthesia/Blood Transfusion Reactions: Postoperative Nausea & Vomiting (PONV) Additional Past Anesthesia/Blood Transfusion Reaction / Comment(s): past blood transfusion-denies any reaction to it Past Psychological History: No Psychological Hx Reported Smoking Status: Never smoker Past Alcohol Use History: Occasional Past Drug Use History: None Reported - Past Family History Mother Family Medical History: No Reported History Additional Family Medical History / Comment(s): at age 93 Father History Unknown: Yes Family Medical History: Coronary Artery Disease (CAD) Additional Family Medical History / Comment(s): at age 42 Son(s) Family Medical History: Cancer, Myocardial Infarction ([place]) Additional Family Medical History / Comment(s): colon CA. Brother(s) Family Medical History: Cancer Additional Family Medical History / Comment(s): skin cancer General Exam Limitations: no limitations General appearance: alert, in no apparent distress Head exam: Present: atraumatic, normocephalic, normal inspection Eye exam: Present: normal appearance, PERRL, EOMI. Absent: scleral icterus, conjunctival injection, periorbital swelling, periorbital tenderness ENT exam: Present: normal exam, mucous membranes moist Expanded Ear exam: Present: normal external inspection TM/Canal exam: Canal Tenderness: Left TM Neck exam: Present: normal inspection. Absent: tenderness, meningismus, lymphadenopathy Respiratory exam: Present: normal lung sounds bilaterally. Absent: respiratory distress, wheezes, rales, rhonchi, stridor Cardiovascular Exam: Present: regular rate, normal rhythm, normal heart sounds. Absent: systolic murmur, diastolic murmur, rubs, gallop, clicks GI/Abdominal exam: Present: soft, normal bowel sounds. Absent: distended, tenderness, guarding, rebound, rigid Extremities exam: Present: normal inspection, full ROM, normal capillary refill. Absent: tenderness, pedal edema, joint swelling, calf tenderness Back exam: Present: normal inspection Neurological exam: Present: alert, oriented X3, CN II-XII intact Psychiatric exam: Present: normal affect, normal mood Skin exam: Present: warm, dry, intact, normal color. Absent: rash Course Vital Signs 01/19/23 01/19/23 19:05 20:57 Temperature 98 F Pulse Rate 69 61 Respiratory 18 18 Rate Blood Pressure 201/84 179/81 O2 Sat by Pulse 96 93 L Oximetry Medical Decision Making - Medical Decision Making Was pt. sent in by a medical professional or institution (, PA, MACHINE STITCHER, urgent care, hospital, or longterm...) When possible be specific @ -[No] Did you speak to anyone other than the patient for history (EMS, parent, family, police, friend...)? What history was obtained from this source @ -[No] Did you review nursing and triage notes (agree or disagree)? Why? @ -[I reviewed and agree with nursing and triage notes] Were old charts reviewed (outside hosp., previous admission, EMS record, old EKG, old radiological studies, urgent care reports/EKG's, longterm records)? Report findings @ -[No old charts were reviewed] Differential Diagnosis (chest pain, altered mental status, abdominal pain women, abdominal pain men, vaginal bleeding, weakness, fever, dyspnea, syncope, headache, dizziness, GI bleed, back pain, seizure, CVA, palpatations, mental health, musculoskeletal)? @ -[not applicable] EKG interpreted by me (3pts min.). @ -[As above] X-rays interpreted by me (1pt min.). @ -[None done] CT interpreted by me (1pt min.). @ -[None done] U/S interpreted by me (1pt. min.). @ -[None done] What testing was considered but not performed or refused? (CT, X-rays, U/S, labs)? Why? @ -[None] What meds were considered but not given or refused? Why? @ -[None] Did you discuss the management of the patient with other professionals (professionals i.e. , PA, MACHINE STITCHER, lab, RT, psych nurse, neonatal social worker, rounder hand, teacher, affirmative action officer, returned case inspector)? Give summary @ -[No] Was smoking cessation discussed for >3mins.? @ -[No] Was critical care preformed (if so, how long)? @ -[No] Were there social determinants of health that impacted care today? How? (Homelessness, low income, unemployed, alcoholism, drug addiction, transportation, low edu. Level, literacy, decrease access to med. care, detention, rehab)? @ -[No] Was there de-escalation of care discussed even if they declined (Discuss DNR or withdrawal of care, Hospice)? DNR status @ -[No] What co-morbidities impacted this encounter? (DM, HTN, Smoking, COPD, CAD, Cancer, CVA, ARF, Chemo, Hep., AIDS, mental health diagnosis, sleep apnea, morbid obesity)? @ -[None] Was patient admitted / discharged? Hospital course, mention meds given and route, prescriptions, significant lab abnormalities, going to OR and other pertinent info. @ Discharged. This is a pleasant 77-year-old female who presents emergency Department with left eye pain and left ear pain. Physical exam is consistent with congestive left conjunctivitis left otitis externa. Patient was provided TobraDex and ofloxacin drops. No dendritic lesion noted upon fluorescein evaluation. Return precautions were discussed. Case discussed with VLAD Cheung who agrees with plan of care Undiagnosed new problem with uncertain prognosis? @ -[No] Drug Therapy requiring intensive monitoring for toxicity (Heparin, Nitro, Insulin, Cardizem)? @ -[No] Were any procedures done? @ -[No] Diagnosis/symptom? @ -Left eye conjunctivitis - Left otitis externa Acute, or Chronic, or Acute on Chronic? @ -Acute Uncomplicated (without systemic symptoms) or Complicated (systemic symptoms)? @ -Uncomplicated Side effects of treatment? @ -[No] Exacerbation, Progression, or Severe Exacerbation? @ -[No] Poses a threat to life or bodily function? How? (Chest pain, [place], [place], pneumonia, PE, COPD, DKA, ARF, appy, cholecystitis, CVA, Diverticulitis, Homicidal, Suicidal, threat to staff... and all critical care pts) @ -Low likelihood Disposition Clinical Impression: Otitis externa, Conjunctivitis, left eye Disposition: HOME SELF-CARE Condition: Stable Instructions (If sedation given, give patient instructions): Swimmer's Ear (ED), Conjunctivitis (ED) Additional Instructions: PLease return to the emergency department if sudden vision loss, vision changes develop Is patient prescribed a controlled substance at d/c from ED?: No Referrals: Subhash Jon MD [Primary Care Provider] - 1-2 days Time of Disposition: 20:28
[2023-01-19] MEDS ORDERED: OFLOXACIN 0.3% OPHTH DROPS 5 ML BOTTLE LEFT EAR SCH (20:30)
[2023-01-19 21:05] VITALS: BP 179/81; PULSE 61
== END 2023-01-19 20:58 | disposition home or self-care (01) ==
LOC: EC 18:56
DX: H10.32 Unspecified acute conjunctivitis, left eye (principal); H60.92 Unspecified otitis externa, left ear; I10 Essential (primary) hypertension; M19.90 Unspecified osteoarthritis, unspecified site; E07.9 Disorder of thyroid, unspecified; I21.9 Acute myocardial infarction, unspecified; Z88.5 Allergy status to narcotic agent; Z88.6 Allergy status to analgesic agent; Z88.8 Allergy status to other drugs, medicaments and biological substances; Z79.890 Hormone replacement therapy; Z79.899 Other long term (current) drug therapy
CPT/HCPCS: 99283

== ENCOUNTER → 2023-03-04 | Outpatient (CLI) | payer MEDICARE ==
[2023-03-04 09:48] LABS: African American GFR (CKD) >90 (>60 ml/min/1.73 sqM); Blood Urea Nitrogen 14 mg/dL (7-17); Non-African American GFR(CKD) 87 (>60 ml/min/1.73 sqM)
--- NOTE | 2023-03-04 14:55 | CT ---
EXAMINATION TYPE: CT brain wo/w con DATE OF EXAM: 03/04/2023 COMPARISON: 10/08/2017 HISTORY: R51.9 HEADACHE, UNSPECIFIED CONTRAST: CT scan of the head is performed without and with IV Contrast, patient injected with 100 mL of Isovue 300. Unenhanced followed by contrast enhanced CT of the brain is submitted for evaluation. The ventricles are midline. There is no evidence for intracranial hemorrhage or extra-axial collection. No mass e ffects are identified. Visualized bony calvarium is intact. Contrast is administered and no enhanci ng lesions are detected. No pathologic enhancement is identified. If symptoms persist consider MRI. IMPRESSION: Age-related atrophic and chronic small vessel ischemic change. No enhancing lesions seen.
== END | disposition home or self-care (01) ==
LOC: RADCTMAIN 09:00
PROVIDERS: ATTEND Family Medicine
DX: G31.1 Senile degeneration of brain, not elsewhere classified (principal); I67.82 Cerebral ischemia; R51.9 Headache, unspecified
CPT/HCPCS: 82565; 84520; 70470; 36415; Q9967

== ENCOUNTER 2023-04-19 03:15 | Emergency (ER) | payer MEDICARE ==
[2023-04-19 03:36] VITALS: BP 200/83; PULSE 67; RESP 18; TEMP 98.3
[2023-04-19] MEDS ORDERED: CEPHALEXIN 500MG STARTER PACK 4 CAP BTL PO STA (06:15)
--- NOTE | 2023-04-19 06:18 | ED ---
ENT HPI - General Chief complaint: ENT Stated complaint: Right ear swelling Time Seen by Provider: 04/19/23 06:15 Source: patient, RN notes reviewed Mode of arrival: ambulatory Limitations: no limitations - History of Present Illness Initial comments: 78-year-old female presents emergency Department chief complaint right ear pain, right ear redness. Patient states that this started a few days ago was seen on Saturday at her PCPs office was given a prescription for steroids, mouthwash that she has a canker sore. Patient states never picked up a steroid because she was not notified it was done. Patient states her some drainage from her right ear she denies any fevers chills no neck pain or neck stiffness. - Related Data Home Medications Medication Instructions Recorded Confirmed Levothyroxine Sodium [Synthroid] 112 mcg PO DAILY 08/06/17 01/24/23 Losartan Potassium [Cozaar] 100 mg PO DAILY 05/07/18 01/24/23 hydroCHLOROthiazide [Hydrodiuril] 12.5 mg PO DAILY 05/07/18 01/24/23 Memantine [Namenda] 10 mg PO BID 11/20/22 01/24/23 Previous Rx's Medication Instructions Recorded Aspirin 81 mg PO DAILY #30 tab 11/21/22 Isosorbide Mononitrate ER [Imdur] 30 mg PO DAILY #30 tab 11/21/22 Nitroglycerin Sl Tabs [Nitrostat] 0.4 mg SUBLINGUAL Q5M PRN #20 tab 11/21/22 Amoxic-Pot Clav 875-125Mg 1 tab PO Q12HR 1 Days #14 tab 01/24/23 [Augmentin 875-125] Cephalexin [Keflex] 500 mg PO Q6HR #40 cap 04/19/23 Allergies Allergy/AdvReac Type Severity Reaction Status Date / Time meloxicam [From Mobic] Allergy Unknown Unknown- Verified 04/19/23 03:[address] Saenz boarding slip morphine AdvReac Mild Nausea & Verified 04/19/23 03:33 Vomiting, allergy to duramorph from boarding slip hydrocodone [From [place]] AdvReac Nausea & Verified 04/19/23 03:33 Vomiting narcotics AdvReac Unknown states Uncoded 04/19/23 03:33 needs smaller dose-takes 1/2 of tyl#3. Review of Systems ROS Statement: Those systems with pertinent positive or pertinent negative responses have been documented in the HPI. ROS Other: All systems not noted in ROS Statement are negative. Past Medical History Past Medical History: Cancer, Hypertension, Myocardial Infarction ([place]), Osteoarthritis (OA), Thyroid Disorder Additional Past Medical History / Comment(s): skin cancer, chronic back pain, hiatal hernia. Current ventral Hernia. On po AB Rx for tooth infection, has f/u appt at dentist today. Edema LLE. Last Myocardial Infarction Date:: 07-18-1994 History of Any Multi-Drug Resistant Organisms: None Reported Past Surgical History: Back Surgery, Breast Surgery, Heart Catheterization, Joint Replacement, Orthopedic Surgery, Tonsillectomy, Tubal Ligation Additional Past Surgical History / Comment(s): skin cancer-LESIONS , breast bx x2, back fusion x2. arthroscopy lt knee 2016. left knee replaced July 2017, pain procedures Past Anesthesia/Blood Transfusion Reactions: Postoperative Nausea & Vomiting (PONV) Additional Past Anesthesia/Blood Transfusion Reaction / Comment(s): past blood transfusion-denies any reaction to it Past Psychological History: No Psychological Hx Reported Smoking Status: Never smoker Past Alcohol Use History: Occasional Past Drug Use History: None Reported - Past Family History Mother Family Medical History: No Reported History Additional Family Medical History / Comment(s): at age 93 Father History Unknown: Yes Family Medical History: Coronary Artery Disease (CAD) Additional Family Medical History / Comment(s): at age 42 Son(s) Family Medical History: Cancer, Myocardial Infarction ([place]) Additional Family Medical History / Comment(s): colon CA. Brother(s) Family Medical History: Cancer Additional Family Medical History / Comment(s): skin cancer General Exam Limitations: no limitations General appearance: alert, in no apparent distress Head exam: Present: atraumatic, normocephalic, normal inspection Eye exam: Present: normal appearance, PERRL, EOMI. Absent: scleral icterus, conjunctival injection, periorbital swelling ENT exam: Present: normal oropharynx, mucous membranes moist, TM's normal bilaterally, other (No mastoid tenderness). Absent: normal exam, normal external ear exam (right EAC purulent drainage noted, there is erythema and swelling of the rectum) Neck exam: Present: normal inspection, full ROM. Absent: tenderness, me ningismus, lymphadenopathy Respiratory exam: Present: normal lung sounds bilaterally. Absent: respiratory distress, wheezes, rales, rhonchi, stridor Cardiovascular Exam: Present: regular rate, normal rhythm, normal heart sounds. Absent: systolic murmur, diastolic murmur, rubs, gallop, clicks Course Vital Signs 04/19/23 03:33 Temperature 98.3 F Pulse Rate 67 Respiratory 18 Rate Blood Pressure 200/83 O2 Sat by Pulse 98 Oximetry Medical Decision Making - Medical Decision Making Was pt. sent in by a medical professional or institution (, RADHA, PROCUREMENT PROFESSIONAL, urgent care, hospital, or [facility]...) When possible be specific @ -No Did you speak to anyone other than the patient for history (EMS, parent, family, police, friend...)? What history was obtained from this source @ -No Did you review nursing and triage notes (agree or disagree)? Why? @ -I reviewed and agree with nursing and triage notes Were old charts reviewed (outside hosp., previous admission, EMS record, old EKG, old radiological studies, urgent care reports/EKG's, [facility] records)? Report findings @ -No old charts were reviewed Differential Diagnosis (chest pain, altered mental status, abdominal pain women, abdominal pain men, vaginal bleeding, weakness, fever, dyspnea, syncope, headache, dizziness, GI bleed, back pain, seizure, CVA, palpatations, mental health, musculoskeletal)? @ -[Otitis externa, cellulitis, mastitis, otitis media EKG interpreted by me (3pts min.). @ -None X-rays interpreted by me (1pt min.). @ -None done CT interpreted by me (1pt min.). @ -None done U/S interpreted by me (1pt. min.). @ -None done What testing was considered but not performed or refused? (CT, X-rays, U/S, labs)? Why? @ -None What meds were considered but not given or refused? Why? @ -None Did you discuss the management of the patient with other professionals (professionals i.e. RADHA Waterman, PROCUREMENT PROFESSIONAL, lab, RT, psych nurse, social science manager, airplane rental clerk, teacher, guest services officer, disease case manager)? Give summary @ -No Was smoking cessation discussed for >3mins.? @ -No Was critical care preformed (if so, how long)? @ -No Were there social determinants of health that impacted care today? How? (Homelessness, low income, unemployed, alcoholism, drug addiction, transportation, low edu. Level, literacy, decrease access to med. care, [facility]ci, rehab)? @ -No Was there de-escalation of care discussed even if they declined (Discuss DNR or withdrawal of care, Hospice)? DNR status @ -No What co-morbidities impacted this encounter? (DM, HTN, Smoking, COPD, CAD, Cancer, CVA, ARF, Chemo, Hep., AIDS, mental health diagnosis, sleep apnea, morbid obesity)? @ -None Was patient admitted / discharged? Hospital course, mention meds given and route, prescriptions, significant lab abnormalities, going to OR and other pertinent info. @ -Discharge patient we treated for otitis externa with right ear cellulitis. Patient started on Ciprodex, Keflex and will follow-up with PCP tomorrow.. Undiagnosed new problem with uncertain prognosis? @ -No Drug Therapy requiring intensive monitoring for toxicity (Heparin, Nitro, Insulin, Cardizem)? @ -No Were any procedures done? @ -No Diagnosis/symptom? @ -[Right ear cellulitis, otitis externa Acute, or Chronic, or Acute on Chronic? @ -[Acute Uncomplicated (without systemic symptoms) or Complicated (systemic symptoms)? @ -[Uncomplicated Side effects of treatment? @ -No Exacerbation, Progression, or Severe Exacerbation? @ -No Poses a threat to life or bodily function? How? (Chest pain, [place], [place], pneumonia, PE, COPD, DKA, ARF, appy, cholecystitis, CVA, Diverticulitis, Homicidal, Suicidal, threat to staff... and all critical care pts) @ -No Disposition Clinical Impression: Cellulitis of right ear, Otitis externa of right ear Disposition: HOME SELF-CARE Condition: Stable Instructions (If sedation given, give patient instructions): Earache (ED) Additional Instructions: Use eardrops 4 drops twice daily for 7 days. Please return to the Emergency Department if symptoms worsen or any other concerns. Prescriptions: Cephalexin [Keflex] 500 mg PO Q6HR #40 cap Is patient prescribed a controlled substance at d/c from ED?: No Referrals: Subhash Jon MD [Primary Care Provider] - 1-2 days Time of Disposition: 06:18
[2023-04-19] MEDS ORDERED: CIPROFLOXACIN-DEXAMETH 0.3-0.1% DROPS 7.5 ML BTL RIGHT EAR ONE (06:30)
== END 2023-04-19 07:22 | disposition home or self-care (01) ==
LOC: EC 03:15
DX: H60.91 Unspecified otitis externa, right ear (principal); I10 Essential (primary) hypertension; I25.2 Old myocardial infarction; E07.9 Disorder of thyroid, unspecified; Z79.890 Hormone replacement therapy; Z88.5 Allergy status to narcotic agent; Z88.8 Allergy status to other drugs, medicaments and biological substances
CPT/HCPCS: 99282

== ENCOUNTER → 2023-07-03 | Outpatient (CLI) | payer MEDICARE ==
--- NOTE | 2023-07-03 14:20 | CT ---
EXAMINATION TYPE: CT iac wo con CT DLP: 156 mGycm, Automated exposure control for dose reduction was used. DATE OF EXAM: 07/03/2023 1:56 PM INDICATION: Patient age:Female; 78 years old; Reason for study: H68.121 INTRINSIC CARTIL OBSTRUCTION; [facility]. COMPARISON: CT brain 03/04/2023. TECHNIQUE: Multiple thin axial images were obtained through the temporal bones and internal auditory canals. Additional coronal reformatted images were obtained. No IV contrast was utilized. CT Contrast: none. FINDINGS: Right Temporal Bone: External Ear: The external auditory canal is unremarkable, The tympanic membrane is present and unrem arkable. Middle Ear: The ossicles demonstrate a normal appearance. Prussak's space is clear and the scutum i s intact. There is no evidence of osseous erosion and the tegmen tympani is intact. Inner Ear: Cochlea, vestibule and semi circular canals are unremarkable. No evidence of carotid lasha l dehiscence. Two and a half turns of the cochlea are identified. The vestibular aqueduct is not enl arged. Mastoid Air Cells: The mastoid air cells are clear. The tegmen mastoideum is intact. The aditus ad an trum is clear. Internal Auditory Canal: The internal auditory canal is unremarkable. Left Temporal Bone: External Ear: The external auditory canal is unremarkable, The tympanic membrane is present and unrem arkable. Middle Ear: The ossicles demonstrate a normal appearance. Prussak's space is clear and the scutum i s intact. There is no evidence of osseous erosion and the tegmen tympani is intact. Inner Ear: Cochlea, vestibule and semi circular canals are unremarkable. No evidence of carotid lasha l dehiscence. Two and a half turns of the cochlea are identified. The vestibular aqueduct is not enl arged. Mastoid Air Cells: The mastoid air cells are clear. The tegmen mastoideum is intact. The aditus ad an trum is clear. Internal Auditory Canal: The internal auditory canal is unremarkable. IMPRESSION: Normal internal auditory canal study.
== END | disposition home or self-care (01) ==
LOC: RADCTMAIN 13:38
PROVIDERS: ATTEND Otolaryngology
DX: H68.1 Obstruction of Eustachian tube (principal)
CPT/HCPCS: 70480

== ENCOUNTER → 2023-07-16 | Outpatient (CLI) | payer MEDICARE ==
--- NOTE | 2023-07-16 17:00 | US ---
EXAMINATION TYPE: US kidneys/renal and bladder DATE OF EXAM: 07/16/2023 COMPARISON: CT CLINICAL INDICATION: Female, 78 years old with history of N95.0 POSTMENOPAUSAL BLEEDING; Pt states ri ght flank pain- pt poor historian, has dementia EXAM MEASUREMENTS: Right Kidney: 10.8 x 4.7 x 5.6 cm Left Kidney: 10.7 x 4.9 x 5.2 cm Right Kidney: No evidence of hydro, lower pole gassed out Left Kidney: No evidence of hydro Bladder: wnl Bilateral Jets seen: No There is no evidence for hydronephrosis at this point in time. No nephrolithiasis is seen. No himanshu s are identified. The urinary bladder is anechoic. Bilateral ureteral jets are seen. IMPRESSION: No discrete abnormality seen
--- NOTE | 2023-07-16 17:05 | US ---
EXAMINATION TYPE: US pelvic complete DATE OF EXAM: 07/16/2023 COMPARISON: CT CLINICAL INDICATION: Female, 78 years old with history of N95.0 POSTMENOPAUSAL BLEEDING; Pt poor hist orian due to dementia- states some bleeding while wearing pads TECHNIQUE: Transabdominal (TA). Transabdominal sonographic images of the pelvis were acquired. Tra nsvaginal sonographic images were not obtained due to pt unable to empty bladder, and dementia. Date of LMP: Pt unsure EXAM MEASUREMENTS: Uterus: 5.6 x 2.7 x 3.4 cm Endometrial Stripe: 0.3 cm Right Ovary: 1.5 x 1.4 x 0.9 cm 1. Uterus: Anteverted wnl 2. Endometrium: wnl 3. Right Ovary: wnl 4. Left Ovary: Obscured by overlying bowel gas 5. Bilateral Adnexa: wnl 6. Posterior cul-de-sac: wnl IMPRESSION: No discrete abnormality seen.
== END | disposition home or self-care (01) ==
LOC: RADUSWWP 14:49
PROVIDERS: ATTEND Family Medicine
DX: R31.29 Other microscopic hematuria (principal); N95.0 Postmenopausal bleeding
CPT/HCPCS: 76770; 76856

== ENCOUNTER 2023-08-08 11:38 | Emergency (ER) | payer MEDICARE ==
[2023-08-08 12:28] VITALS: TEMP 97.5
--- NOTE | 2023-08-08 13:16 | ED ---
Recheck HPI - General Chief Complaint: Headache Stated Complaint: Headache, High BP, vaginal bleeding Time Seen by Provider: 08/08/23 12:45 Source: patient, family, RN notes reviewed, old records reviewed Mode of arrival: ambulatory Limitations: no limitations - History of Present Illness Initial Comments: This is a 78-year-old female to the ER for evaluation of multiple complaints today but patient was originally sent to the emergency department for evaluation of elevated blood sugar patient has had some occasional chest pain abdominal pain nausea no vomiting and complains of vaginal bleeding as well as vomiting she has been working on figuring out for a while now. Chest pain is currently resolved here in the ER for elevated blood pressure MD Complaint: abnormal lab (Elevated blood sugar), other (Vaginal bleeding) -: unknown Returns Today for: persistent/worsening pain related to initial visit, other (Abnormal vital signs) Symptoms Since Prior Visit: no new symptoms Associated Symptoms: none Treatments Prior to Arrival: other (0) - Related Data Home Medications Medication Instructions Recorded Confirmed Losartan Potassium [Cozaar] 100 mg PO DAILY 05/07/18 08/08/23 hydroCHLOROthiazide [Hydrodiuril] 12.5 mg PO DAILY 05/07/18 08/08/23 Memantine [Namenda] 10 mg PO BID 11/20/22 08/08/23 Acetaminophen Tab [Tylenol Tab] 500 mg PO Q6HR PRN 08/08/23 08/08/23 Cephalexin [Keflex] 500 mg PO Q8HR 08/08/23 08/08/23 Allergies Allergy/AdvReac Type Severity Reaction Status Date / Time meloxicam [From Mobic] Allergy Unknown Unknown- Verified 08/08/23 13:[address] Saenz boarding slip morphine AdvReac Mild Nausea & Verified 08/08/23 13:54 Vomiting, allergy to duramorph from boarding slip hydrocodone [From [place]] AdvReac Nausea & Verified 08/08/23 13:54 Vomiting narcotics AdvReac Unknown states Uncoded 08/08/23 13:54 needs smaller dose-takes 1/2 of tyl#3. Review of Systems ROS Statement: Those systems with pertinent positive or pertinent negative responses have been documented in the HPI. ROS Other: All systems not noted in ROS Statement are negative. Past Medical History Past Medical History: Cancer, Hypertension, Myocardial Infarction (SD), Osteoarthritis (OA), Thyroid Disorder Additional Past Medical History / Comment(s): skin cancer, chronic back pain, hiatal hernia. Current ventral Hernia. On po AB Rx for tooth infection, has f/u appt at dentist today. Edema LLE. Last Myocardial Infarction Date:: 07-18-1994 History of Any Multi-Drug Resistant Organisms: None Reported Past Surgical History: Back Surgery, Breast Surgery, Heart Catheterization, Joint Replacement, Orthopedic Surgery, Tonsillectomy, Tubal Ligation Additional Past Surgical History / Comment(s): skin cancer-LESIONS , breast bx x2, back fusion x2. arthroscopy lt knee 2016. left knee replaced July 2017, pain procedures Past Anesthesia/Blood Transfusion Reactions: Postoperative Nausea & Vomiting (PONV) Additional Past Anesthesia/Blood Transfusion Reaction / Comment(s): past blood transfusion-denies any reaction to it Past Psychological History: No Psychological Hx Reported Smoking Status: Never smoker - Past Family History Mother Family Medical History: No Reported History Additional Family Medical History / Comment(s): at age 93 Father History Unknown: Yes Family Medical History: Coronary Artery Disease (CAD) Additional Family Medical History / Comment(s): at age 42 Son(s) Family Medical History: Cancer, Myocardial Infarction (SD) Additional Family Medical History / Comment(s): colon CA. Brother(s) Family Medical History: Cancer Additional Family Medical History / Comment(s): skin cancer General Exam Limitations: no limitations General appearance: alert, in no apparent distress Head exam: Present: atraumatic, normocephalic, normal inspection Eye exam: Present: normal appearance, PERRL, EOMI. Absent: scleral icterus, conjunctival injection, periorbital swelling ENT exam: Present: normal exam, mucous membranes moist Neck exam: Present: normal inspection. Absent: tenderness, meningismus, lymphadenopathy Respiratory exam: Present: normal lung sounds bilaterally. Absent: respiratory distress, wheezes, rales, rhonchi, stridor Cardiovascular Exam: Present: regular rate, normal rhythm, normal heart sounds. Absent: systolic murmur, diastolic murmur, rubs, gallop, clicks GI/Abdominal exam: Present: soft, normal bowel sounds. Absent: distended, tenderness, guarding, rebound, rigid Extremities exam: Present: normal inspection, full ROM, normal capillary refill. Absent: tenderness, pedal edema, joint swelling, calf tenderness Back exam: Present: normal inspection Neurological exam: Present: alert, oriented X3, CN II-XII intact Psychiatric exam: Present: normal affect, normal mood Skin exam: Present: warm, dry, intact, normal color. Absent: rash Course Vital Signs 08/08/23 08/08/23 08/08/23 11:49 13:06 13:45 Temperature 97.5 F L Pulse Rate 65 60 68 Respiratory 18 16 16 Rate Blood Pressure 207/81 185/98 161/83 O2 Sat by Pulse 96 98 98 Oximetry 08/08/23 15:48 Temperature Pulse Rate 68 Respiratory 16 Rate Blood Pressure 160/80 O2 Sat by Pulse 98 Oximetry - Reevaluation(s) Reevaluation #1: Medical records reviewed Reevaluation #2: Patient symptoms unchanged Patient does not want further evaluation here in the emergency department and her hospital admission Reevaluation #3: Patient informed of results and questions answered Reevaluation #4: Was pt. sent in by a medical professional or institution (, PA, TIRE CURER, urgent care, hospital, or penitentiary...) When possible be specific @ -no Did you speak to anyone other than the patient for history (EMS, parent, family, police, friend...)? What history was obtained from this source @ -no Did you review nursing and triage notes (agree or disagree)? Why? @ -agree Are old charts reviewed (outside hosp., previous admission, EMS record, old EKG, old radiological studies, urgent care reports/EKG's, penitentiary records)? Report findings @ -yes Differential Diagnosis (chest pain, altered mental status, abdominal pain women, abdominal pain men, vaginal bleeding, weakness, fever, dyspnea, syncope, headache, dizziness, GI bleed, back pain, seizure, CVA, palpatations, mental health, musculoskeletal)? @ -prior EKG interpreted by me (3pts min.). @ -yes X-rays interpreted by me (1pt min.). @ -no CT interpreted by me (1pt min.). @ -no U/S interpreted by me (1pt. min.). @ -yes negative for acute disease What testing was considered but not performed or refused? (CT, X-rays, U/S, labs )? Why? @ -none What meds were considered but not given or refused? Why? @ -none Did you discuss the management of the patient with other professionals (professionals i.e. Dr., PA, TIRE CURER, lab, RT, psych nurse, social insurance analyst, money examiner, teacher, chief supply chain officer, major case detective)? Give summary @ -no Was smoking cessation discussed for >3mins.? @ -no Was critical care preformed (if so, how long)? @ -no Were there social determinants of health that impacted care today? How? (Homelessness, low income, unemployed, alcoholism, drug addiction, transportation, low edu. Level, literacy, decrease access to med. care, fci, rehab)? @ -none Was there de-escalation of care discussed even if they declined (Discuss DNR or withdrawal of care, Hospice)? DNR status @ -no What co-morbidities impacted this encounter? (DM, HTN, Smoking, COPD, CAD, Cancer, CVA, ARF, Chemo, Hep., AIDS, mental health diagnosis, sleep apnea, morbid obesity)? @ -none Was patient admitted / discharged? Hospital course, mention meds given and route, prescriptions, significant lab abnormalities, going to OR and other pertinent info. @ - 78 female to ER for evaluation of chest pain and elevated blood pressure as an outpatient now improved vaginal bleeding chronic issue. Patient has improved symptoms here in the ER does not want further evaluation or admission and patient can be discharged home, patient's bleeding here in the ER is concerning for rectal bleeding as opposed to vaginal bleeding Discharge Undiagnosed new problem with uncertain prognosis? @ -no Drug Therapy requiring intensive monitoring for toxicity (Heparin, Nitro, Insulin, Cardizem)? @ -no Were any procedures done? @ -no Diagnosis/symptom? @ -Chest pain hypertension vaginal bleeding likely rectal bleeding Acute, or Chronic, or Acute on Chronic? @ -Acute Uncomplicated (without systemic symptoms) or Complicated (systemic symptoms)? @ -Complicated Side effects of treatment? @ -no Exacerbation, Progression, or Severe Exacerbation? @ -exacerbation Poses a threat to life or bodily function? How? (Chest pain, USA, SD, pneumonia, PE, COPD, DKA, ARF, appy, cholecystitis, CVA, Diverticulitis, Homicidal, Suicidal, threat to staff... and all critical care pts) @ -yes with significant bleeding chest pain and hypertension Reevaluation #5: Differential Chest Pain: Stable Angina, Unstable Angina, STEMI, NSTEMI Aortic Dissection, Pneumothorax, Musculoskeletal, Esophageal Spasm GERD, Cholecystitis, Pancreatitis, Zoster, this is not meant to be an all-inclusive list. Medical Decision Making - Medical Decision Making 78 female to ER for evaluation of chest pain and elevated blood pressure as an outpatient now improved vaginal bleeding chronic issue. Patient has improved symptoms here in the ER does not want further evaluation or admission and patient can be discharged home, patient's bleeding here in the ER is concerning for rectal bleeding as opposed to vaginal bleeding - Lab Data Result diagrams: 08/08/23 13:17 08/08/23 13:17 Lab Results 08/08/23 08/08/23 08/08/23 Range/Units 13:17 13:17 13:17 WBC 7.0 (3.8-10.6) k/uL RBC 5.06 (3.80-5.40) m/uL Hgb 14.5 (11.4-16.0) gm/dL Hct 44.4 (34.0-46.0) % MCV 87.6 (80.0-100.0) fL MCH 28.7 (25.0-35.0) pg MCHC 32.8 (31.0-37.0) g/dL RDW 13.1 (11.5-15.5) % Plt Count 168 (150-450) k/uL MPV 7.5 Neutrophils % 59 % Lymphocytes % 24 % Monocytes % 8 % Eosinophils % 7 % Basophils % 1 % Neutrophils # 4.1 (1.3-7.7) k/uL Lymphocytes # 1.7 (1.0-4.8) k/uL Monocytes # 0.5 (0-1.0) k/uL Eosinophils # 0.5 (0-0.7) k/uL Basophils # 0.1 (0-0.2) k/uL PT 10.2 (10.0-12.5) sec INR 0.9 (<1.2) APTT 24.9 (22.0-30.0) sec Sodium 136 L (137-145) mmol/L Potassium 3.7 (3.5-5.1) mmol/L Chloride 103 (98-107) mmol/L Carbon Dioxide 29 (22-30) mmol/L Anion Gap 4 mmol/L BUN 13 (7-17) mg/dL Creatinine 0.55 (0.52-1.04) mg/dL Est GFR (CKD-EPI)AfAm >90 (>60 ml/min/1.73 sqM) Est GFR (CKD-EPI)NonAf >90 (>60 ml/min/1.73 sqM) Glucose 83 (74-99) mg/dL Calcium 9.4 (8.4-10.2) mg/dL Phosphorus 4.1 (2.5-4.5) mg/dL Magnesium 1.9 (1.6-2.3) mg/dL Total Bilirubin 0.7 (0.2-1.3) mg/dL AST 29 (14-36) U/L ALT 16 (4-34) U/L Alkaline Phosphatase 66 (38-126) U/L NT-Pro-B Natriuret Pep 218 pg/mL Total Protein 6.4 (6.3-8.2) g/dL Albumin 4.0 (3.5-5.0) g/dL - EKG Data -: EKG Interpreted by Me (EKG is isnus jony 55 LA 157 QRS 86 QTc 396) - Radiology Data Radiology results: report reviewed (ReSound pelvis is negative for acute disease), image reviewed Disposition Clinical Impression: Hypertensive heart disease, Hypertension, Rectal bleed Disposition: HOME SELF-CARE Condition: Good Instructions (If sedation given, give patient instructions): Rectal Bleeding (ED), Hypertension (ED) Is patient prescribed a controlled substance at d/c from ED?: No Referrals: Subhash Jon MD [Primary Care Provider] - 1-2 days Time of Disposition: 15:25
[2023-08-08] MEDS: LABETALOL 5 MG/ML VIAL MDV IVP STA (13:25)
[2023-08-08] MEDS: SODIUM CHLORIDE 0.9% 500 ML 500 ML IV STA (13:25)
[2023-08-08 13:29] LABS: Basophils # (A) 0.1 k/uL (0-0.2); Basophils % (A) 1 %; Eosinophils # (A) 0.5 k/uL (0-0.7); Eosinophils % (A) 7 %; HCT 44.4 % (34.0-46.0); HGB 14.5 gm/dL (11.4-16.0); Lymphocytes # (A) 1.7 k/uL (1.0-4.8); Lymphocytes % (A) 24 %; MCH 28.7 pg (25.0-35.0); MCHC 32.8 g/dL (31.0-37.0); MCV 87.6 fL (80.0-100.0); Mean Platelet Volume 7.5; Monocytes # (A) 0.5 k/uL (0-1.0); Monocytes % (A) 8 %; Neutrophils # (A) 4.1 k/uL (1.3-7.7); Neutrophils % (A) 59 %; Platelet Count 168 k/uL (150-450); RBC 5.06 m/uL (3.80-5.40); RDW 13.1 % (11.5-15.5)
[2023-08-08 13:38] LABS: ALT 16 U/L (4-34); AST 29 U/L (14-36); African American GFR (CKD) >90 (>60 ml/min/1.73 sqM); Alkaline Phosphatase 66 U/L (38-126); Anion Gap 4 mmol/L; Blood Urea Nitrogen 13 mg/dL (7-17); Calcium 9.4 mg/dL (8.4-10.2); Carbon Dioxide 29 mmol/L (22-30); Chloride 103 mmol/L (98-107); Glucose 83 mg/dL (74-99); Magnesium 1.9 mg/dL (1.6-2.3); Non-African American GFR(CKD) >90 (>60 ml/min/1.73 sqM); Phosphorus 4.1 mg/dL (2.5-4.5); Potassium 3.7 mmol/L (3.5-5.1); Sodium 136 mmol/L (137-145); Total Bilirubin 0.7 mg/dL (0.2-1.3); Total Protein 6.4 g/dL (6.3-8.2)
[2023-08-08 13:45] LABS: INR 0.9 (<1.2); Partial Thromboplastin Time 24.9 sec (22.0-30.0); Prothrombin Time 10.2 sec (10.0-12.5)
[2023-08-08 13:46] LABS: NT-Pro-B-Type Natriuretic Pept 218 pg/mL
[2023-08-08 13:57] VITALS: PULSE 68; RESP 16
--- NOTE | 2023-08-08 15:09 | US ---
EXAMINATION TYPE: US pelvic complete DATE OF EXAM: 08/08/2023 COMPARISON: 07/16/23 US 01/24/23 CT CLINICAL INDICATION: Female, 78 years old with history of bleed; bleeding on and off x 1 year TECHNIQUE: Transabdominal (TA). Transabdominal sonographic images of the pelvis were acquired. Date of LMP: post-annamaria EXAM MEASUREMENTS: Uterus: 6.0x2.6x2.7 cm Endometrial Stripe: 0.3 cm Right Ovary: 2.1x1.6x0.7 cm Left Ovary: 1.3x1.1x0.7 cm 1. Uterus: Retroverted and otherwise wnl 2. Endometrium: wnl 3. Right Ovary: atrophic 4. Left Ovary: atrophic 5. Bilateral Adnexa: Obscured by overlying bowel gas 6. Posterior cul-de-sac: wnl Computer Lab Assistant notes: Exam limited by position of uterus, bowel, and atrophic size of ovaries. ?There i s a possible 2.0x2.9cm hypoechoic area in the region of the rectum. Area questioned on 01/24/23 CT IMPRESSION: 1. Refer to CT of 01/24/2023. Correlate to ensure that there is no rectal mass contributing to rectal bleeding. 2. Thin endometrial stripe retroverted uterus. Atrophic bilateral ovaries.
[2023-08-08 16:12] VITALS: BP 160/80
== END 2023-08-08 15:54 | disposition home or self-care (01) ==
LOC: EC 11:38
DX: K62.5 Hemorrhage of anus and rectum (principal); I11.9 Hypertensive heart disease without heart failure; R00.1 Bradycardia, unspecified; Z88.5 Allergy status to narcotic agent; Z88.8 Allergy status to other drugs, medicaments and biological substances
CPT/HCPCS: 99284; 96374; 96361; 36415; 93005; 83880; 80053; 83735; 84100; 85025; 85610; 85730; 76856; J1920

== ENCOUNTER → 2023-08-08 | Outpatient (CLI) | payer MEDICARE ==
[2023-08-08 11:44] VITALS: BP 192/87; PULSE 125; RESP 15; TEMP 97.2
== END ==
LOC: PNWHC3 11:03
PROVIDERS: ATTEND Specialist
DX: Z53.21 Procedure and treatment not carried out due to patient leaving prior to being seen by health care provider (principal)
CPT/HCPCS: 99211

== ENCOUNTER → 2023-10-16 | Day surgery (SDC) | payer MEDICARE ==
[~2023-10-16] MED LIST changes: -LIDOCAINE 1% (10MG/ML) FOR IV START INTRADERMA PRN; +PROPOFOL 10 MG/ML 20 ML VIAL IV ONE
--- NOTE | 2023-10-16 07:48 | P.GSHP ---
History of Present Illness H&P Date: 10/16/23 CHIEF COMPLAINT: Change in bowel habits HISTORY OF PRESENT ILLNESS: The patient is a 78-year-old female who presents for change in bowel habits. Lower endoscopy was offered for further evaluation and management. PAST MEDICAL HISTORY: Please see list. PAST SURGICAL HISTORY: Please see list. MEDICATIONS: Please see list. ALLERGIES: Please see list. SOCIAL HISTORY: No illicit drug use FAMILY HISTORY: No reports of Crohn disease or ulcerative colitis. REVIEW OF ORGAN SYSTEMS: CONSTITUTIONAL: No reports of fevers or chills. PHYSICAL EXAM: VITAL SIGNS: Stable GENERAL: Well-developed pleasant in no acute distress. HEENT: No scleral icterus. Extraocular movements grossly intact. Moist buccal mucosa. NECK: Supple without lymphadenopathy. CHEST: Unlabored respirations. Equal bilateral excursions. CARDIOVASCULAR: Regular rate and rhythm. Distal 2+ pulses. ABDOMEN: Soft, nontender, nondistended. MUSCULOSKELETAL: No clubbing, cyanosis, or edema. ASSESSMENT: 1. Change in bowel habits. PLAN: 1. Recommend proceeding with a lower endoscopy Past Medical History Past Medical History: Cancer, Dementia, Hypertension, Myocardial Infarction (NH), Osteoarthritis (OA), Thyroid Disorder Additional Past Medical History / Comment(s): skin cancer, chronic back pain, hiatal hernia. Current ventral Hernia. Edema LLE. right ear in fection on cephalexin. having colonoscopy for mass in bowel per Last Myocardial Infarction Date:: 07-18-1994 History of Any Multi-Drug Resistant Organisms: None Reported Past Surgical History: Back Surgery, Bowel Resection, Breast Surgery, Heart Catheterization, Joint Replacement, Orthopedic Surgery, Tonsillectomy, Tubal Ligation Additional Past Surgical History / Comment(s): skin cancer-LESIONS , breast bx x2, back fusion x2. arthroscopy lt knee 2016. left knee replaced July 2017, pain procedures, colonoscopy Past Anesthesia/Blood Transfusion Reactions: Postoperative Nausea & Vomiting (PONV) Additional Past Anesthesia/Blood Transfusion Reaction / Comment(s): past blood transfusion-denies any reaction to it Smoking Status: Never smoker - Past Family History Mother Family Medical History: No Reported History Additional Family Medical History / Comment(s): at age 93 Father History Unknown: Yes Family Medical History: Coronary Artery Disease (CAD) Additional Family Medical History / Comment(s): at age 42 Son(s) Family Medical History: Cancer, Myocardial Infarction (NH) Additional Family Medical History / Comment(s): colon CA. Brother(s) Family Medical History: Cancer Additional Family Medical History / Comment(s): skin cancer Medications and Allergies Home Medications Medication Instructions Recorded Confirmed Type Losartan Potassium [Cozaar] 100 mg PO DAILY 05/07/18 08/23/23 History Memantine [Namenda] 10 mg PO BID 11/20/22 08/23/23 History Acetaminophen Tab [Tylenol Tab] 500 mg PO Q6HR PRN 08/08/23 08/23/23 History Cephalexin [Keflex] 500 mg PO Q8HR 08/08/23 08/23/23 History Loratadine 10 mg PO DAILY 08/23/23 08/23/23 History amLODIPine [Norvasc] 10 mg PO DAILY 08/23/23 08/23/23 History hydroCHLOROthiazide [Hydrodiuril] 25 mg PO DAILY 08/23/23 08/23/23 History Allergies Allergy/AdvReac Type Severity Reaction Status Date / Time meloxicam [From Mobic] Allergy Unknown Unknown- Verified 08/23/23 10:[address] Saenz boarding slip morphine AdvReac Mild Nausea & Verified 08/23/23 10:04 Vomiting, allergy to duramorph from boarding slip hydrocodone [From [place]] AdvReac Nausea & Verified 08/23/23 10:04 Vomiting narcotics AdvReac Unknown states Uncoded 08/23/23 10:04 needs smaller dose-takes 1/2 of tyl#3.
[2023-10-16] MEDS: IV FLUID CONTINUATION 1,000 ML IV ONE (09:31)
[2023-10-16 09:38] VITALS: TEMP 97.3
[2023-10-16] MEDS: LACTATED RINGERS 1,000 ML BAG IV STA (09:45)
[2023-10-16 11:09] VITALS: BP 129/79; RESP 14
--- NOTE | 2023-10-16 11:19 | P.PCN ---
Date of Procedure: 10/16/23 Description of Procedure: PREOPERATIVE DIAGNOSIS: Change in bowel habits Rectal bleeding Abnormal sonogram/study for rectal mass History of sigmoid colectomy POSTOPERATIVE DIAGNOSIS: Severe geller diverticulosis OPERATION: Colonoscopy to the cecum, ileocecal valve and appendiceal orifice. SURGEON: Ivana Hook MD. ANESTHESIA: MAC. INDICATIONS: The patient is a 78-year-old female who presents with history of rectal bleeding including abnormal sonogram for rectal mass. She reports change in bowel habits. Benefits and risks were described and informed consent was obtained. DESCRIPTION OF PROCEDURE: The patient had undergone GoLytely prep. The patient had been brought into the operating room and laid in the left lateral decubitus position. After adequate intravenous sedation, the rectum was examined with 2% lidocaine jelly. External hemorrhoids were encountered. The rectal tone was within normal limits. No lesions were palpated in the rectal vault. An Olympus colonoscope was advanced until the cecum, ileocecal valve and appendiceal orifice were clearly viewed. The prep was fair. [place] rectal anastomosis was patent. Severe scattered diverticulosis was encountered. No colonic polyps were found. No evidence of focal colitis was found. No intraluminal masses identified. Retroflexion of the scope demonstrated grade 2 internal hemorrhoids without active bleeding or inflammation. The colon was desufflated. The patient had tolerated the procedure well. Withdrawal time was over 6 minutes. FINDINGS: Aronchick preparation quality scale 2+ (1-5) Internal hemorrhoids, grade 2 External prolapsed hemorrhoids, grade 2 Severe pandiverticulosis Patent coloanal anastomosis No arteriovenous malformations. No adenomatous polyps. No focal colitis. RECOMMENDATIONS: Lower endoscopy as needed Plan - Discharge Summary New Discharge Prescriptions: Continue Losartan Potassium [Cozaar] 100 mg PO DAILY Acetaminophen Tab [Tylenol] 500 mg PO Q6HR PRN PRN Reason: Fever And/ Or Pain hydroCHLOROthiazide [Hydrodiuril] 25 mg PO DAILY Memantine [Namenda] 10 mg PO BID Cephalexin [Keflex] 500 mg PO Q8HR amLODIPine [Norvasc] 10 mg PO DAILY Loratadine 10 mg PO DAILY Discharge Medication List Losartan Potassium [Cozaar] 100 mg PO DAILY 05/07/18 [History] Memantine [Namenda] 10 mg PO BID 11/20/22 [History] Acetaminophen Tab [Tylenol] 500 mg PO Q6HR PRN 08/08/23 [History] Cephalexin [Keflex] 500 mg PO Q8HR 08/08/23 [History] Loratadine 10 mg PO DAILY 08/23/23 [History] amLODIPine [Norvasc] 10 mg PO DAILY 08/23/23 [History] hydroCHLOROthiazide [Hydrodiuril] 25 mg PO DAILY 08/23/23 [History] Follow up Appointment(s)/Referral(s): Ivana Hook MD [STAFF PHYSICIAN] - As Needed Patient Instructions/Handouts: Diverticulosis (GEN), Diverticulosis Diet (GEN) Discharge Disposition: HOME SELF-CARE
[2023-10-16 11:27] VITALS: PULSE 59
== END | disposition home or self-care (01) ==
LOC: ORWHC2ENDO 08:52
PROVIDERS: ATTEND Surgery Plastic and Reconstructive Surgery
DX: K64.1 Second degree hemorrhoids (principal); K64.4 Residual hemorrhoidal skin tags; K57.30 Diverticulosis of large intestine without perforation or abscess without bleeding; I10 Essential (primary) hypertension; F03.90 Unspecified dementia, unspecified severity, without behavioral disturbance, psychotic disturbance, mood disturbance, and anxiety; I25.2 Old myocardial infarction; M19.90 Unspecified osteoarthritis, unspecified site; E07.9 Disorder of thyroid, unspecified; G89.29 Other chronic pain; I25.10 Atherosclerotic heart disease of native coronary artery without angina pectoris; Z79.899 Other long term (current) drug therapy; Z80.0 Family history of malignant neoplasm of digestive organs; Z88.5 Allergy status to narcotic agent; Z88.8 Allergy status to other drugs, medicaments and biological substances; Z90.49 Acquired absence of other specified parts of digestive tract; Z90.89 Acquired absence of other organs; Z98.51 Tubal ligation status; Z85.828 Personal history of other malignant neoplasm of skin; Z88.6 Allergy status to analgesic agent; Z79.1 Long term (current) use of non-steroidal anti-inflammatories (NSAID)
CPT/HCPCS: 45378; J2704

== ENCOUNTER → 2023-11-21 | Outpatient (CLI) | payer MEDICARE | LOC: PNWHC3 12:23 | PROVIDERS: ATTEND Specialist | DX: G89.29 Other chronic pain | CPT/HCPCS: 99211 ==

== ENCOUNTER → 2024-01-02 | Outpatient (CLI) | payer MEDICARE ==
--- NOTE | 2024-01-02 20:32 | MR ---
EXAMINATION TYPE: MR lumbar spine wo con DATE OF EXAM: 01/02/2024 COMPARISON: 11/03/2019 HISTORY: Low back pain CONTRAST: 0 mL intravenous Gadavist. TECHNIQUE: Multiplanar, multisequence images of the lumbar spine were acquired. FINDINGS: L5-S1: There is a grade 2 spondylolisthesis of L5 anterior to S1. There is loss of disc height at thi s level. Pedicle screws are present through these levels. No spinal canal stenosis present. Neural fo ramen appear patent. L4-L5: No significant disc bulge or disc herniation. No spinal canal stenosis. No foraminal stenosi s. L3-L4: No significant disc bulge or disc herniation. No spinal canal stenosis. Facet hypertrophy is present with posterior lateral thecal sac compression. No spinal canal stenosis is present. Neural fo ramen are patent. L2-L3: There is loss of disc height at this level. Facet hypertrophy is present with posterior latera l thecal sac compression. Mild left and moderate right foraminal stenosis is present. L1-L2: Loss of disc height level. Some Modic type I degenerative changes present. Residual disc bulge is anterior thecal sac contact. No AP spinal canal stenosis present. Some facet hypertrophy is prese nt. Mild left and moderate right foraminal stenosis is present. Correlate with radicular symptoms. T12-L1: No significant disc bulge or disc herniation. No spinal canal stenosis. No foraminal stenos is. IMPRESSION: 1. Grade 2 spondylolisthesis of L5 anteriorly on S1. 2. Moderate foraminal stenosis right L1-2, L2-3. Correlate with radicular symptoms. 3. Degenerative disc changes greatest L1-2 [facility], , 01/02/2024 8:30 PM
== END | disposition home or self-care (01) ==
LOC: RADMRIMAIN 11:24
PROVIDERS: ATTEND Specialist
DX: M54.16 Radiculopathy, lumbar region
CPT/HCPCS: 72148

== ENCOUNTER → 2024-01-22 | Outpatient (CLI) | payer MEDICARE ==
[2024-01-22 12:27] VITALS: BP 185/83; PULSE 59; RESP 18; TEMP 99.5
--- NOTE | 2024-01-22 13:16 | P.PAINPG ---
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 Pain level is provoked at 6 /10 in intensity, constant, predominantly axial, localized in the lumbar spine, dull in character w occasional shooting towards the back of the LEs R> L. Pain is provoked by bending, lifting. Pain is alleviated with physician guided stretches daily since Oct 2023, medications (Tyl, Ibu), topical, manual massage, use of a cane for ambulatory assistance, repositioning and rest. Interventional pain procedures completed include BL RFA L2-L5 (2018) Patient is currently on Patient denies any side effects of the medication(s), denies excessive drowsiness or sleepiness, denies suicidal ideation and reports that the current pain medication is helping to control the pain and improve activities of daily living. Patient denies any motor or sensory deficits. Patient denies any fever or night sweats, denies any change in the bowel movements or urination. Physical Examination: -Constitutional: Cooperative. Not in acute distress . - Neurologic: Cranial nerve II to XII intact. No focal neurological deficits. - Psychatric: Alert & oriented x 3. Matching mood & appropriate affect. Judgment and insight intact. - Musculoskeletal: Cervical spine: Muscle bulk/ tone/ strength in the bilateral upper extremities normal Vertebral body tenderness to palpation over Spurling test positive Distraction test positive Facet loading test positive TTP Thoracic spine Muscle bulk / tone/ strength in the bilateral paraspinal muscles normal Vertebral body tender to palpation over Facet loading test positive TTP Lumbar spine: Motor bulk/ tone/ strength lower extremities , thigh and legs : 5/5 Deep tendon reflexes : Normal Knee Jerk. Normal Ankle Jerk . Vertebral body tenderness to palpation over L1 Patel Test positive R> L L1-L2 Lumbar Facet Loading Test positive Straight Leg Raise: positive at 30 degrees right side/ left side Gaenslen's Test positive Sacral spine : Severe tenderness over the Sacroiliac joint: right side / left side Range of motion: Flexion of the lumbar spine <60 degrees Range of motion: Extension of the lumbar spine <20 degrees Gaenslen's Test positive right side / left side Randa test: positive right side / left side Thigh Thrust Test positive right side / left side Sacral Thrust Test positive right side / left side Assessment and plan: Chronic LBP secondary to L2-S1 fusion w L5-S1 pedicle screws Recommendation of SRIDEVI L1-L2 #1. Risks, benefits of procedure discussed and pt verbalized understanding. Admits to anticoagulant use or medical history of diabetes. Protocol for discontinuation/ continuation of medications ty procedure discussed. All questions answered. Chronic and current use of high-risk medication (Opioids). The patient was counseled about risk of opioid use, psychological risk associated with opioids and was orally counseled to not overuse , divert or sell medications. Pt is to store medication in a safe location. The patient is counseled against driving while using narcotic medications and also not to use alcohol or any illicit recreational drugs. Patient verbalized understanding that the lack of compliance will result in failure to renew narcotic prescription(s) as well as possible discharge from the clinic Diagnoses, prognosis and treatment options including but not limited to physical therapy, surgical interventions, interventional therapies and medication management including narcotics and adjuvant medication were discussed. All patient questions answered MAPS reviewed and it was appropriate. Prescription for [place] 5/325gm #18 NR Use, side effects, adverse reactions, safe storage discussed. I have spent less than 30 minutes on patient care today. Dr Deutsch was available by phone for the evaluation of this patient. The time was used to review the medical records including relevant urine studies and Prescription history (MAPs), review of the available imaging, evaluation and examination of the patient, coordination of care with the medical staff and if applicable referring physicians, as well as creation of the medical record PQRS Narrative: Smoking Status Former smoker Hx Alcohol Use (MH) Yes: occational Home Medications: Ambulatory Orders Losartan Potassium [Cozaar] 100 mg PO DAILY 05/07/18 Memantine [Namenda] 10 mg PO BID 11/20/22 Acetaminophen Tab [Tylenol] 500 mg PO Q6HR PRN 08/08/23 Cephalexin [Keflex] 500 mg PO Q8HR 08/08/23 Loratadine 10 mg PO DAILY 08/23/23 amLODIPine [Norvasc] 10 mg PO DAILY 08/23/23 hydroCHLOROthiazide [Hydrodiuril] 25 mg PO DAILY 08/23/23 Controlled Substance Measures - Controlled Substance Measures Is patient prescribed a controlled substance at discharge?: Yes When asked, does pt state using other controlled substances?: No If prescribed controlled substance>3 days was MAPS reviewed?: Prescribed <3 Days
== END ==
LOC: PNWHC3 10:52
PROVIDERS: ATTEND Specialist
DX: M54.16 Radiculopathy, lumbar region
CPT/HCPCS: 99211

== ENCOUNTER 2024-03-05 10:29 | Day surgery (SDC) | payer MEDICARE ==
[2024-03-05 12:05] VITALS: TEMP 97.1
[2024-03-05] MEDS ORDERED: IOPAMIDOL M200 10 ML VIAL ONE (12:42)
[2024-03-05] MEDS ORDERED: methylPREDNISolone ACETATE 40 MG/ML 1 ML VIAL ONE (12:42)
--- NOTE | 2024-03-05 12:55 | P.PCN ---
Date of Procedure: 03/05/24 Procedure(s) Performed: PREOPERATIVE DIAGNOSIS: 1- Lumbar Degenerative Disc Diseases 2-Lumbar spondylosis with Facet arthropathy without myelopathy. 3-lumbar radiculopathy POSTOPERATIVE DIAGNOSIS: 1-lumbar degenerative disc disease. 2-lumbar spondylosis with facet arthropathy without myelopathy. 3-lumbar radiculopathy PROCEDURE 1. Lumbar epidural steroid injection under fluoroscopic guidance at the L1-2 level. (Fluoroscopy imaging was available in radiology department) 2. Lumbar epidurogram. ANESTHESIA: Lidocaine 1% 3 and then only. EBL: Minimal PROCEDURE INDICATION: The patient with low back pain and radiculitis symptoms unresponsive to conservative treatment. Fluoroscopy was used to optimize visualization of the needle placement and to maximize safety. PROCEDURE DESCRIPTION / TECHNIQUE: The patient was seen and identified in the preoperative area. Risks, benefits, complications including but not limited to infections ,bleeding ,allergic reaction to the medications ,nerve damage and not complete pain releife , and alternatives were discussed with the patient. The patient agreed to proceed with the procedure and signed the consent, and vital signs were stable. Patient was taken to the OR and time out was completed. The patient was placed in the prone position on procedure table and a pillow was placed under the abdomen to reduce lumbar lordosis. The lumbosacral area was prepped and draped in the usual sterile fashion.ere closely monitored during the procedure. Vital signs was monitered during the entire procedure. Using anterior-posterior fluoroscopy, the L1-2 interlaminar space was identified and the skin over this site was marked and then infiltrated with 1% lidocaine subcutaneously. Subsequently, a 20-gauge Tuohy epidural needle was inserted and advanced toward the epidural space using the ``Loss of resistance technique and guided by AP and lateral fluoroscopy. The correct needle position in the epidural space was verified with the injection of 2 mL of the water soluble contrast dye Isovue 200 contrast and observing an excellent epidurogram with th e epidural spread of the dye, after negative aspiration for blood and CSF and in the absence of paresthesias. Again after negative aspiration, a 5 ml mixture containing 40 mg of Depo-medrol ( Preservetive Free ), and 2 ml of preservative free Normal Saline, and 2 ml of preservative free lidocaine 1% solution was injected and a washout of epidurogram was seen. Needle was withdrawn intact, skin was cleansed, and bandages were applied. COMPLICATIONS: None DISPOSITION / PLANS: The patient was placed in a supine position and transferred to the recovery area in a stable condition for observation. There was no evidence of lower extremity motor or sensory deficit after the procedure. Patient was discharged from the recovery room after meeting discharge criteria. Home discharge instructions were given to the patient by the staff. The patient was reexamined prior to discharge. The patient will schedule a follow up in the clinic in 2-4 weeks.
[2024-03-05] MEDS ORDERED: LACTATED RINGERS 1,000 ML IV SCH (13:00)
--- NOTE | 2024-03-05 13:06 | FL ---
EXAMINATION TYPE: FL guided pain mgmt statistic DATE OF EXAM: 03/05/2024 COMPARISON: NONE HISTORY: PAIN TECHNIQUE: Fluoroscopy. FINDINGS: LUMBAR EPIDURAL. LOW BACK PAIN. FL 17.9 DAP [id number] IMPRESSION: As Above. [facility], , 03/05/2024 1:04 PM
[2024-03-05 13:16] VITALS: RESP 18
[2024-03-05] MEDS: LOSARTAN 50 MG TAB PO STA (13:40)
[2024-03-05 13:46] VITALS: PULSE 63
[2024-03-05 14:34] VITALS: BP 158/77
== END 2024-03-05 14:35 | disposition home or self-care (01) ==
LOC: ORPAIN 10:29
PROVIDERS: ATTEND Specialist
DX: M51.16 Intervertebral disc disorders with radiculopathy, lumbar region (principal); M47.26 Other spondylosis with radiculopathy, lumbar region; Z88.5 Allergy status to narcotic agent
CPT/HCPCS: 62323; Q9966; J1010

== ENCOUNTER → 2024-03-31 | Outpatient (CLI) | payer MEDICARE ==
[2024-03-31 13:36] VITALS: BP 150/84; PULSE 66; RESP 17; TEMP 97.6
--- NOTE | 2024-03-31 14:56 | P.PAINPG ---
Objective - Vital Signs Vital signs: Vital Signs Temp 97.6 F 03/31/24 13:33 Pulse 66 03/31/24 13:33 Resp 17 03/31/24 13:33 BP 150/84 03/31/24 13:33 Pulse Ox 96 03/31/24 13:33 FiO2 Intake & Output 03/30/24 03/31/24 03/31/24 18:59 06:59 18:59 Weight 128 kg PQRS Measure Charge Sheet Mode of Arrival: Ambulatory Comment: A 78 yr old female w at side with a history of severe and chronic LBP secondary to L2-S1 fusion w L5-S1 pedicle screws presents today for evaluation s/p SRIDEVI L1-L2 #1. Pt states she experienced 0% pain relief s/p procedure. Pain level is provoked at 5 /10 in intensity, constant, predominantly axial, localized in the lumbar spine, dull in character w occasional shooting towards the back of the LEs R> L. Pain is provoked by bending, lifting. Pain is alleviated with physician guided stretches daily since Oct 2023, medications, topical, manual massage, use of a cane for ambulatory assistance, repositioning and rest. Interventional pain procedures completed include BL RFA L2-L5 (2018), SRIDEVI L1-L2 x1 Patient is currently on Tyl #3, Tyl, Ibu Patient denies any side effects of the medication(s), denies excessive drowsiness or sleepiness, denies suicidal ideation and reports that the current pain medication is helping to control the pain and improve activities of daily living. Patient denies any motor or sensory deficits. Patient denies any fever or night sweats, denies any change in the bowel movements or urination. Physical Examination: -Constitutional: Cooperative. Not in acute distress . - Neurologic: Cranial nerve II to XII intact. No focal neurological def icits. - Psychatric: Alert & oriented x 3. Matching mood & appropriate affect. Judgment and insight intact. - Musculoskeletal: Cervical spine: Muscle bulk/ tone/ strength in the bilateral upper extremities normal Vertebral body tenderness to palpation over Spurling test positive Distraction test positive Facet loading test positive TTP Thoracic spine Muscle bulk / tone/ strength in the bilateral paraspinal muscles normal Vertebral body tender to palpation over Facet loading test positive TTP Lumbar spine: Motor bulk/ tone/ strength lower extremities , thigh and legs : 5/5 Deep tendon reflexes : Normal Knee Jerk. Normal Ankle Jerk . Vertebral body tenderness to palpation over L1 Patel Test positive R> L L1-L2 Lumbar Facet Loading Test positive Straight Leg Raise: positive at 30 degrees right side/ left side Gaenslen's Test positive Sacral spine : Severe tenderness over the Sacroiliac joint: right side / left side Range of motion: Flexion of the lumbar spine <60 degrees Range of motion: Extension of the lumbar spine <20 degrees Gaenslen's Test positive right side / left side Randa test: positive right side / left side Thigh Thrust Test positive right side / left side Sacral Thrust Test positive right side / left side Assessment and plan: Chronic LBP secondary to L2-S1 fusion w L5-S1 pedicle screws Recommendation of medication management. Opiate/ Narcotic agreement signed 03/31/24 Chronic and current use of high-risk medication (Opioids). The patient was counseled about risk of opioid use, psychological risk associated with opioids and was orally counseled to not overuse , divert or sell medications. Pt is to store medication in a safe location. The patient is counseled against driving while using narcotic medications and also not to use alcohol or any illicit recreational drugs. Patient verbalized understanding that the lack of compliance will result in failure to renew narcotic prescription(s) as well as possible discharge from the clinic Diagnoses, prognosis and treatment options including but not limited to physical therapy, surgical interventions, interventional therapies and medication management including narcotics and adjuvant medication were discussed. Will discontinue Tylenol #3. All patient questions answered . MAPS reviewed and it was appropriate. Prescription for [place] 10 /325gm #60 w 1 RF Use, side effects, adverse reactions, safe storage discussed. I have spent less than 30 minutes on patient care today. Dr Deutsch was available by phone for the evaluation of this patient. The time was used to review the medical records including relevant urine studies and Prescription history (MAPs), review of the available imaging, evaluation and examination of the patient, coordination of care with the medical staff and if applicable referring physicians, as well as creation of the medical record - Pain Location Lower Back Non-Pharmacological Interventions: Distraction Pharmacological Interventions: PRN Medication PQRS Narrative: Smoking Status Former smoker Narcotic Agreement Date Signed 03/31/24 Blood Pressure 150/84 Pain Intensity [Lower Back] 5 Scale Used Numeric (1 - 10) Hx Alcohol Use (MH) Yes: occational Home Medications: Ambulatory Orders Losartan Potassium [Cozaar] 100 mg PO DAILY 05/07/18 Memantine [Namenda] 10 mg PO BID 11/20/22 Acetaminophen Tab [Tylenol] 500 mg PO Q6HR PRN 08/08/23 Loratadine 10 mg PO DAILY 08/23/23 amLODIPine [Norvasc] 10 mg PO DAILY 08/23/23 hydroCHLOROthiazide [Hydrodiuril] 25 mg PO DAILY 08/23/23 HYDROcodone/APAP 10-325MG [[place] 10-325] 1 tab PO BID PRN 30 Days #60 tab 03/31/24 HYDROcodone/APAP 10-325MG [[place] 10-325] 1 tab PO BID PRN 30 Days #60 tab 03/31/24 Controlled Substance Measures - Controlled Substance Measures Is patient prescribed a controlled substance at discharge?: Yes When asked, does pt state using other controlled substances?: No If prescribed controlled substance>3 days was MAPS reviewed?: Yes If Rx opioid, was Start Talking consent form obtained?: Yes Was information provided regarding opioid addiction?: Yes
== END ==
LOC: PNWHC3 13:12
PROVIDERS: ATTEND Specialist
DX: M43.27 Fusion of spine, lumbosacral region (principal); M47.816 Spondylosis without myelopathy or radiculopathy, lumbar region; Z79.891 Long term (current) use of opiate analgesic; Z88.5 Allergy status to narcotic agent; Z88.6 Allergy status to analgesic agent; Z87.891 Personal history of nicotine dependence
CPT/HCPCS: 99211

== ENCOUNTER → 2024-06-10 | Outpatient (CLI) | payer MEDICARE ==
--- NOTE | 2024-06-10 14:59 | XR ---
EXAMINATION TYPE: XR abdomen 1V DATE OF EXAM: 06/10/2024 2:52 PM COMPARISON: 01/24/2023 CLINICAL INDICATION: Female, 79 years old with history of K59.00 CONSTIPATION, UNSPECIFIED, pain TECHNIQUE: AP supine view(s) obtained. FINDINGS: Postsurgical changes in the lower lumbosacral region. Normal colonic bowel gas is present. No mass effect is evident. Psoas margins are normal. Organomegal y is not evident. Femoral heads articulate with the acetabulum. No acute osseous abnormality evident. Spondylosis is in the upper lumbar spine IMPRESSION: 1. No acute abdomen changes. [facility], , 06/10/2024 2:57 PM
--- NOTE | 2024-06-10 15:10 | XR ---
EXAMINATION TYPE: XR pelvis AP view DATE OF EXAM: 06/10/2024 2:52 PM COMPARISON: None. CLINICAL INDICATION: Female, 79 years old with history of K59.00 CONSTIPATION, UNSPECIFIED, TECHNIQUE: XR pelvis AP view view(s) obtained. FINDINGS: There is a normal bowel gas pattern. Some fecal debris is in the ascending colon region. Postsurgical changes are present L5-S1 region. Symphysis pubis is normal. Degenerative changes are at sacroiliac joints bilaterally. Femoral heads a rticulate with the acetabulum. Mild joint space narrowing is present. IMPRESSION: 1. No acute osseous abnormality. 2. Degenerative changes at sacroiliac joints. Mild degenerative changes are at the bilateral hips [facility], , 06/10/2024 3:08 PM
== END | disposition home or self-care (01) ==
LOC: RADXRMAIN 14:29
PROVIDERS: ATTEND Nurse Practitioner Family
DX: M16.0 Bilateral primary osteoarthritis of hip (principal); M53.3 Sacrococcygeal disorders, not elsewhere classified; K59.00 Constipation, unspecified
CPT/HCPCS: 72170; 74018

== ENCOUNTER 2024-08-03 14:01 | Emergency (ER) | payer MEDICARE ==
[2024-08-03 14:13] VITALS: TEMP 98.1
--- NOTE | 2024-08-03 14:36 | ED ---
Recheck HPI - General Chief Complaint: Recheck/Abnormal Lab/Rx Stated Complaint: Blood Pressure Issues Time Seen by Provider: 08/03/24 14:20 Source: patient, RN notes reviewed Mode of arrival: ambulatory Limitations: no limitations - History of Present Illness Initial Comments: This is a 79-year-old female who presents to the emergency department for luca vated blood pressure. Patient presents with her , who provides the majority of the history due to patient having a history of dementia. He states that her blood pressure is usually in the 160s systolically and today was in the 180s. He cannot recall what blood pressure medication she is on, but denies any missed doses. Patient also advised that she is having some burning with urination and right mid to lower back pain. However, given the history of dementia it is unclear how long this has been going on. Family does also note that she has a history of chronic back pain. They are unsure if she has chest pain or shortness of breath, she will occasionally make statements and then r etracts them. It is also unclear if she is having any headaches. - Related Data Home Medications Medication Instructions Recorded Confirmed Losartan Potassium [Cozaar] 100 mg PO DAILY 05/07/18 08/03/24 Docusate [Colace] 100 mg PO DAILY 08/03/24 08/03/24 Rosuvastatin [Crestor] 10 mg PO DAILY 08/03/24 08/03/24 Allergies Allergy/AdvReac Type Severity Reaction Status Date / Time meloxicam [From Mobic] Allergy Unknown Unknown- Verified 08/03/24 15:[address] Saenz boarding slip morphine AdvReac Mild Nausea & Verified 08/03/24 15:59 Vomiting, allergy to duramorph from boarding slip hydrocodone [From [facility]] AdvReac Nausea & Verified 08/03/24 15:59 Vomiting narcotics AdvReac Unknown states Uncoded 03/03/24 15:02 needs smaller dose-takes 1/2 of tyl#3. Review of Systems ROS Statement: Those systems with pertinent positive or pertinent negative responses have been documented in the HPI. ROS Other: All systems not noted in ROS Statement are negative. Past Medical History Past Medical History: Cancer, Dementia, Hypertension, Myocardial Infarction ([place]), Osteoarthritis (OA), Thyroid Disorder Additional Past Medical History / Comment(s): skin cancer, chronic back pain, hiatal hernia. Current ventral Hernia. Edema LLE. right ear in fection on cephalexin. having colonoscopy for mass in bowel per Last Myocardial Infarction Date:: 07-18-1994 History of Any Multi-Drug Resistant Organisms: None Reported Past Surgical History: Back Surgery, Bowel Resection, Breast Surgery, Heart Catheterization, Joint Replacement, Orthopedic Surgery, Tonsillectomy, Tubal Ligation Additional Past Surgical History / Comment(s): skin cancer-LESIONS , breast bx x2, back fusion x2. arthroscopy lt knee 2016. left knee replaced July 2017, pain procedures, colonoscopy Past Anesthesia/Blood Transfusion Reactions: Postoperative Nausea & Vomiting (PONV) Additional Past Anesthesia/Blood Transfusion Reaction / Comment(s): past blood transfusion-denies any reaction to it Past Psychological History: No Psychological Hx Reported Smoking Status: Never smoker Past Alcohol Use History: Occasional Past Drug Use History: None Reported - Past Family History Mother Family Medical History: No Reported History Additional Family Medical History / Comment(s): at age 93 Father History Unknown: Yes Family Medical History: Coronary Artery Disease (CAD) Additional Family Medical History / Comment(s): at age 42 Son(s) Family Medical History: Cancer, Myocardial Infarction ([place]) Additional Family Medical History / Comment(s): colon CA. Brother(s) Family Medical History: Cancer Additional Family Medical History / Comment(s): skin cancer General Exam Limitations: no limitations General appearance: alert, in no apparent distress Head exam: Present: atraumatic, normocephalic, normal inspection Eye exam: Present: PERRL, EOMI Respiratory exam: Present: normal lung sounds bilaterally. Absent: respiratory distress, wheezes, rales, rhonchi, stridor Cardiovascular Exam: Present: regular rate, normal rhythm Neurological exam: Present: alert Skin exam: Present: warm, dry, intact, normal color. Absent: rash Course Vital Signs 08/03/24 08/03/24 08/03/24 14:06 17:26 17:55 Temperature 98.1 F Pulse Rate 58 L 62 60 Respiratory 20 16 18 Rate Blood Pressure 191/94 185/84 202/83 O2 Sat by Pulse 94 L 96 97 Oximetry 08/03/24 08/03/24 08/03/24 18:15 18:42 19:13 Temperature Pulse Rate 60 70 79 Respiratory 18 18 18 Rate Blood Pressure 187/77 184/84 190/83 O2 Sat by Pulse 96 98 Oximetry 08/03/24 19:25 Temperature Pulse Rate 74 Respiratory 18 Rate Blood Pressure 159/88 O2 Sat by Pulse 99 Oximetry Medical Decision Making - Medical Decision Making This is a 79-year-old female who presents to the emergency department for elevated blood pressure and urinary symptoms. Was pt. sent in by a medical professional or institution? @ -No Did you speak to anyone other than the patient for history? @ -Her provided the majority of the history. Did you review nursing and triage notes? @ -Yes, and I agree, it is accurate with regards to the patient's symptoms. Were old charts reviewed? @ -No Differential Diagnosis? @ -Medication error, resistance to medication, renal failure, infection, this is not meant to be an all-inclusive list. EKG interpreted by me (3pts min.)? @ -EKG interpreted by me demonstrating the following: Sinus bradycardia. Ventricular rate 54 bpm, UT interval 160 ms, QRS duration 86 ms, QTc 411 ms. X-rays interpreted by me (1pt min.)? @ -Not obtained CT interpreted by me (1pt min.)? @ -CT scan of the brain obtained. My interpretation identifies no acute intracranial hemorrhage. U/S interpreted by me (1pt. min.)? @ -Not obtained What testing was considered but not performed? (CT, X-rays, U/S, labs)? Why? @ -None What meds were considered but not given? Why? @ -None Did you discuss the management of the patient with other professionals? @ -No Did you reconcile home meds? @ -No Was smoking cessation discussed for >3mins.? @ -No Was critical care preformed (if so, how long)? @ -No Were there social determinants of health that impacted care today? How? (Homelessness, low income, unemployed, alcoholism, drug addiction, transportation, low edu. Level, literacy, decrease access to med. care, assisted, rehab)? @ -No Was there de-escalation of care discussed even if they declined? (Discuss DNR or withdrawal of care, Hospice)? @ -No What co-morbidities impacted this encounter? (DM, HTN, Smoking, COPD, CAD, Cancer, CVA, Hep., AIDS, mental health diagnosis, sleep apnea, morbid obesity)? @ -Dementia, HTN Was patient admitted / discharged? @ -Discharged. Lab work demonstrates mildly elevated LFTs and is otherwise unremarkable. Urinalysis negative for signs of infection. CT scan of the brain obtained revealing no acute process. Patient was treated with hydralazine and labetalol with improvement in blood pressure. She is currently on losartan 100 mg daily. Advised she continue to keep a log of her blood pressure values and bring them into her next primary care provider appointment in the event any medication adjustments need to be made. Patient discharged home in stable condition. Case discussed with ED attending Dr. Manley. Return precautions reviewed in depth, the patient is instructed to return to the emergency department with any new, worsening, or concerning symptoms. Patient and her verbalized understanding. Undiagnosed new problem with uncertain prognosis? @ -None Drug Therapy requiring intensive monitoring for toxicity (Heparin, Nitro, Insulin, Cardizem)? @ -None Were any procedures done? @ -None Diagnosis/symptom? @ -Hypertension Acute, or Chronic, or Acute on Chronic? @ -Chronic Uncomplicated (without systemic symptoms) or Complicated (systemic symptoms)? @ -Uncomplicated Side effects of treatment? @ -None Exacerbation, Progression, or Severe Exacerbation] @ -Exacerbation Poses a threat to life or bodily function? @ -Unlikely - Lab Data Result diagrams: 08/03/24 14:53 08/03/24 14:49 Lab Results 08/03/24 08/03/24 08/03/24 Range/Units 14:49 14:49 14:49 WBC (4.50-10.00) 10*3/uL RBC (4.10-5.20) 10*6/uL Hgb (12.0-15.0) g/dL Hct (37.2-46.3) % MCV (80.0-97.0) fL MCH (27.0-32.0) pg MCHC (32.0-37.0) g/dL Plt Count (140-440) 10*3/uL MPV (9.5-12.2) fL Immature Gran % (Auto) % Neutrophils % % Lymphocytes % % Monocytes % % Eosinophils % % Basophils % % Immature Gran # (0.00-0.04) 10*3/uL Neutrophils # (1.80-7.70) 10*3/uL Lymphocytes # (0.90-5.00) 10*3/uL Monocytes # (0.20-1.00) 10*3/uL Eosinophils # (0.04-0.35) 10*3/uL Basophils # (0.00-0.10) 10*3/uL PT 11.2 (10.0-12.5) sec INR 1.0 (<1.2) APTT 24.0 (22.0-30.0) sec Sodium 136 L (137-145) mmol/L Potassium 4.1 (3.5-5.1) mmol/L Chloride 102 (98-107) mmol/L Carbon Dioxide 27 (22-30) mmol/L Anion Gap 7 mmol/L BUN 10 (7-17) mg/dL Creatinine 0.43 L (0.52-1.04) mg/dL Est GFR (CKD-EPI)AfAm >90 (>60 ml/min/1.73 sqM) Est GFR (CKD-EPI)NonAf >90 (>60 ml/min/1.73 sqM) Glucose 87 (74-99) mg/dL Calcium 9.3 (8.4-10.2) mg/dL Magnesium 1.9 (1.6-2.3) mg/dL Total Bilirubin 1.2 (0.2-1.3) mg/dL AST 128 H (14-36) U/L ALT 101 H (4-34) U/L Alkaline Phosphatase 100 (38-126) U/L Troponin I <0.012 (0.000-0.034) ng/mL Total Protein 6.4 (6.3-8.2) g/dL Albumin 4.1 (3.5-5.0) g/dL TSH 0.619 (0.465-4.680) mIU/L Urine Color Urine Appearance (Clear) Urine pH (5.0-8.0) Ur Specific [place] (1.001-1.035) Urine Protein (Negative) Urine Glucose (UA) (Negative) Urine Ketones (Negative) Urine Blood (Negative) Urine Nitrite (Negative) Urine Bilirubin (Negative) Urine Urobilinogen (<2.0) mg/dL Ur Leukocyte Esterase (Negative) 08/03/24 08/03/24 Range/Units 14:53 17:15 WBC 5.80 (4.50-10.00) 10*3/uL RBC 4.88 (4.10-5.20) 10*6/uL Hgb 14.0 (12.0-15.0) g/dL Hct 41.1 (37.2-46.3) % MCV 84.2 (80.0-97.0) fL MCH 28.7 (27.0-32.0) pg MCHC 34.1 (32.0-37.0) g/dL Plt Count 189 (140-440) 10*3/uL MPV 9.8 (9.5-12.2) fL Immature Gran % (Auto) 0.2 % Neutrophils % 63.9 % Lymphocytes % 21.9 % Monocytes % 9.0 % Eosinophils % 4.3 % Basophils % 0.7 % Immature Gran # 0.01 (0.00-0.04) 10*3/uL Neutrophils # 3.71 (1.80-7.70) 10*3/uL Lymphocytes # 1.27 (0.90-5.00) 10*3/uL Monocytes # 0.52 (0.20-1.00) 10*3/uL Eosinophils # 0.25 (0.04-0.35) 10*3/uL Basophils # 0.04 (0.00-0.10) 10*3/uL PT (10.0-12.5) sec INR (<1.2) APTT (22.0-30.0) sec Sodium (137-145) mmol/L Potassium (3.5-5.1) mmol/L Chloride (98-107) mmol/L Carbon Dioxide (22-30) mmol/L Anion Gap mmol/L BUN (7-17) mg/dL Creatinine (0.52-1.04) mg/dL Est GFR (CKD-EPI)AfAm (>60 ml/min/1.73 sqM) Est GFR (CKD-EPI)NonAf (>60 ml/min/1.73 sqM) Glucose (74-99) mg/dL Calcium (8.4-10.2) mg/dL Magnesium (1.6-2.3) mg/dL Total Bilirubin (0.2-1.3) mg/dL AST (14-36) U/L ALT (4-34) U/L Alkaline Phosphatase (38-126) U/L Troponin I (0.000-0.034) ng/mL Total Protein (6.3-8.2) g/dL Albumin (3.5-5.0) g/dL TSH (0.465-4.680) mIU/L Urine Color Colorless Urine Appearance Clear (Clear) Urine pH 6.5 (5.0-8.0) Ur Specific [place] 1.006 (1.001-1.035) Urine Protein Negative (Negative) Urine Glucose (UA) Negative (Negative) Urine Ketones 1+ H (Negative) Urine Blood Negative (Negative) Urine Nitrite Negative (Negative) Urine Bilirubin Negative (Negative) Urine Urobilinogen <2.0 (<2.0) mg/dL Ur Leukocyte Esterase Negative (Negative) - Radiology Data Radiology results: report reviewed, image reviewed Disposition Clinical Impression: Hypertension, Headache, Urinary symptom or sign Disposition: HOME SELF-CARE Condition: Fair Instructions (If sedation given, give patient instructions): Hypertension (ED) Additional Instructions: Return to the emergency department with any new, worsening, or concerning symptoms. Keep a log of your blood pressure and check it several times each day. Follow up with your primary care provider in 1-2 days. Is patient prescribed a controlled substance at d/c from ED?: No Referrals: Subhash Jon MD [Primary Care Provider] - 1-2 days Time of Disposition: 19:18
[2024-08-03 15:09] LABS: Basophils # (A) 0.04 10*3/uL (0.00-0.10); Basophils % (A) 0.7 %; Eosinophils # (A) 0.25 10*3/uL (0.04-0.35); Eosinophils % (A) 4.3 %; HCT 41.1 % (37.2-46.3); Lymphocytes # (A) 1.27 10*3/uL (0.90-5.00); Lymphocytes % (A) 21.9 %; MCH 28.7 pg (27.0-32.0); MCHC 34.1 g/dL (32.0-37.0); MCV 84.2 fL (80.0-97.0); Mean Platelet Volume 9.8 fL (9.5-12.2); Monocytes # (A) 0.52 10*3/uL (0.20-1.00); Neutrophils # (A) 3.71 10*3/uL (1.80-7.70); Neutrophils % (A) 63.9 %; Platelet Count 189 10*3/uL (140-440); RBC 4.88 10*6/uL (4.10-5.20)
[2024-08-03 15:21] LABS: ALT 101 U/L (4-34); African American GFR (CKD) >90 (>60 ml/min/1.73 sqM); Albumin 4.1 g/dL (3.5-5.0); Anion Gap 7 mmol/L; Blood Urea Nitrogen 10 mg/dL (7-17); Calcium 9.3 mg/dL (8.4-10.2); Carbon Dioxide 27 mmol/L (22-30); Chloride 102 mmol/L (98-107); Glucose 87 mg/dL (74-99); Non-African American GFR(CKD) >90 (>60 ml/min/1.73 sqM); Sodium 136 mmol/L (137-145); Total Bilirubin 1.2 mg/dL (0.2-1.3); Total Protein 6.4 g/dL (6.3-8.2)
[2024-08-03 15:23] LABS: Prothrombin Time 11.2 sec (10.0-12.5)
[2024-08-03 15:24] LABS: AST 128 U/L (14-36); Alkaline Phosphatase 100 U/L (38-126); Magnesium 1.9 mg/dL (1.6-2.3); Potassium 4.1 mmol/L (3.5-5.1)
--- NOTE | 2024-08-03 16:26 | CT ---
EXAMINATION TYPE: CT brain wo con DATE OF EXAM: 08/03/2024 4:04 PM COMPARISON: 07/03/2023. CLINICAL INDICATION: Female, 79 years old with history of Headache, HTN, GUPTA, HTN. TECHNIQUE: Brain: Axial CT images of the brain were obtained with coronal and sagittal reformats created and rev iewed. Contrast used: None. Oral contrast used: None. CT DLP: 1082.4 mGycm, Automated exposure control for dose reduction was used. FINDINGS: Brain: Extra-axial spaces: No abnormal extra-axial fluid collections. Ventricular system: Dilatation in proportion to cerebral atrophy. Cerebral parenchyma: Cerebral atrophy. No acute intraparenchymal hemorrhage or mass effect. The pack -white junction is well differentiated. Scattered hypoattenuating areas are seen within the white mat ter. Cerebellum: Unremarkable. Mass effect: No evidence of midline shift. Intracranial vasculature: Atherosclerotic calcifications of the intracranial vessels. Soft tissues: Normal. Calvarium/osseous structures: No depressed skull fracture. Paranasal sinuses and mastoid air cells: Mild scattered paranasal sinus disease. Visualized orbits: Bilateral aphakia IMPRESSION: 1. No acute intracranial process. 2. Nonspecific white matter changes, likely secondary to chronic small vessel ischemic disease. [facility], , 08/03/2024 4:24 PM
[2024-08-03 17:19] LABS: Appearance,Urine Clear (Clear); Bilirubin,Urine Negative (Negative); Blood,Urine Negative (Negative); Color,Urine Colorless; Glucose,Urine (UA) Negative (Negative); Ketones,Urine 1+ (Negative); Leukocyte Esterase,Urine Negative (Negative); Nitrite,Urine Negative (Negative); PH, Urine 6.5 (5.0-8.0); Protein,Urine Negative (Negative); Specific Gravity,Urine 1.006 (1.001-1.035); Urobilinogen,Urine <2.0 mg/dL (<2.0)
[2024-08-03] MEDS: hydrALAZINE HCL 20 MG/ML 1 ML VIAL IVP STA ×2 (17:53→18:41)
[2024-08-03 17:56] VITALS: RESP 18
[2024-08-03] MEDS: LABETALOL 5 MG/ML VIAL MDV IVP STA (19:12)
[2024-08-03 19:27] VITALS: BP 159/88; PULSE 74
== END 2024-08-03 19:30 | disposition home or self-care (01) ==
LOC: EC 14:01
DX: I10 Essential (primary) hypertension (principal); F03.90 Unspecified dementia, unspecified severity, without behavioral disturbance, psychotic disturbance, mood disturbance, and anxiety; Z88.5 Allergy status to narcotic agent; Z88.6 Allergy status to analgesic agent; Z88.8 Allergy status to other drugs, medicaments and biological substances
CPT/HCPCS: 36415; 93005; 80053; 84443; 83735; 84484; 85025; 85610; 85730; 81003; 70450; 99284; 96374; 96376; J0360; J1920

== ENCOUNTER → 2024-08-26 | Outpatient (CLI) | payer MEDICARE ==
[2024-08-26 12:35] VITALS: BP 157/85; PULSE 61; RESP 18; TEMP 97.9
--- NOTE | 2024-08-26 15:57 | P.PAINPG ---
Objective - Vital Signs Vital signs: Intake & Output 08/25/24 08/26/24 08/26/24 18:59 06:59 18:59 Weight 56.699 kg PQRS Measure Charge Sheet Comment: A 79 yr old female w at side with a history of severe and chronic LBP secondary to L2-S1 fusion w L5-S1 pedicle screws presents today for medication refills. Pain level is provoked at 5 /10 in intensity, constant, predominantly axial, localized in the lumbar spine, dull in character w occasional shooting towards the back of the LEs R> L. Pain is provoked by bending, lifting. Pain is alleviated with physician guided stretches daily since Oct 2023, medications, topical, manual massage, use of a cane for ambulatory assistance, repositioning and rest. Interventional pain procedures completed include BL RFA L2-L5 (2018), SRIDEVI L1-L2 x1 Patient is currently on Tyl #3, Tyl, Ibu Patient denies any side effects of the medication(s), denies excessive drowsiness or sleepiness, denies suicidal ideation and reports that the current pain medication is helping to control the pain and improve activities of daily living. Patient denies any motor or sensory deficits. Patient denies any fever or night sweats, denies any change in the bowel movements or urination. Physical Examination: -Constitutional: Cooperative. Not in acute distress . - Neurologic: Cranial nerve II to XII intact. No focal neurological deficits. - Psychatric: Alert & oriented x 3. Matching mood & appropriate affect. Judgment and insight intact. - Musculoskeletal: Cervical spine: Muscle bulk/ tone/ strength in the bilateral upper extremities normal Vertebral body tenderness to palpation over Spurling test positive Distraction test positive Facet loading test positive TTP Thoracic spine Muscle bulk / tone/ strength in the bilateral paraspinal muscles normal Vertebral body tender to palpation over Facet loading test positive TTP Lumbar spine: Motor bulk/ tone/ strength lower extremities , thigh and legs : 5/5 Deep tendon reflexes : Normal Knee Jerk. Normal Ankle Jerk . Vertebral body tenderness to palpation over L1 Patel Test positive R> L L1-L2 Lumbar Facet Loading Test positive Straight Leg Raise: positive at 30 degrees right side/ left side Gaenslen's Test positive Sacral spine : Severe tenderness over the Sacroiliac joint: right side / left side Range of motion: Flexion of the lumbar spine <60 degrees Range of motion: Extension of the lumbar spine <20 degrees Gaenslen's Test positive right side / left side Randa test: positive right side / left side Thigh Thrust Test positive right side / left side Sacral Thrust Test positive right side / left side Assessment and plan: Chronic LBP secondary to L2-S1 fusion w L5-S1 pedicle screws Recommendation of medication management. Opiate/ Narcotic agreement signed 03/31/24 Chronic and current use of high-risk medication (Opioids). The patient was counseled about risk of opioid use, psychological risk associated with opioids and was orally counseled to not overuse , divert or sell medications. Pt is to store medication in a safe location. The patient is counseled against driving while using narcotic medications and also not to use alcohol or any illicit recreational drugs. Patient verbalized understanding that the lack of compliance will result in failure to renew narcotic prescription(s) as well as possible discharge from the clinic Diagnoses, prognosis and treatment options including but not limited to physical therapy, surgical interventions, interventional therapies and medication management including narcotics and adjuvant medication were discussed. All patient questions answered . MAPS reviewed and it was appropriate. Prescription for Spreckels 10 /325gm #60 w 1 RF Use, side effects, adverse reactions, safe storage discussed. I have spent less than 30 minutes on patient care today. Dr Deutsch was available by phone for the evaluation of this patient. The time was used to review the medical records including relevant urine studies and Prescription history (MAPs), review of the available imaging, evaluation and examination of the patient, coordination of care with the medical staff and if applicable referring physicians, as well as creation of the medical record - Pain Location Lower Back Non-Pharmacological Interventions: Inactivity, Massage PQRS Narrative: Smoking Status Former smoker Narcotic Agreement Date Signed 03/31/24 Hx Alcohol Use (MH) Yes: occational Home Medications: Ambulatory Orders Losartan Potassium [Cozaar] 100 mg PO DAILY 05/07/18 Docusate [Colace] 100 mg PO DAILY 08/03/24 Rosuvastatin [Crestor] 10 mg PO DAILY 08/03/24 HYDROcodone/APAP 10-325MG [Spre[place]els 10-325] 1 tab PO BID PRN 30 Days #60 tab 08/26/24 Controlled Substance Measures - Controlled Substance Measures Is patient prescribed a controlled substance at discharge?: Yes When asked, does pt state using other controlled substances?: No If prescribed controlled substance>3 days was MAPS reviewed?: Yes
== END ==
LOC: PNWHC3 12:10
PROVIDERS: ATTEND Specialist
DX: M43.27 Fusion of spine, lumbosacral region (principal); G89.29 Other chronic pain; Z87.891 Personal history of nicotine dependence; Z88.5 Allergy status to narcotic agent; Z88.6 Allergy status to analgesic agent
CPT/HCPCS: 99211